=== PATIENT | female | born 1950 | race Caucasian/White ===

== ENCOUNTER 2018-08-24 12:36 | Emergency (ER) | payer MEDICARE, OTHER ==
[~2018-08-24] VITALS: Ht 157.5 cm; Wt 77.1 kg
[2018-08-24 13:25] LABS: BASOPHILS % (AUTO) 0 % (0-10); EOSINOPHILS # (AUTO) 0.2 10^3/uL (0.0-0.3); EOSINOPHILS % (AUTO) 2 % (0-10); HEMATOCRIT 45 % (35-52); HEMOGLOBIN 15.5 G/DL (11.5-16.0); LYMPHOCYTES % (AUTO) 26 % (12-44); MEAN CORPUSCULAR HEMOGLOBIN 31 PG (25-34); MEAN CORPUSCULAR HGB CONC 35 G/DL (32-36); MEAN CORPUSCULAR VOLUME 90 FL (80-99); MEAN PLATELET VOLUME 10.8 FL (7.4-10.4); MONOCYTES # (AUTO) 0.7 X 10^3 (0.0-1.0); MONOCYTES % (AUTO) 10 % (0-12); NEUTROPHILS # (AUTO) 4.7 X 10^3 (1.8-7.8); NEUTROPHILS % (AUTO) 62 % (42-75); PLATELET COUNT 270 10^3/uL (130-400); RED BLOOD COUNT 4.97 10^6/uL (4.35-5.85); RED CELL DISTRIBUTION WIDTH 12.7 % (10.0-14.5); WHITE BLOOD COUNT 7.6 10^3/uL (4.3-11.0)
[2018-08-24 13:28] LABS: BILIRUBIN,URINE NEGATIVE (NEGATIVE); CLARITY,URINE CLEAR; COLOR,URINE YELLOW; GLUCOSE, URINE (UA) 4+ (NEGATIVE); KETONES,URINE NEGATIVE (NEGATIVE); LEUKOCYTE ESTERASE ,URINE 1+ (NEGATIVE); NITRITE,URINE NEGATIVE (NEGATIVE); PH,URINE 6 (5-9); PROTEIN,URINE 3+ (NEGATIVE); UROBILINOGEN,URINE NORMAL (NORMAL)
[2018-08-24] MEDS ORDERED: NS IV 500 ML 500 ML IV ONE (13:28)
[2018-08-24 13:42] LABS: ALBUMIN 4.2 GM/DL (3.2-4.5); BILIRUBIN,TOTAL 0.6 MG/DL (0.1-1.0); CALCIUM 10.3 MG/DL (8.5-10.1); CREATININE SERUM 1.15 MG/DL (0.60-1.30); POTASSIUM 3.9 MMOL/L (3.6-5.0); TOTAL PROTEIN 7.8 GM/DL (6.4-8.2)
[2018-08-24 13:43] LABS: BACTERIA,URINE NEGATIVE /HPF; YEAST,URINE FEW /HPF
[2018-08-24] MEDS ORDERED: NS IV 1000 ML 1,000 ML IV SCH (13:47)
[2018-08-24] MEDS ORDERED: inSUlin (REGULAR) HUMAN 1 UNIT/0.01 ML (CHARGE PER UNIT) ONE (13:56)
--- NOTE | 2018-08-24 14:04 | Diagnostic Imaging Report ---
INDICATION: Shortness of air. TIME OF EXAM: 1:26 p.m. COMPARISON: No prior studies are available for comparison. FINDINGS: There are changes of median sternotomy and CABG. The lungs are clear. No infiltrate or failure is seen. No effusion or pneumothorax is detected. IMPRESSION: No acute cardiopulmonary process is detected. Dictated by: Dictated on workstation # [id number]
--- NOTE | 2018-08-24 14:24 | ED General ---
General Chief Complaint: General Problems/Pain Stated Complaint: UTI SYMPTOMS/SOA Nursing Triage Note: PT PRESENTS TO ER WITH COMPLAINT OF UTI, SOA, AND GENERAL "DOWNHILL" SYMPTOMS OVER THE LAST TWO YEARS. Nursing Sepsis Screen: No Definite Risk History of Present Illness Date Seen by Provider: Aug 24, 2018 Time Seen by Provider: 12:58 Initial Comments 67 year old female presents for chronic UTI, inserted and about self- care at home and recent fall. Her son reports that her health is been declining over the last 2-3 years after she suffered a stroke due to an aneurysm in her brain. She has been treated by multiple primary care providers in [place], she prefers to establish care with a provider in [place]. She has not taken her diabetes or hypertension medications for the last several days. She was afraid there is Sulfa in her diabetes medicines. She didn't take her B/P meds because she has to urinate too frequently after taking them. She has been on Augmentin for the last few days for UTI. Pt brought by her son, another son stays at her house with her. She is concerned, as she is having more and more difficulty performing ADLs independently. Her son states "she needs admitted so we can get her help" She has a history of fibromyalgia and hypothyroidism. Timing/Duration: 2-3 Days Severity: Mild Modifying Factors: improves with Rest Associated Systoms: No Chest Pain, No Cough, No Diaphoresis, No Fever/Chills, No Headaches, No Loss of Appetite; Malaise; No Nausea/Vomiting, No Rash, No Seizure; Shortness of Air; No Syncope; Weakness Allergies and Home Medications Allergies Coded Allergies: Sulfa (Sulfonamide Antibiotics) (Verified Allergy, Unknown, 08/24/18) Patient Home Medication List Home Medication List Reviewed: Yes Review of Systems Review of Systems Constitutional: no symptoms reported, see HPI Genitourinary: see HPI, dysuria, frequency Musculoskeletal: see HPI, joint pain, muscle pain, other (she has history of fibromyalgia with generalized pain) All Other Systems Reviewed Negative Unless Noted: Yes Past Sbkiwok-[id number]-Zffsnc Hx Past Med/Social Hx: Reviewed Nursing Past Med/Soc Hx Patient Social History Alcohol Use: Denies Use Recreational Drug Use: No Smoking Status: Never a Smoker Recent Foreign Travel: No Contact w/Someone Who Travel: No Recent Infectious Disease Expo: No Recent Hopitalizations: No Immunizations Up To Date Tetanus Booster (TDap): Unknown Seasonal Allergies Seasonal Allergies: No Past Medical History Surgeries: Yes Bladder Surgery, CABG, Hysterectomy Respiratory: Yes Pulmonary Embolism Cardiac: Yes Aneurysm, Hypertension Neurological: Yes Stroke [place] [facility] [place] [employer] History: Hysterectomy Genitourinary: Yes UTI-Chronic Musculoskeletal: Yes Fibromyalgia, Chronic Back Pain Endocrine: Yes Diabetes, Non-Insulin dep HEENT: No Cancer: No Psychosocial: No Integumentary: No Blood Disorders: No Physical Exam Vital Signs Vital Signs - First Documented 08/24/18 12:55 Temp 98.1 Pulse 99 Resp 20 B/P (MAP) 202/106 (138) Pulse Ox 93 O2 Delivery Room Air Capillary Refill : Less Than 3 Seconds Height, Weight, BMI Height: 5'2.00" Weight: 170lbs. oz. 77.892879un; BMI Method:Stated General Appearance: No Apparent Distress, WD/WN Eyes: Bilateral Eye Normal Inspection, Bilateral Eye PERRL, Bilateral Eye EOMI HEENT: PERRL/EOMI, TMs Normal, Normal ENT Inspection, Pharynx Normal Neck: Full Range of Motion, Normal Inspection, Non Tender, Supple Respiratory: Chest Non Tender, Lungs Clear, Normal Breath Sounds Cardiovascular: Regular Rate, Rhythm, No Edema, Normal Peripheral Pulses Gastrointestinal: Normal Bowel Sounds, Non Tender, Soft Neurologic/Psychiatric: Alert, Oriented x3, No Motor/Sensory Deficits, Normal Mood/Affect Skin: Normal Color, Warm/Dry Focused Exam Lactate Level 08/24/18 13:10: Lactic Acid Level 2.51*H 08/24/18 15:06: Lactic Acid Level 1.45 Lactic Acid Level Laboratory Tests Test 08/24/18 13:10 08/24/18 15:06 Lactic Acid Level 2.51 MMOL/L (0.50-2.00) *H 1.45 MMOL/L (0.50-2.00) Progress/Results/Core Measures Suspected Sepsis Recent Fever Within 48 Hours: No Infection Criteria Present: Documented Infection New/Unexplained Altered Menta: No Sepsis Screen: No Definite Risk Within 3hrs of presentation: Admin fluids, Blood cultures prior to ABX's, Focus exam, Lactate level SIRS Temperature:98.1 Pulse: 99 Respiratory Rate: 20 Laboratory Tests 08/24/18 13:10: White Blood Count 7.6 Blood Pressure 202 /106 Mean: 138 08/24/18 13:10: Lactic Acid Level 2.51*H 08/24/18 15:06: Lactic Acid Level 1.45 Laboratory Tests 08/24/18 13:10: Creatinine 1.15, INR Comment 1.0, Platelet Count 270, Total Bilirubin 0.6 Results/Orders Lab Results Laboratory Tests Test 08/24/18 13:10 08/24/18 14:42 08/24/18 15:06 Range/Units White Blood Count 7.6 4.3-11.0 10^3/uL Red Blood Count 4.97 4.35-5.85 10^6/uL Hemoglobin 15.5 11.5-16.0 G/DL Hematocrit 45 35-52 % Mean Corpuscular Volume 90 80-99 FL Mean Corpuscular Hemoglobin 31 25-34 PG Mean Corpuscular Hemoglobin Concent 35 32-36 G/DL Red Cell Distribution Width 12.7 10.0-14.5 % Platelet Count 270 130-400 10^3/uL Mean Platelet Volume 10.8 H 7.4-10.4 FL Neutrophils (%) (Auto) 62 42-75 % Lymphocytes (%) (Auto) 26 12-44 % Monocytes (%) (Auto) 10 0-12 % Eosinophils (%) (Auto) 2 0-10 % Basophils (%) (Auto) 0 0-10 % Neutrophils # (Auto) 4.7 1.8-7.8 X 10^3 Lymphocytes # (Auto) 2.0 1.0-4.0 X 10^3 Monocytes # (Auto) 0.7 0.0-1.0 X 10^3 Eosinophils # (Auto) 0.2 0.0-0.3 10^3/uL Basophils # (Auto) 0.0 0.0-0.1 10^3/uL Prothrombin Time 13.0 12.2-14.7 SEC INR Comment 1.0 0.8-1.4 Activated Partial Thromboplast Time 25 24-35 SEC Urine Color YELLOW Urine Clarity CLEAR Urine pH 6 5-9 Urine Specific [place] 1.015 L 1.016-1.022 Urine Protein 3+ H NEGATIVE Urine Glucose (UA) 4+ H NEGATIVE Urine Ketones NEGATIVE NEGATIVE Urine Nitrite NEGATIVE NEGATIVE Urine Bilirubin NEGATIVE NEGATIVE Urine Urobilinogen NORMAL NORMAL MG/DL Urine Leukocyte Esterase 1+ H NEGATIVE Urine RBC (Auto) NEGATIVE NEGATIVE Urine RBC NONE /HPF Urine WBC 2-5 /HPF Urine Squamous Epithelial Cells 5-10 /HPF Urine Crystals NONE /LPF Urine Bacteria NEGATIVE /HPF Urine Casts NONE /LPF Urine Mucus NEGATIVE /LPF Urine Yeast FEW H /HPF Urine Culture Indicated NO Sodium Level 135 135-145 MMOL/L Potassium Level 3.9 3.6-5.0 MMOL/L Chloride Level 98 98-107 MMOL/L Carbon Dioxide Level 25 21-32 MMOL/L Anion Gap 12 5-14 MMOL/L Blood Urea Nitrogen 15 7-18 MG/DL Creatinine 1.15 0.60-1.30 MG/DL Estimat Glomerular Filtration Rate 47 BUN/Creatinine Ratio 13 Glucose Level 473 *H 70-105 MG/DL Lactic Acid Level 2.51 *H 1.45 0.50-2.00 MMOL/L Calcium Level 10.3 H 8.5-10.1 MG/DL Corrected Calcium 10.1 8.5-10.1 MG/DL Total Bilirubin 0.6 0.1-1.0 MG/DL Aspartate Amino Transf (AST/SGOT) 24 5-34 U/L Alanine Aminotransferase (ALT/SGPT) 39 0-55 U/L Alkaline Phosphatase 97 40-136 U/L Total Protein 7.8 6.4-8.2 GM/DL Albumin 4.2 3.2-4.5 GM/DL Glucometer 365 H 70-110 MG/DL My Orders Orders - RICHARD OROSCO Ua Culture If Indicated (08/24/18 12:42) Cbc With Automated Diff (08/24/18 13:16) Comprehensive Metabolic Panel (08/24/18 13:16) Blood Culture (08/24/18 13:16) Protime With Inr (08/24/18 13:16) Partial Thromboplastin Time (08/24/18 13:16) Chest 1 View, Ap/Pa Only (08/24/18 13:16) Saline Lock/Iv-Start (08/24/18 13:16) Vital Signs Adult Sepsis Patie Q15M (08/24/18 13:16) O2 (08/24/18 13:16) Lactic Acid Analyzer (08/24/18 13:16) Saline Lock/Iv-Start (08/24/18 13:28) Saline Lock/Iv-Start (08/24/18 13:47) Ns Iv 1000 Ml (Sodium Chloride 0.9%) (08/24/18 13:47) Tramadol Tablet (Ultram Tablet) (08/24/18 13:47) Insulin (Regular) Human (Humulin R (Per (08/24/18 13:56) Accucheck Stat ONCE (08/24/18 14:31) Ondansetron Injection (Zofran Injectio (08/24/18 14:45) Losartan Tablet (Cozaar Tablet) (08/24/18 15:00) Amlodipine Tablet (Norvasc Tablet) (08/24/18 15:00) Medications Given in ED Current Medications Medications Dose Ordered Sig/Briseida Route Start Time Stop Time Status Last Admin Dose Admin Insulin Human Regular 1 unit STK-MED ONCE .ROUTE 08/24/18 13:56 08/24/18 13:58 DC 08/24/18 14:02 10 UNIT Ondansetron HCl 4 mg ONCE ONCE IVP 08/24/18 14:45 08/24/18 14:46 DC 08/24/18 14:51 4 MG Vital Signs/I&O 08/24/18 08/24/18 12:55 15:55 Temp 98.1 Pulse 99 85 Resp 20 19 B/P (MAP) 202/106 (138) 165/101 (122) Pulse Ox 93 95 O2 Delivery Room Air Room Air Capillary Refill : Less Than 3 Seconds Blood Pressure Mean: 138 Progress Note : Time: 12:58 Progress Note Initial evaluation completed. Will do sepsis workup, due to recent treatment for urinary tract infection with continued subjective symptoms. Will start IV fluids, normal saline 1 L. 1320 glucose 473, will give 10 units regular insulin subcutaneous. Lactic acide 2.51 1400 discussed with the patient and her son consideration for assisted living. At this time she is unsure if she is willing to do that change. Her son feels it would be safest for her. There is a new facility that has happened in [place].Discussed options for local PCP. 1445 glucose 365. 1500 Lactic acid down to 1.45. Planned to give losartan and amlodipine for b/p, patient refused, said she did take these this morning. 1530 Discharge instructions and return precautions reviewed. Diagnostic Imaging Diagonstic Imaging: Xray Plain Films/CT/US/NM/MRI: chest Comments NAME: ML DIAS MED REC#: [id number] PT STATUS: REG ER : 1950 PHYSICIAN: RICHARD OROSCO ADMIT DATE: 08/24/18/ER Draft Date of Exam:08/24/18 CHEST 1 VIEW, AP/PA ONLY INDICATION: Shortness of air. TIME OF EXAM: 1:26 p.m. COMPARISON: No prior studies are available for comparison. FINDINGS: There are changes of median sternotomy and CABG. The lungs are clear. No infiltrate or failure is seen. No effusion or pneumothorax is detected. IMPRESSION: No acute cardiopulmonary process is detected. Dictated on workstation # [id number] Dict: 08/24/18 1349 Trans: 08/24/18 1404 [id number] Interpreted by: LAMONTE ZULUAGA MD Electronically signed by: Departure Impression Primary Impression: Urinary tract infection Qualified Codes: N30.01 - Acute cystitis with hematuria Additional Impressions: Fatigue Qualified Codes: R53.82 - Chronic fatigue, unspecified Chronic pain Qualified Codes: G89.29 - Other chronic pain Disposition: 01 HOME, SELF-CARE Condition: Improved Departure-Patient Inst. Decision time for Depature: 15:30 Patient Instructions: Urinary Tract Infection, Adult (DC), Chronic Pain (DC) Add. Discharge Instructions: Take your home medication as prescribed. Follow-up with your primary care provider or establish care with new provider, see list. Consider evaluation at assisted living. Empty bladder frequently. Drink 6-8 ounces of water every hour while awake. 1 glass of cranberry juice daily. Return to emergency department for new health care problems. All discharge instructions reviewed with patient and/or family. Voiced understanding. Work/School Note: Local Medical Staff Listing RICHARD OROSCO Aug 24, 2018 14:24
[2018-08-24] MEDS ORDERED: ONDANSETRON 4 MG/2 ML (SDV) Z0FRAN IVP ONE (14:45)
[2018-08-24] MEDS ORDERED: AMLO10TA6 (14:57)
[2018-08-24] MEDS ORDERED: LOSA100T8 (14:57)
[2018-08-24] MEDS ORDERED: HYDR-3922 (14:57)
[2018-08-24] MEDS ORDERED: CARV12.53 (14:57)
[2018-08-24] MEDS ORDERED: ALPR0.5T7 (14:57)
[2018-08-24] MEDS ORDERED: LEVO125T6 (14:57)
[2018-08-24] MEDS ORDERED: APIX5TAB (14:57)
[2018-08-24] MEDS ORDERED: FLUT16SP22 (14:57)
[2018-08-24] MEDS ORDERED: GLIM1TAB (14:57)
[2018-08-24] MEDS ORDERED: ZOLP5TAB7 (14:57)
[2018-08-24] MEDS ORDERED: amLODIPine 5 MG (NORVASC) TAB PO ONE (15:00)
[2018-08-24] MEDS ORDERED: LOSARTAN 50 MG (COZAAR) TAB PO ONE (15:00)
[2018-08-24 15:55] VITALS: BP 165/101
== END 2018-08-24 15:55 | disposition home or self-care (01) ==
LOC: EDUNIT# 12:36 → ER 12:38
DX: N39.0 Urinary tract infection, site not specified (principal); R53.83 Other fatigue; G89.29 Other chronic pain; E03.9 Hypothyroidism, unspecified; E11.9 Type 2 diabetes mellitus without complications; I10 Essential (primary) hypertension; Z86.73 Personal history of transient ischemic attack (TIA), and cerebral infarction without residual deficits; Z88.2 Allergy status to sulfonamides; Z91.14 Patient's other noncompliance with medication regimen; Z95.1 Presence of aortocoronary bypass graft; Z90.710 Acquired absence of both cervix and uterus; Z86.711 Personal history of pulmonary embolism
CPT/HCPCS: 36415; 71045; 80053; 81000; 82962; 83605; 85025; 85610; 85730; 87040; 96361; 96374; 96375

== ENCOUNTER 2019-10-01 16:06 | Inpatient (IN) | payer MEDICARE, OTHER ==
[~2019-10-01] VITALS: Ht 157.5 cm; Wt 85.1 kg
[~2019-10-01 16:06] MED LIST: ALPR0.5T7; AMLO10TA7 PO; APIX5TAB PO; ASPI-983 PO; ATOR40TA70 PO; CARV12.53 PO; CETI1TAB61 PO; CITA20TA9 PO; FLUT16SP22 NS; GLIM1TAB PO; HYDR-3922 PO; IBUP-1773 PO; LEVO112T55 PO; LEVO125T6; LEVO125T6 PO; LOSA100T57 PO; MIRA50TA PO; MIRT30TA6 PO; NF-PIME1% TP; RANI-613 PO; ZOLP5TAB7 PO
--- NOTE | 2019-10-01 17:42 | ED General ---
General Chief Complaint: General Problems/Pain Stated Complaint: WEAK/TROUBLE MOVING Nursing Triage Note: Pt to triage via personal w/c with c/o generalized weakness. Pt reports increase in severity for approx x2wks. Pt reports she was unable to bathe herself on this day. Denies fever, chills, or pain. A&OX4. Son @ side. Nursing Sepsis Screen: No Definite Risk Source of Information: Patient Exam Limitations: No Limitations (REBA YOUNG MD) History of Present Illness Date Seen by Provider: Oct 01, 2019 Time Seen by Provider: 17:38 Initial Comments This 68-year-old white female presents with a history of progressive weakness for the last 2 weeks. Patient was recently discharged for treatment for C. difficile. She relates that her diarrhea has resolved but that she has a severe metabolic gas. She has had no associated vomiting. She denies associated fever or chills, she's had no productive cough or shortness of breath. She denies chest pain or palpitations. She denies headache or stiff neck or photophobia. (REBA YOUNG MD) Allergies and Home Medications Allergies Coded Allergies: Sulfa (Sulfonamide Antibiotics) (Verified Allergy, Unknown, 08/24/18) ciprofloxacin (Verified Allergy, Unknown, anaphylaxis, 08/02/19) nitrofurantoin (Verified Allergy, Unknown, SOB/wheezing , 08/02/19) Home Medications Amlodipine Besylate 10 Mg Tablet, 10 MG PO DAILY, (Reported) Aspirin 81 Mg Tablet.dr, 81 MG PO DAILY, (Reported) Atorvastatin Calcium 40 Mg Tablet, 40 MG PO DAILY, (Reported) Carvedilol 12.5 Mg Tablet, 12.5 MG PO BID, (Reported) Cetirizine HCl/Pseudoephedrine 1 Each Tab.er.12h, 1 TAB PO DAILY PRN for CONGESTION, (Reported) Citalopram Hydrobromide 20 Mg Tablet, 20 MG PO DAILY PRN for DEPRESSION, (Reported) HAS BEEN SLEEPING THROUGH THE MORNING AND DOES NOT LIKE TO TAKE IT IN THE AFTERNOON SO SKIPS DOSES FREQUENTLY Fluticasone Propionate 16 Gm [place].susp, 2 SPRAYS NS DAILY PRN for ALLERGIES, (Reported) Glimepiride 1 Mg Tablet, 1 MG PO DAILY, (Reported) Hydralazine HCl 10 Mg Tablet, 10 MG PO BID, (Reported) Levothyroxine Sodium 125 Mcg Tablet, 125 MCG PO DAILY, (Reported) Losartan Potassium 100 Mg Tablet, 100 MG PO DAILY, (Reported) Mirabegron 50 Mg Tab.er.24h, 50 MG PO DAILY, (Reported) Mirtazapine 30 Mg Tablet, 30 MG PO HS, (Reported) Pimecrolimus 30 Gm Cream.gm., TP BID, (Reported) 14 DAY SUPPLY FILLED 07-25-19 Ranitidine HCl 150 Mg Tablet, 150 MG PO HS, (Reported) Patient Home Medication List Home Medication List Reviewed: Yes (REBA YOUNG MD) Review of Systems Review of Systems Constitutional: No chills, No fever; weakness EENTM: no symptoms reported Respiratory: No cough, No short of breath Cardiovascular: No chest pain, No palpitations Gastrointestinal: No abdominal pain, No diarrhea; other (excess gas) Genitourinary: No dysuria, No frequency Musculoskeletal: no symptoms reported Skin: no symptoms reported; No rash Psychiatric/Neurological: No Symptoms Reported Hematologic/Lymphatic: No Symptoms Reported Immunological/Allergic: no symptoms reported (REBA YOUNG MD) Past Zlbyhly-Yaymlb-Dcjsyj Hx Past Med/Social Hx: Reviewed Nursing Past Med/Soc Hx (REBA YOUNG MD) Patient Social History Alcohol Use: Denies Use Recreational Drug Use: No Smoking Status: Never a Smoker 2nd Hand Smoke Exposure: No Recent Foreign Travel: No Contact w/Someone Who Travel: No Recent Infectious Disease Expo: No Recent Hopitalizations: No (REBA YOUNG MD) Immunizations Up To Date Tetanus Booster (TDap): Unknown Date of Pneumonia Vaccine: Aug 02, 2018 (REBA YOUNG MD) Seasonal Allergies Seasonal Allergies: No (REBA YOUNG MD) Past Medical History Surgeries: Yes (Bladder ) CABG Respiratory: Yes Pulmonary Embolism Cardiac: Yes Coronary Artery Disease, High Cholesterol, Hypertension Neurological: Yes Stroke, [employer] History: Hysterectomy Genitourinary: Yes UTI-Chronic Musculoskeletal: Yes Fibromyalgia, Chronic Back Pain Endocrine: Yes Diabetes, Non-Insulin dep HEENT: No Cancer: No Psychosocial: Yes Anxiety Integumentary: No Blood Disorders: No (REBA YOUNG MD) Family Medical History Heart Disease, Cancer (REBA YOUNG MD) Physical Exam Vital Signs Vital Signs - First Documented 10/01/19 17:06 Temp 36.4 Pulse 71 Resp 16 B/P (MAP) 172/105 (127) Pulse Ox 94 O2 Delivery Room Air (ASHWIN MAYORGA MD) Vital Signs Capillary Refill : Less Than 3 Seconds (REBA YOUNG MD) Height, Weight, BMI Height: 5'2.00" Weight: 170lbs. oz. [id number]; 31.00 BMI Method:Stated General Appearance: Obese, Other (weak and flacid) HEENT: Normal ENT Inspection Neck: Normal Inspection Respiratory: Normal Breath Sounds Cardiovascular: Regular Rate, Rhythm Gastrointestinal: Non Tender, Soft, Abnormal Bowel Sounds (hypoactive) Extremity: Normal Inspection, Normal Range of Motion, Non Tender Neurologic/Psychiatric: Alert, Oriented x3, No Motor/Sensory Deficits Skin: Normal Color, Warm/Dry (REBA YOUNG MD) Progress/Results/Core Measures Suspected Sepsis Recent Fever Within 48 Hours: No Infection Criteria Present: None New/Unexplained Altered Menta: No Sepsis Screen: No Definite Risk SIRS Temperature: Pulse: 71 Respiratory Rate: 16 Blood Pressure 172 /105 Mean: 127 (REBA YOUNG MD) Results/Orders Lab Results Laboratory Tests Test 10/01/19 17:59 10/01/19 18:52 10/01/19 19:59 10/01/19 21:00 Range/Units Sodium Level 131 L 135-145 MMOL/L Potassium Level 4.3 3.6-5.0 MMOL/L Chloride Level 96 L 98-107 MMOL/L Carbon Dioxide Level 23 21-32 MMOL/L Anion Gap 12 5-14 MMOL/L Blood Urea Nitrogen 20 H 7-18 MG/DL Creatinine 1.42 H 0.60-1.30 MG/DL Estimat Glomerular Filtration Rate 37 BUN/Creatinine Ratio 14 Glucose Level 433 *H 70-105 MG/DL Calcium Level 9.2 8.5-10.1 MG/DL Corrected Calcium 9.1 8.5-10.1 MG/DL Magnesium Level 2.3 1.6-2.4 MG/DL Total Bilirubin 0.3 0.1-1.0 MG/DL Aspartate Amino Transf (AST/SGOT) 37 H 5-34 U/L Alanine Aminotransferase (ALT/SGPT) 48 0-55 U/L Alkaline Phosphatase 87 40-136 U/L Troponin I < 0.028 <0.028 NG/ML B-Type Natriuretic Peptide 31.3 <100.0 PG/ML Total Protein 7.5 6.4-8.2 GM/DL Albumin 4.1 3.2-4.5 GM/DL Lipase 13 8-78 U/L Thyroid Stimulating Hormone (TSH) 53.29 H 0.35-4.94 UIU/ML Free Thyroxine < 0.40 L 0.70-1.48 NG/DL Urine Color YELLOW Urine Clarity CLEAR Urine pH 6.5 5-9 Urine Specific [place] 1.020 1.016-1.022 Urine Protein 2+ H NEGATIVE Urine Glucose (UA) 3+ H NEGATIVE Urine Ketones NEGATIVE NEGATIVE Urine Nitrite POSITIVE NEGATIVE Urine Bilirubin NEGATIVE NEGATIVE Urine Urobilinogen 0.2 < = 1.0 MG/DL Urine Leukocyte Esterase NEGATIVE NEGATIVE Urine RBC (Auto) TRACE-I NEGATIVE Urine RBC 2-5 H /HPF Urine WBC TNTC H /HPF Urine Squamous Epithelial Cells 2-5 /HPF Urine Crystals NONE /LPF Urine Bacteria LARGE H /HPF Urine Casts NONE /LPF Urine Mucus NEGATIVE /LPF Urine Culture Indicated YES White Blood Count 7.8 4.3-11.0 10^3/uL Red Blood Count 4.77 4.35-5.85 10^6/uL Hemoglobin 14.5 11.5-16.0 G/DL Hematocrit 42 35-52 % Mean Corpuscular Volume 89 80-99 FL Mean Corpuscular Hemoglobin 30 25-34 PG Mean Corpuscular Hemoglobin Concent 34 32-36 G/DL Red Cell Distribution Width 12.8 10.0-14.5 % Platelet Count 233 130-400 10^3/uL Mean Platelet Volume 10.2 7.4-10.4 FL Neutrophils (%) (Auto) 56 42-75 % Lymphocytes (%) (Auto) 33 12-44 % Monocytes (%) (Auto) 8 0-12 % Eosinophils (%) (Auto) 2 0-10 % Basophils (%) (Auto) 0 0-10 % Neutrophils # (Auto) 4.4 1.8-7.8 X 10^3 Lymphocytes # (Auto) 2.6 1.0-4.0 X 10^3 Monocytes # (Auto) 0.6 0.0-1.0 X 10^3 Eosinophils # (Auto) 0.2 0.0-0.3 10^3/uL Basophils # (Auto) 0.0 0.0-0.1 10^3/uL Blood Gas Puncture Site RIGHT RADIAL Blood Gas Patient Temperature 36.5 Arterial Blood pH 7.38 7.37-7.43 Arterial Blood Partial Pressure CO2 46 H 35-45 MMHG Arterial Blood Partial Pressure O2 49 L 79-93 MMHG Arterial Blood HCO3 27 23-27 MMOL/L Arterial Blood Total CO2 28.1 21.0-31.0 MMOL/L Arterial Blood Oxygen Saturation 71 L 94-100 % Arterial Blood Base Excess 1.9 -2.5-2.5 MMOL/L Roberto Test POSITIVE Blood Gas Ventilator Setting NO Blood Gas Inspired Oxygen N/A Test 10/01/19 23:09 Range/Units Glucometer 405 *H 70-110 MG/DL (ASHWIN MAYORGA MD) My Orders Orders - ASHWIN MAYORGA MD Thyroid Stimulating Hormone (10/01/19 19:02) Free T4 (Free Thyroxine) (10/01/19 19:02) Cbc With Automated Diff (10/01/19 19:43) Ceftriaxone For Iv Use (Rocephin For I (10/01/19 20:15) Ed Iv/Invasive Line Start (10/01/19 20:06) Ns Iv 1000 Ml (Sodium Chloride 0.9%) (10/01/19 20:06) Carvedilol Tablet (Coreg Tablet) (10/01/19 20:15) Arterial Blood Gas (10/01/19 19:45) Magnesium (10/01/19 20:40) (ASHWIN MAYORGA MD) Medications Given in ED Current Medications Medications Dose Ordered Sig/Briseida Route Start Time Stop Time Status Last Admin Dose Admin Carvedilol 12.5 mg ONCE ONCE PO 10/01/19 20:15 10/01/19 20:16 DC 10/01/19 20:41 12.5 MG Ceftriaxone Sodium 1000 mg/ Sterile Water 10 ml @ 200 mls/hr ONCE ONCE IV 10/01/19 20:15 10/01/19 20:17 DC 10/01/19 20:41 200 MLS/HR Sodium Chloride 1,000 ml @ 0 mls/hr Q0M ONCE IV 10/01/19 20:06 10/01/19 20:08 DC 10/01/19 20:41 999 MLS/HR (ASHWIN MAYORGA MD) Vital Signs/I&O 10/01/19 10/01/19 10/01/19 10/02/19 21:12 21:47 22:31 00:20 Temp 36.4 36.2 36.0 Pulse 71 67 65 Resp 16 22 18 B/P (MAP) 142/89 (127) 194/93 170/81 (110) Pulse Ox 96 97 93 O2 Delivery Room Air Room Air Room Air Room Air 10/02/19 04:00 Temp 36.2 Pulse 65 Resp 20 B/P (MAP) 199/91 (127) Pulse Ox 96 O2 Delivery Room Air (ASHWIN MAYORGA MD) Vital Signs/I&O Capillary Refill : Less Than 3 Seconds (REBA YOUNG MD) Blood Pressure Mean: 127 POS Progress Note : Time: 18:02 Progress Note My partner, Dr. Collier, accepted the patient at change of shifts. (REBA YOUNG MD) Progress Note : Progress Note Care of this patient was assumed from Dr. Young at 18:00. Imaging revealed no acute abnormalities. Patient has significant metabolic problems including severe hypothyroidism and hyperglycemia. Significant urinary tract infection was also identified. Renal insufficiency was noted. IV fluids and Rocephin were ordered to initiate in the emergency room. Carvedilol was ordered for treatment of her hypertension. Patient reports she was due for her carvedilol dose. (ASHWIN MAYORGA MD) Diagnostic Imaging Diagonstic Imaging: CT Plain Films/CT/US/NM/MRI: abdomen, pelvis Comments NAME: ML DIAS [facility] REC#: [id number] PT STATUS: REG ER : 1950 PHYSICIAN: REBA YOUNG MD ADMIT DATE: 10/01/19/ER Signed Date of Exam:10/01/19 CT ABDOMEN/PELVIS WO PROCEDURE: CT abdomen and pelvis without contrast. TECHNIQUE: Multiple contiguous axial images were obtained through the abdomen and pelvis without the use of intravenous contrast. Auto Exposure Controls were utilized during the CT exam to meet ALARA standards for radiation dose reduction. DATE: October 01, 2019. COMPARISON: None. INDICATION: 68-year-old female, abdominal pain, cramping, weakness. FINDINGS: There are limitations for evaluation of the abdominal organs, neoplastic processes, abscess, and limited evaluation of the vasculature relating to the lack of intravenous contrast. There are bilateral breast implants. The visualized portions of the lungs are clear. The heart is not enlarged. There is no pericardial effusion. There is diffuse fatty infiltration of the liver. The outer liver contours are not nodular. There is high attenuation within the gallbladder which may relate to sludge, stones, and/or vicarious excretion of recently administered contrast. There is no evidence to suggest acute cholecystitis. There is no biliary ductal dilation. The main pancreatic duct is not grossly dilated. Limited noncontrast evaluation of the pancreatic parenchyma is unremarkable. The spleen is normal in size. The adrenal glands are unremarkable. There is a low-attenuation right renal lesion on axial image 41 measuring 10 mm in size with internal attenuation diagnostic for a benign cyst. There are calcifications adjacent to the left kidney which are likely vascularly related. Urinary collecting systems are not distended. There is no identified renal or ureteral stone. The urinary bladder is unremarkable in appearance. The uterus is not seen and may be surgically absent. There is diverticulosis without evidence of acute diverticulitis. There is no evidence of acute appendicitis. There is no free intraperitoneal air. There is no drainable fluid collection. There is no free pelvic fluid. There are atherosclerotic calcifications. There is no identified abnormally enlarged lymph node in the abdomen or pelvis which meets CT size criteria for adenopathy. There are degenerative changes of the spine. There are median sternotomy wires. There is no identified acute bony abnormality. IMPRESSION: CT ABDOMEN AND PELVIS. 1. No identified acute abnormality in the abdomen or pelvis. 2. Diffuse fatty infiltration of the liver. Dictated by: Dictated on workstation # [id number] Dict: 10/01/191831 Trans: 10/01/191926 [facility] [id number] Interpreted by: SUGAR PRICE MD Electronically signed by: SUGAR PRICE MD 10/01/191926 Diagonstic Imaging: Xray Plain Films/CT/US/NM/MRI: chest Comments NAME: ML DIAS [facility] REC#: [id number] PT STATUS: ADM IN : 1950 PHYSICIAN: REBA YOUNG MD ADMIT DATE: 10/01/19 Signed Date of Exam:10/01/19 CHEST 1 VIEW, AP/PA ONLY EXAM: CHEST 1 VIEW, AP/PA ONLY. INDICATION: Weakness. COMPARISON: 08/24/2018. FINDINGS: Sternotomy with CABG. Normal heart size and central pulmonary vascularity. No focal pulmonary opacity, pleural effusion, or pneumothorax. No acute osseous findings. No significant change. IMPRESSION: CABG. No acute cardiopulmonary findings. Dictated by: Dictated on workstation # [id number] Dict: 10/01/191848 Trans: 10/01/192116 [id number] Interpreted by: KARLA MORENO MD Electronically signed by: KARLA MORENO MD 10/01/192116 (ASHWIN MAYORGA MD) Departure Communication (Admissions) Time/Spoke to Admitting Phy: 20:40 Dr. Cooper (ASHWIN MAYORGA MD) Impression Primary Impression: Urinary tract infection Qualified Codes: N39.0 - Urinary tract infection, site not specified Additional Impressions: Hypothyroidism Qualified Codes: E03.9 - Hypothyroidism, unspecified Generalized weakness Hypertension Qualified Codes: I10 - Essential (primary) hypertension Hyperglycemia Renal insufficiency Abdominal pain Qualified Codes: R10.84 - Generalized abdominal pain Disposition: ADMITTED INPATIENT Condition: Improved Admissions Decision to Admit Reason: Admit from ER (General) Decision to Admit/Date: Oct 01, 2019 Time/Decision to Admit Time: 20:10 (ASHWIN MAYORGA MD) Departure-Patient Inst. Referrals: JESSICA CHAVES MD (PCP/Family) Primary Care Physician REBA YOUNG MD Oct 01, 2019 17:42 POSASHWIN MAYORGA MD Oct 01, 2019 20:55 POS
[2019-10-01 18:32] LABS: ALANINE AMINOTRANSFERASE 48 U/L (0-55); ALBUMIN 4.1 GM/DL (3.2-4.5); ALKALINE PHOSPHATASE 87 U/L (40-136); BILIRUBIN,TOTAL 0.3 MG/DL (0.1-1.0); BUN/CREATININE RATIO 14; CALCIUM 9.2 MG/DL (8.5-10.1); CARBON DIOXIDE 23 MMOL/L (21-32); CHLORIDE 96 MMOL/L (98-107); CREATININE SERUM 1.42 MG/DL (0.60-1.30); GFR ESTIMATED 37; LIPASE 13 U/L (8-78); POTASSIUM 4.3 MMOL/L (3.6-5.0); SODIUM 131 MMOL/L (135-145); TOTAL PROTEIN 7.5 GM/DL (6.4-8.2)
[2019-10-01 18:34] LABS: GLUCOSE 433 MG/DL (70-105)
--- NOTE | 2019-10-01 18:52 | Diagnostic Imaging Report ---
EXAM: CHEST 1 VIEW, AP/PA ONLY. INDICATION: Weakness. COMPARISON: 08/24/2018. FINDINGS: Sternotomy with CABG. Normal heart size and central pulmonary vascularity. No focal pulmonary opacity, pleural effusion, or pneumothorax. No acute osseous findings. No significant change. IMPRESSION: CABG. No acute cardiopulmonary findings. Dictated by: Dictated on workstation # [id number]
[2019-10-01 18:58] LABS: BILIRUBIN,URINE NEGATIVE (NEGATIVE); CLARITY,URINE CLEAR; COLOR,URINE YELLOW; GLUCOSE, URINE (UA) 3+ (NEGATIVE); KETONES,URINE NEGATIVE (NEGATIVE); LEUKOCYTE ESTERASE ,URINE NEGATIVE (NEGATIVE); NITRITE,URINE POSITIVE (NEGATIVE); PH,URINE 6.5 (5-9); PROTEIN,URINE 2+ (NEGATIVE)
--- NOTE | 2019-10-01 19:01 | Diagnostic Imaging Report ---
PROCEDURE: CT abdomen and pelvis without contrast. TECHNIQUE: Multiple contiguous axial images were obtained through the abdomen and pelvis without the use of intravenous contrast. Auto Exposure Controls were utilized during the CT exam to meet ALARA standards for radiation dose reduction. DATE: October 01, 2019. COMPARISON: None. INDICATION: 68-year-old female, abdominal pain, cramping, weakness. FINDINGS: There are limitations for evaluation of the abdominal organs, neoplastic processes, abscess, and limited evaluation of the vasculature relating to the lack of intravenous contrast. There are bilateral breast implants. The visualized portions of the lungs are clear. The heart is not enlarged. There is no pericardial effusion. There is diffuse fatty infiltration of the liver. The outer liver contours are not nodular. There is high attenuation within the gallbladder which may relate to sludge, stones, and/or vicarious excretion of recently administered contrast. There is no evidence to suggest acute cholecystitis. There is no biliary ductal dilation. The main pancreatic duct is not grossly dilated. Limited noncontrast evaluation of the pancreatic parenchyma is unremarkable. The spleen is normal in size. The adrenal glands are unremarkable. There is a low-attenuation right renal lesion on axial image 41 measuring 10 mm in size with internal attenuation diagnostic for a benign cyst. There are calcifications adjacent to the left kidney which are likely vascularly related. Urinary collecting systems are not distended. There is no identified renal or ureteral stone. The urinary bladder is unremarkable in appearance. The uterus is not seen and may be surgically absent. There is diverticulosis without evidence of acute diverticulitis. There is no evidence of acute appendicitis. There is no free intraperitoneal air. There is no drainable fluid collection. There is no free pelvic fluid. There are atherosclerotic calcifications. There is no identified abnormally enlarged lymph node in the abdomen or pelvis which meets CT size criteria for adenopathy. There are degenerative changes of the spine. There are median sternotomy wires. There is no identified acute bony abnormality. IMPRESSION: CT ABDOMEN AND PELVIS. 1. No identified acute abnormality in the abdomen or pelvis. 2. Diffuse fatty infiltration of the liver. Dictated by: Dictated on workstation # [id number]
[2019-10-01 19:23] LABS: BACTERIA,URINE LARGE /HPF; WBC,URINE TNTC /HPF
[2019-10-01 19:41] LABS: FREE T4 (FREE THYROXINE) < 0.40 NG/DL (0.70-1.48)
[2019-10-01] MEDS ORDERED: NS IV 1000 ML 1,000 ML IV ONE (20:06)
[2019-10-01 20:09] LABS: BASOPHILS % (AUTO) 0 % (0-10); EOSINOPHILS # (AUTO) 0.2 10^3/uL (0.0-0.3); EOSINOPHILS % (AUTO) 2 % (0-10); HEMATOCRIT 42 % (35-52); HEMOGLOBIN 14.5 G/DL (11.5-16.0); LYMPHOCYTES # (AUTO) 2.6 X 10^3 (1.0-4.0); LYMPHOCYTES % (AUTO) 33 % (12-44); MEAN CORPUSCULAR HEMOGLOBIN 30 PG (25-34); MEAN CORPUSCULAR HGB CONC 34 G/DL (32-36); MEAN CORPUSCULAR VOLUME 89 FL (80-99); MEAN PLATELET VOLUME 10.2 FL (7.4-10.4); MONOCYTES # (AUTO) 0.6 X 10^3 (0.0-1.0); MONOCYTES % (AUTO) 8 % (0-12); NEUTROPHILS # (AUTO) 4.4 X 10^3 (1.8-7.8); NEUTROPHILS % (AUTO) 56 % (42-75); PLATELET COUNT 233 10^3/uL (130-400); RED CELL DISTRIBUTION WIDTH 12.8 % (10.0-14.5); WHITE BLOOD COUNT 7.8 10^3/uL (4.3-11.0)
[2019-10-01] MEDS ORDERED: CARVEDILOL 12.5 MG (COREG) TABLET PO ONE (20:15)
[2019-10-01] MEDS ORDERED: cefTRIAXone FOR IV USE 1,000 MG in WATER (STERILE) FOR INJECTION 10 ML IV ONE (20:15)
[2019-10-01 21:04] LABS: ABG BASE EXCESS 1.9 MMOL/L (-2.5-2.5); ABG OXYGEN SATURATION 71 % (94-100); ABG PCO2 46 MMHG (35-45); ABG PH 7.38 (7.37-7.43); ABG PO2 49 MMHG (79-93); ABG TCO2 28.1 MMOL/L (21.0-31.0)
[2019-10-01 21:06] LABS: ALLENS TEST POSITIVE; PATIENT TEMP 36.5; VENTILATOR NO
[2019-10-01 21:47] VITALS: BP 194/93
[2019-10-01] MEDS ORDERED: ZOLPIDEM 5 MG (AMBIEN) TAB ONE (22:21)
[2019-10-01] MEDS: ZOLPIDEM 5 MG (AMBIEN) TAB PO SCH (22:25)
[2019-10-01] MEDS: NS IV 1000 ML 1,000 ML IV SCH (22:53)
[2019-10-01] MEDS ORDERED: inSUlin (REGULAR) HUMAN 1 UNIT/0.01 ML (CHARGE PER UNIT) ONE (23:10)
[2019-10-01] MEDS ORDERED: inSUlin ASPART (NovoLOG) 1 UNIT/0.01 ML (CHARGE PER UNIT) ONE (23:13)
[2019-10-01] MEDS: inSUlin ASPART (NovoLOG) 1 UNIT/0.01 ML (CHARGE PER UNIT) SC SCH (23:16)
[2019-10-02 00:20] VITALS: BP 170/81
[2019-10-02 04:00] VITALS: BP 199/91
[2019-10-02] MEDS ORDERED: CARVEDILOL 12.5 MG (COREG) TABLET ONE (04:48)
[2019-10-02] MEDS: CARVEDILOL 12.5 MG (COREG) TABLET PO SCH ×2 (04:54→21:08)
[2019-10-02] MEDS: LEVOTHYROXINE 100 MCG (LEVOTHROID) TAB PO SCH (04:55)
[2019-10-02] MEDS: NS IV 1000 ML 1,000 ML IV SCH ×2 (05:31→11:14)
[2019-10-02] MEDS: inSUlin ASPART (NovoLOG) 1 UNIT/0.01 ML (CHARGE PER UNIT) SC SCH ×4 (06:15→21:09)
[2019-10-02 06:54] LABS: BASOPHILS % (AUTO) 0 % (0-10); EOSINOPHILS # (AUTO) 0.2 10^3/uL (0.0-0.3); EOSINOPHILS % (AUTO) 2 % (0-10); HEMATOCRIT 38 % (35-52); HEMOGLOBIN 12.7 G/DL (11.5-16.0); LYMPHOCYTES # (AUTO) 1.8 X 10^3 (1.0-4.0); LYMPHOCYTES % (AUTO) 27 % (12-44); MEAN CORPUSCULAR HEMOGLOBIN 30 PG (25-34); MEAN CORPUSCULAR HGB CONC 34 G/DL (32-36); MEAN CORPUSCULAR VOLUME 90 FL (80-99); MEAN PLATELET VOLUME 10.6 FL (7.4-10.4); MONOCYTES # (AUTO) 0.4 X 10^3 (0.0-1.0); MONOCYTES % (AUTO) 7 % (0-12); NEUTROPHILS # (AUTO) 4.1 X 10^3 (1.8-7.8); NEUTROPHILS % (AUTO) 63 % (42-75); PLATELET COUNT 211 10^3/uL (130-400); RED CELL DISTRIBUTION WIDTH 12.7 % (10.0-14.5); WHITE BLOOD COUNT 6.5 10^3/uL (4.3-11.0)
[2019-10-02 07:18] LABS: CALCIUM 8.1 MG/DL (8.5-10.1)
[2019-10-02 07:25] VITALS: BP 177/85
[2019-10-02] MEDS ORDERED: VALS160T29 PO (10:01)
[2019-10-02] MEDS ORDERED: IBUP-844 PO (10:01)
--- NOTE | 2019-10-02 10:20 | Physical Therapy Evaluation ---
PT Evaluation-General Medical Diagnosis Admission Date Oct 01, 2019 at 20:48 Medical Diagnosis: UTI/HTN/hyperglycemia Onset Date: Oct 01, 2019 Therapy Diagnosis Therapy Diagnosis: generalized weakness/debility Height/Weight Height (Feet): 5 Height (Inches): 2.00 Weight (Pounds): 170 Precautions Precautions/Isolations: Standard Precautions Referral Physician: Allison Reason for Referral: Evaluation/Treatment Medical History Pertinent Medical History: CABG, CVA, DM, HTN, Renal Insufficiency Current History ER secondary to inability to care for self Reviewed History: Yes Social History Home: Single Level Current Living Status: Children Entry Into Home: Ramp Prior Prior Level of Function SCALE: Activities may be completed with or without assistive devices. 9-Xezbhjcyol-dhjtcyv completes the activity by him/herself with no assistance from a helper. 5-Set-up or Clean-up Assistance-helper sets up or cleans up; patient completes activity. [place] assists only prior to or following the activity. 4-Supervision or Touching Assistance-helper provides verbal cues and/or touching/steadying and/or contact guard assistance as patient completes activity. Assistance may be provided throughout the activity or intermittently. 3-Partial/Moderate Assistance-helper does LESS THAN HALF the effort. [place] lifts, holds or supports trunk or limbs, but provides less than half the effort. 2-Substantial/Maximal Assistance-helper does MORE THAN HALF the effort. [place] lifts or holds trunk or limbs and provides more than half the effort. 7-Pbvbcvdrs-qhkvoq does ALL the effort. Patient does none of the effort to complete the activity. Or, the assistance of 2 or more helpers is required for the patient to complete the activity. If activity was not attempted, code reason: 7-Patient Refused. 9-Not Applicable-not attempted and the patient did not perform the activity before the current illness, exacerbation or injury. 10-Not Attempted due to Environmental Limitations-(lack of equipment, weather restraints, etc.). 88-Not Attempted due to Medical Conditions or Safety Concerns. Bed Mobility: 6 Transfers (B,C,W/C): 6 Gait: 6 Stairs: 10 Indoor Mobility (Ambulation): Independent Stairs: Not Applicalbe Prior Devices Use: Walker PT Evaluation-Current Subjective Patient agrees to PT. Pain Numeric Pain Scale: 0-No Pain Location: No Pain Reported Objective Patient Orientation: Person, Time, Situation Attachments: IV ROM/Strength ROM Lower Extremities bilateral LE WFL Strength Lower Extremities 3+/5 grossly bilateral LE Integumentary/Posture Integumentary refer to nursing notes Bowel Incontinence: No Bladder Incontinence: No Posture WFL Neuromuscular (Tone, Coordination, Reflexes) grossly intact Sensory Vision: Functional Hearing: Functional Sensation Right Lower Extremit: Impaired Sensation Left Lower Extremity: Impaired Transfers Roll Left to Right (QC): 6 Sit to Lying (QC): 6 Lying to Sitting/Side of Bed(Q: 6 Sit to Stand (QC): 6 Chair/Yqk-wz-Pcxdv Xfer(QC): 6 Car Transfer (QC): 10 Gait Does the Patient Walk?: Yes Mode of Locomotion: Walk Anticipated Mode of Locomotion: Walk Walk 10 feet (QC): 5 Walk 50 ft with 2 Turns(QC): 5 Walk 150 ft (QC): 5 Walking 10ft/uneven surface-QC: 5 Distance: 275' Gait Assistive Device: FWW Comments/Gait Description very slow, functional gait sequence Wheelchair Training Does the Pt Use a Wheelchair?: No Wheel 50 ft with 2 turns (QC): 9 Wheel 150 ft (QC): 9 Type of Wheelchair: Manual Stairs 1 Step (curb) (QC): 9 4 Steps (QC): 9 12 Steps (QC): 9 Balance Sitting Static: Normal Sitting Dynamic: Normal Standing Static: Normal Standing Dynamic: Normal Picking up an Object (QC): 6 Assessment/Needs 68 y.o. female, will be seen short term by skilled PT to address functional strength and mobility to ensure safe return to home or care facility at maximum LOF. Rehab Potential: Guarded Post Rehab Potential-Barriers: compliance PT Algologist Goals Algologist Goals PT Algologist Goals Time Frame: Oct 12, 2019 Roll Left & Right (QC): 6 Sit to Lying (QC): 6 Lying-Sitting on Side/Bed(QC): 6 Sit to Stand (QC): 6 Chair/Jbv-up-Fmbqt Xfer(QC): 6 Toilet Transfer (QC): 6 Car Transfer (QC): 6 Does the Patient Walk: Yes Walk 10 feet (QC): 6 Walk 50ft with 2 Turns (QC): 6 Walk 150 ft (QC): 6 Walking 10ft on Uneven Surface: 6 1 Step (curb) (QC): 9 4 Steps (QC): 9 12 Steps (QC): 9 Picking up an Object (QC): 6 Does the Pt use WC or Scooter?: No Type: N/A Type: N/A PT Plan Treatment/Plan Treatment Plan: Continue Plan of Care Treatment Plan: Bed Mobility, Education, Functional Activity Josue, Functional Strength, Gait, Safety, Therapeutic Exercise, Other Treatment Duration: Oct 12, 2019 Frequency: 6 times per week Estimated Hrs Per Day: .25 hour per day Patient and/or Family Agrees t: Yes Discharge Recommendations Therapy Discharge Recommendati: Other, See Comments (halfway facility) Time/GCodes Time In: 925 Time Out: 935 Total Billed Treatment Time: 10 Total Billed Treatment 1 visit EVLowC 10 min JERAD WOODS PT Oct 02, 2019 10:20 POS
[2019-10-02 11:00] VITALS: BP 206/99
[2019-10-02] MEDS: ENOXAPARIN 40 MG/0.4 ML (LOVENOX) SYR SQ SCH (11:14)
[2019-10-02 16:43] VITALS: BP 168/89
--- NOTE | 2019-10-02 19:52 | History & Physical ---
HPI History of Present Illness: 68 yo F that presented to ER with increasing weakness and some confusion. Daughter states that the patient sets up her own meds and she is not sure that she has been taking them appropriately. Patient is resting comfortably in bed this AM. States that she has been feeling weak for the last few days. She has had decrease in appetite. Patient states that she has forgot to take her meds several times per week. Denies any pain. No chest pain or abdominal pain. She is having some shortness of breath with minimal exertion. Source: patient Exam Limitations: no limitations Date seen by provider: Oct 02, 2019 Time Seen by Provider: 10:35 Attending Physician Brenda Cooper MD PCP Miki Mejia MD Consult Date of Admission Oct 01, 2019 at 20:48 Home Medications Home Medications Reviewed patient Home Medication Reconciliation performed by pharmacy medication reconciliations radiography technician and/or nursing. Patients Allergies have been reviewed. Allergies Coded Allergies: Sulfa (Sulfonamide Antibiotics) (Verified Allergy, Unknown, 08/24/18) ciprofloxacin (Verified Allergy, Unknown, anaphylaxis, 08/02/19) nitrofurantoin (Verified Allergy, Unknown, SOB/wheezing , 08/02/19) MPH-Rbffmm-Mysfcu Hx Patient Social History Alcohol Use: Denies Use Recreational Drug Use: No Smoking Status: Never a Smoker 2nd Hand Smoke Exposure: No Recent Foreign Travel: No Contact w/other who traveled: Yes ([place]) Recent Hopitalizations: No Recent Infectious Disease Expo: No Immunizations Up To Date Tetanus Booster (TDap): Unknown Date of Pneumonia Vaccine: Aug 02, 2018 Past Medical History Non Insulin Dependent DM HTN Hypothyroidism Insomnia Urge Incontinence Family Medical History Significant Family History: Heart Disease, Cancer Family History: Patient reports no known family medical history. Review of Systems ([facility]) Constitutional: chills, malaise EENTM: no symptoms reported Respiratory: No cough, No orthopnea; short of breath Cardiovascular: no symptoms reported; No chest pain, No edema, No palpitations Gastrointestinal: No abdominal pain, No constipation, No diarrhea; loss of appetite; No nausea, No vomiting Genitourinary: No dysuria; frequency : No Musculoskeletal: no symptoms reported; No back pain, No joint pain, No muscle pain Skin: no symptoms reported; No lesions, No rash Psychiatric/Neurological: Weakness Reviewed Test Results Reviewed Test Results Lab Laboratory Tests Test 10/01/19 19:59 10/01/19 21:00 10/01/19 23:09 10/02/19 06:09 Range/Units White Blood Count 7.8 4.3-11.0 10^3/uL Red Blood Count 4.77 4.35-5.85 10^6/uL Hemoglobin 14.5 11.5-16.0 G/DL Hematocrit 42 35-52 % Mean Corpuscular Volume 89 80-99 FL Mean Corpuscular Hemoglobin 30 25-34 PG Mean Corpuscular Hemoglobin Concent 34 32-36 G/DL Red Cell Distribution Width 12.8 10.0-14.5 % Platelet Count 233 130-400 10^3/uL Mean Platelet Volume 10.2 7.4-10.4 FL Neutrophils (%) (Auto) 56 42-75 % Lymphocytes (%) (Auto) 33 12-44 % Monocytes (%) (Auto) 8 0-12 % Eosinophils (%) (Auto) 2 0-10 % Basophils (%) (Auto) 0 0-10 % Neutrophils # (Auto) 4.4 1.8-7.8 X 10^3 Lymphocytes # (Auto) 2.6 1.0-4.0 X 10^3 Monocytes # (Auto) 0.6 0.0-1.0 X 10^3 Eosinophils # (Auto) 0.2 0.0-0.3 10^3/uL Basophils # (Auto) 0.0 0.0-0.1 10^3/uL Blood Gas Puncture Site RIGHT RADIAL Blood Gas Patient Temperature 36.5 Arterial Blood pH 7.38 7.37-7.43 Arterial Blood Partial Pressure CO2 46 H 35-45 MMHG Arterial Blood Partial Pressure O2 49 L 79-93 MMHG Arterial Blood HCO3 27 23-27 MMOL/L Arterial Blood Total CO2 28.1 21.0-31.0 MMOL/L Arterial Blood Oxygen Saturation 71 L 94-100 % Arterial Blood Base Excess 1.9 -2.5-2.5 MMOL/L Roberto Test POSITIVE Blood Gas Ventilator Setting NO Blood Gas Inspired Oxygen N/A Glucometer 405 *H 367 H 70-110 MG/DL Test 10/02/19 06:12 10/02/19 06:32 10/02/19 11:06 10/02/19 15:15 Range/Units Sodium Level 134 L 135-145 MMOL/L Potassium Level 4.0 3.6-5.0 MMOL/L Chloride Level 103 98-107 MMOL/L Carbon Dioxide Level 21 21-32 MMOL/L Anion Gap 10 5-14 MMOL/L Blood Urea Nitrogen 15 7-18 MG/DL Creatinine 1.00 0.60-1.30 MG/DL Estimat Glomerular Filtration Rate 55 BUN/Creatinine Ratio 15 Glucose Level 365 H 70-105 MG/DL Calcium Level 8.1 L 8.5-10.1 MG/DL White Blood Count 6.5 4.3-11.0 10^3/uL Red Blood Count 4.19 L 4.35-5.85 10^6/uL Hemoglobin 12.7 11.5-16.0 G/DL Hematocrit 38 35-52 % Mean Corpuscular Volume 90 80-99 FL Mean Corpuscular Hemoglobin 30 25-34 PG Mean Corpuscular Hemoglobin Concent 34 32-36 G/DL Red Cell Distribution Width 12.7 10.0-14.5 % Platelet Count 211 130-400 10^3/uL Mean Platelet Volume 10.6 H 7.4-10.4 FL Neutrophils (%) (Auto) 63 42-75 % Lymphocytes (%) (Auto) 27 12-44 % Monocytes (%) (Auto) 7 0-12 % Eosinophils (%) (Auto) 2 0-10 % Basophils (%) (Auto) 0 0-10 % Neutrophils # (Auto) 4.1 1.8-7.8 X 10^3 Lymphocytes # (Auto) 1.8 1.0-4.0 X 10^3 Monocytes # (Auto) 0.4 0.0-1.0 X 10^3 Eosinophils # (Auto) 0.2 0.0-0.3 10^3/uL Basophils # (Auto) 0.0 0.0-0.1 10^3/uL Glucometer 427 *H 411 *H 70-110 MG/DL Test 10/02/19 17:57 Range/Units Glucometer 371 H 70-110 MG/DL Physical Exam-([facility]) Physical Exam Vital Signs VS - Last 72 Hours, by Label POS 10/01/19 10/01/19 10/01/19 10/01/19 17:06 21:12 21:47 22:31 Temp 36.4 36.4 36.2 Pulse 71 71 67 Resp 16 16 22 B/P (MAP) 172/105 (127) 142/89 (127) 194/93 Pulse Ox 94 96 97 O2 Delivery Room Air Room Air Room Air Room Air 10/02/19 10/02/19 10/02/19 10/02/19 00:20 04:00 07:25 11:00 Temp 36.0 36.2 36.2 36.6 Pulse 65 65 67 70 Resp 18 20 18 20 B/P (MAP) 170/81 (110) 199/91 (127) 177/85 (115) 206/99 (134) Pulse Ox 93 96 94 92 O2 Delivery Room Air Room Air Room Air Room Air 10/02/19 16:43 Temp 36.8 Pulse 73 Resp 20 B/P (MAP) 168/89 (115) Pulse Ox 94 O2 Delivery Room Air Capillary Refill : Less Than 3 Seconds General Appearance: WD/WN, no apparent distress HEENT: PERRL/EOMI Neck: non-tender, full range of motion, supple Respiratory: chest non-tender, no respiratory distress, no accessory muscle use, crackles (bibasilar) Cardiovascular: normal peripheral pulses, regular rate, rhythm, no edema, no murmur Gastrointestinal: normal bowel sounds, non tender, soft, no organomegaly Back: no CVA tenderness, no vertebral tenderness Extremities: normal range of motion, non-tender, normal inspection, no pedal edema, no calf tenderness, normal capillary refill Neurologic/Psychiatric: 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 analyst 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-XII nml as tested, alert, normal mood/affect, oriented x 3 Skin: normal color, warm/dry Lymphatic: no adenopathy Assessment/Plan Assessment/Plan Admission Status: Inpatient Order (span 2 midnights) Reason for Inpatient Admission: Requiring close monitoring of vital signs and IV antibiotics (1) Urinary tract infection Status: Acute Assessment & Plan: - Rocephin D2, IVFs, Will decrease rate this AM due to PO intake Qualifiers: Qualified Codes: N39.0 - Urinary tract infection, site not specified (2) Altered mental status Status: Acute Assessment & Plan: - Patient seems to be at baseline this AM Qualifiers: Qualified Codes: R41.0 - Disorientation, unspecified (3) Diabetes type 2, uncontrolled Status: Chronic Assessment & Plan: - A1c pending, Sugars in the 400s, add Levemir at night, consider adding invokona or Metformin Qualifiers: Qualified Codes: E11.65 - Type 2 diabetes mellitus with hyperglycemia (4) Hypertension Status: Acute Assessment & Plan: - Elevated this AM, Restart home meds Qualifiers: Qualified Codes: I10 - Essential (primary) hypertension (5) Hypothyroidism Status: Chronic Assessment & Plan: - TSH elevated, patient is not likely compliant with medications Qualifiers: Qualified Codes: E03.9 - Hypothyroidism, unspecified (6) Generalized weakness Status: Acute (7) DVT prophylaxis Status: Acute Assessment & Plan: - Lovenox Clinical Quality Measures DVT/VTE Risk/Contraindication: Risk Factor Score Per Nursin RFS Level Per Nursing on Admit: 4+=Very High Copy Copies To 1: Miki BANSAL HOLLY R MD Oct 02, 2019 19:52 POS
[2019-10-02 20:51] VITALS: BP 188/81
[2019-10-02] MEDS: cefTRIAXone 1,000 MG/SWFI 10 ML IV PUSH IV SCH ×2 (21:08)
[2019-10-02] MEDS: ZOLPIDEM 5 MG (AMBIEN) TAB PO SCH (21:08)
[2019-10-03 00:10] VITALS: BP 176/91
[2019-10-03 04:40] VITALS: BP 167/90
[2019-10-03 05:27] LABS: BASOPHILS % (AUTO) 1 % (0-10); EOSINOPHILS # (AUTO) 0.2 10^3/uL (0.0-0.3); EOSINOPHILS % (AUTO) 4 % (0-10); HEMATOCRIT 40 % (35-52); HEMOGLOBIN 13.5 G/DL (11.5-16.0); LYMPHOCYTES # (AUTO) 2.4 X 10^3 (1.0-4.0); LYMPHOCYTES % (AUTO) 36 % (12-44); MEAN CORPUSCULAR HEMOGLOBIN 30 PG (25-34); MEAN CORPUSCULAR HGB CONC 34 G/DL (32-36); MEAN CORPUSCULAR VOLUME 89 FL (80-99); MEAN PLATELET VOLUME 10.2 FL (7.4-10.4); MONOCYTES # (AUTO) 0.5 X 10^3 (0.0-1.0); MONOCYTES % (AUTO) 8 % (0-12); NEUTROPHILS # (AUTO) 3.4 X 10^3 (1.8-7.8); NEUTROPHILS % (AUTO) 52 % (42-75); PLATELET COUNT 224 10^3/uL (130-400); RED CELL DISTRIBUTION WIDTH 13.1 % (10.0-14.5); WHITE BLOOD COUNT 6.6 10^3/uL (4.3-11.0)
[2019-10-03] MEDS: LEVOTHYROXINE 100 MCG (LEVOTHROID) TAB PO SCH (05:31)
[2019-10-03] MEDS: inSUlin ASPART (NovoLOG) 1 UNIT/0.01 ML (CHARGE PER UNIT) SC SCH ×4 (05:31→21:55)
[2019-10-03 05:53] LABS: CALCIUM 8.4 MG/DL (8.5-10.1); CREATININE SERUM 1.27 MG/DL (0.60-1.30); POTASSIUM 4.3 MMOL/L (3.6-5.0)
[2019-10-03 08:00] VITALS: BP 186/109
[2019-10-03] MEDS ORDERED: PATIENT MAY USE OWN MED,SINGLE MED PO SCH (10:00)
--- NOTE | 2019-10-03 10:20 | Physical Therapy Daily Note ---
PT Daily Note-Current Subjective Patient in bed pre tx, agrees to PT, has no complaints of pain. Patient is very concerned about her home meds which she discusses with a executive secretary in the hallway. Appearance Patient BTB post tx with nurse call, phone, tray, all needs met. Mental Status Patient Orientation: Person, Place, Situation Transfers SCALE: Activities may be completed with or without assistive devices. 2-Dxxpzaigmo-nugxcli completes the activity by him/herself with no assistance from a helper. 5-Set-up or Clean-up Assistance-helper sets up or cleans up; patient completes activity. Harlan assists only prior to or following the activity. 4-Supervision or Touching Assistance-helper provides verbal cues and/or touching/steadying and/or contact guard assistance as patient completes activity. Assistance may be provided throughout the activity or intermittently. 3-Partial/Moderate Assistance-helper does LESS THAN HALF the effort. Harlan lifts, holds or supports trunk or limbs, but provides less than half the effort. 2-Substantial/Maximal Assistance-helper does MORE THAN HALF the effort. Harlan lifts or holds trunk or limbs and provides more than half the effort. 5-Zznqklehg-dzzsvj does ALL the effort. Patient does none of the effort to complete the activity. Or, the assistance of 2 or more helpers is required for the patient to complete the activity. If activity was not attempted, code reason: 7-Patient Refused. 9-Not Applicable-not attempted and the patient did not perform the activity before the current illness, exacerbation or injury. 10-Not Attempted due to Environmental Limitations-(lack of equipment, weather restraints, etc.). 88-Not Attempted due to Medical Conditions or Safety Concerns. Roll Left & Right (QC): 6 Sit to Lying (QC): 6 Lying to Sitting/Side of Bed(Q: 6 Sit to Stand (QC): 6 Chair/Fbu-ae-Kzalp Xfer(QC): 6 Patient has no complaints of dizziness but she says she does get dizzy on occasion at home with supine to sit, educated patient on waiting until dizziness resolves before getting up. Gait Training Distance: 300' Walk 10 feet (QC): 5 Walk 50 ft with 2 Turns(QC): 5 Walk 150 ft (QC): 5 Gait Assistive Device: FWW Patient ambulates very slowly but steady, no LOB, wide DARLENE. Treatments ambulation, bed mobility and transfers Assessment Current Status: Fair Progress steady ambulation and transfers PT Custodial Goals Director Client Goals PT Custodial Goals Time Frame: Oct 12, 2019 Roll Left & Right (QC): 6 Sit to Lying (QC): 6 Lying-Sitting on Side/Bed(QC): 6 Sit to Stand (QC): 6 Chair/Wdj-an-Acvcf Xfer(QC): 6 Toilet Transfer (QC): 6 Car Transfer (QC): 6 Does the Patient Walk: Yes Walk 10 feet (QC): 6 Walk 50ft with 2 Turns (QC): 6 Walk 150 ft (QC): 6 Walking 10ft on Uneven Surface: 6 1 Step (curb) (QC): 9 4 Steps (QC): 9 12 Steps (QC): 9 Picking up an Object (QC): 6 Does the Pt use WC or Scooter?: No Type: N/A Type: N/A PT Plan Problem List Problem List: Activity Tolerance, Functional Strength, Safety, Balance, Gait, Transfer Treatment/Plan Treatment Plan: Continue Plan of Care Treatment Plan: Bed Mobility, Education, Functional Activity Josue, Functional Strength, Gait, Safety, Therapeutic Exercise, Other Treatment Duration: Oct 12, 2019 Frequency: 6 times per week Estimated Hrs Per Day: .25 hour per day Patient and/or Family Agrees t: Yes Safety Risks/Education Patient Education: Gait Training, Transfer Techniques, Correct Positioning, Safety Issues Teaching Recipient: Patient Teaching Methods: Demonstration, Discussion Response to Teaching: Reinforcement Needed Time/GCodes Time In: 0956 Time Out: 1015 Total Billed Treatment Time: 19 Total Billed Treatment 1 visit GT 19' ELSY CHAVEZ PT Oct 03, 2019 10:20 POS
[2019-10-03] MEDS: ENOXAPARIN 40 MG/0.4 ML (LOVENOX) SYR SQ SCH (10:30)
[2019-10-03] MEDS: VALSARTAN 160 MG (DIOVAN) TABLET PO SCH (10:30)
[2019-10-03] MEDS: CARVEDILOL 12.5 MG (COREG) TABLET PO SCH ×2 (10:30→20:46)
[2019-10-03] MEDS: amLODIPine 10 MG (NORVASC) TAB PO SCH (10:30)
[2019-10-03] MEDS: ASPIRIN E.C. 81 MG (ECOTRIN) TAB PO SCH (10:30)
[2019-10-03 12:00] VITALS: BP 198/90
[2019-10-03 16:04] VITALS: BP 165/77
[2019-10-03 20:00] VITALS: BP 194/81
[2019-10-03] MEDS: cefTRIAXone 1,000 MG/SWFI 10 ML IV PUSH IV SCH ×2 (20:46)
[2019-10-03] MEDS: ZOLPIDEM 5 MG (AMBIEN) TAB PO SCH (20:46)
--- NOTE | 2019-10-03 21:37 | Progress Note ---
Subjective Subjective/Events-last exam Feeling much better this AM. Still having elevated blood pressure and blood sugars. Tolerating PO diet and ambulation Review of Systems Pulmonary: No Dyspnea, No Cough Cardiovascular: No: Chest Pain, Palpitations Gastrointestinal: No: Nausea, Vomiting, Abdominal Pain, Diarrhea, Constipation Genitourinary: No Dysuria, No Frequency; Incontinence Neurological: Weakness, Incoordination Objective Exam Last Set of Vital Signs Vital Signs Date Time Temp Pulse Resp B/P (MAP) Pulse Ox O2 Delivery O2 Flow Rate FiO2 10/03/19 20:00 36.4 68 20 194/81 (118) 93 Room Air Capillary Refill : Less Than 3 Seconds I&O Intake and Output 10/03/19 00:00 Intake Total 3160 ml Output Total 2500 ml Balance 660 ml Intake Oral 2160 ml IV Total 1000 ml Output Urine Total 2500 ml # Voids 1 # Bowel Movements 4 General: Alert, Oriented X3, Cooperative Lungs: Clear to Auscultation, Normal Air Movement Heart: Regular Rate, No Murmurs Abdomen: Normal Bowel Sounds, Soft, No Tenderness, No Masses Extremities: Other (1+ pitting edema bilaterally) Skin: No Rashes, No Breakdown Neuro: Normal Speech, Sensation Intact, Cranial Nerves 3-12 NL Results/Procedures Lab Laboratory Tests 10/03/19 05:12: Glucometer 330H 10/03/19 05:15: White Blood Count 6.6, Red Blood Count 4.51, Hemoglobin 13.5, Hematocrit 40, Mean Corpuscular Volume 89, Mean Corpuscular Hemoglobin 30, Mean Corpuscular Hemoglobin Concent 34, Red Cell Distribution Width 13.1, Platelet Count 224, Mean Platelet Volume 10.2, Neutrophils (%) (Auto) 52, Lymphocytes (%) (Auto) 36, Monocytes (%) (Auto) 8, Eosinophils (%) (Auto) 4, Basophils (%) (Auto) 1, Neutrophils # (Auto) 3.4, Lymphocytes # (Auto) 2.4, Monocytes # (Auto) 0.5, Eosinophils # (Auto) 0.2, Basophils # (Auto) 0.0, Sodium Level 135, Potassium Level 4.3, Chloride Level 104, Carbon Dioxide Level 19L, Anion Gap 12, Blood Urea Nitrogen 17, Creatinine 1.27, Estimat Glomerular Filtration Rate 42, BUN/Creatinine Ratio 13, Glucose Level 365H, Calcium Level 8.4L 12/11/19 11:36: Glucometer 320H 10/03/19 16:04: Glucometer 479*H 10/03/19 20:40: Glucometer 397H Microbiology 10/01/19 Urine Culture - Final, Complete Proteus mirabilis Assessment/Plan Assessment/Plan (1) Urinary tract infection Status: Acute Assessment & Plan: - Rocephin D2, IVFs, Will decrease rate this AM due to PO intake 10/03: Rocephin D3, D/c IVFs Qualifiers: Qualified Codes: N39.0 - Urinary tract infection, site not specified (2) Altered mental status Status: Resolved Assessment & Plan: - Patient seems to be at baseline this AM Qualifiers: Qualified Codes: R41.0 - Disorientation, unspecified (3) Diabetes type 2, uncontrolled Status: Chronic Assessment & Plan: - A1c pending, Sugars in the 400s, add Levemir at night, consider adding invokona or Metformin 10/03: A1c 13.4, adding levemir BID, DM nurse education, diet education Qualifiers: Qualified Codes: E11.65 - Type 2 diabetes mellitus with hyperglycemia (4) Hypertension Status: Acute Assessment & Plan: - Elevated this AM, Restart home meds 10/03: Blood pressures remain elevated, will order renal dopplers to rule out stenosis given patient on 4 BP meds Qualifiers: Qualified Codes: I10 - Essential (primary) hypertension (5) Hypothyroidism Status: Chronic Assessment & Plan: - TSH elevated, patient is not likely compliant with medications Qualifiers: Qualified Codes: E03.9 - Hypothyroidism, unspecified (6) Generalized weakness Status: Acute Assessment & Plan: - PT (7) DVT prophylaxis Status: Acute Assessment & Plan: - Lovenox Clinical Quality Measures DVT/VTE Risk/Contraindication: Risk Factor Score Per Nursin RFS Level Per Nursing on Admit: 4+=Very High BRYON ESPARZA MD Oct 03, 2019 21:36 POS
[2019-10-04] VITALS: BP 153/77
[2019-10-04 04:00] VITALS: BP 180/75
[2019-10-04 06:05] LABS: BASOPHILS % (AUTO) 0 % (0-10); EOSINOPHILS # (AUTO) 0.2 10^3/uL (0.0-0.3); EOSINOPHILS % (AUTO) 4 % (0-10); HEMATOCRIT 41 % (35-52); HEMOGLOBIN 13.6 G/DL (11.5-16.0); LYMPHOCYTES % (AUTO) 35 % (12-44); MEAN CORPUSCULAR HEMOGLOBIN 30 PG (25-34); MEAN CORPUSCULAR HGB CONC 33 G/DL (32-36); MEAN CORPUSCULAR VOLUME 91 FL (80-99); MEAN PLATELET VOLUME 10.2 FL (7.4-10.4); MONOCYTES # (AUTO) 0.5 X 10^3 (0.0-1.0); MONOCYTES % (AUTO) 8 % (0-12); NEUTROPHILS # (AUTO) 3.1 X 10^3 (1.8-7.8); NEUTROPHILS % (AUTO) 54 % (42-75); PLATELET COUNT 225 10^3/uL (130-400); RED CELL DISTRIBUTION WIDTH 13.1 % (10.0-14.5); WHITE BLOOD COUNT 5.8 10^3/uL (4.3-11.0)
[2019-10-04] MEDS: LEVOTHYROXINE 100 MCG (LEVOTHROID) TAB PO SCH (06:19)
[2019-10-04] MEDS: inSUlin ASPART (NovoLOG) 1 UNIT/0.01 ML (CHARGE PER UNIT) SC SCH ×4 (06:19→20:45)
[2019-10-04 06:22] LABS: ALBUMIN 3.6 GM/DL (3.2-4.5); BILIRUBIN,TOTAL 0.3 MG/DL (0.1-1.0); CALCIUM 8.8 MG/DL (8.5-10.1); CREATININE SERUM 1.4 MG/DL (0.60-1.30); POTASSIUM 4.5 MMOL/L (3.6-5.0); TOTAL PROTEIN 6.7 GM/DL (6.4-8.2)
[2019-10-04 08:00] VITALS: BP 186/92
[2019-10-04] MEDS: ENOXAPARIN 40 MG/0.4 ML (LOVENOX) SYR SQ SCH (08:52)
[2019-10-04] MEDS: CARVEDILOL 12.5 MG (COREG) TABLET PO SCH ×2 (08:53→20:12)
[2019-10-04] MEDS: VALSARTAN 160 MG (DIOVAN) TABLET PO SCH (08:53)
[2019-10-04] MEDS: ASPIRIN E.C. 81 MG (ECOTRIN) TAB PO SCH (08:53)
[2019-10-04] MEDS: amLODIPine 10 MG (NORVASC) TAB PO SCH (08:53)
--- NOTE | 2019-10-04 09:30 | Diagnostic Imaging Report ---
Bilateral renal arterial Doppler. INDICATION: Hypertension. There are no prior ultrasound examinations available for comparison. The CT abdomen/pelvis exam of 10/01/2019 failed to show any sign of an acute abnormality of either kidney. There was a question of a small cyst associated with the right kidney. Spectral and color-flow imaging of the renal arteries and kidneys was performed. FINDINGS: The right kidney measures 11.2 x 5.0 x 5.6 cm while the left kidney is estimated to be 10.4 x 6.3 x 4.8 cm. There is no evidence for solid renal mass or for hydronephrosis of either kidney. The suspected cyst involving the right kidney seen on the renal ultrasound exam is not well appreciated on this study. The renal cortices are normal in thickness and echogenicity. There is no shadowing from the kidneys to suggest nephrolithiasis. The renal artery to aorta ratios are within normal limits. The proximal left renal artery, however is not well-visualized. The bladder is only partially filled and consequently not well evaluated. There is no obvious bladder abnormality evident. The left ureteral jet was identified, but the right ureteral jet could not be visualized. IMPRESSION: 1. There is no evidence for solid renal mass or for an acute abnormality of either kidney. 2. The suspected cyst involving the right kidney seen on the recent CT exam could not be identified on this study. The proximal most portion of the left renal artery was not well visualized either. If further evaluation of these findings is desired, then CTA of the abdomen and pelvis should be obtained. 3. The renal arteries, where visualized, show no evidence for hemodynamically significant stenosis. 4. The urinary bladder is grossly unremarkable. Dictated by: Dictated on workstation # [id number]
--- NOTE | 2019-10-04 11:30 | Physical Therapy Daily Note ---
PT Daily Note-Current Subjective Patient agrees to PT. Pain Numeric Pain Scale: 0-No Pain Location: No Pain Reported Mental Status Patient Orientation: Person, Time, Situation Transfers SCALE: Activities may be completed with or without assistive devices. 6-Mqnlswgijo-zguiuzq completes the activity by him/herself with no assistance from a helper. 5-Set-up or Clean-up Assistance-helper sets up or cleans up; patient completes activity. [place] assists only prior to or following the activity. 4-Supervision or Touching Assistance-helper provides verbal cues and/or touching/steadying and/or contact guard assistance as patient completes activity. Assistance may be provided throughout the activity or intermittently. 3-Partial/Moderate Assistance-helper does LESS THAN HALF the effort. Gotham lifts, holds or supports trunk or limbs, but provides less than half the effort. 2-Substantial/Maximal Assistance-helper does MORE THAN HALF the effort. [place] lifts or holds trunk or limbs and provides more than half the effort. 1-Xaskmepsq-towpej does ALL the effort. Patient does none of the effort to complete the activity. Or, the assistance of 2 or more helpers is required for the patient to complete the activity. If activity was not attempted, code reason: 7-Patient Refused. 9-Not Applicable-not attempted and the patient did not perform the activity before the current illness, exacerbation or injury. 10-Not Attempted due to Environmental Limitations-(lack of equipment, weather restraints, etc.). 88-Not Attempted due to Medical Conditions or Safety Concerns. Roll Left & Right (QC): 6 Sit to Lying (QC): 6 Lying to Sitting/Side of Bed(Q: 6 Sit to Stand (QC): 6 Chair/Pbf-cw-Nxcti Xfer(QC): 6 Gait Training Does the Patient Walk?: Yes Distance: 300' Walk 10 feet (QC): 6 Walk 50 ft with 2 Turns(QC): 6 Walk 150 ft (QC): 6 Gait Assistive Device: FWW slow, steady functional gait sequence Assessment Patient tolerated treatment and is up in recliner with needs met. Patient declined exercises on this date. PT to increase activity as tolerated by patient. PT Leather Stripping Machine Operator Goals Leather Stripping Machine Operator Goals PT Correction Goals Time Frame: Oct 12, 2019 Roll Left & Right (QC): 6 Sit to Lying (QC): 6 Lying-Sitting on Side/Bed(QC): 6 Sit to Stand (QC): 6 Chair/Zkm-fq-Hzgcr Xfer(QC): 6 Toilet Transfer (QC): 6 Car Transfer (QC): 6 Does the Patient Walk: Yes Walk 10 feet (QC): 6 Walk 50ft with 2 Turns (QC): 6 Walk 150 ft (QC): 6 Walking 10ft on Uneven Surface: 6 1 Step (curb) (QC): 9 4 Steps (QC): 9 12 Steps (QC): 9 Picking up an Object (QC): 6 Does the Pt use WC or Scooter?: No Type: N/A Type: N/A PT Plan Treatment/Plan Treatment Plan: Continue Plan of Care Treatment Plan: Bed Mobility, Education, Functional Activity Josue, Functional Strength, Gait, Safety, Therapeutic Exercise, Other Treatment Duration: Oct 12, 2019 Frequency: 6 times per week Estimated Hrs Per Day: .25 hour per day Patient and/or Family Agrees t: Yes Time/GCodes Time In: 1000 Time Out: 1012 Total Billed Treatment Time: 12 Total Billed Treatment 1 visit FA 12 min JERAD WOODS PT Oct 04, 2019 11:30 POS
[2019-10-04 12:00] VITALS: BP 204/109
[2019-10-04 16:00] VITALS: BP 182/84
[2019-10-04] MEDS ORDERED: cloNIDine 0.1 MG (CATAPRES) TAB PO NR (16:45)
[2019-10-04] MEDS: IBUPROFEN 600 MG (MOTRIN) TAB PO PRN (17:10)
--- NOTE | 2019-10-04 19:35 | Progress Note ---
Subjective Subjective/Events-last exam Patient states that she feels much better, however blood pressure continues to be elevated. Tolerating PO diet and ambulation. Review of Systems Pulmonary: No Dyspnea, No Cough Cardiovascular: No: Chest Pain, Palpitations Gastrointestinal: No: Nausea, Abdominal Pain Genitourinary: No Dysuria, No Frequency Neurological: Weakness Objective Exam Last Set of Vital Signs Vital Signs Date Time Temp Pulse Resp B/P (MAP) Pulse Ox O2 Delivery O2 Flow Rate FiO2 10/04/19 16:00 36.7 65 20 182/84 (116) 95 Room Air Capillary Refill : Less Than 3 Seconds I&O Intake and Output 10/04/19 00:00 Intake Total 1230 ml Balance 1230 ml Intake Oral 1230 ml # Voids 9 # Bowel Movements 2 General: Alert, Oriented X3, Cooperative, No Acute Distress Lungs: Clear to Auscultation, Normal Air Movement Heart: Regular Rate, No Murmurs Abdomen: Normal Bowel Sounds, Soft, No Tenderness, No Masses Extremities: No Edema, No Tenderness/Swelling Neuro: Normal Speech, Sensation Intact, Cranial Nerves 3-12 NL Results/Procedures Lab Laboratory Tests 10/03/19 20:40: Glucometer 397H 10/04/19 05:51: Glucometer 315H 10/04/19 05:55: White Blood Count 5.8, Red Blood Count 4.47, Hemoglobin 13.6, Hematocrit 41, Mean Corpuscular Volume 91, Mean Corpuscular Hemoglobin 30, Mean Corpuscular Hemoglobin Concent 33, Red Cell Distribution Width 13.1, Platelet Count 225, Mean Platelet Volume 10.2, Neutrophils (%) (Auto) 54, Lymphocytes (%) (Auto) 35, Monocytes (%) (Auto) 8, Eosinophils (%) (Auto) 4, Basophils (%) (Auto) 0, Neutrophils # (Auto) 3.1, Lymphocytes # (Auto) 2.0, Monocytes # (Auto) 0.5, Eosinophils # (Auto) 0.2, Basophils # (Auto) 0.0, Sodium Level 135, Potassium Level 4.5, Chloride Level 101, Carbon Dioxide Level 24, Anion Gap 10, Blood Urea Nitrogen 21H, Creatinine 1.40H, Estimat Glomerular Filtration Rate 37, BUN/Creatinine Ratio 15, Glucose Level 305H, Calcium Level 8.8, Corrected Jai cium 9.1, Total Bilirubin 0.3, Aspartate Amino Transf (AST/SGOT) 28, Alanine Aminotransferase (ALT/SGPT) 40, Alkaline Phosphatase 72, Total Protein 6.7, Albumin 3.6 10/04/19 11:57: Glucometer 352H 10/04/19 16:18: Glucometer 473*H Microbiology 10/01/19 Urine Culture - Final, Complete Proteus mirabilis Assessment/Plan Assessment/Plan (1) Urinary tract infection Status: Acute Assessment & Plan: - Rocephin D2, IVFs, Will decrease rate this AM due to PO intake 10/03: Rocephin D3, D/c IVFs 10/04: Rocephin D4 Qualifiers: Qualified Codes: N39.0 - Urinary tract infection, site not specified (2) Diabetes type 2, uncontrolled Status: Chronic Assessment & Plan: - A1c pending, Sugars in the 400s, add Levemir at night, consider adding invokona or Metformin 10/03: A1c 13.4, adding levemir BID, DM nurse education, diet education 10/04: Increase to 20 units BID Qualifiers: Qualified Codes: E11.65 - Type 2 diabetes mellitus with hyperglycemia (3) Hypertension Status: Acute Assessment & Plan: - Elevated this AM, Restart home meds 10/03: Blood pressures remain elevated, will order renal dopplers to rule out s tenosis given patient on 4 BP meds 10/04: normal renal dopplers, add clonidine BID Qualifiers: Qualified Codes: I10 - Essential (primary) hypertension (4) Altered mental status Status: Resolved Assessment & Plan: - Patient seems to be at baseline this AM Qualifiers: Qualified Codes: R41.0 - Disorientation, unspecified (5) Hypothyroidism Status: Chronic Assessment & Plan: - TSH elevated, patient is not likely compliant with medications Qualifiers: Qualified Codes: E03.9 - Hypothyroidism, unspecified (6) Generalized weakness Status: Acute Assessment & Plan: - PT (7) DVT prophylaxis Status: Acute Assessment & Plan: - Lovenox Clinical Quality Measures DVT/VTE Risk/Contraindication: Risk Factor Score Per Nursin RFS Level Per Nursing on Admit: 4+=Very High BRYON ESPARZA MD Oct 04, 2019 19:35 POS
[2019-10-04 20:00] VITALS: BP 186/84
[2019-10-04] MEDS: cefTRIAXone 1,000 MG/SWFI 10 ML IV PUSH IV SCH ×2 (20:07)
[2019-10-04] MEDS: ZOLPIDEM 5 MG (AMBIEN) TAB PO SCH (20:12)
[2019-10-04] MEDS: cloNIDine 0.1 MG (CATAPRES) TAB PO SCH (20:12)
[2019-10-05] VITALS: BP 152/76
[2019-10-05 04:00] VITALS: BP 136/88
[2019-10-05 05:44] LABS: BASOPHILS % (AUTO) 1 % (0-10); EOSINOPHILS # (AUTO) 0.2 10^3/uL (0.0-0.3); EOSINOPHILS % (AUTO) 4 % (0-10); HEMATOCRIT 39 % (35-52); HEMOGLOBIN 12.9 G/DL (11.5-16.0); LYMPHOCYTES # (AUTO) 2.1 X 10^3 (1.0-4.0); LYMPHOCYTES % (AUTO) 36 % (12-44); MEAN CORPUSCULAR HEMOGLOBIN 30 PG (25-34); MEAN CORPUSCULAR HGB CONC 33 G/DL (32-36); MEAN CORPUSCULAR VOLUME 90 FL (80-99); MEAN PLATELET VOLUME 10.2 FL (7.4-10.4); MONOCYTES # (AUTO) 0.5 X 10^3 (0.0-1.0); MONOCYTES % (AUTO) 9 % (0-12); NEUTROPHILS % (AUTO) 51 % (42-75); PLATELET COUNT 219 10^3/uL (130-400); RED CELL DISTRIBUTION WIDTH 13.3 % (10.0-14.5); WHITE BLOOD COUNT 5.8 10^3/uL (4.3-11.0)
[2019-10-05] MEDS: LEVOTHYROXINE 100 MCG (LEVOTHROID) TAB PO SCH (06:01)
[2019-10-05] MEDS: inSUlin ASPART (NovoLOG) 1 UNIT/0.01 ML (CHARGE PER UNIT) SC SCH ×2 (06:02→12:00)
[2019-10-05 06:10] LABS: CALCIUM 8.8 MG/DL (8.5-10.1); CREATININE SERUM 1.4 MG/DL (0.60-1.30); POTASSIUM 4.4 MMOL/L (3.6-5.0)
[2019-10-05 08:00] VITALS: BP 186/80
[2019-10-05] MEDS ORDERED: CARVEDILOL 12.5 MG (COREG) TABLET PO SCH (09:00)
--- NOTE | 2019-10-05 10:03 | Physical Therapy Daily Note ---
PT Daily Note-Current Subjective Patient reports she is going home today. Agrees to PT. Mental Status Patient Orientation: Normal For Age Transfers SCALE: Activities may be completed with or without assistive devices. 1-Kxiqdfytgl-qsnnwdv completes the activity by him/herself with no assistance from a helper. 5-Set-up or Clean-up Assistance-helper sets up or cleans up; patient completes activity. [place] assists only prior to or following the activity. 4-Supervision or Touching Assistance-helper provides verbal cues and/or touc jenaro/steadying and/or contact guard assistance as patient completes activity. Assistance may be provided throughout the activity or intermittently. 3-Partial/Moderate Assistance-helper does LESS THAN HALF the effort. [place] lifts, holds or supports trunk or limbs, but provides less than half the effort. 2-Substantial/Maximal Assistance-helper does MORE THAN HALF the effort. [place] lifts or holds trunk or limbs and provides more than half the effort. 5-Wydkywarg-ipjsgr does ALL the effort. Patient does none of the effort to complete the activity. Or, the assistance of 2 or more helpers is required for the patient to complete the activity. If activity was not attempted, code reason: 7-Patient Refused. 9-Not Applicable-not attempted and the patient did not perform the activity before the current illness, exacerbation or injury. 10-Not Attempted due to Environmental Limitations-(lack of equipment, weather restraints, etc.). 88-Not Attempted due to Medical Conditions or Safety Concerns. Roll Left & Right (QC): 6 Sit to Lying (QC): 6 Lying to Sitting/Side of Bed(Q: 6 Sit to Stand (QC): 6 Chair/Icw-ep-Rkwkq Xfer(QC): 6 Gait Training Does the Patient Walk?: Yes Distance: 375' Walk 10 feet (QC): 6 Walk 50 ft with 2 Turns(QC): 6 Walk 150 ft (QC): 6 Gait Assistive Device: FWW very slow, steady gait sequence Assessment Patient tolerated treatment well and is up in recliner with needs met. Per patient, will dismiss to home on this date. PT Stock Dealer Goals Senior Living Goals PT Senior Living Goals Time Frame: Oct 12, 2019 Roll Left & Right (QC): 6 Sit to Lying (QC): 6 Lying-Sitting on Side/Bed(QC): 6 Sit to Stand (QC): 6 Chair/Lmz-kv-Wdrjh Xfer(QC): 6 Toilet Transfer (QC): 6 Car Transfer (QC): 6 Does the Patient Walk: Yes Walk 10 feet (QC): 6 Walk 50ft with 2 Turns (QC): 6 Walk 150 ft (QC): 6 Walking 10ft on Uneven Surface: 6 1 Step (curb) (QC): 9 4 Steps (QC): 9 12 Steps (QC): 9 Picking up an Object (QC): 6 Does the Pt use WC or Scooter?: No Type: N/A Type: N/A PT Plan Treatment/Plan Treatment Plan: Discontinue PT Treatment Plan: Bed Mobility, Education, Functional Activity Josue, Functional Strength, Gait, Safety, Therapeutic Exercise, Other Treatment Duration: Oct 12, 2019 Frequency: 6 times per week Estimated Hrs Per Day: .25 hour per day Patient and/or Family Agrees t: Yes Time/GCodes Time In: 920 Time Out: 929 Total Billed Treatment Time: 9 Total Billed Treatment 1 visit FA 9 min JERAD WOODS PT Oct 05, 2019 10:03 POS
--- NOTE | 2019-10-05 10:50 | Consultation-Cardiology ---
HPI-Cardiology Cardiology Consultation: Date of Consultation 10/05/19 Time Seen by a Provider: 10:10 Date of Admission 10-01-19 Attending Physician Bryon Esparza MD Admitting Physician Miki Mejia MD Consulting Physician Destini Whitaker MD HPI: Chief Complaint: Uncontrolled HTN Ms. Dias is a 68 year old female admitted to [facility]. She states she came in the hospital via the ED with increasing weakness, fatigue, SOB, elevated glucose and high blood pressure. She denies any c/o CP or palpitations. She states she had missed taking some of her medications, but is unsure of how long or which medications she wasn't taking. She is currently not reporting any CP or SOB. She states she is feeling better and wants to go home today. Review of Systems-Cardiology Review of Systems Constitutional: No chills, No fever; malaise Eyes: No vision change Ears/Nose/Throat: No epistaxis, No recent hearing loss Respiratory: As described under HPI Cardiovascular: As described under HPI Gastrointestinal: No constipation, No diarrhea, No nausea, No vomiting Genitourinary: No dysuria, No hematuria : No Skin: No rash on exposed areas, No ulcerations on exposed areas Psychiatric/Neurological: anxiety, depression; No seizure, No focal weakness, No syncope Hematologic: No bleeding abnormalities YJF-Vfpjwq-Zvojrq Hx Patient Social History Alcohol Use: Denies Use Recreational Drug Use: No Smoking Status: Never a Smoker 2nd Hand Smoke Exposure: No Recent Foreign Travel: No Recent Infectious Disease Expo: No Hospitalization with Isolation: Denies Immunizations Up To Date Tetanus Booster (TDap): Unknown Date of Pneumonia Vaccine: Aug 02, 2018 Past Medical History PMH As described under Assessment. Family Medical History Family Medical History: She reports her father had CAD diagnosed at age 55. Family History: Patient reports no known family medical history. Allergies and Home Medications Allergies Coded Allergies: Sulfa (Sulfonamide Antibiotics) (Verified Allergy, Unknown, 08/24/18) ciprofloxacin (Verified Allergy, Unknown, anaphylaxis, 08/02/19) nitrofurantoin (Verified Allergy, Unknown, SOB/wheezing , 08/02/19) Home Medications Amlodipine Besylate 10 Mg Tablet, 10 MG PO DAILY, (Reported) Aspirin 81 Mg Tablet.dr, 81 MG PO DAILY, (Reported) Carvedilol 12.5 Mg Tablet, 12.5 MG PO BID, (Reported) Cetirizine HCl/Pseudoephedrine 1 Each Tab.er.12h, 1 TAB PO DAILY PRN for CONGESTION, (Reported) Citalopram Hydrobromide 20 Mg Tablet, 20 MG PO DAILY PRN for DEPRESSION, (Reported) HAS BEEN SLEEPING THROUGH THE MORNING AND DOES NOT LIKE TO TAKE IT IN THE AFTERNOON SO SKIPS DOSES FREQUENTLY Glimepiride 1 Mg Tablet, 1 MG PO DAILY, (Reported) LAST FILLED # 30 07-03-19 Hydralazine HCl 10 Mg Tablet, 10 MG PO BID, (Reported) Ibuprofen 600 Mg Tablet, 600 MG PO Q6H PRN for PAIN-MILD (1-4), (Reported) Levothyroxine Sodium 125 Mcg Tablet, 125 MCG PO DAILY, (Reported) Mirabegron 50 Mg Tab.er.24h, 50 MG PO DAILY, (Reported) Pimecrolimus 30 Gm Cream.gm., TP BID PRN for DRY SKIN, (Reported) Ranitidine HCl 150 Mg Tablet, 150 MG PO HS PRN for ACID REFLUX, (Reported) Valsartan 160 Mg Tablet, 160 MG PO DAILY, (Reported) Patient Home Medication List Home Medication List Reviewed: Yes Physical Exam-Cardiology Physical Exam Vital Signs/I&O 10/05/19 10/05/19 00:00 04:00 Temp 36.2 36.2 Pulse 60 57 Resp 16 20 B/P (MAP) 152/76 (101) 136/88 (104) Pulse Ox 93 96 O2 Delivery Room Air Room Air 10/05/19 00:00 Intake Total 1640 ml Balance 1640 ml Capillary Refill : Less Than 3 Seconds Constitutional: AAO x 3, well-developed, well-nourished HEENT: PERRL, hearing is well preserved, oral hygience is good Neck: No carotid bruit; carotid pulses are 2 + bilaterally Respiratory: No accessory muscle use, No respiratory distress; chest expansion is symmetric, chest is bilaterally symmetric, lungs clear to auscultation Cardiovascular: regular rate-rhythm; No JVD; S1 and S2 Gastrointestinal: No tender; soft, round, audible bowel sounds Extremities: no lower extremity edema bilateral Neurologic/Psychiatric: grossly intact Skin: No rash on exposed areas, No ulcerations on exposed areas Lymphatic: no adenopathy Data Review Labs Laboratory Tests 10/04/19 11:57: Glucometer 352H 10/04/19 16:18: Glucometer 473*H 10/04/19 20:36: Glucometer 356H 10/05/19 05:35: White Blood Count 5.8, Red Blood Count 4.27L, Hemoglobin 12.9, Hematocrit 39, Mean Corpuscular Volume 90, Mean Corpuscular Hemoglobin 30, Mean Corpuscular Hemoglobin Concent 33, Red Cell Distribution Width 13.3, Platelet Count 219, Mean Platelet Volume 10.2, Neutrophils (%) (Auto) 51, Lymphocytes (%) (Auto) 36, Monocytes (%) (Auto) 9, Eosinophils (%) (Auto) 4, Basophils (%) (Auto) 1, Neutrophils # (Auto) 3.0, Lymphocytes # (Auto) 2.1, Monocytes # (Auto) 0.5, Eosinophils # (Auto) 0.2, Basophils # (Auto) 0.0, Sodium Level 133L, Potassium Level 4.4, Chloride Level 101, Carbon Dioxide Level 21, Anion Gap 11, Blood Urea Nitrogen 27H, Creatinine 1.40H, Estimat Glomerular Filtration Rate 37, BUN/Creatinine Ratio 19, Glucose Level 340H, Calcium Level 8.8 10/05/19 05:47: Glucometer 351H Microbiology 10/01/19 Urine Culture - Final, Complete Proteus mirabilis Laboratory Tests 10/04/19 05:55 10/05/19 05:35 Radiology NAME: ML DIAS [facility] REC#: [id number] PT STATUS: ADM IN : 1950 PHYSICIAN: BRYON ESPARZA MD ADMIT DATE: 10/01/19 Signed Date of Exam:10/04/19 US RENAL ART DOPPLER KENDALL COMP Bilateral renal arterial Doppler. INDICATION: Hypertension. There are no prior ultrasound examinations available for comparison. The CT abdomen/pelvis exam of 10/01/2019 failed to show any sign of an acute abnormality of either kidney. There was a question of a small cyst associated with the right kidney. Spectral and color-flow imaging of the renal arteries and kidneys was performed. FINDINGS: The right kidney measures 11.2 x 5.0 x 5.6 cm while the left kidney is estimated to be 10.4 x 6.3 x 4.8 cm. There is no evidence for solid renal mass or for hydronephrosis of either kidney. The suspected cyst involving the right kidney seen on the renal ultrasound exam is not well appreciated on this study. The renal cortices are normal in thickness and echogenicity. There is no shadowing from the kidneys to suggest nephrolithiasis. The renal artery to aorta ratios are within normal limits. The proximal left renal artery, however is not well-visualized. The bladder is only partially filled and consequently not well evaluated. There is no obvious bladder abnormality evident. The left ureteral jet was identified, but the right ureteral jet could not be visualized. IMPRESSION: 1. There is no evidence for solid renal mass or for an acute abnormality of either kidney. 2. The suspected cyst involving the right kidney seen on the recent CT exam could not be identified on this study. The proximal most portion of the left renal artery was not well visualized either. If further evaluation of these findings is desired, then CTA of the abdomen and pelvis should be obtained. 3. The renal arteries, where visualized, show no evidence for hemodynamically significant stenosis. 4. The urinary bladder is grossly unremarkable. Dictated by: Dictated on workstation # [id number] Dict: 10/04/19914 Trans: 10/05/19 08 [id number] Interpreted by: DEE DEE FERNANDEZ MD Electronically signed by: DEE DEE FERNANDEZ MD 10/05/19 0805 A/P-Cardiology Assessment/Admission Diagnosis Uncontrolled HTN - adjust anti-hypertensive regimen H/O GI bleed EGD on 08-02-[address] Carmona - , gastric ulcer - no active bleeding seen; colonoscopy on 08/03/19 showed asc colon polyp,treated with snare polypectomy Chronic weakness and exertional shortness of breath Echocardiogram of 08-02-19 showed LVEF 50-55%. Grade 1 diastolic dysfunction. Mild to mod TR. RVSP 33mmHg. CAD - reports h/o CABG x3 vessel by Dr. Ledezma at [facility] in [place], [place] in or around 2015 - details unknown H/O OAC with Eliquis started at [facility] in or around 2017 at the time of diagnosis of PE - no longer taking Reported h/o CVA - Reports h/o 'brain bleed" in 2014 for which she was at [facility] - states head bleed was post fall HTN HLD Hypothyroidism DM 2 GERD CKD 2-3 Discussion and Recomendations Uncontrolled HTN - adjust medication regimen Monitor lab Further recs will be based on her hospital course We would like to thank medical services for this consult Clinical Quality Measures DVT/VTE Risk/Contraindication: Risk Factor Score Per Nursin RFS Level Per Nursing on Admit: 4+=Very High TIFFANY KEN Oct 05, 2019 10:49 POS
[2019-10-05] MEDS: ENOXAPARIN 40 MG/0.4 ML (LOVENOX) SYR SQ SCH (11:04)
[2019-10-05] MEDS: amLODIPine 10 MG (NORVASC) TAB PO SCH (11:05)
[2019-10-05] MEDS: ASPIRIN E.C. 81 MG (ECOTRIN) TAB PO SCH (11:05)
[2019-10-05] MEDS: cloNIDine 0.1 MG (CATAPRES) TAB PO SCH (11:06)
[2019-10-05] MEDS: VALSARTAN 160 MG (DIOVAN) TABLET PO SCH (11:09)
[2019-10-05 12:00] VITALS: BP 178/84
[2019-10-05] MEDS: IBUPROFEN 600 MG (MOTRIN) TAB PO PRN (12:02)
--- NOTE | 2019-10-05 12:58 | Discharge Summary ---
Diagnosis/Chief Complaint Date of Admission Oct 01, 2019 at 20:48 Date of Discharge Discharge Diagnosis Problems/Diagnosis: (1) Urinary tract infection Assessment & Plan: - Rocephin D2, IVFs, Will decrease rate this AM due to PO intake 10/03: Rocephin D3, D/c IVFs 10/04: Rocephin D4 Qualifiers: Qualified Codes: N39.0 - Urinary tract infection, site not specified Status: Acute (2) Diabetes type 2, uncontrolled Assessment & Plan: - A1c pending, Sugars in the 400s, add Levemir at night, consider adding invokona or Metformin 10/03: A1c 13.4, adding levemir BID, DM nurse education, diet education 10/04: Increase to 20 units BID Qualifiers: Qualified Codes: E11.65 - Type 2 diabetes mellitus with hyperglycemia Status: Chronic (3) Hypertension Assessment & Plan: - Elevated this AM, Restart home meds 10/03: Blood pressures remain elevated, will order renal dopplers to rule out stenosis given patient on 4 BP meds 10/04: normal renal dopplers, add clonidine BID Qualifiers: Qualified Codes: I10 - Essential (primary) hypertension Status: Acute (4) Altered mental status Assessment & Plan: - Patient seems to be at baseline this AM Qualifiers: Qualified Codes: R41.0 - Disorientation, unspecified Status: Resolved Resolution Date/Time: 10/03/19 @ 21:35 (5) Hypothyroidism Assessment & Plan: - TSH elevated, patient is not likely compliant with medications Qualifiers: Qualified Codes: E03.9 - Hypothyroidism, unspecified Status: Chronic (6) Generalized weakness Assessment & Plan: - PT Status: Acute (7) DVT prophylaxis Assessment & Plan: - Lovenox Status: Acute Chief Complaint/HPI Chief Complaint/HPI 68 yo F that presented to ER with increasing weakness and some confusion. Daughter states that the patient sets up her own meds and she is not sure that she has been taking them appropriately. Patient is resting comfortably in bed this AM. States that she has been feeling weak for the last few days. She has had decrease in appetite. Patient states that she has forgot to take her meds several times per week. Denies any pain. No chest pain or abdominal pain. She is having some shortness of breath with minimal exertion. Discharge Summary-Simple/Stand Consultations Discharge Physical Examination Allergies: Coded Allergies: Sulfa (Sulfonamide Antibiotics) (Verified Allergy, Unknown, 08/24/18) ciprofloxacin (Verified Allergy, Unknown, anaphylaxis, 08/02/19) nitrofurantoin (Verified Allergy, Unknown, SOB/wheezing , 08/02/19) Vitals & I&Os Vital Sign - Last 12Hours Date Time Temp Pulse Resp B/P (MAP) Pulse Ox O2 Delivery O2 Flow Rate FiO2 10/05/19 08:00 36.2 68 18 186/80 (115) 96 Room Air Intake and Output 10/05/19 00:00 Intake Total 1640 ml Balance 1640 ml Hospital Course See final discharge diagnosis. Radiology Reviewed NAME: ML DIAS [facility] REC#: [id number] PT STATUS: ADM IN : 1950 PHYSICIAN: BRYON ESPARZA MD ADMIT DATE: 10/01/19 Signed Date of Exam:10/04/19 US RENAL ART DOPPLER KENDALL COMP Bilateral renal arterial Doppler. INDICATION: Hypertension. There are no prior ultrasound examinations available for comparison. The CT abdomen/pelvis exam of 10/01/2019 failed to show any sign of an acute abnormality of either kidney. There was a question of a small cyst associated with the right kidney. Spectral and color-flow imaging of the renal arteries and kidneys was performed. FINDINGS: The right kidney measures 11.2 x 5.0 x 5.6 cm while the left kidney is estimated to be 10.4 x 6.3 x 4.8 cm. There is no evidence for solid renal mass or for hydronephrosis of either kidney. The suspected cyst involving the right kidney seen on the renal ultrasound exam is not well appreciated on this study. The renal cortices are normal in thickness and echogenicity. There is no shadowing from the kidneys to suggest nephrolithiasis. The renal artery to aorta ratios are within normal limits. The proximal left renal artery, however is not well-visualized. The bladder is only partially filled and consequently not well evaluated. There is no obvious bladder abnormality evident. The left ureteral jet was identified, but the right ureteral jet could not be visualized. IMPRESSION: 1. There is no evidence for solid renal mass or for an acute abnormality of either kidney. 2. The suspected cyst involving the right kidney seen on the recent CT exam could not be identified on this study. The proximal most portion of the left renal artery was not well visualized either. If further evaluation of these findings is desired, then CTA of the abdomen and pelvis should be obtained. 3. The renal arteries, where visualized, show no evidence for hemodynamically significant stenosis. 4. The urinary bladder is grossly unremarkable. Dictated by: Dictated on workstation # [id number] Dict: 10/04/19914 Trans: 10/05/19804 [id number] Interpreted by: DEE DEE FERNANDEZ MD Electronically signed by: DEE DEE FERNANDEZ MD 10/05/1905 Discharge Instructions to patient/family Please see electronic discharge instructions given to patient. Discharge Medications Reviewed and agree with Discharge Medication list on patient's Discharge Instruction sheet Clinical Quality Measures DVT/VTE Risk/Contraindication: Risk Factor Score Per Nursin RFS Level Per Nursing on Admit: 4+=Very High BRYON ESPARZA MD Oct 05, 2019 12:58 POS
[2019-10-05] MEDS ORDERED: INSU100V5 SQ (13:01)
[2019-10-05] MEDS ORDERED: CLON0.1T PO (13:01)
[2019-10-05] MEDS ORDERED: CRV25T PO (13:01)
--- NOTE | 2019-10-05 19:37 | Consultation-Cardiology ---
HPI-Cardiology Cardiology Consultation: Date of Consultation 10/05/19 Time Seen by a Provider: 10:10 Date of Admission Attending Physician Bryon Esparza MD Admitting Physician Miki Mejia MD Consulting Physician JANA PALMER MD, MA, FACP, FACC, FSCAI, CCDS HPI: Chief Complaint: CC: Uncontrolled HTN HPI Ms. Martínez is a 68 year old female admitted to [facility]. She states she came in the hospital via the ED with increasing weakness, fatigue, SOB, elevated glucose and high blood pressure. She denies any c/o CP or palpitations. She states she had missed taking some of her medications, but is unsure of how long or which medications she wasn't taking. She is currently not reporting any CP or SOB. She states she is feeling better and wants to go home today. Review of Systems-Cardiology Review of Systems Constitutional: No chills, No fever; malaise Eyes: No vision change Ears/Nose/Throat: No epistaxis, No recent hearing loss Respiratory: As described under HPI Cardiovascular: As described under HPI Gastrointestinal: No constipation, No diarrhea, No nausea, No vomiting Genitourinary: No dysuria, No hematuria : No Skin: No rash on exposed areas, No ulcerations on exposed areas Psychiatric/Neurological: anxiety, depression; No seizure, No focal weakness, No syncope Hematologic: No bleeding abnormalities IDF-Sixeio-Umwcky Hx Patient Social History Alcohol Use: Denies Use Recreational Drug Use: No Smoking Status: Never a Smoker 2nd Hand Smoke Exposure: No Recent Foreign Travel: No Recent Infectious Disease Expo: No Hospitalization with Isolation: Denies Immunizations Up To Date Tetanus Booster (TDap): Unknown Date of Pneumonia Vaccine: Aug 02, 2018 Past Medical History PMH As described under Assessment. Family Medical History Family Medical History: She reports her father had CAD diagnosed at age 55. Family History: Patient reports no known family medical history. Allergies and Home Medications Allergies Coded Allergies: Sulfa (Sulfonamide Antibiotics) (Verified Allergy, Unknown, 08/24/18) ciprofloxacin (Verified Allergy, Unknown, anaphylaxis, 08/02/19) nitrofurantoin (Verified Allergy, Unknown, SOB/wheezing , 08/02/19) valsartan (Verified Allergy, Unknown, Angioedema, 10/05/19) Home Medications Amlodipine Besylate 10 Mg Tablet, 10 MG PO DAILY, (Reported) Aspirin 81 Mg Tablet.dr, 81 MG PO DAILY, (Reported) Carvedilol 25 Mg Tab, 25 MG PO BID Prescribed by: BRYON ESPARZA on 10/05/19 130 Citalopram Hydrobromide 20 Mg Tablet, 20 MG PO DAILY PRN for DEPRESSION, (Reported) HAS BEEN SLEEPING THROUGH THE MORNING AND DOES NOT LIKE TO TAKE IT IN THE AFTERNOON SO SKIPS DOSES FREQUENTLY Clonidine HCl 0.1 Mg Tablet, 0.1 MG PO BID Prescribed by: BRYON ESPARZA on 10/05/19 130 Glimepiride 1 Mg Tablet, 1 MG PO DAILY, (Reported) LAST FILLED # 30 07-03-19 Hydralazine HCl 10 Mg Tablet, 10 MG PO BID, (Reported) Ibuprofen 600 Mg Tablet, 600 MG PO Q6H PRN for PAIN-MILD (1-4), (Reported) Insulin Determir 1,000 Units/10 Ml Soln, 20 UNIT SQ BID Prescribed by: BRYON ESPARZA on 10/05/191300 Levothyroxine Sodium 125 Mcg Tablet, 125 MCG PO DAILY, (Reported) Mirabegron 50 Mg Tab.er.24h, 50 MG PO DAILY, (Reported) Pimecrolimus 30 Gm Cream.gm., TP BID PRN for DRY SKIN, (Reported) Ranitidine HCl 150 Mg Tablet, 150 MG PO HS PRN for ACID REFLUX, (Reported) Patient Home Medication List Home Medication List Reviewed: Yes Physical Exam-Cardiology Physical Exam Vital Signs/I&O 10/05/19 10/05/19 10/05/19 08:00 08:00 12:00 Temp 36.2 35.8 Pulse 68 61 Resp 18 16 B/P (MAP) 186/80 (115) 178/84 (115) Pulse Ox 96 95 96 O2 Delivery Room Air Room Air Room Air 10/05/19 00:00 Intake Total 1640 ml Balance 1640 ml Capillary Refill : Less Than 3 Seconds Constitutional: AAO x 3, well-developed, well-nourished HEENT: PERRL, hearing is well preserved, oral hygience is good Neck: No carotid bruit; carotid pulses are 2 + bilaterally Respiratory: No accessory muscle use, No respiratory distress; chest expansion is symmetric, chest is bilaterally symmetric, lungs clear to auscultation Cardiovascular: regular rate-rhythm; No JVD; S1 and S2 Gastrointestinal: No tender; soft, round, audible bowel sounds Extremities: no lower extremity edema bilateral Neurologic/Psychiatric: grossly intact Skin: No rash on exposed areas, No ulcerations on exposed areas Lymphatic: no adenopathy Data Review Labs Laboratory Tests 10/04/19 20:36: Glucometer 356H 10/05/19 05:35: White Blood Count 5.8, Red Blood Count 4.27L, Hemoglobin 12.9, Hematocrit 39, Mean Corpuscular Volume 90, Mean Corpuscular Hemoglobin 30, Mean Corpuscular Hemoglobin Concent 33, Red Cell Distribution Width 13.3, Platelet Count 219, Melissa n Platelet Volume 10.2, Neutrophils (%) (Auto) 51, Lymphocytes (%) (Auto) 36, Monocytes (%) (Auto) 9, Eosinophils (%) (Auto) 4, Basophils (%) (Auto) 1, Neutrophils # (Auto) 3.0, Lymphocytes # (Auto) 2.1, Monocytes # (Auto) 0.5, Eosinophils # (Auto) 0.2, Basophils # (Auto) 0.0, Sodium Level 133L, Potassium Level 4.4, Chloride Level 101, Carbon Dioxide Level 21, Anion Gap 11, Blood Urea Nitrogen 27H, Creatinine 1.40H, Estimat Glomerular Filtration Rate 37, BUN/Creatinine Ratio 19, Glucose Level 340H, Calcium Level 8.8 10/05/19 05:47: Glucometer 351H 10/05/19 11:43: Glucometer 363H Microbiology 10/01/19 Urine Culture - Final, Complete Proteus mirabilis Laboratory Tests 10/04/19 05:55 10/05/19 05:35 A/P-Cardiology Assessment/Admission Diagnosis Severe HTN H/O GI bleed EGD on 08-02-[address] Carmona - , gastric ulcer - no active bleeding seen; colonoscopy on 08/03/19 showed asc colon polyp,treated with snare polypectomy Chronic weakness and exertional shortness of breath Echocardiogram of showed LVEF 50%, grade 1 diastolic dysfunction, mildly dilated LA CAD - reports h/o CABG x3 vessel by Dr. Ledezma at [facility] in [place], [place] in or around 2015 - details unknown H/O OAC with Eliquis started at [facility] in or around 2016 at the time of diagnosis of PE - no longer taking Reported h/o CVA - Reports h/o 'brain bleed" in 2014 for which she was at [facility] - states head bleed was post fall HTN HLD Hypothyroidism DM 2 GERD CKD 2-3 Discussion and Recomendations Adjust medication regimen for hypertension. We did that this am Monitor lab Further recs will be based on her hospital course We would like to thank Medical Services for this consult Clinical Quality Measures DVT/VTE Risk/Contraindication: Risk Factor Score Per Nursin RFS Level Per Nursing on Admit: 4+=Very High JANA PALMER MD FACP FAC CCDS Oct 05, 2019 19:37 POS
== END 2019-10-05 14:50 | disposition home or self-care (01) | DRG 690 ==
LOC: EDUNIT# 16:06 → ER 16:08 → 4TH 20:48
PROVIDERS: ADMIT Family Medicine; ATTEND Family Medicine
DX: N39.0 Urinary tract infection, site not specified (principal); R41.82 Altered mental status, unspecified; E11.65 Type 2 diabetes mellitus with hyperglycemia; G47.00 Insomnia, unspecified; N39.41 Urge incontinence; I12.9 Hypertensive chronic kidney disease with stage 1 through stage 4 chronic kidney disease, or unspecified chronic kidney disease; I25.10 Atherosclerotic heart disease of native coronary artery without angina pectoris; E03.9 Hypothyroidism, unspecified; R53.1 Weakness; E78.00 Pure hypercholesterolemia, unspecified; M79.7 Fibromyalgia; N28.9 Disorder of kidney and ureter, unspecified; F41.9 Anxiety disorder, unspecified; M54.9 Dorsalgia, unspecified; Z91.14 Patient's other noncompliance with medication regimen; E11.22 Type 2 diabetes mellitus with diabetic chronic kidney disease; Z79.84 Long term (current) use of oral hypoglycemic drugs; Z86.73 Personal history of transient ischemic attack (TIA), and cerebral infarction without residual deficits; Z86.19 Personal history of other infectious and parasitic diseases; Z90.710 Acquired absence of both cervix and uterus; Z79.82 Long term (current) use of aspirin; Z79.51 Long term (current) use of inhaled steroids; Z86.711 Personal history of pulmonary embolism; Z87.11 Personal history of peptic ulcer disease; Z86.010 Personal history of colon polyps
CPT/HCPCS: 36415; 71045; 74176; 76770; 80048; 80053; 81000; 82805; 82962; 83036; 83690; 83735; 83880; 84439; 84443; 84484; 85025; 87077; 87088; 87186; 93005; 93306; 93975; 96374

== ENCOUNTER 2021-10-26 04:47 | Inpatient (IN) | payer MEDICARE, OTHER ==
[~2021-10-26] VITALS: Ht 157 cm; Wt 92.8 kg
[~2021-10-26 04:47] MED LIST changes: +AMLO-251 PO; -AMLO10TA7 PO; +ASPI-1238 PO; -ASPI-983 PO; +CLN.1T PO; +CRV25T PO; -GLIM1TAB PO; +GLIM1TAB4 PO; +IBUP-844 PO; +INSU100V5 SQ; +MIRT-69 PO; -MIRT30TA6 PO; +VALS160T29 PO
--- OUTSIDE RECORDS SUMMARY | 2021-10-26 04:52 | XMS REPORT | Clinical Summary ---
Author Author [facility] Organization [facility] Address Unknown Phone Unavailable Care Team Providers Care Eap Clinician Name Role Phone Miki Mejia MD PCP Allergies Comments Active Allergy Reactions Severity Noted Date Ciprofloxacin Anaphylaxis High 03/22/2014 Nitrofurantoin Rash High 03/22/2014 Monohyd/M-Cryst Metoprolol Tartrate Anaphylaxis High 03/26/2014 Sulfa (Sulfonamide Rash Low 03/22/2014 Antibiotics) Medications End Date Status Medication Sig Dispensed Refills Start Date Active amLODIPine (NORVASC) 10 Take 10 mg by 0 MG tablet mouth. 7 Active BD ULTRA-FINE MICRO PEN USE TO INJECT 0 NEEDLE 32 gauge x 1/4" INSULIN QID 0 Ndle Active lancets as directed 0 9 Active blood sugar diagnostic as directed 0 01 (CONTOUR NEXT) test 9 strips Active ibuprofen (ADVIL,MOTRIN) 1 tablet with 0 600 MG tablet food or milk as needed Active aspirin 81 MG EC tablet 1 tablet 0 Active pimecrolimus (ELIDEL) 1 % 1 application 0 cream to affected area Active mirabegron (MYRBETRIQ) 50 Take 50 mg by 0 mg Tb24 tablet mouth daily. Active levothyroxine (SYNTHROID, TAKE 1 TABLET 0 LEVOTHROID) 125 MCG (125 MCG) BY tablet MOUTH DAILY. Active atorvastatin (LIPITOR) 80 Take 0.5 0 /0 MG tablet tablets (40 0 mg total) by mouth nightly. Active carvediloL (COREG) 25 MG Take 1 tablet 60 tablet 1 tablet (25 mg total) 0 by mouth 2 (two) times a day. Further refills from PCP. Active hydrALAZINE (APRESOLINE) Take 1 tablet 90 tablet 1 50 MG tablet (50 mg total) 0 by mouth 3 (three) times a day. Active insulin lispro (HUMALOG) Inject 26 8 Pre-filled 1 100 unit/mL (3 mL) Units under Pen Syringe 0 penIndications: the skin 3 Uncontrolled type 2 (three) times diabetes mellitus with a day before hyperglycemia (HCC) meals. Active citalopram (CELEXA) 20 mg Take 1 tablet 30 tablet 1 tablet (20 mg total) 0 by mouth nightly. Active fluticasone propionate Use 1 spray 0 02 (FLONASE) 50 in each 0 mcg/actuation nasal spray nostril daily. Active gabapentin (NEURONTIN) Take 1 30 capsule 1 100 MG capsule (100 0 capsuleIndications: mg total) by neuropathic pain mouth nightly. Active Lidocaine (LIDODERM) 5 % Place 1 patch 30 patch 1 patch on the skin 0 daily. Remove & Discard patch within 12 hours or as directed by Active magnesium oxide (MAG-OX) Take 1 tablet 30 tablet 1 400 mg (241.3 mg (400 mg 0 magnesium) tablet total) by mouth daily. Active valsartan (DIOVAN) 320 MG Take 1 tablet 30 tablet 1 tablet (320 mg 0 total) by mouth daily. Active pen needle, diabetic Use as 100 each 0 11/27 (ADVOCATE PEN NEEDLE) 31 directed with 0 gauge x 3/16" pen needles insulin pens. Active famotidine (PEPCID) 20 MG Take 1 tablet 30 tablet 1 tabletIndications: (20 mg total) 0 Gastroesophageal reflux by mouth disease without every esophagitis evening. Active insulin detemir U-100 Inject 45 9 Pre-filled 1 (LEVEMIR FLEXTOUCH U-100 Units under Pen Syringe 0 INSULN) 100 unit/mL (3 the skin 2 mL) penIndications: (two) times a Uncontrolled type 2 day. diabetes mellitus with hyperglycemia (HCC) Active Problems Problem Noted Date Hyperlipidemia 11/15/2019 Last Assessment & Plan: Formatting of this note might be differ ent from the original. [id number] (05/25/2019 OSR), LDL goal <70 - Lipitor 40 mg nightly. Debility 11/14/2019 Last Assessment & Plan: Formatting of this note might be differ ent from the original. Multidisciplinary efforts, PT/OT, bowel /bladder, pain, DVT ppx per PMR Mild recurrent major depression 11/14/2019 Weakness 11/14/2019 Gait abnormality 11/14/2019 Falls 11/14/2019 History of CVA (cerebrovascular accident) 11/14/2019 Last Assessment & Plan: Formatting of this note might be differ ent from the original. 2/2 ICH and CVA in 02/2014 per care [facility] in [facility] - continue risk factor management with ASA, statin and BG control Uncontrolled type 2 diabetes mellitus with hyperglyce jian 11/14/2019 Last Assessment & Plan: Formatting of this note might be differ ent from the original. Reportedly had issues with compliance. 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 Endo managing appreciate assist - Levemir 40U BID (adjusted by Endo on 11/24) - Continue Humalog to 26U TID AC + SS4 - Continue glimepiride 4 mg twice a day . - Accu checks AC and HS, CC diet, Hypog lycemic protocol Coccyx pain 11/14/[address] elevation myocardial infarction (STEMI) Atherosclerosis of coronary artery with unstable thiago na pectoris 11/12/2019 History of pulmonary embolus (PE) 04/17/2018 Last Assessment & Plan: Formatting of this note might be differ ent from the original. With previous DVT as well AC (Eliquis) stopped in Sep 2019 due to GI bleed 11/14/19- BL LE U/S- No evidence of DVT bilaterally Cystitis with hematuria 05/24/2017 Hypertensive encephalopathy 05/24/2017 Cystitis 05/24/2017 S/P CABG (coronary artery bypass graft) 11/11/2016 Last Assessment & Plan: Formatting of this note might be differ ent from the original. CABG on 11/11/16 Presence of aortocoronary bypass graft 11/11/2016 Atherosclerosis of coronary artery 11/11/2016 Last Assessment & Plan: Formatting of this note might be differ ent from the original. S/P CABG - Continue Asa, statin, and BB Acute respiratory failure with hypoxia and hypercapni a 11/05/2016 Weakness 11/05/2016 Essential hypertension 03/27/2015 Last Assessment & Plan: Formatting of this note might be differ ent from the original. HAND SCREEN PRINTER; Amlodipine 10, clonidine 0.1 BID, hydralazine 10 BID, Coreg 12.5 BID, Diovan 160 SBP trends remain sub optimal although improving slightly - Hydralazine 50mg TID (increased 11/26) - Carvedilol 25mg BID (increased 11/20) - Valsartan 320mg daily (increased 11/19 ) - Continue amlodipine 10mg daily Wan's cyst of knee 04/25/2014 Last Assessment & Plan: Formatting of this note might be differ ent from the original. Chronic - no further inpt w/u needed Synovial cyst of popliteal space 04/25/2014 Intracerebral bleed 03/22/2014 ICH (intracerebral hemorrhage) 03/22/2014 Anxiety state 02/07/2009 Hypothyroidism 02/07/2009 Last Assessment & Plan: Formatting of this note might be differ ent from the original. 11/14/2019- TSH 4.29, Free T4 1.8 - continue supplementation per home reg imen Insomnia 02/07/2009 Resolved Problems Problem Noted Date Resolved Date Urinary tract infection 11/15/2019 11/23/2019 Last Assessment & Plan: Formatting of this note might be differ ent from the original. Ucx + aragon sensitive E coli - continue Keflex x7 days Family History Medical History Relation Name Comments Factor V Leiden Brother 3 both brothers deficiency Other Father Premature CAD at ag e . Cancer Mother Other Mother Premature CAD at ag e . Coronary artery disease Other 1 mother, father , PGM, MGM Diabetes Other 2 PGM, brother and so n Relation Name Status Comments Brother 1 Alive Brother 2 Alive Brother 3 Father Mother Other 1 Other 2 Son 1 Alive Son 2 Alive Social History Date Tobacco Use Types Packs/Day Years Used Never Smoker Smokeless Tobacco: Never Used Comments Alcohol Use Standard Drinks/Week 1 drink/ week Never 0 (1 standard drink = 0.6 o z pure alcohol) Alcohol Habits Answer Date Recorded How often do you have a drink containing alcohol? Never 11/15/2019 How many drinks containing alcohol do you have on No t asked a typical day when you are drinking? How often do you have six or more drinks on one Not asked occasion? Comment: 1 drink/ week 03/26/2014 Sex Assigned at Date Recorded Not on file Last Filed Vital Signs Reading Time Taken Comments Vital Sign 151/64 11/27/2019 5:43 AM [employer] Blood Pressure 73 11/27/2019 8:08 AM [employer] Pulse 36.6 C (97.8 F) 11/27/2019 8:08 AM [employer] Temperature 16 11/27/2019 8:08 AM [employer] Respiratory Rate 93% 11/27/2019 5:43 AM [employer] Oxygen Saturation - - Inhaled Oxygen Concentration 88.9 kg (196 lb) 11/14/2019 11:50 AM [employer] Weight 157.5 cm (5' 2") 11/14/2019 11:50 AM [employer] Height 35.85 11/14/2019 11:50 AM [employer] Body Mass Index Plan of Treatment Health Maintenance Due Date Last Done Comments Diabetes Mellitus 1948 Ophthalmology Exam Diabetes Mellitus Urine 1948 Microalbumin Hepatitis C Screen 1950 Medicare Annual Wellness 1948 Td/Tdap# 1948 Depression Monitoring 1948 PHQ-9 # Diabetes Mellitus Foot 1958 Exam COVID-19 Vaccine (1) 1960 Colorectal Screening via 1998 Colonoscopy Mammogram Screening 1998 Zoster Vaccine# (1 of 2) 1998 Advance Care Plan 2013 Conversation Needed # Osteoporosis Screening 2013 Lipid Screening 03/23/2015 03/23/2014 Pneumococcal Vaccine: 65+ 06/12/2018 04/17/2018 Years (1 of 2 - PPSV23) Diabetes Mellitus 05/14/2020 11/14/2019, Hemoglobin A1C 09/01/2018, 06/01/2018, Additional history exists Fall Risk Assessment # 11/27/2020 11/27/2019 Influenza Vaccine (#1) 2021 Results Not on filefrom Last 3 Months Insurance Type Payer Benefit Subscriber ID Effective Phone Address Plan / Dates Group Medicare MEDICARE MEDICARE [id number] 2013-P [phone] WPS G[employer] PART A B resent ATTN CLAIMS DEPT [address] [place] [address] COMMERCIAL-NONCONTRACTED MISC [id number] 2013-P [address] [address] [place], [place] [address] Kemi Martínez Personal/F Self 1950 [address] [place] (Home) [place], [place] [address] Advance Directives For more information, please contact: [phone] 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
[2021-10-26] MEDS ORDERED: HEParin 1000 UNIT/ML (10ML VIAL) FOR BOLUS IV ONE (05:04)
--- NOTE | 2021-10-26 05:14 | ED General ---
General Chief Complaint: Chest Pain Stated Complaint: CHEST PAIN Nursing Triage Note: BROUGHT IN BY [facility] FOR N/V FEVER, ST ELEVATION, UPPER BACK PAIN. Source of Information: Patient (VERY POOR HISTORIAN), EMS (LIMITED HISTORY), Old Records (ALL PMH IS FROM OLD RECORDS--PT UNABLE TO PROVIDE ANY HISTORY) History of Present Illness Date Seen by Provider: Oct 26, 2021 Time Seen by Provider: 04:47 Initial Comments PT ARRIVES VIA [facility] FROM HOME IN [place] PT HAS NOT BEEN FEELING WELL ALL EVENING HAS HAD NAUSEA AND VOMITING HAS BEEN SHORT OF BREATH--EMS REPORT O2 SATS IN 80'S ON ROOM AIR. 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 JESSICA CHAVES Allergies and Home Medications Allergies Coded Allergies: Sulfa (Sulfonamide Antibiotics) (Verified Allergy, Unknown, 08/24/18) ciprofloxacin (Verified Allergy, Unknown, anaphylaxis, 08/02/19) nitrofurantoin (Verified Allergy, Unknown, SOB/wheezing , 08/02/19) valsartan (Verified Allergy, Unknown, Angioedema, 10/05/19) Patient Home Medication List Amlodipine Besylate (Amlodipine Besylate) 5 Mg Tablet, 5 MG PO HS, (Reported) Entered as Reported by: MADY BROWNING on 10/29/211450 Last Action: Reviewed Ascorbate Calcium (Vitamin C) 500 Mg Tablet, 500 MG PO DAILY, (Reported) Entered as Reported by: MADY BROWNING on 10/29/211450 Last Action: Reviewed Aspirin (Aspirin EC) 81 Mg Tablet.dr, 81 MG PO DAILY, (Reported) Entered as Reported by: PATTI MANUEL on 08/02/19 1431 Last Action: Reviewed Atorvastatin Calcium (Atorvastatin Calcium) 40 Mg Tablet, 40 MG PO HS, (Reported) Entered as Reported by: MADY BROWNING on 10/29/211450 Last Action: Reviewed Carvedilol (Carvedilol) 25 Mg Tablet, 25 MG PO HS, (Reported) Entered as Reported by: MADY BROWNING on 10/29/211450 Last Action: Reviewed Citalopram Hydrobromide (Citalopram HBr) 20 Mg Tablet, 20 MG PO HS, (Reported) Entered as Reported by: PATTI MANUEL on 08/02/19 4509 Last Action: Reviewed Famotidine (Famotidine) 20 Mg Tablet, 20 MG PO HS, (Reported) Entered as Reported by: MADY BROWNING on 10/29/211450 Last Action: Reviewed Fluticasone Propionate (Fluticasone Propionate) 16 Gm [place].susp, 1 SPRAY NSEACH DAILY, (Reported) Entered as Reported by: MADY BROWNING on 10/29/211450 Last Action: Reviewed Gabapentin (Gabapentin) 100 Mg Capsule, 100 MG PO HS, (Reported) Entered as Reported by: MADY BROWNING on 10/29/211450 Last Action: Reviewed Hydralazine HCl (Hydralazine HCl) 50 Mg Tablet, 50 MG PO BID, (Reported) Entered as Reported by: MADY BROWNING on 10/29/211450 Last Action: Reviewed Ibuprofen (Ibuprofen) 600 Mg Tablet, 600 MG PO Q6H PRN for PAIN-MILD (1-4), (Reported) Entered as Reported by: MADY BROWNING on 10/29/211450 Last Action: Reviewed Insulin Glargine/Lixisenatide (Soliqua 100 Unit-33 Mcg/ml Pen) 3 Ml Insuln.pen, 52 UNITS SC HS, (Reported) Entered as Reported by: MADY BROWNING on 10/29/211450 Last Action: Reviewed Insulin Lispro (Humalog Kwikpen) 100 Unit/1 Ml Insuln.pen, 22 UNITS SC AC, (Reported) Entered as Reported by: MADY BROWNING on 10/29/211450 Last Action: Reviewed Levothyroxine Sodium (Levothyroxine Sodium) 137 Mcg Tablet, 137 MCG PO DAILY, (Reported) Entered as Reported by: MADY BROWNING on 10/29/211450 Last Action: Reviewed Magnesium Oxide (Magnesium) 400 Mg Tablet, 400 MG PO HS, (Reported) Entered as Reported by: MADY BROWNING on 10/29/211450 Last Action: Reviewed Mirabegron (Myrbetriq) 50 Mg Tab.er.24h, 50 MG PO DAILY, (Reported) Entered as Reported by: PATTI MANUEL on 08/02/19 143 Last Action: Reviewed Mirtazapine (Mirtazapine) 30 Mg Tablet, 30 MG PO HS, (Reported) Entered as Reported by: MADY BROWNING on 10/29/211450 Last Action: Reviewed Modafinil (Modafinil) 100 Mg Tablet, 100 MG PO DAILY, (Reported) Entered as Reported by: MADY BROWNING on 10/29/211450 Last Action: Reviewed Discontinued Medications Amlodipine Besylate (Amlodipine Besylate) 10 Mg Tablet, 10 MG PO DAILY, (Reported) Discontinued Reason: No Longer Taking Entered as Reported by: RAUL JOHN on 08/24/181456 Last Action: Discontinued Carvedilol (Coreg) 25 Mg Tab, 25 MG PO BID Discontinued Reason: No Longer Taking Prescribed by: BRYON ESPARZA on 10/05/19 130 Last Action: Discontinued Clonidine HCl (Clonidine HCl) 0.1 Mg Tablet, 0.1 MG PO BID Discontinued Reason: No Longer Taking Prescribed by: BRYON ESPARZA on 10/05/191300 Last Action: Discontinued Glimepiride (Glimepiride) 1 Mg Tablet, 1 MG PO DAILY, (Reported) Discontinued Reason: No Longer Taking Entered as Reported by: RAUL JOHN on 08/24/181456 Last Action: Discontinued Hydralazine HCl (Hydralazine HCl) 10 Mg Tablet, 10 MG PO BID, (Reported) Discontinued Reason: No Longer Taking Entered as Reported by: RAUL JOHN on 08/24/181456 Last Action: Discontinued Ibuprofen (Ibu) 600 Mg Tablet, 600 MG PO Q6H PRN for PAIN-MILD (1-4), (Reported) Discontinued Reason: No Longer Taking Entered as Reported by: PATTI MANUEL on 10/02/19 100 Last Action: Discontinued Insulin Determir (Levemir) 1,000 Units/10 Ml Soln, 20 UNIT SQ BID Discontinued Reason: No Longer Taking Prescribed by: BRYON ESPARZA on 10/05/19 130 Last Action: Discontinued Levothyroxine Sodium (Levothyroxine Sodium) 125 Mcg Tablet, 125 MCG PO DAILY, (Reported) Discontinued Reason: No Longer Taking Entered as Reported by: PATTI MANUEL on 08/02/191618 Last Action: Discontinued Pimecrolimus (Elidel) 30 Gm Cream.gm., TP BID PRN for DRY SKIN, (Reported) Discontinued Reason: No Longer Taking Entered as Reported by: PATTI MANUEL on 08/02/191618 Last Action: Discontinued Ranitidine HCl (Zantac) 150 Mg Tablet, 150 MG PO HS PRN for ACID REFLUX, (Reported) Discontinued Reason: No Longer Taking Entered as Reported by: PATTI MANUEL on 08/02/19 163 Last Action: Discontinued Review of Systems Review of Systems Constitutional: fever Respiratory: short of breath Gastrointestinal: nausea, vomiting Musculoskeletal: back pain Psychiatric/Neurological: Other (POOR MEMORY) Past Yvsbzkp-Jhthha-Giyypt Hx Patient Social History Tobacco Use?: No Substance use?: No Alcohol Use?: No Immunizations Up To Date Tetanus Booster (TDap): Unknown First/Initial COVID19 Vaccinat: YES Second COVID19 Vaccination [place]: YES 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: [employer] Seasonal Allergies Seasonal Allergies: No Past Medical History Surgery/Hospitalization HX: IDDM, GERD, HYPOTHRYOID, HTN, HIGH CHOLESTEROL Surgeries: Yes (Bladder ) Bladder Surgery, Cardiac, CABG Respiratory: Yes Pulmonary Embolism Cardiac: Yes (CABG) Coronary Artery Disease, High Cholesterol, Hypertension Neurological: Yes Stroke, TIA 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 Heart Disease, Cancer Physical Exam Vital Signs Vital Signs - First Documented Capillary Refill : Less Than 3 Seconds Height, Weight, BMI Height: 5'2.00" Weight: 170lbs. oz. 77.853463nd; 34.00 BMI Method:Stated General Appearance: No Apparent Distress, Obese, Other (SOMEWHAT LETHARGIC, VERY FLAT AFFECT) Respiratory: Normal Breath Sounds, No Accessory Muscle Use, No Respiratory Distress Cardiovascular: Irregularly Irregular, Tachycardia Gastrointestinal: Non Tender, Soft Extremity: Pedal Edema (TRACE ON RIGHT, 1+ ON LEFT) Neurologic/Psychiatric: Alert, No Motor/Sensory Deficits, Other (ORIENTED TO PERSON, GROSSLY ORIENTED TO SITUATION, SOMEWHAT CONFUSED TO TIME AND PLACE, AND VERY POOR MEMORY) Focused Exam Sepsis Stage: Sepsis Possible Source: Pulmonary Lactate Level Time of Focused Exam: 05:15 Respiratory: Normal Breath Sounds, No Accessory Muscle Use, No Respiratory Distress Cardiovascular: Tachycardia Skin: normal color, warm/dry Lactic Acid Level Laboratory Tests Test 10/26/21 05:10 Lactic Acid Level 4.46 MMOL/L (0.50-2.00) *H Within 3hrs of presentation: Admin ABX, Blood cultures prior to ABX's, Focus exam, Lactate level, Other (IV FLUIDS HELD DUE TO PT ALREADY IN CHF, AND HAVING A STEMI AND GOING STRAIGHT TO [facility]) Progress/Results/Core Measures Suspected Sepsis SIRS Temperature: Pulse: 131 Respiratory Rate: 20 Blood Pressure 192 /95 Mean: 127 Laboratory Tests 10/26/21 05:01: INR Comment 1.0 Results/Orders Lab Results Laboratory Tests Test 10/26/21 05:01 10/26/21 05:08 10/26/21 05:09 10/26/21 05:10 Range/Units White Blood Count 23.5 H 4.3-11.0 10^3/uL Red Blood Count 5.08 3.80-5.11 10^6/uL Hemoglobin 15.6 11.5-16.0 g/dL Hematocrit 48 35-52 % Mean Corpuscular Volume 94 80-99 fL Mean Corpuscular Hemoglobin 31 25-34 pg Mean Corpuscular Hemoglobin Concent 33 32-36 g/dL Red Cell Distribution Width 13.5 10.0-14.5 % Platelet Count 174 130-400 10^3/uL Mean Platelet Volume 10.6 9.0-12.2 fL Immature Granulocyte % (Auto) 1 % Neutrophils (%) (Auto) 92 H 42-75 % Lymphocytes (%) (Auto) 3 L 12-44 % Monocytes (%) (Auto) 3 0-12 % Eosinophils (%) (Auto) 0 0-10 % Basophils (%) (Auto) 0 0-10 % Neutrophils # (Auto) 21.7 H 1.8-7.8 10^3/uL Lymphocytes # (Auto) 0.7 L 1.0-4.0 10^3/uL Monocytes # (Auto) 0.8 0.0-1.0 10^3/uL Eosinophils # (Auto) 0.0 0.0-0.3 10^3/uL Basophils # (Auto) 0.1 0.0-0.1 10^3/uL Immature Granulocyte # (Auto) 0.3 H 0.0-0.1 10^3/uL Neutrophils % (Manual) 82 % Lymphocytes % (Manual) 4 % Monocytes % (Manual) 3 % Band Neutrophils 11 % Clumped Platelets SLIGHT Percent Immature Platelet Fraction 3.6 0.0-7.6 % Erythrocyte Sedimentation Rate 4 0-30 MM/HR Prothrombin Time 13.4 12.2-14.7 SEC INR Comment 1.0 0.8-1.4 Activated Partial Thromboplast Time 21 L 24-35 SEC D-Dimer 2.97 H 0.00-0.49 UG/ML Sodium Level 138 135-145 MMOL/L Potassium Level 3.8 3.6-5.0 MMOL/L Chloride Level 98 98-107 MMOL/L Carbon Dioxide Level 26 21-32 MMOL/L Anion Gap 14 5-14 MMOL/L Blood Urea Nitrogen 23 H 7-18 MG/DL Creatinine 1.55 H 0.60-1.30 MG/DL Estimat Glomerular Filtration Rate 33 BUN/Creatinine Ratio 15 Glucose Level 294 H 70-105 MG/DL Calcium Level 8.9 8.5-10.1 MG/DL Corrected Calcium 9.2 8.5-10.1 MG/DL Magnesium Level 1.6 1.6-2.4 MG/DL Total Bilirubin 0.9 0.1-1.0 MG/DL Aspartate Amino Transf (AST/SGOT) 32 5-34 U/L Alanine Aminotransferase (ALT/SGPT) 32 0-55 U/L Alkaline Phosphatase 88 40-136 U/L Total Creatine Kinase 120 29-168 U/L Creatine Kinase MB 4.6 <6.6 NG/ML Myoglobin 560.4 H 10.0-92.0 NG/ML Troponin I 0.170 H <0.028 NG/ML C-Reactive Protein High Sensitivity 2.70 H 0.00-0.50 MG/DL B-Type Natriuretic Peptide 73.3 <100.0 PG/ML Total Protein 7.3 6.4-8.2 GM/DL Albumin 3.6 3.2-4.5 GM/DL Triglycerides Level 105 <150 MG/DL Cholesterol Level 171 < 200 MG/DL LDL Cholesterol Direct 124 1-129 MG/DL VLDL Cholesterol 21 5-40 MG/DL HDL Cholesterol 38 L 40-60 MG/DL Amylase Level 41 25-125 U/L Lipase 103 H 8-78 U/L Procalcitonin 3.50 H <0.10 NG/ML Coronavirus (COVID-19)(PCR) Negative Negative Influenza Type A Antigen NEGATIVE NEGATIVE Influenza Type B Antigen NEGATIVE NEGATIVE SARS-CoV-2 RNA (RT-PCR) Negative Negative Glucometer 287 H 70-110 MG/DL Lactic Acid Level 4.46 *H 0.50-2.00 MMOL/L Test 10/26/21 05:13 Range/Units Urine Color YELLOW Urine Clarity CLEAR Urine pH 6.5 5-9 Urine Specific [place] 1.025 H 1.016-1.022 Urine Protein 3+ H NEGATIVE Urine Glucose (UA) 1+ H NEGATIVE Urine Ketones TRACE H NEGATIVE Urine Nitrite POSITIVE H NEGATIVE Urine Bilirubin NEGATIVE NEGATIVE Urine Urobilinogen 1.0 < = 1.0 MG/DL Urine Leukocyte Esterase NEGATIVE NEGATIVE Urine RBC (Auto) 2+ H NEGATIVE Urine RBC 5-10 H /HPF Urine WBC >100 H /HPF Urine Squamous Epithelial Cells 2-5 /HPF Urine Crystals NONE /LPF Urine Bacteria LARGE H /HPF Urine Casts PRESENT /LPF Urine White Blood Cell Casts 0-2 H /LPF Urine Mucus SMALL H /LPF Urine Culture Indicated CULTURE PENDING Micro Results Microbiology 10/26/21 Urine Culture - Final, Complete Escherichia coli Escherichia coli#2 10/26/21 Blood Culture - Final, Complete Escherichia coli My Orders Orders - CORAZON SHEEHAN DO Chest 1 View, Ap/Pa Only (10/26/21 ) Accucheck Stat ONCE (10/26/21 04:56) Ed Iv/Invasive Line Start (10/26/21 04:56) Ekg Tracing (10/26/21 04:56) Catheter(Urinary) Insert & Ass 03,15 (10/26/21 04:56) O2 (10/26/21 04:56) Monitor-Rhythm Ecg Trace Only (10/26/21 04:56) Amylase (10/26/21 04:56) Bnp Bland (10/26/21 04:56) Cbc With Automated Diff (10/26/21 04:56) Comprehensive Metabolic Panel (10/26/21 04:56) Creatine Kinase (10/26/21 04:56) Creatine Kinase Mb (10/26/21 04:56) Hs C Reactive Protein (10/26/21 04:56) Fibrin Degradation Products (10/26/21 04:56) Lactic Acid Analyzer (10/26/21 04:56) Lipase (10/26/21 04:56) Magnesium (10/26/21 04:56) Procalcitonin (Pct) (10/26/21 04:56) Protime With Inr (10/26/21 04:56) Partial Thromboplastin Time (10/26/21 04:56) Ua Culture If Indicated (10/26/21 04:56) Blood Culture (10/26/21 04:56) Erythrocyte Sedimentation Rate (10/26/21 04:56) Myoglobin Serum (10/26/21 04:56) Troponin I Bladimir (10/26/21 04:56) Influenza A & B Antigens (10/26/21 04:56) Covid 19 Inhouse Test (10/26/21 04:56) Urine Culture (10/26/21 04:56) Vital Signs Adult Sepsis Patie Q15M (10/26/21 04:56) Remove Rings In Anticipation O (10/26/21 04:56) Isolation Central Supply Req (10/26/21 04:56) Heparin Drip 94796 Unit/500ml (Heparin (10/26/21 05:15) Heparin (Bolus Per Protocol) (Heparin (B (10/26/21 05:04) Acetaminophen Tablet (Tylenol Tablet) (10/26/21 05:15) Ondansetron Injection (Zofran Injectio (10/26/21 05:15) Manual Differential (10/26/21 05:01) Ceftriaxone 1 Gm Pre-Mix (Rocephin 1 Gm (10/26/21 05:26) Medications Given in ED Vital Signs/I&O 10/26/21 10/26/21 04:49 04:49 Temp 37.5 Pulse 131 Resp 20 B/P (MAP) 192/95 (127) Pulse Ox 96 96 O2 Delivery Non Rebreather Non Rebreather O2 Flow Rate 10.00 10.00 Capillary Refill : Less Than 3 Seconds Blood Pressure Mean: 127 Point of Care Testing Finger Stick Blood Glucose: 287 Blood Glucose Action Taken: ERP NOTIFIED Progress Note : Progress Note PPE WORN AT ALL TIMES COVID-19 TESTING DONE COVID PROTOCOLS INITIATED SEPSIS PROTOCOLS INITIATED CHEST PAIN PROTOCOLS INITIATED. PT TAKEN TO [facility] NO DETERIORATION IN PT'S CONDITION DURING ER STAY. O2 SATS IN MID 90'S ON O2 AT 2L/NC NO DYSPNEA NO COUGH NO NAUSEA/VOMITING NO HYPOTENSION GIVEN TYLENOL AND MOTRIN FOR FEVER GIVEN ROCEPHIN IV FLUIDS HELD PT IS ALREADY IN CHF, AND IS GOING DIRECTLY TO [facility] FOR STEMI ECG Initial ECG Impression Date: Oct 26, 2021 Initial ECG Impression Time: 04:49 Initial ECG Rhythm: S.Tach Initial ECG Impression: Nonspecific Changes, Acute NV Diagnostic Imaging Comments CXR--PER RADIOLOGIST REPORT AT 0537 FINDINGS: Median sternotomy wires are aligned. There are coronary artery bypass graft markers. There is mild edema. No pleural effusion or pneumothorax. Heart size is normal for portable technique. IMPRESSION: 1. Mild edema. Reviewed: Reviewed by Me Departure Communication (Admissions) Family Conversation 0550--SON ARRIVES, HE STATES HE IS DPOA, AND LIVES A SHORT DISTANCE FROM PT. 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 HE REPORTS THAT HE CHECKED ON PT AT 2100 AND SHE C/O BACK PAIN AND HAD FEVER OF 101. HE STATES SHE CALLED HIM AT 0230 AND TOLD HIM SHE WAS FEELING BAD, AND HE CAME AND CHECKED HER O2 SAT AND IT WAS 80%, SO CALLED EMS. SON HAS DISCUSSED WITH PT AND SHE WISHES TO BE A FULL CODE, AND IS AGREEABLE TO VENTILATOR IF NECESSARY 0459--SPOKE WITH DR. ORTIZ, EKG SENT TO HIM VIA TEXT. HE ADVISES TO CALL IN [facility] AND START HEPARIN 0518--DR. ORTIZ HERE TO SEE PT 0600--[facility] HERE TO TAKE PT Impression Primary Impression: STEMI (ST elevation myocardial infarction) Additional Impressions: Person under investigation for COVID-19 NIDDM HTN (hypertension) Sepsis CHF (congestive heart failure) UTI (urinary tract infection) Disposition: ADMITTED INPATIENT (TO [facility]) Condition: Stable Admissions Decision to Admit Reason: Admit from ER (General) (TO [facility]) Decision to Admit/Date: Oct 26, 2021 Time/Decision to Admit Time: 05:00 Departure-Patient Inst. Referrals: JESSICA CHAVES MD (PCP/Family) Primary Care Physician CORAZON SHEEHAN DO Oct 26, 2021 05:14
[2021-10-26] MEDS ORDERED: HEParin DRIP 25000 UNIT/500ML 500 ML IV ONE (05:15)
[2021-10-26] MEDS ORDERED: ONDANSETRON 4 MG/2 ML (SDV) Z0FRAN IVP ONE (05:15)
[2021-10-26] MEDS ORDERED: ACETAMINOPHEN 500 MG TAB (TYLENOL) PO ONE (05:15)
[2021-10-26 05:16] LABS: BILIRUBIN,URINE NEGATIVE (NEGATIVE); CLARITY,URINE CLEAR; COLOR,URINE YELLOW; GLUCOSE, URINE (UA) 1+ (NEGATIVE); KETONES,URINE TRACE (NEGATIVE); LEUKOCYTE ESTERASE ,URINE NEGATIVE (NEGATIVE); NITRITE,URINE POSITIVE (NEGATIVE); PH,URINE 6.5 (5-9); PROTEIN,URINE 3+ (NEGATIVE)
[2021-10-26 05:20] LABS: EOSINOPHILS % (AUTO) 0 % (0-10); HEMOGLOBIN 15.6 g/dL (11.5-16.0)
[2021-10-26 05:21] LABS: BASOPHILS # (AUTO) 0.1 10^3/uL (0.0-0.1); BASOPHILS % (AUTO) 0 % (0-10); HEMATOCRIT 48 % (35-52); LYMPHOCYTES # (AUTO) 0.7 10^3/uL (1.0-4.0); LYMPHOCYTES % (AUTO) 3 % (12-44); MEAN CORPUSCULAR HEMOGLOBIN 31 pg (25-34); MEAN CORPUSCULAR HGB CONC 33 g/dL (32-36); MEAN CORPUSCULAR VOLUME 94 fL (80-99); MEAN PLATELET VOLUME 10.6 fL (9.0-12.2); MONOCYTES # (AUTO) 0.8 10^3/uL (0.0-1.0); MONOCYTES % (AUTO) 3 % (0-12); NEUTROPHILS # (AUTO) 21.7 10^3/uL (1.8-7.8); NEUTROPHILS % (AUTO) 92 % (42-75); PLATELET COUNT 174 10^3/uL (130-400); WHITE BLOOD COUNT 23.5 10^3/uL (4.3-11.0)
[2021-10-26] MEDS ORDERED: cefTRIAXone 1 GM PRE-MIX 50 ML IV STA (05:26)
--- NOTE | 2021-10-26 05:31 | Diagnostic Imaging Report ---
EXAMINATION: Chest 1 view HISTORY: Chest pain COMPARISON: 10/01/2019 FINDINGS: Median sternotomy wires are aligned. There are coronary artery bypass graft markers. There is mild edema. No pleural effusion or pneumothorax. Heart size is normal for portable technique. IMPRESSION: 1. Mild edema. Dictated by: Dictated on workstation # [id number]
--- NOTE | 2021-10-26 05:39 | Consultation-Cardiology ---
HPI-Cardiology Cardiology Consultation: Date of Consultation THIS IS HISTORY AND PHYSICAL FOR INFERIOR ST ELEVATION MYOCARDIAL INFARCTION AND EMERGENCY CARDIAC CATHETERIZATION. Date of Admission 10/26/2021 Attending Physician Kraig Sutherland Jr, MD Admitting Physician Miki Mejia MD Consulting Physician KRAIG SUTHERLAND JR, MD HPI: Time Seen by a Provider: 05:35 Chief Complaint: Inferior STEMI I had the pleasure of seeing Kemi in the emergency room at [facility] in [place], [place] this morning. She has a history of coronary artery disease with coronary artery bypass surgery x3 in approximately 2017 at [facility] in [place]. 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 About 9:00 PM last night she started having nausea and vomiting associated with back pain. She did not seek immediate medical attention. During the night she continued to have the symptoms and earlier this morning told her son who she lives with about her symptoms. He called 911 and she was taken to our emergency room. According to the emergency room physician, the EMS was concerned about the electrocardiogram and bypass to the [place] emergency room and came directly to our facility. However, due to baseline irregularity on the electrocardiogram, the EMS did not call a STEMI from the field. The patient denies chest discomfort. Up until yesterday she states she had been feeling reasonably well. She has mild bilateral lower extremity edema, worse on the left. She states that this is chronic and unchanged. She denies palpitations, lightheadedness, or syncope. Because of the inferior ST elevation, and emergency cardiology consultation was requested for consideration of emergency cardiac catheterization. Certain portions of this document may have been dictated utilizing voice recognition technology. Inherent to this technology, typographical and grammatical errors may exist. As much as I am diligent to identify and correct these mistakes, some errors may remain in the document. Review of Systems-Cardiology Review of Systems Other comments Review of 10 organ systems is as per the history of present illness, otherwise negative. VOR-Rdlmut-Akxsnv Hx Patient Social History Smoking Status: Never a Smoker 2nd Hand Smoke Exposure: No Have you traveled recently?: No Alcohol Use?: No Immunizations Up To Date Tetanus Booster (TDap): Unknown Date of Pneumonia Vaccine: Aug 02, 2018 Past Medical History PMH As described under Assessment. Family Medical History Family Medical History: She reports her father had CAD diagnosed at age 55. Family History: Patient reports no known family medical history. Allergies and Home Medications Allergies Coded Allergies: Sulfa (Sulfonamide Antibiotics) (Verified Allergy, Unknown, 08/24/18) ciprofloxacin (Verified Allergy, Unknown, anaphylaxis, 08/02/19) nitrofurantoin (Verified Allergy, Unknown, SOB/wheezing , 08/02/19) valsartan (Verified Allergy, Unknown, Angioedema, 10/05/19) Patient Home Medication List Home Medication List Reviewed: Yes Amlodipine Besylate (Amlodipine Besylate) 10 Mg Tablet, 10 MG PO DAILY, (Repor hamzah) Entered as Reported by: RAUL JOHN on 08/24/18 1457 Aspirin (Aspirin EC) 81 Mg Tablet.dr, 81 MG PO DAILY, (Reported) Entered as Reported by: PATTI MANUEL on 08/02/19 1431 Carvedilol (Coreg) 25 Mg Tab, 25 MG PO BID Prescribed by: BRYON ESPARZA on 10/05/19 1301 Citalopram Hydrobromide (Citalopram HBr) 20 Mg Tablet, 20 MG PO DAILY PRN for DEPRESSION, (Reported) Entered as Reported by: PATTI MANUEL on 08/02/19 1619 Clonidine HCl (Clonidine HCl) 0.1 Mg Tablet, 0.1 MG PO BID Prescribed by: BRYON ESPAZRA on 10/05/19 1301 Glimepiride (Glimepiride) 1 Mg Tablet, 1 MG PO DAILY, (Reported) Entered as Reported by: RAUL JOHN on 08/24/18 1457 Hydralazine HCl (Hydralazine HCl) 10 Mg Tablet, 10 MG PO BID, (Reported) Entered as Reported by: RAUL JOHN on 08/24/18 1457 Ibuprofen (Ibu) 600 Mg Tablet, 600 MG PO Q6H PRN for PAIN-MILD (1-4), (Reported) Entered as Reported by: PATTI MANUEL on 10/02/19 1001 Insulin Determir (Levemir) 1,000 Units/10 Ml Soln, 20 UNIT SQ BID Prescribed by: BRYON ESPARZA on 10/05/19 1301 Levothyroxine Sodium (Levothyroxine Sodium) 125 Mcg Tablet, 125 MCG PO DAILY, (Reported) Entered as Reported by: PATTI MANUEL on 08/02/19 1619 Mirabegron (Myrbetriq) 50 Mg Tab.er.24h, 50 MG PO DAILY, (Reported) Entered as Reported by: PATTI MANUEL on 08/02/19 1431 Pimecrolimus (Elidel) 30 Gm Cream.gm., TP BID PRN for DRY SKIN, (Reported) Entered as Reported by: PATTI MAUNEL on 08/02/19 1619 Ranitidine HCl (Zantac) 150 Mg Tablet, 150 MG PO HS PRN for ACID REFLUX, (Reported) Entered as Reported by: PATTI MANUEL on 08/02/19 1632 Exam Vital Signs Vital Signs Date Time Temp Pulse Resp B/P (MAP) Pulse Ox O2 Delivery O2 Flow Rate FiO2 10/26/21 04:49 96 Non Rebreather 10.00 10/26/21 04:49 37.5 131 20 192/95 (127) Physical Exam General: Alert. No acute distress. Well nourished and appears stated age. She is obese. Eye: Extraocular movements are intact. Conjunctivae are clear. There are no xanthelasma. HENT: Normocephalic. Atraumatic. Carotid pulsations 2/2 without bruits. Neck: Jugular venous pressure does not appear elevated. No thyromegaly appreciated. Respiratory: Lungs are clear to auscultation. Respirations are non-labored. [place] th sounds are equal. Symmetrical chest wall expansion. Cardiovascular: Normal rate. Regular rhythm. No murmur. No gallop. Point of maximal impulse is not appear displaced. Good pulses equal in all extremities. 2+ left lower extremity edema and 1+ right lower extremity edema. Gastrointestinal: Soft. Normal bowel sounds. Skin: Skin turgor is normal. There is no pallor. Musculoskeletal: No kyphosis or scoliosis appreciated. Neurologic: Alert and oriented to person, place, time. Cranial nerves 3-12 appear grossly intact. The patient has good motor tone strength in the upper and lower extremities bilaterally. Psychiatric: Cooperative. Appropriate mood & affect. Labs Laboratory Tests Test 10/26/21 05:01 10/26/21 05:08 10/26/21 05:09 10/26/21 05:10 Range/Units White Blood Count 23.5 H 4.3-11.0 10^3/uL Red Blood Count 5.08 3.80-5.11 10^6/uL Hemoglobin 15.6 11.5-16.0 g/dL Hematocrit 48 35-52 % Mean Corpuscular Volume 94 80-99 fL Mean Corpuscular Hemoglobin 31 25-34 pg Mean Corpuscular Hemoglobin Concent 33 32-36 g/dL Red Cell Distribution Width 13.5 10.0-14.5 % Platelet Count 174 130-400 10^3/uL Mean Platelet Volume 10.6 9.0-12.2 fL Immature Granulocyte % (Auto) 1 % Neutrophils (%) (Auto) 92 H 42-75 % Lymphocytes (%) (Auto) 3 L 12-44 % Monocytes (%) (Auto) 3 0-12 % Eosinophils (%) (Auto) 0 0-10 % Basophils (%) (Auto) 0 0-10 % Neutrophils # (Auto) 21.7 H 1.8-7.8 10^3/uL Lymphocytes # (Auto) 0.7 L 1.0-4.0 10^3/uL Monocytes # (Auto) 0.8 0.0-1.0 10^3/uL Eosinophils # (Auto) 0.0 0.0-0.3 10^3/uL Basophils # (Auto) 0.1 0.0-0.1 10^3/uL Immature Granulocyte # (Auto) 0.3 H 0.0-0.1 10^3/uL Percent Immature Platelet Fraction 3.6 0.0-7.6 % Influenza Type A Antigen NEGATIVE NEGATIVE Influenza Type B Antigen NEGATIVE NEGATIVE SARS-CoV-2 RNA (RT-PCR) Negative Negative Glucometer 287 H 70-110 MG/DL Lactic Acid Level 4.46 *H 0.50-2.00 MMOL/L Test 10/26/21 05:13 Range/Units Urine Color YELLOW Urine Clarity CLEAR Urine pH 6.5 5-9 Urine Specific [place] 1.025 H 1.016-1.022 Urine Protein 3+ H NEGATIVE Urine Glucose (UA) 1+ H NEGATIVE Urine Ketones TRACE H NEGATIVE Urine Nitrite POSITIVE H NEGATIVE Urine Bilirubin NEGATIVE NEGATIVE Urine Urobilinogen 1.0 < = 1.0 MG/DL Urine Leukocyte Esterase NEGATIVE NEGATIVE Urine RBC (Auto) 2+ H NEGATIVE Urine RBC 5-10 H /HPF Urine WBC >100 H /HPF Urine Squamous Epithelial Cells 2-5 /HPF Urine Crystals NONE /LPF Urine Bacteria LARGE H /HPF Urine Casts PRESENT /LPF Urine White Blood Cell Casts 0-2 H /LPF Urine Mucus SMALL H /LPF Urine Culture Indicated CULTURE PENDING ECG Impression ECG Comment Sinus tachycardia versus atrial fibrillation with inferior ST elevation consistent with possible inferior injury pattern. Diagnosis/Problems Diagnosis/Problems (1) ST elevation myocardial infarction (STEMI) of inferior wall, initial episode of care Assessment & Plan: Her electrocardiogram shows inferior ST elevation. This was more prominent in the ambulance but a code STEMI was not called from the field because the EMS team was worried about baseline wander and they were not confident this was a STEMI. Nonetheless, her electrocardiogram in the emergency room also shows inferior ST elevation. Although she is not having chest pain, she is having back pain as well as nausea. This could be an inferior ST elevation myocardial infarction. We will proceed with emergency cardiac catheterization. I have explained the benefits and risks of the procedure to the patient and she has signed a consent form. (2) Coronary artery disease with unstable angina pectoris Assessment & Plan: She had previous bypass surgery with 3 grafts in unknown locations. She has been seen here before and I reviewed some previous notes from cardiology but at that time, they also did not have details about graft l ocation. Since we do not know where the grafts are located, I will perform the cardiac catheterization via the right femoral approach. This will be much quicker than trying to use her left radial artery. (3) Primary hypertension Assessment & Plan: I will resume her carvedilol. I will wait until I see how she responds to the carvedilol before adding back her amlodipine. Depending upon the results of the cardiac catheterization, I may change amlodipine over to OBDULIA inhibitor or ARB. Given her diabetes mellitus, she would be a good candidate for 1 of these medications. I will have to investigate further regarding her reported allergy or adverse reaction to valsartan noted on her allergy list. (4) Mixed hyperlipidemia Assessment & Plan: I will start her on intensive dose statin medication. (5) Type 2 diabetes mellitus with complication Assessment & Plan: I may need to consult the hospitalist for management of the diabetes. (6) Obesity Assessment & Plan: She needs to work on weight loss. KRAIG SUTHERLAND JR, MD Oct 26, 2021 05:39
[2021-10-26 05:41] LABS: BACTERIA,URINE LARGE /HPF; WBC,URINE >100 /HPF
[2021-10-26] MEDS ORDERED: NS IV 1000 ML 1,000 ML ONE (05:41)
[2021-10-26] MEDS ORDERED: LIDOCAINE 2% 20 ML (XYLOCAINE) VIAL ONE (05:41)
[2021-10-26] MEDS ORDERED: HEParin (CATH LAB) 2,000 ML IV ONE (05:41)
[2021-10-26] MEDS ORDERED: fentaNYL INJ 100 MCG/2 ML AMP ONE ×2 (05:41→09:24)
[2021-10-26] MEDS ORDERED: MIDAZOLAM 5 MG/5 ML (VERSED) VIAL ONE (05:41)
[2021-10-26] MEDS ORDERED: HEParin 1000 UNIT/ML (10ML VIAL) FOR BOLUS ONE (05:41)
[2021-10-26] MEDS ORDERED: NITRO DRIP 25000 MCG/D5W 0 ML IV ONE (05:42)
[2021-10-26] MEDS ORDERED: VERAPAMIL 5 MG/2 ML (CALAN) VIAL IV ONE (05:42)
[2021-10-26 05:43] LABS: WHITE BLOOD CELL CASTS, URINE 0-2 /LPF
--- NOTE | 2021-10-26 05:43 | Pre-Op Note & Conscious Sedat ---
Pre-Operative Progress Note H&P Reviewed The H&P was reviewed, patient examined and no changes noted. Date H&P Reviewed: Oct 26, 2021 Time H&P Reviewed: 05:42 Pre-Op Diagnosis: Inferior ST elevation, possible inferior STEMI Conscious Sedation Pre-Proced ASA Score 3 For ASA 3 and 4: Consider anesthesia and medical clearance. Also, for patients with a history of failed moderate sedation consider anesthesia. Airway Lungs Heart ASA score ASA 1: a normal healthy patient ASA 2: a patient with a mild systemic disease (mid diabetes, controlled hypertension, obesity ASA 3: a patient with a severe systemic disease that limits activity (angina, COPD, prior Myocardial infarction) ASA 4: a patient with an incapacitating disease that is a constant threat to life (CHF, renal failure) ASA 5: a moribund patient not expected to survive 24 hrs. (ruptured aneurysm) ASA 6: a declared brain- patient whose organs are being harvested. For emergent operations, add the letter E after the classification Mallampati Classification Grade 2 Sedation Plan Analgesia, Amnesia, Plan communicated to team members, Discussed options with patient/fam, Discussed risks with patient/fam The patient is an appropriate candidate to undergo the planned procedure, sedation, and anesthesia. The patient immediately re-assessed prior to indication. KRAIG ORTIZ JR, MD Oct 26, 2021 05:42
[2021-10-26] MEDS ORDERED: NS IV 1000 ML 1,000 ML IV ONE (05:45)
[2021-10-26 05:55] LABS: ALBUMIN 3.6 GM/DL (3.2-4.5); POTASSIUM 3.8 MMOL/L (3.6-5.0)
[2021-10-26 05:56] LABS: ERYTHROCYTE SEDIMENTATION RATE 4 MM/HR (0-30)
[2021-10-26 05:57] LABS: CALCIUM 8.9 MG/DL (8.5-10.1)
[2021-10-26 05:58] LABS: TOTAL PROTEIN 7.3 GM/DL (6.4-8.2)
[2021-10-26 06:00] LABS: BILIRUBIN,TOTAL 0.9 MG/DL (0.1-1.0)
[2021-10-26 06:02] LABS: CREATININE SERUM 1.55 MG/DL (0.60-1.30)
[2021-10-26 06:05] LABS: MAGNESIUM 1.6 MG/DL (1.6-2.4)
[2021-10-26 06:11] LABS: BAND NEUTROPHILS 11 %; LYMPHOCYTES % (MANUAL) 4 %; MONOCYTES % (MANUAL) 3 %; NEUTROPHILS % (MANUAL) 82 %; PLATELET CLUMPS SLIGHT
[2021-10-26 06:12] LABS: PROTHROMBIN TIME PATIENT 13.4 SEC (12.2-14.7)
[2021-10-26 06:13] LABS: FIBRIN DEGRADATION PRODUCTS 2.97 UG/ML (0.00-0.49)
[2021-10-26 06:14] LABS: CREATINE KINASE MB 4.6 NG/ML (<6.6)
[2021-10-26 06:30] LABS: TRIGLYCERIDES 105 MG/DL (<150); VLDL CHOLESTEROL 21 MG/DL (5-40)
[2021-10-26] MEDS ORDERED: ADENOSINE 6 MG/2 ML (ADENOCARD) VIAL IV ONE (06:30)
[2021-10-26] MEDS ORDERED: NS (IVPB) 250 ML ONE (06:30)
[2021-10-26 06:35] LABS: CHOLESTEROL 171 MG/DL (< 200)
[2021-10-26] MEDS ORDERED: meTOprolol 5 MG/5 ML (LOPRESSOR) VIAL ONE (06:35)
[2021-10-26 06:36] LABS: HDL CHOLESTEROL 38 MG/DL (40-60)
[2021-10-26] MEDS ORDERED: TICAGRELOR 90 MG TABLET (BRILINTA) PO ONE ×2 (06:43→06:50)
[2021-10-26] MEDS ORDERED: NS IV 1000 ML 1,000 ML IV SCH ×3 (07:15→21:15)
[2021-10-26] MEDS ORDERED: ANTACID SUSP 30 ML UDC (MYLANTA) PO PRN (07:15)
--- NOTE | 2021-10-26 07:17 | Cardiac Cath Report ---
CARDIAC CATHETERIZATION DATE OF PROCEDURE: 10/26/2021 INDICATION: Inferior ST elevation myocardial infarction. HISTORY: The patient is a 70 year old female with a known history of coronary artery disease who underwent coronary artery bypass surgery around 2015 at [facility] in [facility]. She had a left internal mammary artery graft to left anterior descending coronary artery, either a saphenous vein graft or a radial artery graft to an obtuse marginal or diagonal branch, and a saphenous vein graft to the right coronary artery. 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 Last evening she started developing nausea, vomiting and back pain. She did not seek immediate medical attention. Early this morning, she told her son about the symptoms and he called 911. EMS arrived and did an electrocardiogram in the field which showed inferior ST elevation but there was significant baseline wander so a field STEMI activation was not activated. She was then brought to our emergency room and a follow-up electrocardiogram again showed inferior ST elevation. At that time, a code STEMI was called. Due to t he patient's symptoms, she was also deemed to be a PUI (person under investigation) for Covid infection. Due to extra protocols that needed to be taken due to her PUI status, this caused a patient related delay to first device activation. PROCEDURES PERFORMED: 1. Left heart catheterization with hemodynamic measurements. 2. Diagnostic [place] coronary angiography. 3. Diagnostic bypass graft angiography. 4. Drug-eluting stent placement to the proximal segment of the saphenous vein graft to the right coronary artery PROCEDURE DESCRIPTION: After informed consent and in the fasting state, left heart catheterization was performed through the right femoral artery utilizing a 6 [place] system by percutaneous approach. Standard Taylor catheters were utilized for the diagnostic portion of the procedure. A 6 [place] JR4 guide catheter was utilized for the percutaneous coronary intervention. All catheters were exchanged over a guidewire. Following the procedure, a right femoral angiogram showed the sheath to enter above the bifurcation and just at the inferior epigastric artery. A Mynx closure device was deployed. RESULTS: HEMODYNAMICS: Aortic pressure was 120/63 mmHg. The left ventricular pressure was 130/0 mmHg with a left ventricular end-diastolic pressure of 20 mmHg. There was no significant pressure gradient upon pullback across aortic valve. 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 Left anterior descending coronary artery: There was a 50% stenosis proximally and an 80% stenosis distally. 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 There was a 50% stenosis in its midportion before the takeoff of the obtuse marginal branches. Right coronary artery: Dominant and totally occluded proximally with MENDEZ 0 flow. GRAFT ANGIOGRAPHY: Left internal mammary artery graft to left anterior descending coronary artery: Widely patent with good distal runoff. Saphenous vein graft to obtuse marginal branch: This was very small in caliber appearing like a "string sign". There is very little flow going to the [place] distal branch. Saphenous vein graft to distal right coronary artery: Totally occluded proximally with evidence of thrombus and MENDEZ 0 flow. This was the ischemia related vessel for the acute myocardial infarction. PERCUTANEOUS CORONARY INTERVENTION: Percutaneous coronary intervention was carried out on the saphenous vein graft to the right coronary artery through a 6 [place] FL 4 guide catheter. The lesion was successfully crossed with a whisper medium support guidewire. I subsequently performed coronary angioplasty with a 2.5 x 12 mm Trek balloon at a pressure of 8 raquel for several inflations. Flow was improved but still sluggish. Intracoronary adenosine was administered several times. I subsequently deployed a 3 x 33 mm drug-eluting Xience Skypoint stent at a pressure of 16 raquel. Following stent placement, there was 0% residual stenosis with MENDEZ-3 flow. IMPRESSION: 1. Normal central aortic pressure with elevated left ventricular end-diastolic pressure. 2. Severe [place] two-vessel coronary artery disease involving the left anterior descending and right coronary arteries as outlined above. 3. 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 4. Patent left internal mammary artery graft to left anterior descending coronary artery. 5. The saphenous vein graft to the obtuse marginal system is atretic and very s mall with little blood flow to the [place] branch. 6. Total thrombotic occlusion of the proximal segment of the saphenous vein g raft to the distal right coronary artery. This was the ischemia related vessel for the acute myocardial infarction. 7. Status post drug-eluting stent placement to the proximal segment of the saphenous vein graft to the distal right coronary artery with a 3 x 33 mm Xience Skypoint stent with 0% residual stenosis and MENDEZ-3 flow. 8. I will obtain an echocardiogram later today to assess her left ventricular function. Certain portions of this document may have been dictated utilizing voice recognition technology. Inherent to this technology, typographical and grammatical errors may exist. As much as I am diligent to identify and correct these mistakes, some errors may remain in the document. KRAIG ORTIZ JR, MD Oct 26, 2021 07:17
[2021-10-26] MEDS: TICAGRELOR 90 MG TABLET (BRILINTA) PO SCH ×2 (08:44→20:35)
[2021-10-26] MEDS: ENOXAPARIN 40 MG/0.4 ML (LOVENOX) SYR SC SCH (08:45)
[2021-10-26] MEDS: ASPIRIN E.C. 81 MG (ECOTRIN) TAB PO SCH (08:47)
[2021-10-26] MEDS: NS IV 1000 ML 1,000 ML IV SCH ×3 (09:37→20:46)
[2021-10-26] MEDS ORDERED: cefTRIAXone 1 GM PRE-MIX 50 ML IV NR (10:00)
[2021-10-26] MEDS ORDERED: LACTATED RINGERS 1,000 ML IV ONE (11:39)
[2021-10-26] MEDS: ACETAMINOPHEN 325 MG TABLET PO PRN (11:43)
[2021-10-26] MEDS ORDERED: LACTATED RINGERS 1,000 ML IV SCH (11:45)
[2021-10-26] MEDS ORDERED: inSUlin ASPART (NovoLOG) 1 UNIT/0.01 ML (CHARGE PER UNIT) ONE (11:45)
[2021-10-26] MEDS: inSUlin ASPART (NovoLOG) 1 UNIT/0.01 ML (CHARGE PER UNIT) SC SCH ×3 (11:50→20:35)
--- NOTE | 2021-10-26 14:40 | Tele-ICU Progress Note ---
Subjective Date Seen by a Provider: Oct 26, 2021 Time Seen by a Provider: 14:36 Subjective/Events-last exam She is presented to the emergency room with a complaint of nausea vomiting and a fever. Also had upper back pain. She is found to have an ST segment elevation myocardial infarction and an immediate cardiology consultation requested and she was taken to cardiac catheterization lab where she underwent SVG to RCA stent PCI. Her urine analysis consistent with urinary tract infection and possible sepsis is entertained. 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 Currently she is hemodynamically stable. . I have made a video visit and evaluated the patient. Review of Systems ROS PER RN Sepsis Event Evaluation Height, Weight, BMI Height: 5'2.00" Weight: 170lbs. oz. [id number]; 38.54 BMI Method:Stated Focused Exam Lactate Level 10/26/21 08:52: Lactic Acid Level 3.52*H 10/26/21 11:10: Lactic Acid Level 4.56*H 10/26/21 13:15: Lactic Acid Level 3.89*H Time of Focused Exam: 05:15 Lactic Acid Level Laboratory Tests Test 10/26/21 11:10 10/26/21 13:15 Lactic Acid Level 4.56 MMOL/L (0.50-2.00) *H 3.89 MMOL/L (0.50-2.00) *H Exam Exam Patient acknowledged, consented, and participated in this virtual visit which was conducted using real time audio/video Vital Signs Date Time Temp Pulse Resp B/P (MAP) Pulse Ox O2 Delivery O2 Flow Rate FiO2 10/26/21 13:00 110 22 133/62 93 High Flow N/C 10.00 10/26/21 12:00 94 High Flow N/C 10.00 10/26/21 12:00 105 20 115/71 93 High Flow N/C 10.00 10/26/21 12:00 38.3 10/26/21 11:43 38.3 10/26/21 11:00 107 20 133/84 94 High Flow N/C 10.00 10/26/21 10:00 107 14 133/84 95 High Flow N/C 10.00 10/26/21 09:39 112 10/26/21 09:00 106 18 167/101 94 High Flow N/C 10.00 10/26/21 08:30 107 20 133/84 94 High Flow N/C 10.00 10/26/21 08:00 94 High Flow N/C 10.00 10/26/21 05:59 36.7 126 20 156/95 96 Non Rebreather 10.00 10/26/21 04:49 96 Non Rebreather 10.00 10/26/21 04:49 37.5 131 20 192/95 (127) 96 Non Rebreather 10.00 I & O 10/26/21 07:00 Intake Total 50 ml Balance 50 ml Height & Weight Height: 5'2.00" Weight: 170lbs. oz. [id number]; 38.54 BMI Method:Stated General Appearance: No Apparent Distress, Obese, Other (SOMEWHAT LETHARGIC, VERY FLAT AFFECT) Respiratory: Normal Breath Sounds, No Accessory Muscle Use, No Respiratory Distress Cardiovascular: Tachycardia Capillary Refill: Less Than 3 Seconds Extremity: Pedal Edema (TRACE ON RIGHT, 1+ ON LEFT) Neurologic/Psychiatric: Alert, No Motor/Sensory Deficits, Other (ORIENTED TO PERSON, GROSSLY ORIENTED TO SITUATION, SOMEWHAT CONFUSED TO TIME AND PLACE, AND VERY POOR MEMORY) Other comments PE PER RN Results Lab Laboratory Tests 10/26/21 05:01 Assessment/Plan Assessment/Plan 1. STEMI 2. Sepsis due to UTI 3. Possible gram-negative UTI 4. Hypertension Recommendations 1. Status post cardiac cath and PCI done. Further management per cardiology 2. Agree with culture of urine and continue IV Rocephin per primary care 3. DVT prophylaxis and ulcer prophylaxis. 4. IV fluid administration and monitor lactic acid. Per protocol. Critical Care: Critically Ill Patient Time spent with patient (mins): 25 RITO BEST MD Oct 26, 2021 14:40
--- NOTE | 2021-10-26 16:51 | Consultation - Hospitalist ---
HPI History of Present Illness: HPI/Chief Complaint Kemi Martínez is a 70 year old female who was admitted with STEMI. She is unable to provide an adequate history due to her curent condition. Per records, she was admitted after presenting with nausea, vomiting, and back pain. She did not have any chest pain. She is uncomfortable and received sedating medications prior to my arrival making her a poor historian. She is able to tell me her back hurts. She is not short of breath. She does not express any other complaints. Source: patient Exam Limitations: clinical condition Date Seen 10/26/21 Attending Physician Selvin Sutherland Jr, MD PCP Miki Mejia MD Referring Physician Date of Admission Home Medications & Allergies Home Medications Reviewed patient Home Medication Reconciliation performed by pharmacy medication reconciliations home appliance technician and/or nursing. Patients Allergies have been reviewed. Allergies Allergies Coded Allergies Sulfa (Sulfonamide Antibiotics) (Verified Allergy, Unknown, 08/24/18) ciprofloxacin (Verified Allergy, Unknown, anaphylaxis, 08/02/19) nitrofurantoin (Verified Allergy, Unknown, SOB/wheezing , 08/02/19) valsartan (Verified Allergy, Unknown, Angioedema, 10/05/19) Past Ttccrds-Wnuvxf-Hasinc Hx Patient Social History Tobacco Use?: No Smoking Status: Never a Smoker Use of E-Cig and/or Vaping dev: No Substance use?: No Alcohol Use?: No Pt feels they are or have been: No Immunizations Up To Date First/Initial COVID19 Vaccinat: YES Second COVID19 Vaccination [place]: YES Tetanus Booster (TDap): Unknown Date of Pneumonia Vaccine: Aug 02, 2018 Seasonal Allergies Seasonal Allergies: No Current Status status: No status: No Advance Directives: No Communicates: Verbally Primary Language: Algerian Preferred Spoken Language: Algerian Is interpretation needed?: No Past Medical History Surgeries: Bladder Surgery, Cardiac, CABG Pulmonary Embolism Coronary Artery Disease, High Cholesterol, Hypertension Stroke, 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 Heart Disease, Cancer Review of Systems Constitutional: see HPI Physical Exam Physical Exam Vital Signs Vital Signs - First Documented Capillary Refill : Less Than 3 Seconds Height, Weight, BMI Height: 5'2.00" Weight: 170lbs. oz. 77.586569aw; 38.54 BMI Method:Stated General Appearance: Mild Distress (uncomfortable), Obese HEENT: PERRL/EOMI, Pharynx Normal Neck: Normal Inspection, Supple Respiratory: Lungs Clear, Normal Breath Sounds, Respiratory Distress (tachypnea) Cardiovascular: No Murmur, Normal Peripheral Pulses, Tachycardia Gastrointestinal: Normal Bowel Sounds, Non Tender, Soft Extremity: Normal Inspection, Pedal Edema Neurologic/Psychiatric: Alert, No Motor/Sensory Deficits, Other (ORIENTED TO PERSON, GROSSLY ORIENTED TO SITUATION, SOMEWHAT CONFUSED TO TIME AND PLACE, AND VERY POOR MEMORY) Skin: Normal Color, Warm/Dry Results Results/Procedures Labs Laboratory Tests 10/26/21 05:01 Patient resulted labs reviewed. Imaging: Reviewed Imaging Report Assessment/Plan Assessment and Plan Assess & Plan/Chief Complaint STEMI CAD s/p CABG Cardiology primary Left heart cath with balloon angioplasty and stent placement in RCA Aspirin Brilinta Coreg Crestor Echo Septic shock UTI Lactic acidosis Mihai on CKD SIRS+ with leukocytosis, tachycardia, tachypnea UA indicative of UTI Lactic acid >4 IV fluids Rocephin T2DM Sliding scale insulin HTN HLD Obesity DVT prophylaxis: Lovenox Critical Care Critically Ill Patient Diagnosis/Problems Diagnosis/Problems (1) STEMI (ST elevation myocardial infarction) Status: Acute Qualifiers: Involved coronary artery: right coronary artery Qualified Codes: I21.11 - ST elevation (STEMI) myocardial infarction involving right coronary artery (2) CAD (coronary artery disease) Status: Chronic (3) Septic shock Status: Acute (4) UTI (urinary tract infection) Status: Acute (5) Lactic acidosis Status: Acute (6) Acute kidney injury superimposed on chronic kidney disease Status: Acute (7) Primary hypertension Status: Chronic (8) Mixed hyperlipidemia Status: Chronic (9) Type 2 diabetes mellitus with complication Status: Chronic (10) Obesity Status: Chronic (11) Stage 3 chronic kidney disease Status: Chronic (12) Hx of CABG Status: Chronic LYNNETTE JERRY MD Oct 26, 2021 16:51
[2021-10-26] MEDS: ROSUVASTATIN 20 MG (CRESTOR) TABLET PO SCH (20:35)
[2021-10-26 21:30] VITALS: BP 192/95
[2021-10-26] MEDS ORDERED: RT-ALBUTEROL SULF 2.5 MG/3 ML PRE-MIX VIAL INH PRN (21:45)
[2021-10-27 04:41] LABS: HEMOGLOBIN 12.5 g/dL (11.5-16.0)
[2021-10-27 04:46] LABS: WHITE BLOOD COUNT 31.6 10^3/uL (4.3-11.0)
[2021-10-27 04:53] LABS: POTASSIUM 4.3 MMOL/L (3.6-5.0)
[2021-10-27 04:54] LABS: CALCIUM 7.4 MG/DL (8.5-10.1)
[2021-10-27 04:58] LABS: CREATININE SERUM 1.75 MG/DL (0.60-1.30)
[2021-10-27] MEDS: ACETAMINOPHEN 325 MG TABLET PO PRN (05:14)
[2021-10-27] MEDS: inSUlin ASPART (NovoLOG) 1 UNIT/0.01 ML (CHARGE PER UNIT) SC SCH ×4 (06:19→21:01)
[2021-10-27] MEDS: NS IV 1000 ML 1,000 ML IV SCH ×4 (06:40→23:56)
[2021-10-27] MEDS: TICAGRELOR 90 MG TABLET (BRILINTA) PO SCH ×2 (08:47→20:00)
[2021-10-27] MEDS: ASPIRIN E.C. 81 MG (ECOTRIN) TAB PO SCH (08:47)
[2021-10-27] MEDS: cefTRIAXone 2,000 MG in NS (IVPB) 50 ML IV SCH (08:47)
--- NOTE | 2021-10-27 09:08 | Tele-ICU Progress Note ---
Subjective Date Seen by a Provider: Oct 27, 2021 Time Seen by a Provider: 09:08 Subjective/Events-last exam Patient earlier was doing fair. However letter this morning she developed for the chest pain with shortness of breath. Nitroglycerin given. Lead Customer Service Representative decrease his IV fluids and give Lasix. I have ordered morphine 2 mg IV as needed. EKG showed inferior leads T wave inversions and inferior infarct could not be ruled out. Patient did have a SVG to RCA graft stenting. Repeat troponin ordered. Her blood cultures and urine cultures grew gram-negative rods and she is on IV Rocephin. Identification of the organism pending. Review of Systems ROS PER RN Sepsis Event Evaluation Height, Weight, BMI Height: 5'2.00" Weight: 170lbs. oz. 77.054299te; 38.54 BMI Method:Stated Focused Exam Lactate Level 10/26/21 18:25: Lactic Acid Level 2.25*H 10/26/21 20:36: Lactic Acid Level 2.62*H 10/26/21 23:25: Lactic Acid Level 1.91 Time of Focused Exam: 05:15 Exam Exam Patient acknowledged, consented, and participated in this virtual visit which was conducted using real time audio/video Vital Signs Date Time Temp Pulse Resp B/P (MAP) Pulse Ox O2 Delivery O2 Flow Rate FiO2 10/27/21 08:57 92 High Flow N/C 2.00 10/27/21 08:00 36.6 10/27/21 06:00 74 11 117/60 97 High Flow N/C 12.00 10/27/21 05:00 75 17 113/68 98 High Flow N/C 12.00 10/27/21 04:00 37.0 10/27/21 04:00 95 High Flow N/C 12.00 10/27/21 04:00 76 26 112/69 91 High Flow N/C 12.00 10/27/21 03:00 72 12 115/65 98 High Flow N/C 12.00 10/27/21 02:00 71 17 109/61 98 High Flow N/C 12.00 10/27/21 01:00 69 13 104/60 98 High Flow N/C 12.00 10/27/21 01:00 70 10/27/21 00:00 70 100/58 98 High Flow N/C 12.00 10/26/21 23:59 95 High Flow N/C 12.00 10/26/21 23:00 67 94/56 97 High Flow N/C 12.00 10/26/21 22:49 96 High Flow N/C 12.00 10/26/21 22:46 High Flow N/C 12.00 10/26/21 22:00 66 24 96/54 96 OxyMask 12.00 10/26/21 21:30 64 23 93/55 98 OxyMask 12.00 10/26/21 21:30 37.5 70 97 10/26/21 20:50 70 23 97 OxyMask 12.00 10/26/21 20:00 95 High Flow N/C 10.00 10/26/21 20:00 75 23 83/53 High Flow N/C 10.00 10/26/21 19:43 37.0 10/26/21 19:00 86 10/26/21 19:00 86 21 103/67 High Flow N/C 10.00 10/26/21 18:00 97 15 124/64 High Flow N/C 10.00 10/26/21 17:00 97 11 137/77 High Flow N/C 10.00 10/26/21 16:00 37.3 10/26/21 16:00 101 18 126/69 High Flow N/C 10.00 10/26/21 15:08 94 High Flow N/C 10.00 10/26/21 15:00 104 13 124/64 92 High Flow N/C 10.00 10/26/21 14:00 107 25 126/75 93 High Flow N/C 10.00 10/26/21 13:00 101 10/26/21 13:00 110 22 133/62 93 High Flow N/C 10.00 10/26/21 12:00 94 High Flow N/C 10.00 10/26/21 12:00 105 20 115/71 93 High Flow N/C 10.00 10/26/21 12:00 38.3 10/26/21 11:43 38.3 10/26/21 11:00 107 20 133/84 94 High Flow N/C 10.00 10/26/21 10:00 107 14 133/84 95 High Flow N/C 10.00 10/26/21 09:39 112 I & O 10/27/21 07:00 Intake Total 3575 ml Output Total 950 ml Balance 2625 ml Height & Weight Height: 5'2.00" Weight: 170lbs. oz. 77.948617da; 38.54 BMI Method:Stated General Appearance: Mild Distress (uncomfortable), Obese HEENT: PERRL/EOMI, Pharynx Normal Neck: Normal Inspection, Supple Respiratory: Lungs Clear, Normal Breath Sounds, Respiratory Distress (tachypnea) Cardiovascular: No Murmur, Normal Peripheral Pulses, Tachycardia Capillary Refill: Less Than 3 Seconds Extremity: Normal Inspection, Pedal Edema Neurologic/Psychiatric: Alert, No Motor/Sensory Deficits, Other (ORIENTED TO PERSON, GROSSLY ORIENTED TO SITUATION, SOMEWHAT CONFUSED TO TIME AND PLACE, AND VERY POOR MEMORY) Skin: Normal Color, Warm/Dry Other comments PE PER RN Results Lab Laboratory Tests 10/26/21 05:01 10/27/21 04:15 Assessment/Plan Assessment/Plan 1. STEMI 2. Gram negative Sepsis due to UTI 3. Possible gram-negative UTI 4. Hypertension 5. recurrent chest pain. MS ordered. cardiology aware. 6. possible fluid over load. lasix was given Recommendations 1. Status post cardiac cath and PCI done. Further management per cardiology 2. Agree with culture of urine and continue IV Rocephin per primary care 3. DVT prophylaxis and ulcer prophylaxis. 4. IV fluids decreased. Critical Care: Critically Ill Patient Time spent with patient (mins): 25 RITO BEST MD Oct 27, 2021 09:08
--- NOTE | 2021-10-27 11:12 | Cardiology Progress Note ---
Progress Note-Cardiology Events since last exam Date Seen by Provider: Oct 27, 2021 Time Seen by Provider: 11:11 Events since last exam The patient is on my service following an acute inferior ST elevation myocardial infarction that was caused by thrombotic occlusion of the vein graft to the right coronary artery. This was treated with 1 drug-eluting stent. She denies any further chest discomfort. This morning she was complaining of increasing shortness of breath. She denies palpitations or syncope. Her chronic lower extremity edema has improved slightly since being in the hospital and keeping her feet up. Certain portions of this document may have been dictated utilizing voice recognition technology. Inherent to this technology, typographical and grammatical errors may exist. As much as I am diligent to identify and correct these mistakes, some errors may remain in the document. Vitals Last set of Vitals Signs Vital Signs 10/27/21 10/27/21 11:00 12:00 Temp 36.3 Pulse 71 Resp 28 B/P (MAP) 109/80 Pulse Ox 92 O2 Delivery High Flow N/C O2 Flow Rate 2.00 Labs Labs Laboratory Tests 10/27/21 04:15 Exam Vital Signs Vital Signs Date Time Temp Pulse Resp B/P (MAP) Pulse Ox O2 Delivery O2 Flow Rate FiO2 10/27/21 12:00 36.3 10/27/21 11:00 71 28 109/80 92 High Flow N/C 2.00 Physical Exam General: Alert. Mild respiratory distress. Eye: No xanthelasma. HENT: Normocephalic. Neck: Jugular venous pressure does not appear elevated. Respiratory: Lungs are clear to auscultation with diffusely decreased breath sounds. Respirations are non-labored. Breath sounds are equal. Symmetrical chest wall expansion. Cardiovascular: Normal rate. Regular rhythm. No murmur. No gallop. 2+ bilateral pretibial edema. Gastrointestinal: Soft. Normal bowel sounds. Skin: Warm. Dry. Neurologic: Alert and oriented to person, place, time. Cranial nerves 3-11 grossly intact. Psychiatric: Cooperative. Appropriate mood & affect. Labs Laboratory Tests Test 10/26/21 15:34 10/26/21 16:03 10/26/21 18:25 10/26/21 20:23 Range/Units Lactic Acid Level 2.95 *H 2.25 *H 0.50-2.00 MMOL/L Glucometer 214 H 242 H 70-110 MG/DL Test 10/26/21 20:36 10/26/21 23:25 10/27/21 04:15 10/27/21 10:12 Range/Units Lactic Acid Level 2.62 *H 1.91 0.50-2.00 MMOL/L White Blood Count 31.6 *H 4.3-11.0 10^3/uL Red Blood Count 4.02 3.80-5.11 10^6/uL Hemoglobin 12.5 11.5-16.0 g/dL Hematocrit 40 35-52 % Mean Corpuscular Volume 100 H 80-99 fL Mean Corpuscular Hemoglobin 31 25-34 pg Mean Corpuscular Hemoglobin Concent 31 L 32-36 g/dL Red Cell Distribution Width 14.6 H 10.0-14.5 % Platelet Count 108 L 130-400 10^3/uL Mean Platelet Volume 11.0 9.0-12.2 fL Percent Immature Platelet Fraction 6.2 0.0-7.6 % Sodium Level 138 135-145 MMOL/L Potassium Level 4.3 3.6-5.0 MMOL/L Chloride Level 105 98-107 MMOL/L Carbon Dioxide Level 22 21-32 MMOL/L Anion Gap 11 5-14 MMOL/L Blood Urea Nitrogen 31 H 7-18 MG/DL Creatinine 1.75 H 0.60-1.30 MG/DL Estimat Glomerular Filtration Rate 29 BUN/Creatinine Ratio 18 Glucose Level 206 H 70-105 MG/DL Calcium Level 7.4 L 8.5-10.1 MG/DL Troponin I 18.140 *H <0.028 NG/ML Glucometer 165 H 70-110 MG/DL Diagnosis/Problems Diagnosis/Problems (1) ST elevation myocardial infarction (STEMI) of inferior wall, initial episode of care Assessment & Plan: As above, this was caused by 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 No recurrent angina. We will continue guideline directed medical therapy with aspirin, ticagrelor, beta- sonia, and statin medication. She had a MUGA scan earlier today and the preliminary report shows a normal ejection fraction. (2) Acute heart failure with preserved ejection fraction (HFpEF) Assessment & Plan: She appeared to have some pulmonary congestion upon presentation. Her chest x-ray from today appeared to be slightly improved. I did give her dose of intravenous Lasix today. She has been receiving a fair amount of intravenous fluids due to the sepsis from her urinary tract infection. (3) Coronary artery disease with unstable angina pectoris Assessment & Plan: As above. (4) Primary hypertension Status: Chronic Assessment & Plan: She is on her carvedilol. I will hold off on restarting amlodipine due to borderline low blood pressures that could be related to the sepsis. (5) Mixed hyperlipidemia Status: Chronic Assessment & Plan: In light of the acute myocardial infarction, she is now on intensive dose statin medication. (6) Sepsis due to urinary tract infection Assessment & Plan: This is being managed by the hospitalist. I appreciate their input. (7) Acute kidney injury superimposed on chronic kidney disease Status: Acute Assessment & Plan: She has been receiving intravenous fluids due to the sepsis. Hopefully this will improve. (8) Type 2 diabetes mellitus with complication Status: Chronic Assessment & Plan: The hospitalist is managing treatment of the diabetes while she is here in the hospital. (9) Obesity Status: Chronic Assessment & Plan: She needs to work on weight loss. KRAIG ORTIZ JR, MD Oct 27, 2021 11:12
[2021-10-27] MEDS ORDERED: FUROSEMIDE 40 MG/4 ML INJ (LASIX) IVP ONE (11:15)
[2021-10-27] MEDS ORDERED: HEParin (CENTRAL IV FLUSH) 500 UNIT/5 ML SYR ONE (11:32)
[2021-10-27] MEDS: NITROGLYCERIN 2% OINT 1 GM UNIT DOSE PACKET TOP SCH ×3 (11:33→23:56)
[2021-10-27] MEDS: ENOXAPARIN 40 MG/0.4 ML (LOVENOX) SYR SC SCH (11:42)
--- NOTE | 2021-10-27 12:02 | Diagnostic Imaging Report ---
INDICATION: Shortness of breath. EXAMINATION: Portable chest at 11:37 a.m. FINDINGS: There are postop changes from CABG surgery. Heart size and pulmonary vascularity are upper limits of normal. There are no infiltrates, effusions, or pneumothoraces. IMPRESSION: Postsurgical changes in the chest. There appears to be less pulmonary vascular congestion compared to previous day. Dictated by: Dictated on workstation # [id number]
[2021-10-27] MEDS ORDERED: morphine INJ 4 MG/ML 1 ML (VIAL/SYRINGE) ONE (12:14)
[2021-10-27] MEDS: morphine INJ 4 MG/ML 1 ML (VIAL/SYRINGE) IVP PRN ×2 (12:35→20:01)
[2021-10-27] MEDS ORDERED: morphine INJ 4 MG/ML 1 ML (VIAL/SYRINGE) IVP PRN (12:45)
[2021-10-27] MEDS ORDERED: ALPRAZolam 0.5 MG (XANAX) TAB PO SCH (13:00)
[2021-10-27] MEDS: FLUTICASONE NASAL SPRAY (FLONASE) 16 GM BTL NS SCH (13:28)
[2021-10-27] MEDS: ALPRAZolam 0.5 MG (XANAX) TAB PO PRN ×2 (13:28→20:00)
--- NOTE | 2021-10-27 14:58 | Cardiac Procedure Note ---
Cardiology Procedures Date of Procedure 10/27/2021 PROCEDURE: MUGA scan with wall motion and ejection fraction. INDICATION: Acute inferior ST elevation myocardial infarction. PROCEDURE DESCRIPTION: Autologous red blood cell scan was obtained following tagging of the patient's red blood cells with 31.3 mCi technetium 99 M. Following a short wait, SPECT imaging and gated imaging were obtained. The study quality is adequate. RESULTS: There is normal left ventricular function and wall motion with a calculated ejection fraction 58%. IMPRESSION: 1. MUGA scan demonstrates normal left ventricular function and wall motion with a calculated ejection fraction of 58%. Certain portions of this document may have been dictated utilizing voice recognition technology. Inherent to this technology, typographical and grammatical errors may exist. As much as I am diligent to identify and correct these mistakes, some errors may remain in the document. KRAIG ORTIZ JR, MD Oct 27, 2021 14:58
--- NOTE | 2021-10-27 15:16 | Progress Note - Hospitalist ---
Subjective HPI/CC On Admission Date Seen by Provider: Oct 27, 2021 Time Seen by Provider: 09:35 Kemi Martínez is a 70 year old female who was admitted with STEMI. She is unable to provide an adequate history due to her curent condition. Per records, she was admitted after presenting with nausea, vomiting, and back pain. She did not have any chest pain. She is uncomfortable and received sedating medications prior to my arrival making her a poor historian. She is able to tell me her back hurts. She is not short of breath. She does not express any other complaints. Subjective/Events-last exam She is feeling a little better. She still has back pain. She is a bit short of breath. Focused Exam Lactate Level 10/26/21 18:25: Lactic Acid Level 2.25*H 10/26/21 20:36: Lactic Acid Level 2.62*H 10/26/21 23:25: Lactic Acid Level 1.91 Time of Focused Exam: 05:15 Objective Exam Vital Signs Vital Signs Date Time Temp Pulse Resp B/P (MAP) Pulse Ox O2 Delivery O2 Flow Rate FiO2 10/27/21 13:00 76 10/27/21 12:00 36.3 10/27/21 12:00 High Flow N/C 2.00 10/27/21 11:00 28 109/80 92 Capillary Refill : Less Than 3 Seconds General Appearance: No Apparent Distress, Obese Respiratory: Lungs Clear, Normal Breath Sounds, No Respiratory Distress Cardiovascular: Regular Rate, Rhythm, No Edema, No Murmur Gastrointestinal: Normal Bowel Sounds, Non Tender, Soft Extremity: Normal Inspection, Non Tender, No Pedal Edema Neurologic/Psychiatric: Alert, No Motor/Sensory Deficits, Normal Mood/Affect Skin: Normal Color, Warm/Dry Results/Procedures Lab Laboratory Tests 10/27/21 04:15 Patient resulted labs reviewed. Imaging: Reviewed Imaging Report Assessment/Plan Assessment and Plan Assess & Plan/Chief Complaint STEMI CAD s/p CABG Cardiology primary Left heart cath with balloon angioplasty and stent placement in RCA Aspirin Brilinta Coreg Crestor Echo with normal EF Septic shock UTI Gram negative tyler bacteremia Acute respiratory failure with hypoxia Lactic acidosis Mihai on CKD SIRS+ with leukocytosis, tachycardia, tachypnea UA indicative of UTI Lactic acid >4 IV fluids Rocephin T2DM Sliding scale insulin HTN HLD Obesity DVT prophylaxis: Lovenox Critical Care Critically Ill Patient Diagnosis/Problems Diagnosis/Problems (1) STEMI (ST elevation myocardial infarction) Status: Acute Qualifiers: Involved coronary artery: right coronary artery Qualified Codes: I21.11 - ST elevation (STEMI) myocardial infarction involving right coronary artery (2) CAD (coronary artery disease) Status: Chronic (3) Septic shock Status: Acute (4) UTI (urinary tract infection) Status: Acute (5) Lactic acidosis Status: Acute (6) Acute kidney injury superimposed on chronic kidney disease Status: Acute (7) Primary hypertension Status: Chronic (8) Mixed hyperlipidemia Status: Chronic (9) Type 2 diabetes mellitus with complication Status: Chronic (10) Obesity Status: Chronic (11) Stage 3 chronic kidney disease Status: Chronic (12) Hx of CABG Status: Chronic LYNNETTE JERRY MD Oct 27, 2021 15:16
[2021-10-27] MEDS: ROSUVASTATIN 20 MG (CRESTOR) TABLET PO SCH (20:00)
[2021-10-28] MEDS: morphine INJ 4 MG/ML 1 ML (VIAL/SYRINGE) IVP PRN ×2 (03:44→05:28)
--- NOTE | 2021-10-28 04:06 | Progress Note ---
Standard Progress Note Progress Notes/Assess & Plan Date Seen by a Provider: Oct 28, 2021 Time Seen by a Provider: 04:05 Progress/Assessment & Plan called for oliguria, has Diaz catheter, once old catheter taken out and new one placed, 100 mL of urine but not much since, pt has some wheezing, but no crackles according to RN, will give 40 mg IVP Lasix Focused Exam Lactate Level 10/26/21 18:25: Lactic Acid Level 2.25*H 10/26/21 20:36: Lactic Acid Level 2.62*H 10/26/21 23:25: Lactic Acid Level 1.91 Time of Focused Exam: 05:15 RAFY STEEN MD Oct 28, 2021 04:06
[2021-10-28] MEDS ORDERED: FUROSEMIDE 40 MG/4 ML INJ (LASIX) ONE (04:09)
[2021-10-28] MEDS ORDERED: FUROSEMIDE 40 MG/4 ML INJ (LASIX) IVP ONE (04:15)
[2021-10-28 04:45] LABS: EOSINOPHILS # (AUTO) 0.1 10^3/uL (0.0-0.3); EOSINOPHILS % (AUTO) 1 % (0-10); LYMPHOCYTES % (AUTO) 9 % (12-44); MEAN CORPUSCULAR VOLUME 101 fL (80-99)
[2021-10-28 04:47] LABS: BASOPHILS # (AUTO) 0.1 10^3/uL (0.0-0.1); BASOPHILS % (AUTO) 0 % (0-10); HEMATOCRIT 39 % (35-52); HEMOGLOBIN 12.1 g/dL (11.5-16.0); MEAN CORPUSCULAR HEMOGLOBIN 31 pg (25-34); MEAN CORPUSCULAR HGB CONC 31 g/dL (32-36); MEAN PLATELET VOLUME 11.7 fL (9.0-12.2); MONOCYTES # (AUTO) 1.3 10^3/uL (0.0-1.0); MONOCYTES % (AUTO) 6 % (0-12); NEUTROPHILS # (AUTO) 18.5 10^3/uL (1.8-7.8); NEUTROPHILS % (AUTO) 82 % (42-75); PLATELET COUNT 105 10^3/uL (130-400); WHITE BLOOD COUNT 22.4 10^3/uL (4.3-11.0)
[2021-10-28] MEDS: ALPRAZolam 0.5 MG (XANAX) TAB PO PRN (04:49)
[2021-10-28 05:03] LABS: ALBUMIN 2.8 GM/DL (3.2-4.5); POTASSIUM 4.5 MMOL/L (3.6-5.0)
[2021-10-28 05:04] LABS: CALCIUM 7.2 MG/DL (8.5-10.1)
[2021-10-28 05:07] LABS: BILIRUBIN,TOTAL 0.5 MG/DL (0.1-1.0)
[2021-10-28 05:09] LABS: CREATININE SERUM 1.39 MG/DL (0.60-1.30); PHOSPHORUS 3.8 MG/DL (2.3-4.7)
[2021-10-28 05:12] LABS: MAGNESIUM 1.9 MG/DL (1.6-2.4)
[2021-10-28] MEDS: MAGNESIUM 1 GM/100 ML IVPB 100 ML IV SCH (05:17)
[2021-10-28] MEDS: POTASSIUM CL 10MEQ/50ML IVPB 50 ML IV SCH (05:17)
[2021-10-28] MEDS: KCL 20 MEQ TAB (K-DUR) PO SCH (05:17)
[2021-10-28] MEDS: inSUlin ASPART (NovoLOG) 1 UNIT/0.01 ML (CHARGE PER UNIT) SC SCH ×4 (05:17→21:20)
[2021-10-28 05:18] LABS: BAND NEUTROPHILS 2 %; EOSINOPHILS % (MANUAL) 1 %; LYMPHOCYTES % (MANUAL) 11 %; MONOCYTES % (MANUAL) 5 %; NEUTROPHILS % (MANUAL) 81 %
[2021-10-28 05:19] LABS: MICROCYTOSIS SLIGHT; PLATELET CLUMPS SLIGHT; POLYCHROMASIA SLIGHT
[2021-10-28] MEDS: NITROGLYCERIN 2% OINT 1 GM UNIT DOSE PACKET TOP SCH (05:33)
[2021-10-28] MEDS: NS IV 1000 ML 1,000 ML IV SCH ×2 (07:48→16:27)
[2021-10-28] MEDS: cefTRIAXone 2,000 MG in NS (IVPB) 50 ML IV SCH (07:49)
[2021-10-28] MEDS: FLUTICASONE NASAL SPRAY (FLONASE) 16 GM BTL NS SCH (08:40)
[2021-10-28] MEDS: TICAGRELOR 90 MG TABLET (BRILINTA) PO SCH ×2 (08:40→19:28)
[2021-10-28] MEDS: ASPIRIN E.C. 81 MG (ECOTRIN) TAB PO SCH (08:41)
--- NOTE | 2021-10-28 08:58 | Cardiology Progress Note ---
Progress Note-Cardiology Events since last exam Date Seen by Provider: Oct 28, 2021 Time Seen by Provider: 08:55 Events since last exam She is on my service due to inferior STEMI. She remains in the intensive care unit. Last evening she was very agitated and received alprazolam and morphine. This morning she is having trouble waking up due to sedation. The nurse was trying to give her oral medication which she eventually swallowed with some difficulty. She denies chest discomfort, dyspnea, palpitations, or syncope. Her lower extremity edema has been improving since being in bed in the hospital. This is a chronic problem for the patient. Certain portions of this document may have been dictated utilizing voice recognition technology. Inherent to this technology, typographical and grammatical errors may exist. As much as I am diligent to identify and correct these mistakes, some errors may remain in the document. Vitals Last set of Vitals Signs Vital Signs 10/28/21 10/28/21 10/28/21 12:00 12:03 13:00 Temp 35.2 Pulse 62 Resp 11 B/P (MAP) 108/78 Pulse Ox 94 O2 Delivery High Flow N/C O2 Flow Rate 2.00 Labs Labs Laboratory Tests 10/28/21 04:05 Exam Vital Signs Vital Signs Date Time Temp Pulse Resp B/P (MAP) Pulse Ox O2 Delivery O2 Flow Rate FiO2 10/28/21 13:00 62 10/28/21 12:03 35.2 10/28/21 12:00 11 108/78 94 High Flow N/C 2.00 Physical Exam General: Very drowsy but wakes to voice but then falls back to sleep.. No acute distress. She is obese. Eye: No xanthelasma. HENT: Normocephalic. Neck: Jugular venous pressure does not appear elevated. Respiratory: Lungs are clear to auscultation. Respirations are non-labored. Breath sounds are equal. Symmetrical chest wall expansion. Cardiovascular: Normal rate. Regular rhythm. No murmur. No gallop. No edema. Gastrointestinal: Soft. Normal bowel sounds. Skin: Warm. Dry. Neurologic: Drowsy due to sedation as outlined above. Cranial nerves 3-11 grossly intact. Psychiatric: Drowsy. Labs Laboratory Tests Test 10/27/21 15:25 10/27/21 20:37 10/28/21 04:05 10/28/21 10:29 Range/Units Glucometer 191 H 188 H 131 H 70-110 MG/DL White Blood Count 22.4 H 4.3-11.0 10^3/uL Red Blood Count 3.86 3.80-5.11 10^6/uL Hemoglobin 12.1 11.5-16.0 g/dL Hematocrit 39 35-52 % Mean Corpuscular Volume 101 H 80-99 fL Mean Corpuscular Hemoglobin 31 25-34 pg Mean Corpuscular Hemoglobin Concent 31 L 32-36 g/dL Red Cell Distribution Width 14.6 H 10.0-14.5 % Platelet Count 105 L 130-400 10^3/uL Mean Platelet Volume 11.7 9.0-12.2 fL Immature Granulocyte % (Auto) 2 % Neutrophils (%) (Auto) 82 H 42-75 % Lymphocytes (%) (Auto) 9 L 12-44 % Monocytes (%) (Auto) 6 0-12 % Eosinophils (%) (Auto) 1 0-10 % Basophils (%) (Auto) 0 0-10 % Neutrophils # (Auto) 18.5 H 1.8-7.8 10^3/uL Lymphocytes # (Auto) 2.0 1.0-4.0 10^3/uL Monocytes # (Auto) 1.3 H 0.0-1.0 10^3/uL Eosinophils # (Auto) 0.1 0.0-0.3 10^3/uL Basophils # (Auto) 0.1 0.0-0.1 10^3/uL Immature Granulocyte # (Auto) 0.5 H 0.0-0.1 10^3/uL Neutrophils % (Manual) 81 % Lymphocytes % (Manual) 11 % Monocytes % (Manual) 5 % Eosinophils % (Manual) 1 % Band Neutrophils 2 % Clumped Platelets SLIGHT Percent Immature Platelet Fraction 6.8 0.0-7.6 % Polychromasia SLIGHT Microcytosis SLIGHT Sodium Level 137 135-145 MMOL/L Potassium Level 4.5 3.6-5.0 MMOL/L Chloride Level 108 H 98-107 MMOL/L Carbon Dioxide Level 20 L 21-32 MMOL/L Anion Gap 9 5-14 MMOL/L Blood Urea Nitrogen 34 H 7-18 MG/DL Creatinine 1.39 H 0.60-1.30 MG/DL Estimat Glomerular Filtration Rate 37 BUN/Creatinine Ratio 24 Glucose Level 163 H 70-105 MG/DL Calcium Level 7.2 L 8.5-10.1 MG/DL Corrected Calcium 8.2 L 8.5-10.1 MG/DL Phosphorus Level 3.8 2.3-4.7 MG/DL Magnesium Level 1.9 1.6-2.4 MG/DL Total Bilirubin 0.5 0.1-1.0 MG/DL Aspartate Amino Transf (AST/SGOT) 108 H 5-34 U/L Alanine Aminotransferase (ALT/SGPT) 97 H 0-55 U/L Alkaline Phosphatase 88 40-136 U/L Total Protein 6.0 L 6.4-8.2 GM/DL Albumin 2.8 L 3.2-4.5 GM/DL Diagnosis/Problems Diagnosis/Problems (1) ST elevation myocardial infarction (STEMI) of inferior wall, initial episode of care Assessment & Plan: This was caused by 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 No recurrent angina. We will continue guideline directed medical therapy with aspirin, ticagrelor, beta-sonia, and statin medication. She had a MUGA scan which showed an ejection fraction of 58%. (2) Acute heart failure with preserved ejection fraction (HFpEF) Assessment & Plan: She appeared to have some pulmonary congestion upon presentation. Her chest x-rays have shown pulmonary congestion. I did give her dose of intravenous Lasix on 10/27 and another on 10/28. She has been receiving a fair amount of intravenous fluids due to the sepsis from her urinary tract infection. I will obtain a follow-up chest x-ray in the morning. (3) Coronary artery disease with unstable angina pectoris Assessment & Plan: As above. (4) Primary hypertension Status: Chronic Assessment & Plan: She is on her carvedilol. I will hold off on restarting amlodipine due to borderline low blood pressures that could be related to the sepsis. (5) Mixed hyperlipidemia Status: Chronic Assessment & Plan: In light of the acute myocardial infarction, she is now on intensive dose statin medication. (6) Sepsis due to urinary tract infection Assessment & Plan: This is being managed by the hospitalist. I appreciate their input. (7) Acute kidney injury superimposed on chronic kidney disease Status: Acute Assessment & Plan: She has been receiving intravenous fluids due to the sepsis. Hopefully this will improve. Now she has been requiring intermittent furosemide due to pulmonary edema. (8) Type 2 diabetes mellitus with complication Status: Chronic Assessment & Plan: The hospitalist is managing treatment of the diabetes while she is here in the hospital. (9) Obesity Status: Chronic Assessment & Plan: She needs to work on weight loss. KRAIG ORTIZ JR, MD Oct 28, 2021 08:58
[2021-10-28] MEDS ORDERED: ISOSORBIDE MONONITRATE 30 MG (IMDUR) TAB PO ONE (09:00)
[2021-10-28] MEDS: ISOSORBIDE MONONITRATE 30 MG (IMDUR) TAB PO SCH (09:15)
--- NOTE | 2021-10-28 09:41 | Diagnostic Imaging Report ---
INDICATION: Heart failure AP view of the chest is obtained with comparison made to the study of 10/27/2021. There is mild cardiomegaly and pulmonary venous congestion. There has been increase in perihilar airspace disease. Elevation of the right hemidiaphragm is again noted. IMPRESSION: Increasing bilateral airspace disease likely represents perihilar pulmonary edema in setting of congestive heart failure. Otherwise, no acute abnormality or adverse change is seen. Dictated by: Dictated on workstation # [id number]
[2021-10-28] MEDS: ENOXAPARIN 40 MG/0.4 ML (LOVENOX) SYR SC SCH (10:46)
--- NOTE | 2021-10-28 13:22 | Occ Therapy Progress Note ---
Therapy Progress Note OT orders received. OT attempted evaluation, but pt too lethargic to actively participate in skilled tx. Pt unable to open her eyes and had difficulty answering questions. OT informed nurse of pt's lethargic state, and that OT evaluation was unable to be complete at this time. OT will attempt evaluation again tomorrow. 1, visit. 1315 EDY CORTES OT Oct 28, 2021 13:22
--- NOTE | 2021-10-28 13:39 | Physical Therapy Progress Note ---
Therapy Progress Note PT orders received. PT attempted evaluation. PT discussed patient with nurse who reports the patient won't wake up long enough to do anything and requests hold evaluation till tomorrow. PT will attempt evaluation again tomorrow. RAFAEL BENSON PT Oct 28, 2021 13:39
--- NOTE | 2021-10-28 15:33 | Progress Note - Hospitalist ---
Subjective HPI/CC On Admission Date Seen by Provider: Oct 28, 2021 Time Seen by Provider: 09:20 Kemi Martínez is a 70 year old female who was admitted with STEMI. She is unable to provide an adequate history due to her curent condition. Per records, she was admitted after presenting with nausea, vomiting, and back pain. She did not have any chest pain. She is uncomfortable and received sedating medications prior to my arrival making her a poor historian. She is able to tell me her back hurts. She is not short of breath. She does not express any other complaints. Subjective/Events-last exam She is sleeping upon my arrival. She is tired. She denies pain. She is not short of breath. Focused Exam Lactate Level 10/26/21 18:25: Lactic Acid Level 2.25*H 10/26/21 20:36: Lactic Acid Level 2.62*H 10/26/21 23:25: Lactic Acid Level 1.91 Time of Focused Exam: 05:15 Objective Exam Vital Signs Vital Signs Date Time Temp Pulse Resp B/P (MAP) Pulse Ox O2 Delivery O2 Flow Rate FiO2 10/28/21 13:00 62 10/28/21 12:03 35.2 10/28/21 12:00 11 108/78 94 High Flow N/C 2.00 Capillary Refill : Less Than 3 Seconds General Appearance: No Apparent Distress, Chronically ill, Obese Respiratory: No Respiratory Distress, Decreased Breath Sounds Cardiovascular: Regular Rate, Rhythm, No Murmur Gastrointestinal: Normal Bowel Sounds, Non Tender, Soft Extremity: Normal Inspection, Non Tender, Pedal Edema Neurologic/Psychiatric: Alert, Motor Weakness, Other (flat affect) Skin: Normal Color, Warm/Dry Results/Procedures Lab Laboratory Tests 10/28/21 04:05 Patient resulted labs reviewed. Imaging: Reviewed Imaging Report Assessment/Plan Assessment and Plan Assess & Plan/Chief Complaint STEMI CAD s/p CABG Cardiology primary Left heart cath with balloon angioplasty and stent placement in RCA Aspirin Brilinta Coreg Crestor Echo with normal EF Septic shock UTI E coli bacteremia Acute respiratory failure with hypoxia Lactic acidosis Mihai on CKD SIRS+ with leukocytosis, tachycardia, tachypnea UA indicative of UTI Lactic acid >4 IV fluids Rocephin T2DM Sliding scale insulin HTN HLD Obesity DVT prophylaxis: Lovenox Critical Care Critically Ill Patient Diagnosis/Problems Diagnosis/Problems (1) STEMI (ST elevation myocardial infarction) Status: Acute Qualifiers: Involved coronary artery: right coronary artery Qualified Codes: I21.11 - ST elevation (STEMI) myocardial infarction involving right coronary artery (2) CAD (coronary artery disease) Status: Chronic (3) Septic shock Status: Acute (4) UTI (urinary tract infection) Status: Acute (5) Lactic acidosis Status: Acute (6) Acute kidney injury superimposed on chronic kidney disease Status: Acute (7) Primary hypertension Status: Chronic (8) Mixed hyperlipidemia Status: Chronic (9) Type 2 diabetes mellitus with complication Status: Chronic (10) Obesity Status: Chronic (11) Stage 3 chronic kidney disease Status: Chronic (12) Hx of CABG Status: Chronic LYNNETTE JERRY MD Oct 28, 2021 15:33
--- NOTE | 2021-10-28 16:13 | Tele-ICU Progress Note ---
Subjective Date Seen by a Provider: Oct 28, 2021 Time Seen by a Provider: 16:13 Sepsis Event Evaluation Height, Weight, BMI Height: 5'2.00" Weight: 170lbs. oz. 77.114255ly; 38.54 BMI Method:Stated Focused Exam Lactate Level 10/26/21 18:25: Lactic Acid Level 2.25*H 10/26/21 20:36: Lactic Acid Level 2.62*H 10/26/21 23:25: Lactic Acid Level 1.91 Time of Focused Exam: 05:15 Exam Exam Patient acknowledged, consented, and participated in this virtual visit which was conducted using real time audio/video Vital Signs Date Time Temp Pulse Resp B/P (MAP) Pulse Ox O2 Delivery O2 Flow Rate FiO2 10/28/21 13:00 62 10/28/21 12:03 35.2 10/28/21 12:00 62 11 108/78 94 High Flow N/C 2.00 10/28/21 11:20 95 High Flow N/C 2.00 10/28/21 11:00 63 14 115/82 93 High Flow N/C 2.00 10/28/21 10:00 62 23 108/63 94 High Flow N/C 2.00 10/28/21 09:56 93 High Flow N/C 2.00 10/28/21 09:54 95 High Flow N/C 3.50 10/28/21 09:00 63 17 111/88 94 High Flow N/C 2.00 10/28/21 08:21 95 High Flow N/C 2.00 10/28/21 08:00 65 15 129/66 95 High Flow N/C 2.00 10/28/21 07:44 35.5 10/28/21 07:00 63 14 119/64 94 High Flow N/C 2.00 10/28/21 07:00 64 10/28/21 06:00 67 16 105/61 93 High Flow N/C 2.00 10/28/21 05:00 69 22 132/97 92 High Flow N/C 2.00 10/28/21 04:00 69 11 116/64 91 High Flow N/C 2.00 10/28/21 04:00 36.4 10/28/21 04:00 High Flow N/C 2.00 10/28/21 04:00 High Flow N/C 2.00 10/28/21 03:00 70 17 120/72 93 High Flow N/C 4.00 10/28/21 02:00 69 20 116/66 95 High Flow N/C 4.00 10/28/21 01:00 70 10/28/21 01:00 70 10 123/74 95 High Flow N/C 4.00 10/28/21 00:00 69 19 119/65 89 High Flow N/C 4.00 10/27/21 23:59 High Flow N/C 2.00 10/27/21 23:00 74 21 121/75 93 High Flow N/C 4.00 10/27/21 22:43 36.6 10/27/21 22:15 80 31 115/78 93 High Flow N/C 4.00 10/27/21 22:01 93 High Flow N/C 2.00 10/27/21 22:00 High Flow N/C 4.00 10/27/21 21:00 74 11 125/81 92 High Flow N/C 2.00 10/27/21 20:00 74 12 131/81 90 High Flow N/C 2.00 10/27/21 20:00 36.4 10/27/21 20:00 36.6 10/27/21 20:00 High Flow N/C 2.00 10/27/21 19:35 75 10/27/21 19:00 75 128/82 92 High Flow N/C 2.00 10/27/21 19:00 High Flow N/C 2.00 10/27/21 18:00 76 20 130/76 93 High Flow N/C 2.00 10/27/21 17:00 76 19 124/73 94 High Flow N/C 2.00 10/27/21 16:45 High Flow N/C 2.00 I & O 10/28/21 07:00 Intake Total 1320 ml Output Total 1750 ml Balance -430 ml Height & Weight Height: 5'2.00" Weight: 170lbs. oz. 77.099085nh; 38.54 BMI Method:Stated General Appearance: No Apparent Distress, Chronically ill, Obese HEENT: PERRL/EOMI, Pharynx Normal Neck: Normal Inspection, Supple Respiratory: No Respiratory Distress, Decreased Breath Sounds Cardiovascular: Regular Rate, Rhythm, No Murmur Capillary Refill: Less Than 3 Seconds Extremity: Normal Inspection, Non Tender, Pedal Edema Neurologic/Psychiatric: Alert, Motor Weakness, Other (flat affect) Skin: Normal Color, Warm/Dry Results Lab Laboratory Tests 10/27/21 04:15 10/28/21 04:05 Assessment/Plan Assessment/Plan (Tele-ICU Physician , consultation) Available chart/ vitals / labs / Images reviewed (Tele-ICU Physician , Progress Note ) Available chart/ vitals / labs / Images reviewed Video assessment done using teleICU camera, rest of exam as per RN Discussed with RN , EXAM PER RN Events overnight : Afebrile FiO2 - 2L o2 I/O = oliguric Drips: Pressors: , hemodynamically stable Consultants: artemio A/P STEMI - Status post cardiac cath and PCI done. Further management per cardiology Gram negative Sepsis due to UTI -cont abx., await cx ELENA - possible fluid over load. lasix was given yesteray - oliguric now , decreasing needs for O2 , can not take PO - will cont gentel hyddration , follow closely lethargy - follow closely Lines : (Central Line Necessity Reviewed) Diaz: OG: Nutrition: Analgesia: Anxiety/ delirium VTE Prophylaxis: Stress Ulcer Prophylaxis: Glycemic Control: Plans in collaboration with bedside consultants and IM MDs. Discussed with RN to reach out if any questions or concerns A total of 31 minutes of critical care time was devoted to this patient today, required to treat and/or prevent further deterioration of critical care condition ( as above ) . YUNI MCALLISTER MD Oct 28, 2021 16:13
[2021-10-28] MEDS: ROSUVASTATIN 20 MG (CRESTOR) TABLET PO SCH (19:28)
[2021-10-28] MEDS: LORazepam 0.5 MG (ATIVAN) TABLET PO PRN (19:28)
[2021-10-29] MEDS: NS IV 1000 ML 1,000 ML IV SCH ×2 (04:08→17:08)
[2021-10-29 05:15] LABS: HEMOGLOBIN 12.5 g/dL (11.5-16.0)
[2021-10-29 05:18] LABS: BASOPHILS # (AUTO) 0.1 10^3/uL (0.0-0.1); BASOPHILS % (AUTO) 0 % (0-10); EOSINOPHILS # (AUTO) 0.1 10^3/uL (0.0-0.3); EOSINOPHILS % (AUTO) 1 % (0-10); HEMATOCRIT 41 % (35-52); LYMPHOCYTES # (AUTO) 1.7 10^3/uL (1.0-4.0); LYMPHOCYTES % (AUTO) 10 % (12-44); MEAN CORPUSCULAR HEMOGLOBIN 31 pg (25-34); MEAN CORPUSCULAR HGB CONC 31 g/dL (32-36); MEAN CORPUSCULAR VOLUME 101 fL (80-99); MEAN PLATELET VOLUME 11.6 fL (9.0-12.2); MONOCYTES % (AUTO) 6 % (0-12); NEUTROPHILS # (AUTO) 14.1 10^3/uL (1.8-7.8); NEUTROPHILS % (AUTO) 81 % (42-75); PLATELET COUNT 124 10^3/uL (130-400); WHITE BLOOD COUNT 17.4 10^3/uL (4.3-11.0)
[2021-10-29 05:42] LABS: ALBUMIN 2.9 GM/DL (3.2-4.5); POTASSIUM 4.5 MMOL/L (3.6-5.0)
[2021-10-29 05:43] LABS: CALCIUM 7.1 MG/DL (8.5-10.1)
[2021-10-29 05:44] LABS: TOTAL PROTEIN 6.4 GM/DL (6.4-8.2)
[2021-10-29 05:46] LABS: BILIRUBIN,TOTAL 0.7 MG/DL (0.1-1.0)
[2021-10-29 05:47] LABS: PHOSPHORUS 3.9 MG/DL (2.3-4.7)
[2021-10-29 05:48] LABS: CREATININE SERUM 1.22 MG/DL (0.60-1.30)
[2021-10-29 05:51] LABS: MAGNESIUM 1.9 MG/DL (1.6-2.4)
[2021-10-29 06:09] LABS: BAND NEUTROPHILS 4 %; LYMPHOCYTES % (MANUAL) 11 %; NEUTROPHILS % (MANUAL) 82 %
[2021-10-29 06:10] LABS: ANISOCYTOSIS SLIGHT; MONOCYTES % (MANUAL) 3 %; TOXIC GRANULATION/VACUOLAZATIO 1+
[2021-10-29] MEDS: POTASSIUM CL 10MEQ/50ML IVPB 50 ML IV SCH (06:35)
[2021-10-29] MEDS: MAGNESIUM 1 GM/100 ML IVPB 100 ML IV SCH (06:35)
[2021-10-29] MEDS: KCL 20 MEQ TAB (K-DUR) PO SCH (06:35)
[2021-10-29] MEDS: inSUlin ASPART (NovoLOG) 1 UNIT/0.01 ML (CHARGE PER UNIT) SC SCH ×4 (06:35→20:10)
[2021-10-29] MEDS: TICAGRELOR 90 MG TABLET (BRILINTA) PO SCH ×2 (08:38→20:23)
[2021-10-29] MEDS: ISOSORBIDE MONONITRATE 30 MG (IMDUR) TAB PO SCH (08:38)
[2021-10-29] MEDS: cefTRIAXone 2,000 MG in NS (IVPB) 50 ML IV SCH (08:38)
[2021-10-29] MEDS: ASPIRIN E.C. 81 MG (ECOTRIN) TAB PO SCH (08:39)
[2021-10-29] MEDS: FLUTICASONE NASAL SPRAY (FLONASE) 16 GM BTL NS SCH (08:39)
--- NOTE | 2021-10-29 09:57 | Diagnostic Imaging Report ---
PA and lateral chest at 9:30h. INDICATION: Shortness of breath The cardiomegaly and the sternotomy wires and surgical clips seen on the prior exam of 10/28/2021 are again evident and not significantly changed. The previous study did show increasing airspace disease bilaterally. On this exam there are still areas of increased density in both lung bases but each mid lung does seem better aerated than on the prior exam. The lung apices remain clear. There is no significant pleural effusion identified. The mediastinum is not widened. The osseous structures are intact. IMPRESSION: The appearance of the chest has improved since the prior exam as each mid lung does seem better aerated. There is still involvement of both lung bases by atelectasis/infiltrate however. Dictated by: Dictated on workstation # [id number]
[2021-10-29 10:37] LABS: ABG BASE EXCESS -5.3 MMOL/L (-2.5-2.5); ABG OXYGEN SATURATION 94 % (94-100); ABG PCO2 60 MMHG (35-45); ABG PO2 70 MMHG (79-93); ABG TCO2 23.9 MMOL/L (21.0-31.0)
[2021-10-29 10:39] LABS: ABG PH 7.18 (7.37-7.43); ALLENS TEST YES-POS; INSPIRED O2 2; PATIENT TEMP 36.3; VENTILATOR NO
[2021-10-29 11:11] VITALS: BP 130/78
[2021-10-29] MEDS: ENOXAPARIN 40 MG/0.4 ML (LOVENOX) SYR SC SCH (11:24)
--- NOTE | 2021-10-29 11:30 | Cardiology Progress Note ---
Progress Note-Cardiology Events since last exam Date Seen by Provider: Oct 29, 2021 Time Seen by Provider: 11:25 Events since last exam She is on my service following an acute inferior myocardial infarction that was complicated by urinary tract infection with sepsis. Last evening she again had confusion and agitation. This morning her breathing was worse and she was placed on BiPAP. Once she was put on BiPAP, she fell asleep. I did not try to wake her up. She has not been complaining of any recurrent chest discomfort. I spoke to her nurse of today. Certain portions of this document may have been dictated utilizing voice recognition technology. Inherent to this technology, typographical and gramma tical errors may exist. As much as I am diligent to identify and correct these mistakes, some errors may remain in the document. Vitals Last set of Vitals Signs Vital Signs 10/29/21 10/29/21 10/29/21 11:00 11:11 11:15 Temp 37.0 Pulse 58 Resp 20 B/P (MAP) 130/78 Pulse Ox 100 O2 Delivery High Flow N/C O2 Flow Rate 35.00 Labs Labs Laboratory Tests 10/29/21 04:50 Exam Vital Signs Vital Signs Date Time Temp Pulse Resp B/P (MAP) Pulse Ox O2 Delivery O2 Flow Rate FiO2 10/29/21 11:15 37.0 10/29/21 11:11 58 20 100 35.00 10/29/21 11:00 130/78 High Flow N/C Physical Exam General: Sleeping on BiPAP no acute distress. Eye: No xanthelasma. HENT: Normocephalic. Neck: Jugular venous pressure does not appear elevated. Respiratory: Lungs have diffuse upper airway sounds due to BiPAP. Respirations are non-labored. Breath sounds are equal. Symmetrical chest wall expansion. Cardiovascular: Normal rate. Regular rhythm. Distant S1/S2. No murmur. No gallop. 1+ bilateral pretibial edema. Gastrointestinal: Soft. Normal bowel sounds. Skin: Warm. Dry. Neurologic: Sleeping. Cranial nerves 3-11 grossly intact. Psychiatric: Sleeping. Labs Laboratory Tests Test 10/28/21 16:17 10/28/21 21:04 10/29/21 04:50 10/29/21 10:29 Range/Units Glucometer 118 H 137 H 70-110 MG/DL White Blood Count 17.4 H 4.3-11.0 10^3/uL Red Blood Count 4.03 3.80-5.11 10^6/uL Hemoglobin 12.5 11.5-16.0 g/dL Hematocrit 41 35-52 % Mean Corpuscular Volume 101 H 80-99 fL Mean Corpuscular Hemoglobin 31 25-34 pg Mean Corpuscular Hemoglobin Concent 31 L 32-36 g/dL Red Cell Distribution Width 14.6 H 10.0-14.5 % Platelet Count 124 L 130-400 10^3/uL Mean Platelet Volume 11.6 9.0-12.2 fL Immature Granulocyte % (Auto) 3 % Neutrophils (%) (Auto) 81 H 42-75 % Lymphocytes (%) (Auto) 10 L 12-44 % Monocytes (%) (Auto) 6 0-12 % Eosinophils (%) (Auto) 1 0-10 % Basophils (%) (Auto) 0 0-10 % Neutrophils # (Auto) 14.1 H 1.8-7.8 10^3/uL Lymphocytes # (Auto) 1.7 1.0-4.0 10^3/uL Monocytes # (Auto) 1.0 0.0-1.0 10^3/uL Eosinophils # (Auto) 0.1 0.0-0.3 10^3/uL Basophils # (Auto) 0.1 0.0-0.1 10^3/uL Immature Granulocyte # (Auto) 0.4 H 0.0-0.1 10^3/uL Neutrophils % (Manual) 82 % Lymphocytes % (Manual) 11 % Monocytes % (Manual) 3 % Band Neutrophils 4 % Toxic Granulation 1+ Percent Immature Platelet Fraction 7.3 0.0-7.6 % Anisocytosis SLIGHT Sodium Level 139 135-145 MMOL/L Potassium Level 4.5 3.6-5.0 MMOL/L Chloride Level 109 H 98-107 MMOL/L Carbon Dioxide Level 19 L 21-32 MMOL/L Anion Gap 11 5-14 MMOL/L Blood Urea Nitrogen 40 H 7-18 MG/DL Creatinine 1.22 0.60-1.30 MG/DL Estimat Glomerular Filtration Rate 43 BUN/Creatinine Ratio 33 Glucose Level 120 H 70-105 MG/DL Calcium Level 7.1 L 8.5-10.1 MG/DL Corrected Calcium 8.0 L 8.5-10.1 MG/DL Phosphorus Level 3.9 2.3-4.7 MG/DL Magnesium Level 1.9 1.6-2.4 MG/DL Total Bilirubin 0.7 0.1-1.0 MG/DL Aspartate Amino Transf (AST/SGOT) 132 H 5-34 U/L Alanine Aminotransferase (ALT/SGPT) 127 H 0-55 U/L Alkaline Phosphatase 238 H 40-136 U/L Total Protein 6.4 6.4-8.2 GM/DL Albumin 2.9 L 3.2-4.5 GM/DL Blood Gas Puncture Site RT RAD Blood Gas Patient Temperature 36.3 Arterial Blood pH 7.18 *L 7.37-7.43 Arterial Blood Partial Pressure CO2 60 H 35-45 MMHG Arterial Blood Partial Pressure O2 70 L 79-93 MMHG Arterial Blood HCO3 22 L 23-27 MMOL/L Arterial Blood Total CO2 23.9 21.0-31.0 MMOL/L Arterial Blood Oxygen Saturation 94 94-100 % Arterial Blood Base Excess -5.3 L -2.5-2.5 MMOL/L Roberto Test YES-POS Blood Gas Ventilator Setting NO Blood Gas Inspired Oxygen 2 Test 10/29/21 10:51 Range/Units Glucometer 114 H 70-110 MG/DL Diagnosis/Problems Diagnosis/Problems (1) ST elevation myocardial infarction (STEMI) of inferior wall, initial episode of care Assessment & Plan: This was caused by 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 No recurrent angina. We will continue guideline directed medical therapy with aspirin, ticagrelor, beta-sonia, and statin medication. I did place her on long-acting nitrates because the day following the myocardial infarction, she had some recurrent chest discomfort. She had a MUGA scan which showed an ejection fraction of 58%. (2) Acute heart failure with preserved ejection fraction (HFpEF) Assessment & Plan: She appeared to have some pulmonary congestion upon presentation. Her chest x-rays have shown pulmonary congestion but seem to be improving. I did give her dose of intravenous Lasix on 10/27 and another on 10/28. She has been receiving a fair amount of intravenous fluids due to the sepsis from her urinary tract infection. The IV fluids have now been decreased. (3) Coronary artery disease with unstable angina pectoris Assessment & Plan: As above. (4) Primary hypertension Status: Chronic Assessment & Plan: She is on her carvedilol. I will hold off on restarting amlodipine due to borderline low blood pressures that could be related to the sepsis. Furthermore, she would be better off to be on an ODBULIA inhibitor following the myocardial infarction. (5) Mixed hyperlipidemia Status: Chronic Assessment & Plan: In light of the acute myocardial infarction, she is now on intensive dose statin medication. (6) Acute on chronic respiratory failure with hypoxia and hypercapnia Assessment & Plan: She probably has some degree of undiagnosed sleep apnea. She is now improving with BiPAP. (7) Sepsis due to urinary tract infection Assessment & Plan: This is being managed by the hospitalist. I appreciate their input. (8) Acute kidney injury superimposed on chronic kidney disease Status: Acute Assessment & Plan: She has been receiving intravenous fluids due to the sepsis. This has been improving. (9) Type 2 diabetes mellitus with complication Status: Chronic Assessment & Plan: The hospitalist is managing treatment of the diabetes while she is here in the hospital. (10) Obesity Status: Chronic Assessment & Plan: She needs to work on weight loss. KRAIG ORTIZ JR, MD Oct 29, 2021 11:30
--- NOTE | 2021-10-29 11:54 | Physical Therapy Progress Note ---
Therapy Progress Note Patient on hold per RN due to increase O2 demand requiring BiPap. PT will continue to monitor patient status and initiate therapy when patient is medically stable and able to actively and safely participate. JERAD WOODS PT Oct 29, 2021 11:54
--- NOTE | 2021-10-29 12:19 | Tele-ICU Progress Note ---
Subjective Date Seen by a Provider: Oct 29, 2021 Time Seen by a Provider: 09:15 Sepsis Event Evaluation Height, Weight, BMI Height: 5'2.00" Weight: 170lbs. oz. 77.734936vm; 38.54 BMI Method:Stated Focused Exam Lactate Level 10/26/21 18:25: Lactic Acid Level 2.25*H 10/26/21 20:36: Lactic Acid Level 2.62*H 10/26/21 23:25: Lactic Acid Level 1.91 Time of Focused Exam: 05:15 Exam Exam Patient acknowledged, consented, and participated in this virtual visit which was conducted using real time audio/video Vital Signs Date Time Temp Pulse Resp B/P (MAP) Pulse Ox O2 Delivery O2 Flow Rate FiO2 10/29/21 12:13 96 NIV Bilevel 35 10/29/21 11:15 37.0 10/29/21 11:11 58 20 100 35.00 10/29/21 11:00 51 24 130/78 99 High Flow N/C 2.00 10/29/21 10:00 59 20 127/76 100 High Flow N/C 2.00 10/29/21 09:00 58 19 139/80 92 High Flow N/C 2.00 10/29/21 08:53 96 High Flow N/C 2.00 10/29/21 08:00 61 14 159/88 95 High Flow N/C 2.00 10/29/21 07:55 95 High Flow N/C 2.00 10/29/21 07:45 36.0 10/29/21 07:00 62 10/29/21 07:00 58 22 150/81 95 High Flow N/C 2.00 10/29/21 06:00 63 17 151/95 93 High Flow N/C 2.00 10/29/21 05:00 61 16 148/80 92 High Flow N/C 2.00 10/29/21 04:00 36.1 10/29/21 04:00 56 20 148/81 96 High Flow N/C 2.00 10/29/21 04:00 95 High Flow N/C 2.00 10/29/21 03:00 62 17 153/85 97 High Flow N/C 2.00 10/29/21 02:00 55 24 144/75 95 High Flow N/C 2.00 10/29/21 01:00 59 25 133/76 95 High Flow N/C 2.00 10/29/21 01:00 59 10/29/21 00:00 57 21 136/72 96 High Flow N/C 2.00 10/29/21 00:00 36.2 10/28/21 23:59 95 High Flow N/C 2.00 10/28/21 23:00 58 15 121/65 95 High Flow N/C 2.00 10/28/21 22:00 58 15 117/69 96 High Flow N/C 2.00 10/28/21 21:24 94 High Flow N/C 2.00 10/28/21 21:20 89 Nasal Cannula 2.00 10/28/21 21:00 59 25 138/77 94 High Flow N/C 2.00 10/28/21 20:00 95 High Flow N/C 2.00 10/28/21 20:00 57 20 139/79 95 High Flow N/C 2.00 10/28/21 20:00 36.1 10/28/21 19:00 61 10/28/21 19:00 61 22 147/73 94 High Flow N/C 2.00 10/28/21 18:00 63 22 133/68 91 High Flow N/C 2.00 10/28/21 17:00 62 33 129/61 93 High Flow N/C 2.00 10/28/21 16:24 95 High Flow N/C 2.00 10/28/21 16:00 55 30 122/79 93 High Flow N/C 2.00 10/28/21 16:00 36.0 10/28/21 15:00 60 12 120/62 92 High Flow N/C 2.00 10/28/21 14:00 67 19 119/67 93 High Flow N/C 2.00 10/28/21 13:00 52 19 108/64 92 High Flow N/C 2.00 10/28/21 13:00 62 I & O 10/29/21 07:00 Intake Total 250 ml Output Total 900 ml Balance -650 ml Height & Weight Height: 5'2.00" Weight: 170lbs. oz. 77.799537to; 38.54 BMI Method:Stated General Appearance: No Apparent Distress, Chronically ill, Obese HEENT: PERRL/EOMI, Pharynx Normal Neck: Normal Inspection, Supple Respiratory: No Respiratory Distress, Decreased Breath Sounds Cardiovascular: Regular Rate, Rhythm, No Murmur Capillary Refill: Less Than 3 Seconds Extremity: Normal Inspection, Non Tender, Pedal Edema Neurologic/Psychiatric: Alert, Motor Weakness, Other (flat affect) Skin: Normal Color, Warm/Dry Results Lab Laboratory Tests 10/28/21 04:05 10/29/21 04:50 Assessment/Plan Assessment/Plan (Tele-ICU Physician , Progress Note ) Available chart/ vitals / labs / Images reviewed Video assessment done using teleICU camera, rest of exam as per RN Discussed with RN , EXAM PER RN Events overnight : DELIRIUM Afebrile FiO2 - 2L o2 I/O = 83 Drips: Pressors: , hemodynamically stable Consultants: artemio A/P STEMI - Status post cardiac cath and PCI done. Further management per cardiology Gram negative Sepsis due to UTI -cont abx., await cx ELENA - possible fluid over load. lasix was given yesteray - oliguric now , decreasing needs for O2 , can not take PO - will cont gentel hydration , follow closely lethargy - follow closely DELIRIUM . - add seroquil LFT elevation - abd exam benigh- follow Lines : periph (Central Line Necessity Reviewed) Diaz: + OG: Nutrition: Analgesia: Anxiety/ delirium VTE Prophylaxis: Stress Ulcer Prophylaxis: Glycemic Control: Plans in collaboration with bedside consultants and IM MDs. Discussed with RN to reach out if any questions or concerns A total of 31 minutes of critical care time was devoted to this patient today, required to treat and/or prevent further deterioration of critical care conditi on ( as above ) . YUNI MCALLISTER MD Oct 29, 2021 12:19
--- NOTE | 2021-10-29 13:16 | Occ Therapy Progress Note ---
Therapy Progress Note Pt currently on hold per nursing. OT will continue to monitor pt status and initiate treatment when pt is more medically stable and able to actively participate in skilled therapy. EDY CORTES OT Oct 29, 2021 13:16
[2021-10-29 14:15] VITALS: BP 130/78
[2021-10-29] MEDS: LORazepam 0.5 MG (ATIVAN) TABLET PO PRN (14:25)
[2021-10-29] MEDS ORDERED: LEVO137T2 PO (14:51)
[2021-10-29] MEDS ORDERED: CARV25TA PO (14:51)
[2021-10-29] MEDS ORDERED: FAMO20TA5 PO (14:51)
[2021-10-29] MEDS ORDERED: MODA100T27 PO (14:51)
[2021-10-29] MEDS ORDERED: MAGN400T39 PO (14:51)
[2021-10-29] MEDS ORDERED: ATOR40TA70 PO (14:51)
[2021-10-29] MEDS ORDERED: INSU100I23 SC (14:51)
[2021-10-29] MEDS ORDERED: GABA-486 PO (14:51)
[2021-10-29] MEDS ORDERED: HYDR-3924 PO (14:51)
[2021-10-29] MEDS ORDERED: MIRT-69 PO (14:51)
[2021-10-29] MEDS ORDERED: IBUP-1773 PO (14:51)
[2021-10-29] MEDS ORDERED: INSU3INS2 SC (14:51)
[2021-10-29] MEDS ORDERED: AMLO-250 PO (14:51)
[2021-10-29] MEDS ORDERED: FLUT16SP22 NSEACH (14:51)
[2021-10-29] MEDS ORDERED: ASCO-262 PO (14:51)
[2021-10-29] MEDS: DexMEDEtomidine 250 ML DRIP 250 ML IV SCH (14:59)
--- NOTE | 2021-10-29 16:18 | Progress Note - Hospitalist ---
Subjective HPI/CC On Admission Date Seen by Provider: Oct 29, 2021 Time Seen by Provider: 09:40 Kemi Martínez is a 70 year old female who was admitted with STEMI. She is unable to provide an adequate history due to her curent condition. Per records, she was admitted after presenting with nausea, vomiting, and back pain. She did not have any chest pain. She is uncomfortable and received sedating medications prior to my arrival making her a poor historian. She is able to tell me her back hurts. She is not short of breath. She does not express any other complaints. Subjective/Events-last exam She is sleeping. She is difficult to arouse. She denies trouble breathing. She denies pain. Focused Exam Lactate Level 10/26/21 18:25: Lactic Acid Level 2.25*H 10/26/21 20:36: Lactic Acid Level 2.62*H 10/26/21 23:25: Lactic Acid Level 1.91 Time of Focused Exam: 05:15 Objective Exam Vital Signs Vital Signs Date Time Temp Pulse Resp B/P (MAP) Pulse Ox O2 Delivery O2 Flow Rate FiO2 10/29/21 14:59 58 130/78 10/29/21 14:15 20 100 35.00 10/29/21 14:00 High Flow N/C 10/29/21 12:13 35 10/29/21 11:15 37.0 Capillary Refill : Less Than 3 Seconds General Appearance: No Apparent Distress, Obese Respiratory: Lungs Clear, Normal Breath Sounds, No Respiratory Distress Cardiovascular: Regular Rate, Rhythm, No Edema, No Murmur Gastrointestinal: Normal Bowel Sounds, Non Tender, Soft Extremity: Normal Inspection, Non Tender, No Pedal Edema Neurologic/Psychiatric: No Motor/Sensory Deficits, Normal Mood/Affect, Other (lethargic, follows commands, moving all extremities) Results/Procedures Lab Laboratory Tests 10/29/21 04:50 Patient resulted labs reviewed. Imaging: Reviewed Imaging Report Assessment/Plan Assessment and Plan Assess & Plan/Chief Complaint STEMI CAD s/p CABG Cardiology primary Left heart cath with balloon angioplasty and stent placement in RCA Aspirin Brilinta Coreg Crestor Echo with normal EF Septic shock UTI E coli bacteremia Lactic acidosis Mihai on CKD SIRS+ with leukocytosis, tachycardia, tachypnea UA indicative of UTI Lactic acid >4 IV fluids Rocephin Acute respiratory failure with hypoxia and hypercapnia ABG with acute hypercapnia Started on BiPAP T2DM Sliding scale insulin HTN HLD Obesity DVT prophylaxis: Lovenox Critical Care Critically Ill Patient Diagnosis/Problems Diagnosis/Problems (1) STEMI (ST elevation myocardial infarction) Status: Acute Qualifiers: Involved coronary artery: right coronary artery Qualified Codes: I21.11 - ST elevation (STEMI) myocardial infarction involving right coronary artery (2) CAD (coronary artery disease) Status: Chronic (3) Septic shock Status: Acute (4) UTI (urinary tract infection) Status: Acute (5) Lactic acidosis Status: Acute (6) Acute kidney injury superimposed on chronic kidney disease Status: Acute (7) Primary hypertension Status: Chronic (8) Mixed hyperlipidemia Status: Chronic (9) Type 2 diabetes mellitus with complication Status: Chronic (10) Obesity Status: Chronic (11) Stage 3 chronic kidney disease Status: Chronic (12) Hx of CABG Status: Chronic (13) Acute respiratory failure with hypoxia and hypercapnia Status: Acute LYNNETTE JERRY MD Oct 29, 2021 16:18
[2021-10-29 19:21] VITALS: BP 152/82
[2021-10-29] MEDS: QUEtiapine 25 MG (SEROquel) TAB IMMEDIATE RELEASE PO SCH (20:22)
[2021-10-29] MEDS: ROSUVASTATIN 20 MG (CRESTOR) TABLET PO SCH (20:22)
[2021-10-29] MEDS ORDERED: RT-ALBUTEROL SULF 2.5 MG/3 ML PRE-MIX VIAL INH PRN (21:15)
[2021-10-29 22:54] LABS: ABG BASE EXCESS -5.4 MMOL/L (-2.5-2.5); ABG OXYGEN SATURATION 97 % (94-100); ABG PCO2 38 MMHG (35-45); ABG PO2 71 MMHG (79-93)
[2021-10-29 22:55] LABS: ABG PH 7.32 (7.37-7.43)
[2021-10-29 22:56] LABS: ALLENS TEST YES-POS; INSPIRED O2 24%; PATIENT TEMP 35.9; VENTILATOR NO
[2021-10-30] MEDS: DexMEDEtomidine 250 ML DRIP 250 ML IV SCH ×3 (03:07→20:52)
[2021-10-30] MEDS: NS IV 1000 ML 1,000 ML IV SCH (03:07)
[2021-10-30 04:37] LABS: BASOPHILS # (AUTO) 0.1 10^3/uL (0.0-0.1); BASOPHILS % (AUTO) 1 % (0-10); EOSINOPHILS % (AUTO) 0 % (0-10); HEMATOCRIT 41 % (35-52); HEMOGLOBIN 12.8 g/dL (11.5-16.0); LYMPHOCYTES # (AUTO) 1.3 10^3/uL (1.0-4.0); LYMPHOCYTES % (AUTO) 10 % (12-44); MEAN CORPUSCULAR HEMOGLOBIN 30 pg (25-34); MEAN CORPUSCULAR HGB CONC 31 g/dL (32-36); MEAN CORPUSCULAR VOLUME 98 fL (80-99); MEAN PLATELET VOLUME 11.4 fL (9.0-12.2); MONOCYTES # (AUTO) 0.6 10^3/uL (0.0-1.0); MONOCYTES % (AUTO) 5 % (0-12); NEUTROPHILS % (AUTO) 81 % (42-75); PLATELET COUNT 157 10^3/uL (130-400); WHITE BLOOD COUNT 13.6 10^3/uL (4.3-11.0)
[2021-10-30 04:51] LABS: CALCIUM 7.5 MG/DL (8.5-10.1)
[2021-10-30 04:53] LABS: TOTAL PROTEIN 6.5 GM/DL (6.4-8.2)
[2021-10-30 04:54] LABS: BILIRUBIN,TOTAL 0.8 MG/DL (0.1-1.0)
[2021-10-30 04:56] LABS: CREATININE SERUM 1.11 MG/DL (0.60-1.30)
[2021-10-30 04:59] LABS: MAGNESIUM 2.1 MG/DL (1.6-2.4)
[2021-10-30 05:03] LABS: BAND NEUTROPHILS 2 %; EOSINOPHILS % (MANUAL) 1 %; LYMPHOCYTES % (MANUAL) 12 %; MONOCYTES % (MANUAL) 4 %; NEUTROPHILS % (MANUAL) 81 %; RBC MORPH NORMAL
[2021-10-30] MEDS: POTASSIUM CL 10MEQ/50ML IVPB 50 ML IV SCH (05:28)
[2021-10-30] MEDS: MAGNESIUM 1 GM/100 ML IVPB 100 ML IV SCH (05:28)
[2021-10-30] MEDS: KCL 20 MEQ TAB (K-DUR) PO SCH (05:28)
[2021-10-30] MEDS: inSUlin ASPART (NovoLOG) 1 UNIT/0.01 ML (CHARGE PER UNIT) SC SCH ×4 (05:28→21:07)
--- NOTE | 2021-10-30 07:29 | Physical Therapy Progress Note ---
Therapy Progress Note Patient on hold due to increase O2 demand but currently on NC due to will not keep BiPap in place. Noted confusion and agitation. PT will continue to monitor patient status and initiate therapy when patient is medically stable and able to actively and safely participate. JERAD WOODS PT Oct 30, 2021 07:29
[2021-10-30] MEDS: RT-ALBUTEROL SULF 2.5 MG/3 ML PRE-MIX VIAL INH SCH ×3 (07:42→21:52)
--- NOTE | 2021-10-30 08:18 | Occ Therapy Progress Note ---
Therapy Progress Note Per PT report and chart review, pt on hold today due to increased O2 demand, currently on NC as she will not keep BiPAP in place. She has had increased confusion and agitation throughout the night. OT will continue to monitor pt and initiate tx when pt is more medically stable and able to actively participate in skilled therapy. EDY CORTES OT Oct 30, 2021 08:18
--- NOTE | 2021-10-30 09:26 | Cardiology Progress Note ---
Progress Note-Cardiology Events since last exam Date Seen by Provider: Oct 30, 2021 Time Seen by Provider: 09:20 Events since last exam She is on my service due to an acute inferior STEMI that was due to thrombotic occlusion of the vein graft to the distal right coronary artery that was treated with 1 drug-eluting stent. She remains in the ICU. She continues to become very agitated and confused at night. She has been receiving Seroquel and is now on Precedex. The nurse tells me every time the patient wakes up, she just starts screaming. She has not had any specific complaints. When I saw the patient, she was on Precedex resting comfortably. I did not try to wake her up. Certain portions of this document may have been dictated utilizing voice recognition technology. Inherent to this technology, typographical and grammatical errors may exist. As much as I am diligent to identify and correct these mistakes, some errors may remain in the document. Vitals Last set of Vitals Signs Vital Signs 10/29/21 10/30/21 10/30/21 20:45 03:31 09:00 Temp 35.9 Pulse 68 Resp 30 B/P (MAP) 189/88 Pulse Ox 93 O2 Delivery Nasal Cannula O2 Flow Rate 3.00 FiO2 35 Labs Labs Laboratory Tests 10/30/21 04:30 Exam Vital Signs Vital Signs Date Time Temp Pulse Resp B/P (MAP) Pulse Ox O2 Delivery O2 Flow Rate FiO2 10/30/21 09:00 68 30 189/88 93 Nasal Cannula 3.00 10/30/21 03:31 35.9 10/29/21 20:45 35 Physical Exam General: Sleeping/sedated. No acute distress. Eye: No xanthelasma. HENT: Normocephalic. Neck: Jugular venous pressure does not appear elevated. Respiratory: Lungs have diffuse wheezes. Respirations are non-labored. Breath sounds are equal. Symmetrical chest wall expansion. Cardiovascular: Normal rate. Regular rhythm. Distant S1/S2. No murmur. No gallop. 1+ bilateral pretibial edema. Gastrointestinal: Soft. Normal bowel sounds. Skin: Warm. Dry. Neurologic: Sleeping/sedated. Cranial nerves 3-11 grossly intact. Psychiatric: Sleeping/sedated. Labs Laboratory Tests Test 10/29/21 10:29 10/29/21 10:51 10/29/21 16:43 10/29/21 20:05 Range/Units Blood Gas Puncture Site RT RAD Blood Gas Patient Temperature 36.3 Arterial Blood pH 7.18 *L 7.37-7.43 Arterial Blood Partial Pressure CO2 60 H 35-45 MMHG Arterial Blood Partial Pressure O2 70 L 79-93 MMHG Arterial Blood HCO3 22 L 23-27 MMOL/L Arterial Blood Total CO2 23.9 21.0-31.0 MMOL/L Arterial Blood Oxygen Saturation 94 94-100 % Arterial Blood Base Excess -5.3 L -2.5-2.5 MMOL/L Roberto Test YES-POS Blood Gas Ventilator Setting NO Blood Gas Inspired Oxygen 2 Glucometer 114 H 85 81 70-110 MG/DL Test 10/29/21 22:40 10/30/21 02:58 10/30/21 04:30 Range/Units Blood Gas Puncture Site LEFT RADIAL Blood Gas Patient Temperature 35.9 Arterial Blood pH 7.32 *L 7.37-7.43 Arterial Blood Partial Pressure CO2 38 35-45 MMHG Arterial Blood Partial Pressure O2 71 L 79-93 MMHG Arterial Blood HCO3 20 L 23-27 MMOL/L Arterial Blood Total CO2 21.0 21.0-31.0 MMOL/L Arterial Blood Oxygen Saturation 97 94-100 % Arterial Blood Base Excess -5.4 L -2.5-2.5 MMOL/L Roberto Test YES-POS Blood Gas Ventilator Setting NO Blood Gas Inspired Oxygen 24% Glucometer 108 70-110 MG/DL White Blood Count 13.6 H 4.3-11.0 10^3/uL Red Blood Count 4.21 3.80-5.11 10^6/uL Hemoglobin 12.8 11.5-16.0 g/dL Hematocrit 41 35-52 % Mean Corpuscular Volume 98 80-99 fL Mean Corpuscular Hemoglobin 30 25-34 pg Mean Corpuscular Hemoglobin Concent 31 L 32-36 g/dL Red Cell Distribution Width 14.2 10.0-14.5 % Platelet Count 157 130-400 10^3/uL Mean Platelet Volume 11.4 9.0-12.2 fL Immature Granulocyte % (Auto) 3 % Neutrophils (%) (Auto) 81 H 42-75 % Lymphocytes (%) (Auto) 10 L 12-44 % Monocytes (%) (Auto) 5 0-12 % Eosinophils (%) (Auto) 0 0-10 % Basophils (%) (Auto) 1 0-10 % Neutrophils # (Auto) 11.0 H 1.8-7.8 10^3/uL Lymphocytes # (Auto) 1.3 1.0-4.0 10^3/uL Monocytes # (Auto) 0.6 0.0-1.0 10^3/uL Eosinophils # (Auto) 0.0 0.0-0.3 10^3/uL Basophils # (Auto) 0.1 0.0-0.1 10^3/uL Immature Granulocyte # (Auto) 0.4 H 0.0-0.1 10^3/uL Neutrophils % (Manual) 81 % Lymphocytes % (Manual) 12 % Monocytes % (Manual) 4 % Eosinophils % (Manual) 1 % Band Neutrophils 2 % Blood Morphology Comment NORMAL Sodium Level 140 135-145 MMOL/L Potassium Level 5.0 3.6-5.0 MMOL/L Chloride Level 111 H 98-107 MMOL/L Carbon Dioxide Level 18 L 21-32 MMOL/L Anion Gap 11 5-14 MMOL/L Blood Urea Nitrogen 41 H 7-18 MG/DL Creatinine 1.11 0.60-1.30 MG/DL Estimat Glomerular Filtration Rate 48 BUN/Creatinine Ratio 37 Glucose Level 112 H 70-105 MG/DL Calcium Level 7.5 L 8.5-10.1 MG/DL Corrected Calcium 8.3 L 8.5-10.1 MG/DL Phosphorus Level 3.0 2.3-4.7 MG/DL Magnesium Level 2.1 1.6-2.4 MG/DL Total Bilirubin 0.8 0.1-1.0 MG/DL Aspartate Amino Transf (AST/SGOT) 82 H 5-34 U/L Alanine Aminotransferase (ALT/SGPT) 119 H 0-55 U/L Alkaline Phosphatase 249 H 40-136 U/L Total Protein 6.5 6.4-8.2 GM/DL Albumin 3.0 L 3.2-4.5 GM/DL Diagnosis/Problems Diagnosis/Problems (1) ST elevation myocardial infarction (STEMI) of inferior wall, initial episode of care Assessment & Plan: This was caused by 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 No recurrent angina. We will continue guideline directed medical therapy with aspirin, ticagrelor, beta-sonia, and statin medication. I did place her on long-acting nitrates because the day following the myocardial infarction, she had some recurrent chest discomfort. She had a MUGA scan which showed an ejection fraction of 58%. (2) Acute heart failure with preserved ejection fraction (HFpEF) Assessment & Plan: She appeared to have some pulmonary congestion upon presentation. Her chest x-rays have shown pulmonary congestion but seem to be improving. I did give her dose of intravenous Lasix on 10/27 and another on 10/28. She has been receiving a fair amount of intravenous fluids due to the sepsis from her urinary tract infection. The IV fluids have now been decreased. (3) Primary hypertension Status: Chronic Assessment & Plan: She is on her carvedilol. Her blood pressures have improved over the past 24-48 hours. I will start her on low-dose lisinopril. I would be cautious about titrating this up rapidly since she previously had low blood pressures, probably due to sepsis from the urinary tract infection. (4) Altered mental state Assessment & Plan: Etiology unclear. I have ordered a head CT for further evaluation. (5) Coronary artery disease with unstable angina pectoris Assessment & Plan: As above. (6) Mixed hyperlipidemia Status: Chronic Assessment & Plan: I have her on intensive dose statin medication due to the acute myocardial infarction. (7) Acute on chronic respiratory failure with hypoxia and hypercapnia Assessment & Plan: She probably has some degree of undiagnosed sleep apnea. She is now improving with BiPAP intermittently as needed. (8) Sepsis due to urinary tract infection Assessment & Plan: This is being managed by the hospitalist. I appreciate their input. (9) Acute kidney injury superimposed on chronic kidney disease Status: Acute Assessment & Plan: She has been receiving intravenous fluids due to the sepsis. Her renal function has been improving. (10) Type 2 diabetes mellitus with complication Status: Chronic Assessment & Plan: The hospitalist is managing treatment of the diabetes while she is here in the hospital. (11) Obesity Status: Chronic Assessment & Plan: She needs to work on weight loss. KRAIG ORTIZ JR, MD Oct 30, 2021 09:26
[2021-10-30] MEDS ORDERED: lisINopril 10 MG (PRINIVIL) TABLET PO ONE (09:30)
[2021-10-30 10:12] LABS: ABG BASE EXCESS -5.2 MMOL/L (-2.5-2.5); ABG OXYGEN SATURATION 77 % (94-100); ABG PCO2 58 MMHG (35-45); ABG PO2 46 MMHG (79-93); ABG TCO2 23.5 MMOL/L (21.0-31.0)
[2021-10-30 10:14] LABS: ALLENS TEST YES-POS
[2021-10-30 10:15] LABS: INSPIRED O2 3L; PATIENT TEMP 36.5; VENTILATOR NO
[2021-10-30] MEDS: cefTRIAXone 2,000 MG in NS (IVPB) 50 ML IV SCH (10:42)
[2021-10-30] MEDS: ASPIRIN E.C. 81 MG (ECOTRIN) TAB PO SCH (10:43)
[2021-10-30] MEDS: ISOSORBIDE MONONITRATE 30 MG (IMDUR) TAB PO SCH (10:43)
[2021-10-30] MEDS: TICAGRELOR 90 MG TABLET (BRILINTA) PO SCH ×2 (10:43→21:06)
[2021-10-30] MEDS: FLUTICASONE NASAL SPRAY (FLONASE) 16 GM BTL NS SCH (10:43)
[2021-10-30 12:00] VITALS: BP 199/88
--- NOTE | 2021-10-30 12:13 | Tele-ICU Progress Note ---
Subjective Date Seen by a Provider: Oct 30, 2021 Time Seen by a Provider: 12:12 Sepsis Event Evaluation Height, Weight, BMI Height: 5'2.00" Weight: 170lbs. oz. 77.204179zk; 38.54 BMI Method:Stated Focused Exam Time of Focused Exam: 05:15 Exam Exam Patient acknowledged, consented, and participated in this virtual visit which w as conducted using real time audio/video Vital Signs Date Time Temp Pulse Resp B/P (MAP) Pulse Ox O2 Delivery O2 Flow Rate FiO2 10/30/21 12:00 55 32 198/97 95 Nasal Cannula 3.00 10/30/21 11:00 60 24 194/98 92 Nasal Cannula 3.00 10/30/21 10:00 70 28 178/95 93 Nasal Cannula 3.00 10/30/21 09:00 68 30 189/88 93 Nasal Cannula 3.00 10/30/21 08:00 67 27 182/95 93 Nasal Cannula 3.00 10/30/21 07:42 94 Nasal Cannula 4.00 10/30/21 07:00 64 32 182/94 93 Nasal Cannula 3.00 10/30/21 07:00 66 10/30/21 06:00 66 26 184/94 94 Nasal Cannula 3.00 10/30/21 05:00 66 28 183/95 95 Nasal Cannula 3.00 10/30/21 04:00 67 28 177/91 95 Nasal Cannula 3.00 10/30/21 04:00 95 Nasal Cannula 2.00 10/30/21 03:31 35.9 10/30/21 03:07 63 156/88 10/30/21 03:00 67 25 177/89 95 Nasal Cannula 3.00 10/30/21 02:00 66 20 181/95 94 Nasal Cannula 3.00 10/30/21 01:20 95 Nasal Cannula 2.00 10/30/21 01:00 65 10/30/21 01:00 65 27 162/81 96 Nasal Cannula 3.00 10/30/21 01:00 Nasal Cannula 3.00 10/30/21 00:11 37.2 10/30/21 00:00 63 20 156/88 95 Nasal Cannula 2.00 10/29/21 23:59 94 Nasal Cannula 2.00 10/29/21 23:23 Nasal Cannula 2.00 10/29/21 23:00 57 25 148/94 97 NIV Bilevel 24.00 10/29/21 22:00 60 25 173/96 97 NIV Bilevel 24.00 10/29/21 21:15 91 Room Air 10/29/21 21:00 NIV Bilevel 24.00 10/29/21 21:00 58 25 130/76 94 NIV Bilevel 24.00 10/29/21 20:45 37.0 58 93 35 10/29/21 20:00 98 NIV Bilevel 24 10/29/21 20:00 35.4 10/29/21 20:00 55 24 143/80 99 High Flow N/C 4.00 10/29/21 20:00 High Flow N/C 4.00 10/29/21 19:26 35.4 10/29/21 19:21 51 32 100 35.00 10/29/21 19:00 53 21 152/82 100 NIV Bilevel 24.00 10/29/21 19:00 53 10/29/21 19:00 NIV Bilevel 24.00 10/29/21 18:00 52 18 143/82 100 High Flow N/C 2.00 10/29/21 17:00 51 14 123/66 98 High Flow N/C 2.00 10/29/21 16:42 35.7 10/29/21 16:16 96 NIV Bilevel 35 10/29/21 16:00 56 45 116/62 99 High Flow N/C 2.00 10/29/21 15:00 56 35 141/82 100 High Flow N/C 2.00 10/29/21 14:59 58 130/78 10/29/21 14:15 58 20 100 35.00 10/29/21 14:00 49 21 144/82 98 High Flow N/C 2.00 10/29/21 13:00 53 20 132/69 97 High Flow N/C 2.00 10/29/21 12:47 53 10/29/21 12:13 96 NIV Bilevel 35 I & O 10/30/21 07:00 Intake Total 150 ml Output Total 1125 ml Balance -975 ml Height & Weight Height: 5'2.00" Weight: 170lbs. oz. 77.356728ja; 38.54 BMI Method:Stated General Appearance: No Apparent Distress, Obese, Other (SOMEWHAT LETHARGIC, VERY FLAT AFFECT) HEENT: PERRL/EOMI, Pharynx Normal Neck: Normal Inspection, Supple Respiratory: Normal Breath Sounds, No Accessory Muscle Use, No Respiratory Distress Cardiovascular: Tachycardia Capillary Refill: Less Than 3 Seconds Extremity: Pedal Edema (TRACE ON RIGHT, 1+ ON LEFT) Neurologic/Psychiatric: Alert, No Motor/Sensory Deficits, Other (ORIENTED TO PERSON, GROSSLY ORIENTED TO SITUATION, SOMEWHAT CONFUSED TO TIME AND PLACE, AND VERY POOR MEMORY) Skin: Normal Color, Warm/Dry Results Lab Laboratory Tests 10/29/21 04:50 10/30/21 04:30 Assessment/Plan Assessment/Plan (Tele-ICU Physician , Progress Note ) Available chart/ vitals / labs / Images reviewed Video assessment done using teleICU camera, rest of exam as per RN Discussed with RN , EXAM PER RN Events overnight : DELIRIUM Afebrile FiO2 - 2L o2 I/O = 83 Drips: Pressors: , hemodynamically stable Consultants: artemio A/P ACUTE HYPERCARBIC RESP FAILURE 10/29 - ? due to sedating meds - placed on BIPAP - > severe agitation -> off bipap , still resp acidosis today -> BIPAP 20/10 , TV only 25-300 ml - Will change to AVAPS and follow STEMI - Status post cardiac cath and PCI done. Further management per cardiology ( can not take po now Ecoli Sepsis due to UTI -cont abx. - repeat blood cx ( bacteremia ) ELENA -STOP hydration , follow closely DELIRIUM . - on precedex LFT elevation - abd exam benigh- follow Lines : periph (Central Line Necessity Reviewed) Diaz: + OG: Nutrition: Analgesia: Anxiety/ delirium VTE Prophylaxis: jim 40 Stress Ulcer Prophylaxis: Glycemic Control: Plans in collaboration with bedside consultants and IM MDs. Discussed with RN to reach out if any questions or concerns A total of 35minutes of critical care time was devoted to this patient today, required to treat and/or prevent further deterioration of critical care condition ( as above ) . YUNI MCALLISTER MD Oct 30, 2021 12:13
--- NOTE | 2021-10-30 12:22 | Diagnostic Imaging Report ---
CHEST 1 VIEW, AP/PA ONLY INDICATION: Hypoxia. COMPARISON: 10/29/2021 at 0930 hours. FINDINGS: Continued improvement in bilateral perihilar opacities. No pleural effusion or pneumothorax. Stable cardiomegaly. IMPRESSION: 1. Continued improvement in bilateral perihilar opacities that may be due to resolving infection or edema. Dictated by: Dictated on workstation # [id number]
[2021-10-30] MEDS ORDERED: hydrALAZINE (APESOLINE) 20 MG/ML VIAL ONE (12:27)
[2021-10-30] MEDS: ENOXAPARIN 40 MG/0.4 ML (LOVENOX) SYR SC SCH (12:34)
--- NOTE | 2021-10-30 12:34 | Progress Note - Hospitalist ---
Subjective HPI/CC On Admission Date Seen by Provider: Oct 30, 2021 Time Seen by Provider: 09:40 Kemi Martínez is a 70 year old female who was admitted with STEMI. She is unable to provide an adequate history due to her curent condition. Per records, she was admitted after presenting with nausea, vomiting, and back pain. She did not have any chest pain. She is uncomfortable and received sedating medications prior to my arrival making her a poor historian. She is able to tell me her back hurts. She is not short of breath. She does not express any other complaints. Subjective/Events-last exam She is lethargic. She is uncooperative. Focused Exam Time of Focused Exam: 05:15 Objective Exam Vital Signs Vital Signs Date Time Temp Pulse Resp B/P (MAP) Pulse Ox O2 Delivery O2 Flow Rate FiO2 10/30/21 12:00 55 32 198/97 95 Nasal Cannula 3.00 10/30/21 08:00 36.5 10/29/21 20:45 35 Capillary Refill : Less Than 3 Seconds General Appearance: Mild Distress (tachypnea), Obese Respiratory: Decreased Breath Sounds, Respiratory Distress (tachypnea), Other (wearing nasal cannula) Cardiovascular: Regular Rate, Rhythm, No Murmur Gastrointestinal: Normal Bowel Sounds, Non Tender, Soft Extremity: Normal Inspection, Non Tender, No Pedal Edema Neurologic/Psychiatric: Alert, Oriented x3, No Motor/Sensory Deficits, Normal Mood/Affect Skin: Normal Color, Warm/Dry Results/Procedures Lab Laboratory Tests 10/30/21 04:30 Patient resulted labs reviewed. Imaging: Reviewed Imaging Report Assessment/Plan Assessment and Plan Assess & Plan/Chief Complaint STEMI CAD s/p CABG Cardiology primary Left heart cath with balloon angioplasty and stent placement in RCA Echo with normal EF Continue Aspirin, Brilinta, Coreg, and Crestor UTI E coli bacteremia Continue Rocephin Acute respiratory failure with hypoxia and hypercapnia ABG with acute hypercapnia Restart BiPAP T2DM Sliding scale insulin HTN HLD Obesity DVT prophylaxis: Lovenox Septic shock, resolved Lactic acidosis, resolved Mihai on CKD, resolved Critical Care Critically Ill Patient Diagnosis/Problems Diagnosis/Problems (1) STEMI (ST elevation myocardial infarction) Status: Acute Qualifiers: Involved coronary artery: right coronary artery Qualified Codes: I21.11 - ST elevation (STEMI) myocardial infarction involving right coronary artery (2) CAD (coronary artery disease) Status: Chronic (3) Septic shock Status: Acute (4) UTI (urinary tract infection) Status: Acute (5) Lactic acidosis Status: Acute (6) Acute kidney injury superimposed on chronic kidney disease Status: Acute (7) Primary hypertension Status: Chronic (8) Mixed hyperlipidemia Status: Chronic (9) Type 2 diabetes mellitus with complication Status: Chronic (10) Obesity Status: Chronic (11) Stage 3 chronic kidney disease Status: Chronic (12) Hx of CABG Status: Chronic (13) Acute respiratory failure with hypoxia and hypercapnia Status: Acute LYNNETTE JERRY MD Oct 30, 2021 12:34
[2021-10-30] MEDS ORDERED: hydrALAZINE (APESOLINE) 20 MG/ML VIAL IV SCH (12:45)
[2021-10-30] MEDS ORDERED: hydrALAZINE (APESOLINE) 20 MG/ML VIAL IV PRN (12:45)
[2021-10-30 14:37] VITALS: BP 189/89
[2021-10-30 19:54] VITALS: BP 210/97
[2021-10-30] MEDS ORDERED: NITRO DRIP 25000 MCG/D5W 250 ML IV ONE (20:16)
[2021-10-30] MEDS: NITRO DRIP 25000 MCG/D5W 250 ML IV SCH (20:20)
[2021-10-30] MEDS: QUEtiapine 25 MG (SEROquel) TAB IMMEDIATE RELEASE PO SCH (21:07)
[2021-10-30] MEDS: ROSUVASTATIN 20 MG (CRESTOR) TABLET PO SCH (21:07)
[2021-10-30 21:52] VITALS: BP 195/82
[2021-10-30] MEDS ORDERED: ENALAPRILAT 2.5 MG/2 ML (VASOTEC) VIAL IV PRN (22:30)
[2021-10-30] MEDS ORDERED: ATROPINE INJECTION 1 MG/10 ML SYR (ABBOTT) IV ONE (22:30)
--- NOTE | 2021-10-30 22:34 | Tele-ICU Progress Note ---
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
[2021-10-31 03:09] VITALS: BP 174/87
[2021-10-31] MEDS: RT-ALBUTEROL SULF 2.5 MG/3 ML PRE-MIX VIAL INH SCH ×3 (03:09→15:16)
[2021-10-31 05:41] LABS: BASOPHILS # (AUTO) 0.1 10^3/uL (0.0-0.1); BASOPHILS % (AUTO) 1 % (0-10); EOSINOPHILS # (AUTO) 0.1 10^3/uL (0.0-0.3); EOSINOPHILS % (AUTO) 1 % (0-10); HEMATOCRIT 41 % (35-52); HEMOGLOBIN 13.3 g/dL (11.5-16.0); LYMPHOCYTES # (AUTO) 1.5 10^3/uL (1.0-4.0); LYMPHOCYTES % (AUTO) 16 % (12-44); MEAN CORPUSCULAR HEMOGLOBIN 31 pg (25-34); MEAN CORPUSCULAR HGB CONC 33 g/dL (32-36); MEAN CORPUSCULAR VOLUME 94 fL (80-99); MEAN PLATELET VOLUME 11.3 fL (9.0-12.2); MONOCYTES % (AUTO) 10 % (0-12); NEUTROPHILS # (AUTO) 6.3 10^3/uL (1.8-7.8); NEUTROPHILS % (AUTO) 67 % (42-75); PLATELET COUNT 171 10^3/uL (130-400); WHITE BLOOD COUNT 9.4 10^3/uL (4.3-11.0)
[2021-10-31 05:57] LABS: ALBUMIN 2.7 GM/DL (3.2-4.5)
[2021-10-31 05:58] LABS: POTASSIUM 3.8 MMOL/L (3.6-5.0)
[2021-10-31 05:59] LABS: CALCIUM 7.8 MG/DL (8.5-10.1)
[2021-10-31 06:00] LABS: TOTAL PROTEIN 6.1 GM/DL (6.4-8.2)
[2021-10-31 06:02] LABS: BILIRUBIN,TOTAL 0.8 MG/DL (0.1-1.0)
[2021-10-31 06:03] LABS: PHOSPHORUS 2.4 MG/DL (2.3-4.7)
[2021-10-31 06:04] LABS: CREATININE SERUM 0.97 MG/DL (0.60-1.30)
[2021-10-31 06:05] LABS: BAND NEUTROPHILS 2 %; EOSINOPHILS % (MANUAL) 1 %; LYMPHOCYTES % (MANUAL) 10 %; MONOCYTES % (MANUAL) 13 %; NEUTROPHILS % (MANUAL) 74 %; NUCLEATED RED BLOOD CELLS 5; RBC MORPH NORMAL
[2021-10-31] MEDS: MAGNESIUM 1 GM/100 ML IVPB 100 ML IV SCH (06:24)
[2021-10-31] MEDS: KCL 20 MEQ TAB (K-DUR) PO SCH (06:24)
[2021-10-31] MEDS: POTASSIUM CL 10MEQ/50ML IVPB 50 ML IV SCH (06:24)
[2021-10-31] MEDS: inSUlin ASPART (NovoLOG) 1 UNIT/0.01 ML (CHARGE PER UNIT) SC SCH ×4 (06:32→21:05)
[2021-10-31] MEDS: DexMEDEtomidine 250 ML DRIP 250 ML IV SCH (06:33)
[2021-10-31] MEDS: NITRO DRIP 25000 MCG/D5W 250 ML IV SCH ×2 (06:33→17:57)
[2021-10-31 06:55] VITALS: BP 171/82
[2021-10-31] MEDS: FLUTICASONE NASAL SPRAY (FLONASE) 16 GM BTL NS SCH (09:00)
--- NOTE | 2021-10-31 09:25 | Tele-ICU Progress Note ---
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 oz. 77.912002ih; 38.54 BMI Method:Stated Time of Focused Exam: 05:15 Laboratory Tests 10/31/21 04:45 Results Labs Labs Laboratory Tests 10/30/21 09:50: Blood Gas Puncture Site RR, Blood Gas Patient Temperature 36.5, Arterial Blood pH 7.20*L, Arterial Blood Partial Pressure CO2 58H, Arterial Blood Partial Pressure O2 46L, Arterial Blood HCO3 22L, Arterial Blood Total CO2 23.5, Arterial Blood Oxygen Saturation 77L, Arterial Blood Base Excess -5.2L, Roberto Test YES-POS, Blood Gas Ventilator Setting NO, Blood Gas Inspired Oxygen 3L 10/30/21 11:18: Glucometer 118H 10/30/21 15:47: Glucometer 132H 10/30/21 20:57: Glucometer 164H 10/31/21 04:45: White Blood Count 9.4, Red Blood Count 4.29, Hemoglobin 13.3, Hematocrit 41, Mean Corpuscular Volume 94, Mean Corpuscular Hemoglobin 31, Mean Corpuscular Hemoglobin Concent 33, Red Cell Distribution Width 14.0, Platelet Count 171, Mean Platelet Volume 11.3, Immature Granulocyte % (Auto) 5, Neutrophils (%) (Auto) 67, Lymphocytes (%) (Auto) 16, Monocytes (%) (Auto) 10, Eosinophils (%) (Auto) 1, Basophils (%) (Auto) 1, Neutrophils # (Auto) 6.3, Lymphocytes # (Auto) 1.5, Monocytes # (Auto) 1.0, Eosinophils # (Auto) 0.1, Basophils # (Auto) 0.1, Immature Granulocyte # (Auto) 0.5H, Neutrophils % (Manual) 74, Lymphocytes % (Manual) 10, Monocytes % (Manual) 13, Eosinophils % (Manual) 1, Band Neutrophils 2, Nucleated Red Blood Cells 5, Blood Morphology Comment NORMAL, Sodium Level 139, Potassium Level 3.8, Chloride Level 106, Carbon Dioxide Level 20L, Anion Gap 13, Blood Urea Nitrogen 27H, Creatinine 0.97, Estimat Glomerular Filtration Rate 56, BUN/Creatinine Ratio 28, Glucose Level 193H, Calcium Level 7.8L, Corrected Calcium 8.8, Phosphorus Level 2.4, Magnesium Level 2.0, Total Bilirubin 0.8, Aspartate Amino Transf (AST/SGOT) 33, Alanine Aminotransferase (ALT/SGPT) 79H, Alkaline Phosphatase 225H, Total Protein 6.1L, Albumin 2.7L Microbiology 10/26/21 Blood Culture - Final, Complete Escherichia coli 10/26/21 Urine Culture - Final, Complete Escherichia coli Escherichia coli#2 Results Results/Procedures Labs Laboratory Tests 10/30/21 04:30 10/31/21 04:45 Patient resulted labs reviewed. Imaging: Reviewed Imaging Report RAFY MAGANA MD Oct 31, 2021 09:25
[2021-10-31] MEDS ORDERED: LORazepam INJ 2 MG/ML (ATIVAN) VIAL ONE (09:57)
--- NOTE | 2021-10-31 10:13 | Occ Therapy Progress Note ---
Therapy Progress Note OT checked on pt. Nursing would like therapy to hold until Tuesday due to medical status. Will check back on Tuesday. [id number] STEPHEN SARGENT OT Oct 31, 2021 10:13
[2021-10-31] MEDS ORDERED: PANTOPRAZOLE 40 MG (PROTONIX) VIAL IV ONE (10:15)
[2021-10-31] MEDS: ENOXAPARIN 40 MG/0.4 ML (LOVENOX) SYR SC SCH (10:19)
[2021-10-31 10:31] LABS: ABG BASE EXCESS 0.2 MMOL/L (-2.5-2.5); ABG OXYGEN SATURATION 99 % (94-100); ABG PCO2 43 MMHG (35-45); ABG PH 7.37 (7.37-7.43); ABG PO2 121 MMHG (79-93); ABG TCO2 26.2 MMOL/L (21.0-31.0)
[2021-10-31 10:32] LABS: ALLENS TEST YES-POS; INSPIRED O2 30%; PATIENT TEMP 36.7; VENTILATOR NO
[2021-10-31] MEDS: lisINopril 10 MG (PRINIVIL) TABLET PO SCH (10:45)
[2021-10-31] MEDS: ASPIRIN E.C. 81 MG (ECOTRIN) TAB PO SCH (10:45)
[2021-10-31] MEDS: ISOSORBIDE MONONITRATE 30 MG (IMDUR) TAB PO SCH (10:45)
[2021-10-31] MEDS: TICAGRELOR 90 MG TABLET (BRILINTA) PO SCH ×2 (10:45→20:02)
--- NOTE | 2021-10-31 11:40 | Diagnostic Imaging Report ---
PROCEDURE: CT chest, abdomen, and pelvis without contrast. TECHNIQUE: Multiple contiguous axial images were obtained through the chest, abdomen, and pelvis without the use of intravenous contrast. Auto Exposure Controls were utilized during the CT exam to meet ALARA standards for radiation dose reduction. INDICATION: 70-year-old female, hospitalized patient with respiratory distress and abdominal pain. CORRELATION STUDY: CT abdomen pelvis 10/01/2019 FINDINGS: CT CHEST: Postoperative changes of prior sternotomy and coronary artery bypass. There is a presumed nonunion across the sternotomy site which is otherwise well approximated. Heart size upper limits normal. No pericardial effusion. Thoracic aortic contour unremarkable with mild wall calcification. A few shotty mediastinal lymph nodes are present. Small hiatal hernia. There is presence of small to moderate right and small left pleural effusion layering dependently. Associated atelectasis or less likely infiltrate at the lower lobes right greater than left. Bilateral breast implants are present with a curvilinear calcification along the implant surface. Asymmetric parenchymal density at the medial aspect of the right breast, nonspecific. Osseous structures demonstrate no suggestion for acute findings. CT ABDOMEN and PELVIS: There is attenuation artifact particularly upper abdomen from patient's upper extremities in the [id number]. The unenhanced liver is enlarged and with perhaps mild fatty infiltration. Gallbladder is present contains high density filling majority of the gallbladder. No significant bile duct dilatation. Spleen, pancreas and adrenal glands demonstrate no acute findings. Subtle, indeterminate low attenuating lesion of the right kidney favors probable cyst but incompletely characterize. Likely relatively stable. Nonobstructing left superior pole and right superior pole renal stones. No definitive obstructive uropathy. Mild wall calcification abdominal aorta, nonaneurysmal. Gastrointestinal tract demonstrates mild gas and fluid distention of the stomach. No definitive small bowel obstruction. There is colonic diverticulosis present. The appendix not visualized. There has been developed small amount of particularly right lower quadrant ascites. No significant free air. Urinary bladder is largely decompressed around a Diaz catheter. Uterus is absent. Subcutaneous gas may be owing to prior injection. Visualized osseous structures mild advanced degenerative change visualized lower lumbar spine. No acute abnormality. IMPRESSION: CT CHEST: 1. Small to moderate right and small left pleural effusion associated with atelectasis or infiltrate both lung bases. 2. Presence of asymmetric parenchymal density of the medial right breast, presence bilateral breast implants. Currently nonspecific. If not recently performed, correlation with diagnostic mammogram evaluation recommended. CT ABDOMEN and PELVIS: 1. Small amount of abdominal/pelvic fluid. Nonspecific as to etiology or significance. Source of this is not demonstrated but could potentially reflect a unidentified inflammatory infectious process. Mild generalized 3rd spacing with subcutaneous edema. 2. Colonic diverticulosis without evidence for acute diverticulitis. Stomach is mildly distended with fluid and gas. 3. Hepatomegaly with steatosis. 4. Increased density within the gallbladder could be owing to perhaps vicarious excretion from prior contrast administration if this has been performed. Otherwise may reflect sludge or debris. No overt bile duct dilatation. 5. Nonobstructing renal stones. Dictated by: Dictated on workstation # [id number]
--- NOTE | 2021-10-31 11:52 | Cardiology Progress Note ---
Subjective Date Seen by Provider: Oct 31, 2021 Time Seen by Provider: 11:48 Subjective/Events-last exam Patient was seen and evaluated, laying down in bed, complaining of abdominal distention and discomfort, lethargic. No active chest pain. Review of Systems General: No Chills, No Night Sweats; Fatigue, Malaise; No Appetite, No Other HEENT: Head Aches; No Visual Changes, No Eye Pain, No Ear Pain, No Dysphasia, No Sinus Congestion, No Post Nasal Drip, No Sore Throat, No Other Pulmonary: Dyspnea; No Cough, No Pleuritic Chest Pain, No Other Cardiovascular: No: Chest Pain, Palpitations, Orthopnea, Paroxysmal Noc. Dyspnea, Edema, Lt Headedness, Other Focused Exam Time of Focused Exam: 05:15 Objective-Cardiology Exam Last Set of Vital Signs Vital Signs 10/31/21 10/31/21 10/31/21 10/31/21 04:00 08:36 11:00 11:15 Temp 36.0 Pulse 48 Resp 17 B/P (MAP) 153/69 Pulse Ox 97 O2 Delivery Nasal Cannula O2 Flow Rate 4.00 FiO2 30 I&O Intake and Output 10/31/21 00:00 Intake Total 1068 ml Output Total 2350 ml Balance -1282 ml Intake Oral 0 ml IV Total 1068 ml Output Urine Total 2350 ml General: Alert, Cooperative HEENT: Atraumatic, PERRLA Neck: Supple, No JVD Lungs: Clear to Auscultation, Normal Air Movement Heart: Regular Rate, Normal S1, Normal S2 Abdomen: Normal Bowel Sounds Extremities: No Clubbing, No Cyanosis Skin: No Rashes Neuro: Normal Speech Psych/Mental Status: Mood NL Results Lab Laboratory Tests 10/31/21 04:45 A/P-Cardiology Admission Diagnosis Coronary artery disease Sepsis Acute respiratory failure Congestive heart failure Assessment/Plan Coronary artery disease status post acute ST elevation myocardial infarction in the inferior wall, underwent cardiac catheterization reported as thrombotic occlusion of the vein graft to the right coronary artery. Continue on current medication and monitor Congestive heart failure, acute on chronic left ventricular diastolic dysfunction, preserved systolic function, MUGA scan showed ejection fraction 58%. Continue on diuretics Acute change of mental status, unknown etiology, managed by primary care team Abdominal distention and abdominal discomfort, underwent CT of the abdomen and pelvis, did not show any acute abnormality. Distended gallbladder was noted. Hypertension, labile blood pressure. Continue to monitor blood pressure and adjust medication accordingly Hyperlipidemia started on statin Status post acute respiratory failure with hypoxemia and change in mental status, currently oxygen level is better, she was fighting the BiPAP, possible Vapotherm and evaluate tolerance and response UTI, sepsis, managed by medical team Diabetes mellitus, followed and managed by primary care team FLAKITO JACKSON MD Oct 31, 2021 11:52
[2021-10-31] MEDS ORDERED: FUROSEMIDE 40 MG/4 ML INJ (LASIX) IVP ONE (18:15)
--- NOTE | 2021-10-31 18:18 | Progress Note - Hospitalist ---
Subjective HPI/CC On Admission Date Seen by Provider: Oct 31, 2021 Time Seen by Provider: 09:50 Kemi Martínez is a 70 year old female who was admitted with STEMI. She is unable to provide an adequate history due to her curent condition. Per records, she was admitted after presenting with nausea, vomiting, and back pain. She did not have any chest pain. She is uncomfortable and received sedating medications prior to my arrival making her a poor historian. She is able to tell me her back hurts. She is not short of breath. She does not express any other complaints. Subjective/Events-last exam She is trying to get out of bed upon my arrival. She is helped back to bed by aides and nurse. She reports abdominal pain. Focused Exam Time of Focused Exam: 05:15 Objective Exam Vital Signs Vital Signs Date Time Temp Pulse Resp B/P (MAP) Pulse Ox O2 Delivery O2 Flow Rate FiO2 10/31/21 18:00 59 19 166/71 96 Nasal Cannula 5.00 10/31/21 16:06 30 10/31/21 15:43 36.2 Capillary Refill : Less Than 3 Seconds General Appearance: No Apparent Distress, Obese Respiratory: No Respiratory Distress, Decreased Breath Sounds Cardiovascular: Regular Rate, Rhythm, No Murmur Gastrointestinal: Normal Bowel Sounds, Soft, Tenderness Extremity: Normal Inspection, Pedal Edema Neurologic/Psychiatric: Alert, Oriented x3 Skin: Normal Color, Warm/Dry Results/Procedures Lab Laboratory Tests 10/31/21 04:45 Patient resulted labs reviewed. Imaging: Reviewed Imaging Report Assessment/Plan Assessment and Plan Assess & Plan/Chief Complaint Acute respiratory failure with hypoxia and hypercapnia BiPAP at night Supplemental oxygen as needed CT with bilateral pleural effusions Begin Lasix STEMI CAD s/p CABG Cardiology primary Left heart cath with balloon angioplasty and stent placement in RCA Echo with normal EF Continue Aspirin, Brilinta, Coreg, and Crestor UTI E coli bacteremia Continue Rocephin T2DM Sliding scale insulin Delirium Agitation Reorient as needed Debility PT/OT IRF evaluation HTN HLD Obesity DVT prophylaxis: Lovenox Septic shock, resolved Lactic acidosis, resolved Mihai on CKD, resolved Critical Care Critically Ill Patient Diagnosis/Problems Diagnosis/Problems (1) Acute respiratory failure with hypoxia and hypercapnia Status: Acute (2) STEMI (ST elevation myocardial infarction) Status: Acute Qualifiers: Involved coronary artery: right coronary artery Qualified Codes: I21.11 - ST elevation (STEMI) myocardial infarction involving right coronary artery (3) CAD (coronary artery disease) Status: Chronic (4) Septic shock Status: Acute (5) UTI (urinary tract infection) Status: Acute (6) Lactic acidosis Status: Acute (7) Acute kidney injury superimposed on chronic kidney disease Status: Acute (8) Primary hypertension Status: Chronic (9) Mixed hyperlipidemia Status: Chronic (10) Type 2 diabetes mellitus with complication Status: Chronic (11) Obesity Status: Chronic (12) Stage 3 chronic kidney disease Status: Chronic (13) Hx of CABG Status: Chronic LYNNETTE JERRY MD Oct 31, 2021 18:18
[2021-10-31] MEDS ORDERED: cefTRIAXone 2,000 MG VIAL ONE (18:21)
[2021-10-31] MEDS ORDERED: FUROSEMIDE 40 MG/4 ML INJ (LASIX) ONE ×2 (18:21→21:25)
[2021-10-31] MEDS ORDERED: NS (IVPB) 50 ML ONE (18:22)
[2021-10-31] MEDS: cefTRIAXone 2,000 MG in NS (IVPB) 50 ML IV SCH (18:34)
[2021-10-31] MEDS: PANTOPRAZOLE 40 MG (PROTONIX) VIAL IV SCH (20:02)
[2021-10-31] MEDS: QUEtiapine 25 MG (SEROquel) TAB IMMEDIATE RELEASE PO SCH (20:02)
[2021-10-31] MEDS: ZOLPIDEM 5 MG (AMBIEN) TAB PO PRN (20:02)
[2021-10-31] MEDS: ROSUVASTATIN 20 MG (CRESTOR) TABLET PO SCH (20:02)
[2021-10-31 22:45] VITALS: BP 184/88
[2021-11-01] MEDS: RT-ALBUTEROL SULF 2.5 MG/3 ML PRE-MIX VIAL INH SCH ×4 (03:14→20:59)
[2021-11-01 03:16] VITALS: BP 171/82
[2021-11-01 05:24] LABS: BASOPHILS # (AUTO) 0.1 10^3/uL (0.0-0.1); BASOPHILS % (AUTO) 1 % (0-10); EOSINOPHILS # (AUTO) 0.2 10^3/uL (0.0-0.3); EOSINOPHILS % (AUTO) 2 % (0-10); HEMATOCRIT 39 % (35-52); HEMOGLOBIN 12.4 g/dL (11.5-16.0); LYMPHOCYTES # (AUTO) 1.6 10^3/uL (1.0-4.0); LYMPHOCYTES % (AUTO) 13 % (12-44); MEAN CORPUSCULAR HEMOGLOBIN 30 pg (25-34); MEAN CORPUSCULAR HGB CONC 32 g/dL (32-36); MEAN CORPUSCULAR VOLUME 95 fL (80-99); MEAN PLATELET VOLUME 10.8 fL (9.0-12.2); MONOCYTES # (AUTO) 1.1 10^3/uL (0.0-1.0); MONOCYTES % (AUTO) 9 % (0-12); NEUTROPHILS # (AUTO) 9.2 10^3/uL (1.8-7.8); NEUTROPHILS % (AUTO) 73 % (42-75); PLATELET COUNT 199 10^3/uL (130-400); WHITE BLOOD COUNT 12.6 10^3/uL (4.3-11.0)
[2021-11-01 05:34] LABS: ALBUMIN 2.6 GM/DL (3.2-4.5); POTASSIUM 3.5 MMOL/L (3.6-5.0)
[2021-11-01 05:35] LABS: CALCIUM 7.9 MG/DL (8.5-10.1)
[2021-11-01 05:37] LABS: TOTAL PROTEIN 5.7 GM/DL (6.4-8.2)
[2021-11-01 05:38] LABS: BILIRUBIN,TOTAL 0.7 MG/DL (0.1-1.0)
[2021-11-01 05:40] LABS: CREATININE SERUM 1.09 MG/DL (0.60-1.30); PHOSPHORUS 1.6 MG/DL (2.3-4.7)
[2021-11-01 05:43] LABS: MAGNESIUM 2.1 MG/DL (1.6-2.4)
[2021-11-01] MEDS: POTASSIUM CL 10MEQ/50ML IVPB 50 ML IV SCH (06:29)
[2021-11-01] MEDS: MAGNESIUM 1 GM/100 ML IVPB 100 ML IV SCH (06:29)
[2021-11-01] MEDS: inSUlin ASPART (NovoLOG) 1 UNIT/0.01 ML (CHARGE PER UNIT) SC SCH ×4 (06:29→21:26)
[2021-11-01] MEDS: KCL 20 MEQ TAB (K-DUR) PO SCH (06:31)
[2021-11-01] MEDS: PANTOPRAZOLE 40 MG (PROTONIX) VIAL IV SCH ×2 (08:57→20:20)
[2021-11-01] MEDS: ASPIRIN E.C. 81 MG (ECOTRIN) TAB PO SCH (08:57)
[2021-11-01] MEDS: ISOSORBIDE MONONITRATE 30 MG (IMDUR) TAB PO SCH (08:57)
[2021-11-01] MEDS: TICAGRELOR 90 MG TABLET (BRILINTA) PO SCH ×2 (08:57→20:19)
[2021-11-01] MEDS: lisINopril 10 MG (PRINIVIL) TABLET PO SCH (08:57)
[2021-11-01] MEDS: FLUTICASONE NASAL SPRAY (FLONASE) 16 GM BTL NS SCH (08:58)
[2021-11-01] MEDS ORDERED: KCL 20 MEQ TAB (K-DUR) PO ONE (09:00)
[2021-11-01] MEDS ORDERED: FUROSEMIDE 40 MG/4 ML INJ (LASIX) IVP ONE (09:15)
[2021-11-01] MEDS: ENOXAPARIN 40 MG/0.4 ML (LOVENOX) SYR SC SCH (09:54)
--- NOTE | 2021-11-01 10:24 | Cardiology Progress Note ---
Subjective Date Seen by Provider: Nov 01, 2021 Time Seen by Provider: 10:23 Subjective/Events-last exam Patient is laying down in bed, more awake today. Feeling better. Review of Systems General: No Chills, No Night Sweats; Fatigue, Malaise; No Appetite, No Other HEENT: No Head Aches, No Visual Changes, No Eye Pain, No Ear Pain, No Dysphasia, No Sinus Congestion, No Post Nasal Drip, No Sore Throat, No Other Pulmonary: Dyspnea; No Cough, No Pleuritic Chest Pain, No Other Cardiovascular: No: Chest Pain, Palpitations, Orthopnea, Paroxysmal Noc. Dyspnea, Edema, Lt Headedness, Other Focused Exam Time of Focused Exam: 05:15 Objective-Cardiology Exam Last Set of Vital Signs Vital Signs 11/01/21 11/01/21 11/01/21 04:00 08:00 10:00 Temp 36.6 Pulse 57 Resp 27 B/P (MAP) 177/79 Pulse Ox 96 O2 Delivery High Flow N/C O2 Flow Rate 4.00 FiO2 30 I&O Intake and Output 11/01/21 00:00 Intake Total 710 ml Output Total 3500 ml Balance -2790 ml Intake Oral 710 ml Output Urine Total 3500 ml # Bowel Movements 1 General: Alert, Cooperative HEENT: Atraumatic, PERRLA Neck: Supple, No JVD Lungs: Clear to Auscultation, Normal Air Movement Heart: Regular Rate, Normal S1, Normal S2 Abdomen: Normal Bowel Sounds Extremities: No Clubbing, No Cyanosis, No Edema Skin: No Rashes Neuro: Normal Speech Psych/Mental Status: Mood NL Results Lab Laboratory Tests 11/01/21 04:52 A/P-Cardiology Admission Diagnosis Coronary artery disease Sepsis Acute respiratory failure Congestive heart failure Assessment/Plan Coronary artery disease status post acute ST elevation myocardial infarction in the inferior wall, underwent cardiac catheterization reported as thrombotic occlusion of the vein graft to the right coronary artery. Continue on current medication and monitor Congestive heart failure, acute on chronic left ventricular diastolic dysfunction, preserved systolic function, MUGA scan showed ejection fraction 58%. Continue on diuretics Acute change of mental status, improving slowly, managed by medical team Abdominal distention and abdominal discomfort, underwent CT of the abdomen and pelvis, did not show any acute abnormality. Distended gallbladder was noted. Mild improvement noted today Hypertension, labile blood pressure. Continue to monitor blood pressure and adjust medication accordingly Hyperlipidemia started on statin Status post acute respiratory failure with hypoxemia and change in mental status , currently oxygen level is better, she was fighting the BiPAP, possible Vapotherm and evaluate tolerance and response UTI, sepsis, managed by medical team Diabetes mellitus, followed and managed by primary care team FLAKITO JACKSON MD Nov 01, 2021 10:24
--- NOTE | 2021-11-01 10:35 | Tele-ICU Progress Note ---
Subjective Date Seen by a Provider: Nov 01, 2021 Time Seen by a Provider: 09:00 Subjective/Events-last exam This virtual visit was conducted using real time audio/video. Thank you for asking us to see this patient for respiratory insufficiency. Also STEMI/stent, urosepsis(E. Coli). Recent events: stable overnight. PE: VSS. O2 sat 95% on 2-4 LPM, PRN Bipap. HEENT: No obvious masses, adenopathy or JVD. Chest: clear to auscultation. CV: RRR S1 S2 No murmur or added sounds. Abd: Non-tender. Bowel sounds Y. : Unremarkable. 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 No obvious focal findings. Extremities: 1+ edema. Capillary refill < 3 seconds. Skin: unremarkable. Results: Elevated WCC 12.6, BUN 29. Decreased K 3.5. B.37/43/121 Available chart/ vitals / labs / images reviewed. Video assessment done using teleICU camera, rest of exam as per RN. A/P: Respiratory insufficiency: Continue present management with NC, PRN BiPAP. Monitor for increasing oxygenation needs and/or need for intubation. Critical Care: critically ill patient. Cont. Alb., Rocephin, Omid., NTG, ASA, Brilinta, Lisin., SSI, Levemir. Replace K. Discussed with RN Radha. Asked RN to reach out to eICU if any questions or concerns later. Time spent with patient/coordination of care with other health professionals (mins): 20 Sepsis Event Evaluation Height, Weight, BMI Height: 5'2.00" Weight: 170lbs. oz. 77.960872qq; 38.54 BMI Method:Stated Focused Exam Time of Focused Exam: 05:15 Exam Exam Patient acknowledged, consented, and participated in this virtual visit which was conducted using real time audio/video Vital Signs Date Time Temp Pulse Resp B/P (MAP) Pulse Ox O2 Delivery O2 Flow Rate FiO2 11/01/21 10:00 57 27 177/79 96 High Flow N/C 4.00 11/01/21 09:00 66 15 172/87 97 High Flow N/C 4.00 11/01/21 08:23 97 Nasal Cannula 4.00 11/01/21 08:00 60 32 160/87 97 High Flow N/C 4.00 11/01/21 08:00 36.6 11/01/21 07:50 94 Nasal Cannula 4.00 11/01/21 07:00 67 11/01/21 07:00 67 17 163/75 94 High Flow N/C 4.00 11/01/21 06:00 70 20 170/77 96 High Flow N/C 4.00 11/01/21 05:10 High Flow N/C 4.00 11/01/21 05:00 54 18 160/80 95 NIV Bilevel 30.00 11/01/21 04:00 95 NIV Bilevel 4.00 30 11/01/21 04:00 36.7 NIV Bilevel 30.00 11/01/21 04:00 58 17 146/66 97 NIV Bilevel 30.00 11/01/21 03:16 47 20 94 30.00 11/01/21 03:00 51 20 146/80 97 NIV Bilevel 30.00 11/01/21 02:00 51 19 128/56 94 NIV Bilevel 30.00 11/01/21 01:00 50 11/01/21 01:00 51 14 135/59 97 NIV Bilevel 30.00 11/01/21 00:00 36.4 NIV Bilevel 30.00 11/01/21 00:00 51 17 125/57 95 NIV Bilevel 30.00 10/31/21 23:59 95 NIV Bilevel 4.00 30 10/31/21 23:00 53 17 118/57 93 Nasal Cannula 5.00 10/31/21 22:45 50 24 94 30.00 10/31/21 22:45 36.8 10/31/21 22:00 57 21 152/69 95 Nasal Cannula 5.00 10/31/21 21:00 65 26 156/76 95 Nasal Cannula 5.00 10/31/21 20:00 68 20 141/98 96 Nasal Cannula 5.00 10/31/21 20:00 95 Nasal Cannula 4.00 30 10/31/21 19:25 36.6 10/31/21 19:00 67 21 152/63 96 Nasal Cannula 5.00 10/31/21 19:00 70 10/31/21 18:00 59 19 166/71 96 Nasal Cannula 5.00 10/31/21 17:57 51 158/86 10/31/21 17:00 48 20 158/86 96 Nasal Cannula 5.00 10/31/21 16:06 96 Nasal Cannula 4.00 30 10/31/21 16:00 47 29 141/69 98 Nasal Cannula 5.00 10/31/21 15:43 36.2 10/31/21 15:16 96 Nasal Cannula 4.00 10/31/21 15:00 45 22 149/71 97 Nasal Cannula 5.00 10/31/21 14:00 69 17 106/51 96 Nasal Cannula 5.00 10/31/21 13:00 49 10/31/21 13:00 45 22 132/71 95 Nasal Cannula 5.00 10/31/21 12:14 35.9 10/31/21 12:11 96 Nasal Cannula 4.00 30 10/31/21 12:00 47 15 138/65 97 Nasal Cannula 5.00 10/31/21 11:15 97 Nasal Cannula 4.00 10/31/21 11:00 48 17 153/69 97 Nasal Cannula 5.00 I & O 11/01/21 07:00 Intake Total 1070 ml Output Total 3450 ml Balance -2380 ml Height & Weight Height: 5'2.00" Weight: 170lbs. oz. 77.097507wg; 38.54 BMI Method:Stated General Appearance: No Apparent Distress, Obese HEENT: PERRL/EOMI, Pharynx Normal Neck: Normal Inspection, Supple Respiratory: No Respiratory Distress, Decreased Breath Sounds Cardiovascular: Regular Rate, Rhythm, No Murmur Capillary Refill: Less Than 3 Seconds Extremity: Normal Inspection, Pedal Edema Neurologic/Psychiatric: Alert, Oriented x3 Skin: Normal Color, Warm/Dry Results Lab Laboratory Tests 10/31/21 04:45 11/01/21 04:52 Assessment/Plan Assessment/Plan See free text. Critical Care: Critically Ill Patient DIXON BREWER MD Nov 01, 2021 10:35
[2021-11-01] MEDS: LORazepam 0.5 MG (ATIVAN) TABLET PO PRN ×2 (16:30→20:19)
[2021-11-01] MEDS: cefTRIAXone 2,000 MG in NS (IVPB) 50 ML IV SCH (17:34)
[2021-11-01] MEDS: NITRO DRIP 25000 MCG/D5W 250 ML IV SCH (17:35)
--- NOTE | 2021-11-01 18:58 | Progress Note - Hospitalist ---
Subjective HPI/CC On Admission Date Seen by Provider: Nov 01, 2021 Time Seen by Provider: 09:45 Kemi Martínez is a 70 year old female who was admitted with STEMI. She is unable to provide an adequate history due to her curent condition. Per records, she was admitted after presenting with nausea, vomiting, and back pain. She did not have any chest pain. She is uncomfortable and received sedating medications prior to my arrival making her a poor historian. She is able to tell me her back hurts. She is not short of breath. She does not express any other complaints. Subjective/Events-last exam She is more awake and alert today. She denies pain. She denies trouble breathing. Focused Exam Time of Focused Exam: 05:15 Objective Exam Vital Signs Vital Signs Date Time Temp Pulse Resp B/P (MAP) Pulse Ox O2 Delivery O2 Flow Rate FiO2 11/01/21 18:07 68 21 166/69 95 High Flow N/C 4.00 11/01/21 16:00 36.8 11/01/21 04:00 30 Capillary Refill : Less Than 3 Seconds General Appearance: No Apparent Distress, Obese Respiratory: No Respiratory Distress, Decreased Breath Sounds Cardiovascular: Regular Rate, Rhythm, No Murmur Gastrointestinal: Normal Bowel Sounds, Non Tender, Soft Extremity: Normal Inspection, Non Tender, No Pedal Edema Neurologic/Psychiatric: Alert, Oriented x3 Skin: Normal Color, Warm/Dry Results/Procedures Lab Laboratory Tests 11/01/21 04:52 Patient resulted labs reviewed. Imaging: Reviewed Imaging Report Assessment/Plan Assessment and Plan Assess & Plan/Chief Complaint Acute respiratory failure with hypoxia and hypercapnia Fluid overload Supplemental oxygen as needed CT with bilateral pleural effusions Continue Lasix STEMI CAD s/p CABG Cardiology primary Left heart cath with balloon angioplasty and stent placement in RCA Echo with normal EF Continue Aspirin, Brilinta, Coreg, and Crestor UTI E coli bacteremia Continue Rocephin T2DM Sliding scale insulin Delirium Agitation Reorient as needed Debility PT/OT IRF evaluation HTN HLD Obesity DVT prophylaxis: Lovenox Septic shock, resolved Lactic acidosis, resolved Mihai on CKD, resolved Critical Care Critically Ill Patient Diagnosis/Problems Diagnosis/Problems (1) Acute respiratory failure with hypoxia and hypercapnia Status: Acute (2) STEMI (ST elevation myocardial infarction) Status: Acute Qualifiers: Involved coronary artery: right coronary artery Qualified Codes: I21.11 - ST elevation (STEMI) myocardial infarction involving right coronary artery (3) CAD (coronary artery disease) Status: Chronic (4) Septic shock Status: Acute (5) UTI (urinary tract infection) Status: Acute (6) Lactic acidosis Status: Acute (7) Acute kidney injury superimposed on chronic kidney disease Status: Acute (8) Primary hypertension Status: Chronic (9) Mixed hyperlipidemia Status: Chronic (10) Type 2 diabetes mellitus with complication Status: Chronic (11) Obesity Status: Chronic (12) Stage 3 chronic kidney disease Status: Chronic (13) Hx of CABG Status: Chronic LYNNETTE JERRY MD Nov 01, 2021 18:58
[2021-11-01] MEDS: ZOLPIDEM 5 MG (AMBIEN) TAB PO PRN (20:19)
[2021-11-01] MEDS: ROSUVASTATIN 20 MG (CRESTOR) TABLET PO SCH (20:19)
[2021-11-01] MEDS: QUEtiapine 25 MG (SEROquel) TAB IMMEDIATE RELEASE PO SCH (20:19)
[2021-11-01 20:59] VITALS: BP 153/68
[2021-11-02] MEDS: RT-ALBUTEROL SULF 2.5 MG/3 ML PRE-MIX VIAL INH SCH ×4 (03:06→21:17)
[2021-11-02 04:36] LABS: BASOPHILS # (AUTO) 0.1 10^3/uL (0.0-0.1); BASOPHILS % (AUTO) 1 % (0-10); EOSINOPHILS # (AUTO) 0.3 10^3/uL (0.0-0.3); EOSINOPHILS % (AUTO) 3 % (0-10); HEMATOCRIT 39 % (35-52); HEMOGLOBIN 12.7 g/dL (11.5-16.0); LYMPHOCYTES # (AUTO) 2.2 10^3/uL (1.0-4.0); LYMPHOCYTES % (AUTO) 19 % (12-44); MEAN CORPUSCULAR HEMOGLOBIN 31 pg (25-34); MEAN CORPUSCULAR HGB CONC 33 g/dL (32-36); MEAN CORPUSCULAR VOLUME 95 fL (80-99); MEAN PLATELET VOLUME 10.7 fL (9.0-12.2); MONOCYTES # (AUTO) 1.2 10^3/uL (0.0-1.0); MONOCYTES % (AUTO) 10 % (0-12); NEUTROPHILS # (AUTO) 7.3 10^3/uL (1.8-7.8); NEUTROPHILS % (AUTO) 63 % (42-75); PLATELET COUNT 216 10^3/uL (130-400); WHITE BLOOD COUNT 11.5 10^3/uL (4.3-11.0)
[2021-11-02 04:52] LABS: ALBUMIN 2.8 GM/DL (3.2-4.5); POTASSIUM 3.2 MMOL/L (3.6-5.0)
[2021-11-02 04:55] LABS: TOTAL PROTEIN 6.2 GM/DL (6.4-8.2)
[2021-11-02 04:56] LABS: BILIRUBIN,TOTAL 0.7 MG/DL (0.1-1.0)
[2021-11-02 04:58] LABS: PHOSPHORUS 1.8 MG/DL (2.3-4.7)
[2021-11-02 04:59] LABS: CREATININE SERUM 1.02 MG/DL (0.60-1.30)
[2021-11-02] MEDS: POTASSIUM CL 10MEQ/50ML IVPB 50 ML IV SCH (05:13)
[2021-11-02] MEDS: inSUlin ASPART (NovoLOG) 1 UNIT/0.01 ML (CHARGE PER UNIT) SC SCH ×6 (05:14→22:06)
[2021-11-02] MEDS: MAGNESIUM 1 GM/100 ML IVPB 100 ML IV SCH (05:14)
[2021-11-02] MEDS: KCL 20 MEQ TAB (K-DUR) PO SCH (05:16)
[2021-11-02] MEDS ORDERED: KCL 20 MEQ TAB (K-DUR) PO NR (06:00)
--- NOTE | 2021-11-02 08:36 | Cardiology Progress Note ---
Progress Note-Cardiology Events since last exam Date Seen by Provider: Nov 02, 2021 Time Seen by Provider: 08:34 Events since last exam She is on my service due to acute inferior ST elevation myocardial infarction. She was sitting up in a chair eating breakfast. She was much more alert and talkative today. She denies recurrent chest discomfort. She denies dyspnea at rest. She denies palpitations or syncope. She still has some degree of bilateral lower extremity edema which has been chronic. Certain portions of this document may have been dictated utilizing voice recognition technology. Inherent to this technology, typographical and grammatical errors may exist. As much as I am diligent to identify and correct these mistakes, some errors may remain in the document. Vitals Last set of Vitals Signs Vital Signs 11/01/21 11/02/21 11/02/21 04:00 08:00 11:00 Temp 36.0 Pulse 56 Resp 22 B/P (MAP) 157/76 Pulse Ox 96 O2 Delivery High Flow N/C O2 Flow Rate 2.00 FiO2 30 Labs Labs Laboratory Tests 11/02/21 04:02 Exam Vital Signs Vital Signs Date Time Temp Pulse Resp B/P (MAP) Pulse Ox O2 Delivery O2 Flow Rate FiO2 11/02/21 11:00 56 22 157/76 96 High Flow N/C 2.00 11/02/21 08:00 36.0 11/01/21 04:00 30 Physical Exam General: Alert. No acute distress. She is obese. Eye: No xanthelasma. HENT: Normocephalic. Neck: Jugular venous pressure does not appear elevated. Respiratory: Lungs are clear to auscultation but decreased breath sounds at the bases bilaterally. Respirations are non-labored. Breath sounds are equal. Symmetrical chest wall expansion. Cardiovascular: Normal rate. Regular rhythm. No murmur. No gallop. 1+ bilateral pretibial edema. Gastrointestinal: Soft. Normal bowel sounds. Skin: Warm. Dry. Neurologic: Alert and oriented to person, place, time. Cranial nerves 3-11 grossly intact. Psychiatric: Cooperative. Appropriate mood & affect. Labs Laboratory Tests Test 11/01/21 16:12 11/01/21 20:46 11/02/21 04:02 11/02/21 10:37 Range/Units Glucometer 214 H 170 H 290 H 70-110 MG/DL White Blood Count 11.5 H 4.3-11.0 10^3/uL Red Blood Count 4.07 3.80-5.11 10^6/uL Hemoglobin 12.7 11.5-16.0 g/dL Hematocrit 39 35-52 % Mean Corpuscular Volume 95 80-99 fL Mean Corpuscular Hemoglobin 31 25-34 pg Mean Corpuscular Hemoglobin Concent 33 32-36 g/dL Red Cell Distribution Width 14.3 10.0-14.5 % Platelet Count 216 130-400 10^3/uL Mean Platelet Volume 10.7 9.0-12.2 fL Immature Granulocyte % (Auto) 4 % Neutrophils (%) (Auto) 63 42-75 % Lymphocytes (%) (Auto) 19 12-44 % Monocytes (%) (Auto) 10 0-12 % Eosinophils (%) (Auto) 3 0-10 % Basophils (%) (Auto) 1 0-10 % Neutrophils # (Auto) 7.3 1.8-7.8 10^3/uL Lymphocytes # (Auto) 2.2 1.0-4.0 10^3/uL Monocytes # (Auto) 1.2 H 0.0-1.0 10^3/uL Eosinophils # (Auto) 0.3 0.0-0.3 10^3/uL Basophils # (Auto) 0.1 0.0-0.1 10^3/uL Immature Granulocyte # (Auto) 0.5 H 0.0-0.1 10^3/uL Sodium Level 146 H 135-145 MMOL/L Potassium Level 3.2 L 3.6-5.0 MMOL/L Chloride Level 103 98-107 MMOL/L Carbon Dioxide Level 33 H 21-32 MMOL/L Anion Gap 10 5-14 MMOL/L Blood Urea Nitrogen 19 H 7-18 MG/DL Creatinine 1.02 0.60-1.30 MG/DL Estimat Glomerular Filtration Rate 53 BUN/Creatinine Ratio 19 Glucose Level 158 H 70-105 MG/DL Calcium Level 8.0 L 8.5-10.1 MG/DL Corrected Calcium 9.0 8.5-10.1 MG/DL Phosphorus Level 1.8 L 2.3-4.7 MG/DL Magnesium Level 2.0 1.6-2.4 MG/DL Total Bilirubin 0.7 0.1-1.0 MG/DL Aspartate Amino Transf (AST/SGOT) 20 5-34 U/L Alanine Aminotransferase (ALT/SGPT) 44 0-55 U/L Alkaline Phosphatase 144 H 40-136 U/L Total Protein 6.2 L 6.4-8.2 GM/DL Albumin 2.8 L 3.2-4.5 GM/DL Diagnosis/Problems Diagnosis/Problems (1) ST elevation myocardial infarction (STEMI) of inferior wall, initial episode of care Assessment & Plan: This was caused by 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 No recurrent angina. We will continue guideline directed medical therapy with aspirin, ticagrelor, beta-sonia, and statin medication. I did place her on long-acting nitrates because the day following the myocardial infarction, she had some recurrent chest discomfort. She had a MUGA scan which showed an ejection fraction of 58%. (2) Acute heart failure with preserved ejection fraction (HFpEF) Assessment & Plan: She appeared to have some pulmonary congestion upon presentation. Her chest x-rays have shown pulmonary congestion but seem to be improving. I did give her dose of intravenous Lasix on 10/27 and another on 10/28. She has been receiving a fair amount of intravenous fluids due to the sepsis from her urinary tract infection. The IV fluids have now been decreased. I will obtain a follow-up chest x-ray in the morning. (3) Primary hypertension Status: Chronic Assessment & Plan: Her blood pressures remain intermittently elevated. At one point, she was too confused to take oral medication. She has now been receiving carvedilol and lisinopril. She was also started on amlodipine. I would prefer to maximize the dose of lisinopril in light of her acute myocardial infarction as opposed to continuing amlodipine. Today I will give her an extra dose of lisinopril and double the dose tomorrow. I will stop the amlodipine for the leanna e being. (4) Mixed hyperlipidemia Status: Chronic Assessment & Plan: I have her on intensive dose statin medication due to the acute myocardial infarction. (5) Altered mental state Assessment & Plan: Etiology unclear. I had ordered a head CT last week but due to her confusion, the test could not be performed. Her mental status now seems to be improving. (6) Coronary artery disease with unstable angina pectoris Assessment & Plan: As above. (7) Acute on chronic respiratory failure with hypoxia and hypercapnia Assessment & Plan: She probably has some degree of undiagnosed sleep apnea. She is now improving with BiPAP intermittently as needed. (8) Sepsis due to urinary tract infection Assessment & Plan: This is being managed by the hospitalist. I appreciate their input. This seems to have improved (9) Acute kidney injury superimposed on chronic kidney disease Status: Acute Assessment & Plan: She has been receiving intravenous fluids due to the sepsis. Her renal function has been improving. We will need to follow this closely with the addition of OBDULIA inhibitor. (10) Type 2 diabetes mellitus with complication Status: Chronic Assessment & Plan: The hospitalist is managing treatment of the diabetes while she is here in the hospital. (11) Morbid obesity Assessment & Plan: She has actually gained a little weight during this admission. This was most likely due to intravenous fluids administered for sepsis. She has been receiving diuretic intermittently. She will need to work on weight loss following discharge. KRAIG ORTIZ JR, MD Nov 02, 2021 08:36
[2021-11-02] MEDS ORDERED: IBUPROFEN 600 MG (MOTRIN) TAB PO PRN (09:15)
[2021-11-02] MEDS: FLUTICASONE NASAL SPRAY (FLONASE) 16 GM BTL NS SCH ×2 (10:00→10:42)
--- NOTE | 2021-11-02 10:20 | Physical Therapy Evaluation ---
PT Evaluation-General Medical Diagnosis Admission Date Oct 26, 2021 at 05:29 Medical Diagnosis: STEMI Onset Date: Oct 26, 2021 Therapy Diagnosis Therapy Diagnosis: generalized weakness/debility Height/Weight Height (Feet): 5 Height (Inches): 2.00 Weight (Pounds): 170 Precautions Precautions/Isolations: Fall Prevention, Standard Precautions Referral Physician: Reuben Reason for Referral: Evaluation/Treatment Medical History Pertinent Medical History: CABG, CVA, DM, HTN, Renal Insufficiency Current History ER secondary to [place] Reviewed History: Yes Social History Home: Single Level Current Living Status: Alone Prior Prior Level of Function SCALE: Activities may be completed with or without assistive devices. 7-Cuvwzjewtb-lmtnqot completes the activity by him/herself with no assistance from a helper. 5-Set-up or Clean-up Assistance-helper sets up or cleans up; patient completes activity. [place] assists only prior to or following the activity. 4-Supervision or Touching Assistance-helper provides verbal cues and/or touching/steadying and/or contact guard assistance as patient completes activity. Assistance may be provided throughout the activity or intermittently. 3-Partial/Moderate Assistance-helper does LESS THAN HALF the effort. [place] lifts, holds or supports trunk or limbs, but provides less than half the effort. 2-Substantial/Maximal Assistance-helper does MORE THAN HALF the effort. [place] lifts or holds trunk or limbs and provides more than half the effort. 6-Mrmbbqoqs-jfnisu does ALL the effort. Patient does none of the effort to complete the activity. Or, the assistance of 2 or more helpers is required for the patient to complete the activity. If activity was not attempted, code reason: 7-Patient Refused. 9-Not Applicable-not attempted and the patient did not perform the activity before the current illness, exacerbation or injury. 10-Not Attempted due to Environmental Limitations-(lack of equipment, weather restraints, etc.). 88-Not Attempted due to Medical Conditions or Safety Concerns. Bed Mobility: 6 Transfers (B,C,W/C): 6 Gait: 6 Indoor Mobility (Ambulation): Independent Prior Devices Use: None PT Evaluation-Current Subjective Patient very lethargic but agrees to PT. RN present to assist. Patient incontinent BM. Objective Patient Orientation: Mumbles, Listless Attachments: Oxygen, Diaz Catheter, IV ROM/Strength ROM Lower Extremities bilateral LE WFL Strength Lower Extremities 3-/5 grossly bilateral LE (unable to formally test due to patient current LOF) Integumentary/Posture Bowel Incontinence: Yes Bladder Incontinence: Diaz Cath Posture trunk flexed posture in stand Neuromuscular (Tone, Coordination, Reflexes) diminished coordination due to weakness Sensory Vision: Functional Hearing: Functional Transfers Roll Left to Right (QC): 1 Lying to Sitting/Side of Bed(Q: 1 Sit to Stand (QC): 2 Chair/Dyy-yv-Peghy Xfer(QC): 2 RN assist to cleanse patient due to BM Gait Does the Patient Walk?: No and Walking Goal IS indicated Walk 10 feet (QC): 88 Walk 50 ft with 2 Turns(QC): 88 Walk 150 ft (QC): 88 Gait Assistive Device: FWW Balance Sitting Static: Fair Sitting Dynamic: Fair Standing Static: Poor Standing Dynamic: Poor Assessment/Needs 70 y.o. female, will benefit from skilled PT to address functional strength and mobility to improve current LOF. From a PT standpoint, patient may benefit from ARU or extended care facility due to current LOF. Patient was independent,per family, PLOF. Rehab Potential: Fair PT Fpc Goals Fpc Goals PT Fpc Goals Time Frame: Nov 21, 2021 Roll Left & Right (QC): 5 Sit to Lying (QC): 5 Lying-Sitting on Side/Bed(QC): 5 Sit to Stand (QC): 5 Chair/Ffw-so-Aamtb Xfer(QC): 5 Toilet Transfer (QC): 5 Walk 10 feet (QC): 4 Walk 50ft with 2 Turns (QC): 4 Walk 150 ft (QC): 4 PT Plan Problem List Problem List: Activity Tolerance, Functional Strength, Safety, Balance, Gait, Transfer, Bed Mobility Treatment/Plan Treatment Plan: Continue Plan of Care Treatment Plan: Bed Mobility, Education, Functional Activity Josue, Functional Strength, Gait, Safety, Therapeutic Exercise, Transfers Treatment Duration: Nov 21, 2021 Frequency: 6 times per week Estimated Hrs Per Day: .5 hour per day Patient and/or Family Agrees t: Yes Time/GCodes Time In: 800 Time Out: 817 Total Billed Treatment Time: 17 Total Billed Treatment 1 visit EVModC 17 min JERAD WOODS PT Nov 02, 2021 10:20
[2021-11-02] MEDS: ISOSORBIDE MONONITRATE 30 MG (IMDUR) TAB PO SCH (10:40)
[2021-11-02] MEDS: ENOXAPARIN 40 MG/0.4 ML (LOVENOX) SYR SC SCH (10:40)
[2021-11-02] MEDS: MAGNESIUM OXIDE (MAG-OX)400 MG TAB PO SCH (10:41)
[2021-11-02] MEDS: KCL 20 MEQ TAB (K-DUR) PO NR (10:41)
[2021-11-02] MEDS: hydrALAZINE (APRESOLINE) 25 MG TAB PO SCH ×2 (10:41→20:41)
[2021-11-02] MEDS: lisINopril 10 MG (PRINIVIL) TABLET PO SCH (10:41)
[2021-11-02] MEDS: ASCORBIC ACID (VIT C) 500 MG TABLET PO SCH (10:41)
[2021-11-02] MEDS: TICAGRELOR 90 MG TABLET (BRILINTA) PO SCH ×2 (10:42→20:41)
[2021-11-02] MEDS: PANTOPRAZOLE 40 MG (PROTONIX) TAB PO SCH (10:42)
[2021-11-02] MEDS: ASPIRIN E.C. 81 MG (ECOTRIN) TAB PO SCH (10:42)
--- NOTE | 2021-11-02 10:52 | Progress Note - Hospitalist ---
Subjective HPI/CC On Admission Date Seen by Provider: Nov 02, 2021 Time Seen by Provider: 10:00 Kemi Martínez is a 70 year old female who was admitted with STEMI. She is unable to provide an adequate history due to her curent condition. Per records, she was admitted after presenting with nausea, vomiting, and back pain. She did not have any chest pain. She is uncomfortable and received sedating medications prior to my arrival making her a poor historian. She is able to tell me her back hurts. She is not short of breath. She does not express any other complaints. Subjective/Events-last exam Pt is doing a lot better Cardiac cath was on 10/26/21 and then suffered respiratory failure Rocephin maintained for empiric treatment for bacteremia from E Coli Status post BiPAP now on 3L high flow CT showed bilateral infiltrates vs atelectasis Review of Systems General: Fatigue, Malaise Pulmonary: Dyspnea Focused Exam Time of Focused Exam: 05:15 Objective Exam Vital Signs Vital Signs Date Time Temp Pulse Resp B/P (MAP) Pulse Ox O2 Delivery O2 Flow Rate FiO2 11/03/21 04:01 93 High Flow N/C 2.00 11/03/21 03:29 36.6 64 17 167/70 11/01/21 04:00 30 Capillary Refill : Less Than 3 Seconds General Appearance: No Apparent Distress, WD/WN, Chronically ill, Obese Respiratory: No Accessory Muscle Use, No Respiratory Distress, Decreased Breath Sounds Cardiovascular: Regular Rate, Rhythm Neurologic/Psychiatric: Alert, Oriented x3, Depressed Affect, Motor Weakness Results/Procedures Lab Patient resulted labs reviewed. Imaging: Reviewed Imaging Report Assessment/Plan Assessment and Plan Assess & Plan/Chief Complaint Assess & Plan/Chief Complaint Acute respiratory failure with hypoxia and hypercapnia Fluid overload Supplemental oxygen as needed CT with bilateral pleural effusions Continue Lasix STEMI CAD s/p CABG Cardiology primary Left heart cath with balloon angioplasty and stent placement in RCA Echo with normal EF Continue Aspirin, Brilinta, Coreg, and Crestor UTI E coli bacteremia Continue Rocephin T2DM Sliding scale insulin Delirium Agitation Reorient as needed Debility PT/OT IRF evaluation HTN HLD Obesity DVT prophylaxis: Lovenox Septic shock, resolved Lactic acidosis, resolved Mihai on CKD, resolved Critical Care Critically Ill Patient RAKAN DEWITT DO Nov 02, 2021 10:52
[2021-11-02] MEDS ORDERED: lisINopril 10 MG (PRINIVIL) TABLET PO ONE (11:45)
--- NOTE | 2021-11-02 11:45 | Occupational Therapy Eval ---
OT Evaluation-General/PLF Medical Diagnosis Admission Date Oct 26, 2021 at 05:29 Medical Diagnosis: STEMI Onset Date: Oct 26, 2021 Therapy Diagnosis Therapy Diagnosis: decreased ADL status Height/Weight Height (Feet): 5 Height (Inches): 2.00 Weight (Pounds): 170 Precautions Precautions/Isolations: Fall Prevention, Standard Precautions Referral Physician: Reuben Referral Reason: Evaluation/Treatment Medical History Pertinent Medical History: CABG, CVA, DM, HTN, Renal Insufficiency Additional Medical History PE, CAD, HTN, CVA, TIA, fibromyalfia, DM, anxiety. Current History ED due to [place] Social History Home: Single Level Current Living Status: Alone ADL-Prior Level of Function SCALE: Activities may be completed with or without assistive devices. 8-Dzvvxditdz-flphzue completes the activity by him/herself with no assistance from a helper. 5-Set-up or Clean-up Assistance-helper sets up or cleans up; patient completes activity. [place] assists only prior to or following the activity. 4-Supervision or Touching Assistance-helper provides verbal cues and/or touching/steadying and/or contact guard assistance as patient completes activity. Assistance may be provided throughout the activity or intermittently. 3-Partial/Moderate Assistance-helper does LESS THAN HALF the effort. [place] lifts, holds or supports trunk or limbs, but provides less than half the effort. 2-Substantial/Maximal Assistance-helper does MORE THAN HALF the effort. [place] lifts or holds trunk or limbs and provides more than half the effort. 8-Rlxuqjjka-ahwizj does ALL the effort. Patient does none of the effort to complete the activity. Or, the assistance of 2 or more helpers is required for the patient to complete the activity. If activity was not attempted, code reason: 7-Patient Refused. 9-Not Applicable-not attempted and the patient did not perform the activity before the current illness, exacerbation or injury. 10-Not Attempted due to Environmental Limitations-(lack of equipment, weather restraints, etc.). 88-Not Attempted due to Medical Conditions or Safety Concerns. ADL PLOF Comments Pt reports IND with ADLs and functional mobility at PLOF, using cane or walker depending on the day. Pt lives with her son, who isn't always present throughout the day. Self Care: Independent Functional Cognition: Independent DME/Equipment: Bath Chair, Shower OT Current Status Subjective Pt in bed, agreeable to OT Tx. Pt had decreased motivation, requesting to rest, with encouragement agreeable to brushing her teeth. Mental Status/Objective Patient Orientation: Person, Place, Situation Attachments: Diaz Catheter, IV, Oxygen Current Hand Dominance: Right Upper Extremity ROM RUE WFL, shoulder flexion to approx 120 degrees. LUE decreased, shoulder flexion to approx 80 degrees. Pt reports residual deficits from previous CVA. Upper Extremity Coordination decreased. Upper Extremity Strength unable to formally test, grossly 3/5 RUE, 2/5 LUE ADL-Treatment Eating (QC): 5 (Per pt report, assist with cutting food and opening containers.) Oral Hygiene (QC): 3 (Min A, set up assistance provided for opening containers and placing toothpaste on brush. Assist to bring water cup to her mouth, and assist to place basin for rinsing.) Lower Body Dressing (QC): 1 (Per clincial judgment.) On/Off Footwear (QC): 1 (Per clincial judgment.) Toileting Hygiene (QC): 1 (catheter) Other Treatments Pt laying in bed, pt provided information about PLOF and home set up and participated in UE screen. Pt requests to rest at this time, as she is tired. OT educated pt on purpose and benefit of therapy in order for pt to return home. Pt agreeable to brushing her teeth only, declined UE exercises and OOB activities. Pt able to brush teeth, min A overall. Per PT report, pt requires total assist rolling and sit <-> supine transfers, max A with sit to stand and bed to chair transfers. Post tx, pt in bed, call light in reach and all needs met. Education OT Patient Education: Correct positioning, Energy conservation, Modified ADL techniques, Progress toward Goal/Update tx plan, Purpose of tx/functional activities, Rehab process Teaching Recipient: Patient Teaching Methods: Discussion Response to Teaching: Reinforcement Needed OT Head Of Store Operations Goals [facility] Goals Time Frame: Nov 13, 2021 Eating (QC): 6 Oral Hygiene (QC): 6 Toileting Hygiene (QC): 4 Shower/Bathe Self (QC): 4 Upper Body Dressing (QC): 5 Lower Body Dressing (QC): 4 On/Off Footwear (QC): 4 Additional Goals: 1-Demonstrate ADL Tasks, 2-Verbalize Understanding, 3- ImproveStrength/Josue 1=Demonstrate adherence to instructed precautions during ADL tasks. 2=Patient will verbalize/demonstrate understanding of assistive devices/modifications for ADL. 3=Patient will improve strength/tolerance for activity to enable patient to perform ADL's. OT Education/Plan Problem List/Assessment Assessment: Decreased Activ Tolerance, Decreased UE Strength, Impaired Coordination, Impaired Funct Balance, Impaired I ADL's, Impaired Self-Care Skills, Restricted Funct UE ROM Discharge Recommendations Plan/Recommendations: Continue POC Treatment Plan/Plan of Care Patient would benefit from OT for education, treatment and training to promote independence in ADL's, mobility, safety and/or upper extremity function for ADL's. Plan of Care: ADL Retraining, Functional Mobility, UE Funct Exercise/Act Treatment Duration: Nov 13, 2021 Frequency: 3 times per week (3-5 times per week) Estimated Hrs Per Day: .25 hour per day Agreement: Yes Rehab Potential: Fair Time/GCodes Start Time: 11:25 Stop Time: 11:35 Total Time Billed (hr/min): 10 Billed Treatment Time 1, EDY RICE OT Nov 02, 2021 11:45
[2021-11-02] MEDS: LORazepam 0.5 MG (ATIVAN) TABLET PO PRN (14:11)
[2021-11-02] MEDS: cefTRIAXone 2,000 MG in NS (IVPB) 50 ML IV SCH (17:30)
[2021-11-02] MEDS: FAMOTIDINE 20 MG (PEPCID) TABLET PO SCH (20:41)
[2021-11-02] MEDS: MIRTAZAPINE 15 MG (REMERON) TAB PO SCH (20:41)
[2021-11-02] MEDS: ROSUVASTATIN 20 MG (CRESTOR) TABLET PO SCH (20:41)
[2021-11-02] MEDS: QUEtiapine 25 MG (SEROquel) TAB IMMEDIATE RELEASE PO SCH (20:41)
[2021-11-02] MEDS: GABAPENTIN 100 MG (NEURONTIN) CAP PO SCH (20:41)
[2021-11-02] MEDS ORDERED: amLODIPine 5 MG (NORVASC) TAB PO SCH (21:00)
[2021-11-02] MEDS ORDERED: NON-FORMULARY MEDICATION 1 EA EA (Insulin Glargine/Lixisenatide (Soliqua 100 Unit-33 Mcg/m SC SCH (21:00)
[2021-11-03] MEDS: RT-ALBUTEROL SULF 2.5 MG/3 ML PRE-MIX VIAL INH SCH ×4 (04:00→21:27)
[2021-11-03] MEDS: inSUlin ASPART (NovoLOG) 1 UNIT/0.01 ML (CHARGE PER UNIT) SC SCH ×7 (05:50→22:27)
[2021-11-03] MEDS: LEVOTHYROXINE 25 MCG (LEVOTHROID) TAB PO SCH (05:56)
[2021-11-03] MEDS: LEVOTHYROXINE 112 MCG (LEVOTHROID) TAB PO SCH (05:56)
[2021-11-03] MEDS: ASCORBIC ACID (VIT C) 500 MG TABLET PO SCH (05:56)
[2021-11-03 06:17] LABS: BASOPHILS % (AUTO) 0 % (0-10); EOSINOPHILS # (AUTO) 0.4 10^3/uL (0.0-0.3); EOSINOPHILS % (AUTO) 4 % (0-10); HEMATOCRIT 42 % (35-52); HEMOGLOBIN 13.4 g/dL (11.5-16.0); LYMPHOCYTES # (AUTO) 2.3 10^3/uL (1.0-4.0); LYMPHOCYTES % (AUTO) 23 % (12-44); MEAN CORPUSCULAR HEMOGLOBIN 31 pg (25-34); MEAN CORPUSCULAR HGB CONC 32 g/dL (32-36); MEAN CORPUSCULAR VOLUME 95 fL (80-99); MEAN PLATELET VOLUME 10.6 fL (9.0-12.2); MONOCYTES # (AUTO) 0.8 10^3/uL (0.0-1.0); MONOCYTES % (AUTO) 8 % (0-12); NEUTROPHILS % (AUTO) 60 % (42-75); PLATELET COUNT 251 10^3/uL (130-400); WHITE BLOOD COUNT 9.9 10^3/uL (4.3-11.0)
[2021-11-03 06:27] LABS: ALBUMIN 3.1 GM/DL (3.2-4.5)
[2021-11-03 06:28] LABS: POTASSIUM 3.6 MMOL/L (3.6-5.0)
[2021-11-03 06:29] LABS: CALCIUM 8.4 MG/DL (8.5-10.1)
[2021-11-03 06:30] LABS: TOTAL PROTEIN 6.8 GM/DL (6.4-8.2)
[2021-11-03 06:32] LABS: BILIRUBIN,TOTAL 0.7 MG/DL (0.1-1.0)
[2021-11-03 06:34] LABS: CREATININE SERUM 0.92 MG/DL (0.60-1.30)
[2021-11-03 06:42] LABS: ATYPICAL LYMPHOCYTES 1 %; EOSINOPHILS % (MANUAL) 6 %; LYMPHOCYTES % (MANUAL) 14 %; MONOCYTES % (MANUAL) 11 %; MYELOCYTES % 1 %; NEUTROPHILS % (MANUAL) 65 %; REACTIVE LYMPHOCYTES 2 %
[2021-11-03 06:43] LABS: NUCLEATED RED BLOOD CELLS 1; RBC MORPH NORMAL
[2021-11-03 08:33] VITALS: BP 177/85
[2021-11-03] MEDS: MAGNESIUM OXIDE (MAG-OX)400 MG TAB PO SCH (08:41)
[2021-11-03] MEDS: KCL 20 MEQ TAB (K-DUR) PO NR (08:41)
[2021-11-03] MEDS: ASPIRIN E.C. 81 MG (ECOTRIN) TAB PO SCH ×2 (08:42→08:43)
[2021-11-03] MEDS: PANTOPRAZOLE 40 MG (PROTONIX) TAB PO SCH (08:42)
[2021-11-03] MEDS: hydrALAZINE (APRESOLINE) 25 MG TAB PO SCH ×2 (08:42→20:53)
[2021-11-03] MEDS: TICAGRELOR 90 MG TABLET (BRILINTA) PO SCH ×2 (08:42→20:53)
[2021-11-03] MEDS: ISOSORBIDE MONONITRATE 30 MG (IMDUR) TAB PO SCH (08:42)
--- NOTE | 2021-11-03 08:42 | Cardiology Progress Note ---
Progress Note-Cardiology Events since last exam Date Seen by Provider: Nov 03, 2021 Time Seen by Provider: 08:40 Events since last exam She is on my service due to acute inferior ST elevation myocardial infarction. She wants to know if she can go home today but she still appears visibly short of breath at rest. She denies chest discomfort, palpitations, or syncope. She still has mild bilateral ankle edema which is chronic prior to admission. Certain portions of this document may have been dictated utilizing voice recognition technology. Inherent to this technology, typographical and grammatical errors may exist. As much as I am diligent to identify and correct these mistakes, some errors may remain in the document. Vitals Last set of Vitals Signs Vital Signs 11/01/21 11/03/21 11/03/21 11/03/21 04:00 08:26 08:33 08:50 Temp 36.5 Pulse 68 Resp 18 B/P (MAP) 177/85 Pulse Ox 92 O2 Delivery Room Air O2 Flow Rate 2.00 FiO2 30 Labs Labs Laboratory Tests 11/03/21 05:35 Exam Vital Signs Vital Signs Date Time Temp Pulse Resp B/P (MAP) Pulse Ox O2 Delivery O2 Flow Rate FiO2 11/03/21 08:50 92 Room Air 11/03/21 08:33 36.5 68 11/03/21 08:26 18 177/85 2.00 11/01/21 04:00 30 Physical Exam General: Alert. She appeared short of breath at rest while speaking. Eye: No xanthelasma. HENT: Normocephalic. Neck: Jugular venous pressure does not appear elevated. Respiratory: Lungs are clear to auscultation but decreased breath sounds at the bases bilaterally. Respirations are non-labored. Breath sounds are equal. Symmetrical chest wall expansion. Cardiovascular: Normal rate. Regular rhythm. No murmur. No gallop. 1+ bilateral pretibial edema. Gastrointestinal: Soft. Normal bowel sounds. Skin: Warm. Dry. Neurologic: Alert and oriented to person, place, time. Cranial nerves 3-11 grossly intact. Psychiatric: Cooperative. Appropriate mood & affect. Labs Laboratory Tests Test 11/02/21 10:37 11/02/21 15:45 11/02/21 21:55 11/02/21 23:37 Range/Units Glucometer 290 H 153 H 68 L 108 70-110 MG/DL Test 11/03/21 05:35 11/03/21 05:47 Range/Units White Blood Count 9.9 4.3-11.0 10^3/uL Red Blood Count 4.38 3.80-5.11 10^6/uL Hemoglobin 13.4 11.5-16.0 g/dL Hematocrit 42 35-52 % Mean Corpuscular Volume 95 80-99 fL Mean Corpuscular Hemoglobin 31 25-34 pg Mean Corpuscular Hemoglobin Concent 32 32-36 g/dL Red Cell Distribution Width 14.6 H 10.0-14.5 % Platelet Count 251 130-400 10^3/uL Mean Platelet Volume 10.6 9.0-12.2 fL Immature Granulocyte % (Auto) 4 % Neutrophils (%) (Auto) 60 42-75 % Lymphocytes (%) (Auto) 23 12-44 % Monocytes (%) (Auto) 8 0-12 % Eosinophils (%) (Auto) 4 0-10 % Basophils (%) (Auto) 0 0-10 % Neutrophils # (Auto) 6.0 1.8-7.8 10^3/uL Lymphocytes # (Auto) 2.3 1.0-4.0 10^3/uL Monocytes # (Auto) 0.8 0.0-1.0 10^3/uL Eosinophils # (Auto) 0.4 H 0.0-0.3 10^3/uL Basophils # (Auto) 0.0 0.0-0.1 10^3/uL Immature Granulocyte # (Auto) 0.4 H 0.0-0.1 10^3/uL Neutrophils % (Manual) 65 % Lymphocytes % (Manual) 14 % Monocytes % (Manual) 11 % Eosinophils % (Manual) 6 % Myelocytes % 1 % Nucleated Red Blood Cells 1 Atypical Lymphocytes 1 % Reactive Lymphocytes 2 % Blood Morphology Comment NORMAL Sodium Level 144 135-145 MMOL/L Potassium Level 3.6 3.6-5.0 MMOL/L Chloride Level 101 98-107 MMOL/L Carbon Dioxide Level 33 H 21-32 MMOL/L Anion Gap 10 5-14 MMOL/L Blood Urea Nitrogen 12 7-18 MG/DL Creatinine 0.92 0.60-1.30 MG/DL Estimat Glomerular Filtration Rate 60 BUN/Creatinine Ratio 13 Glucose Level 159 H 70-105 MG/DL Calcium Level 8.4 L 8.5-10.1 MG/DL Corrected Calcium 9.1 8.5-10.1 MG/DL Total Bilirubin 0.7 0.1-1.0 MG/DL Aspartate Amino Transf (AST/SGOT) 23 5-34 U/L Alanine Aminotransferase (ALT/SGPT) 40 0-55 U/L Alkaline Phosphatase 130 40-136 U/L Total Protein 6.8 6.4-8.2 GM/DL Albumin 3.1 L 3.2-4.5 GM/DL Glucometer 143 H 70-110 MG/DL Diagnosis/Problems Diagnosis/Problems (1) ST elevation myocardial infarction (STEMI) of inferior wall, initial episode of care Assessment & Plan: This was caused by 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 No recurrent angina. We will continue guideline directed medical therapy with aspirin, ticagrelor, beta-sonia, and statin medication. I did place her on long-acting nitrates because the day following the myocardial infarction, she had some recurrent chest discomfort. She had a MUGA scan which showed an ejection fraction of 58%. (2) Acute heart failure with preserved ejection fraction (HFpEF) Assessment & Plan: She appeared to have some pulmonary congestion upon presentation. Her chest x-rays have shown pulmonary congestion but seem to be improving. I did give her dose of intravenous Lasix on 10/27 and another on 10/28. She has been receiving a fair amount of intravenous fluids due to the sepsis from her urinary tract infection. The IV fluids have now been decreased. Follow-up chest x-ray from today is pending. (3) Primary hypertension Status: Chronic Assessment & Plan: Her blood pressures remain intermittently elevated. At one point, she was too confused to take oral medication. She has now been receiving carvedilol and lisinopril. She was also started on amlodipine. I increased the dose of lisinopril on 11/02 and stopped amlodipine. If her blood pressure remains elevated, I would prefer to increase the dose of lisinopril. (4) Mixed hyperlipidemia Status: Chronic Assessment & Plan: I have her on intensive dose statin medication due to the acute myocardial infarction. (5) Altered mental state Assessment & Plan: Etiology unclear. I had ordered a head CT last week but due to her confusion, the test could not be performed. Her mental status now seems to be improving. (6) Coronary artery disease with unstable angina pectoris Assessment & Plan: As above. (7) Acute on chronic respiratory failure with hypoxia and hypercapnia Assessment & Plan: She probably has some degree of undiagnosed sleep apnea. She is now improving with BiPAP intermittently as needed. (8) Sepsis due to urinary tract infection Assessment & Plan: This is being managed by the hospitalist. I appreciate their input. This seems to have improved (9) Acute kidney injury superimposed on chronic kidney disease Status: Acute Assessment & Plan: She has been receiving intravenous fluids due to the sepsis. Her renal function has been improving. We will need to follow this closely with the addition of OBDULIA inhibitor. (10) Type 2 diabetes mellitus with complication Status: Chronic Assessment & Plan: The hospitalist is managing treatment of the diabetes while she is here in the hospital. (11) Morbid obesity Assessment & Plan: She has actually gained a little weight during this admission. This was most likely due to intravenous fluids administered for sepsis. She has been receiving diuretic intermittently. She will need to work on weight loss following discharge. KRAIG ORTIZ JR, MD Nov 03, 2021 08:41
[2021-11-03] MEDS: ENOXAPARIN 40 MG/0.4 ML (LOVENOX) SYR SC SCH (08:43)
[2021-11-03] MEDS: FLUTICASONE NASAL SPRAY (FLONASE) 16 GM BTL NS SCH ×2 (08:44→08:48)
[2021-11-03] MEDS ORDERED: lisINopril 10 MG (PRINIVIL) TABLET PO SCH (09:00)
[2021-11-03] MEDS ORDERED: NON-FORMULARY MEDICATION 1 EA EA (Mirabegron (Myrbetriq) 50 MG) PO SCH (09:00)
--- NOTE | 2021-11-03 10:56 | Physical Therapy Daily Note ---
PT Daily Note-Current Subjective Patient reluctantly agrees to PT. Patient states, "I just want to go home to my own bed. They are loud here and I can't sleep." Mental Status Patient Orientation: Person, Time, Situation Transfers SCALE: Activities may be completed with or without assistive devices. 0-Exutvhpctz-fnjgjkp completes the activity by him/herself with no assistance from a helper. 5-Set-up or Clean-up Assistance-helper sets up or cleans up; patient completes activity. [place] assists only prior to or following the activity. 4-Supervision or Touching Assistance-helper provides verbal cues and/or touching/steadying and/or contact guard assistance as patient completes activity. Assistance may be provided throughout the activity or intermittently. 3-Partial/Moderate Assistance-helper does LESS THAN HALF the effort. [place] lifts, holds or supports trunk or limbs, but provides less than half the effort. 2-Substantial/Maximal Assistance-helper does MORE THAN HALF the effort. [place] lifts or holds trunk or limbs and provides more than half the effort. 4-Cpuwxhhff-kyasnn does ALL the effort. Patient does none of the effort to complete the activity. Or, the assistance of 2 or more helpers is required for the patient to complete the activity. If activity was not attempted, code reason: 7-Patient Refused. 9-Not Applicable-not attempted and the patient did not perform the activity before the current illness, exacerbation or injury. 10-Not Attempted due to Environmental Limitations-(lack of equipment, weather restraints, etc.). 88-Not Attempted due to Medical Conditions or Safety Concerns. Lying to Sitting/Side of Bed(Q: 2 Sit to Stand (QC): 2 (x 3 sets max assist with patient unable to correct balance) Chair/Nmp-bi-Mqdni Xfer(QC): 2 Patient demonstrated poor balance/very retropulsive in sit and stand with all mobility Gait Training Distance: 5 steps Gait Assistive Device: FWW attempted to ambulate, however, patient cease trying requiring max assist to attain sitting in recliner safely Assessment All mobility requires time to complete. Patient demands assistance and will cease trying during session if not assisted. Patient demands to return to home and her family will take care of her. PT educated patient on her current LOF and how it is currently unsafe to return to home to allow family to "take care of her." Patient continued to state,"That is what they're for." Patient is up in recliner with needs met. PT Tray Worker Goals Mcc Goals PT Mcc Goals Time Frame: Nov 21, 2021 Roll Left & Right (QC): 5 Sit to Lying (QC): 5 Lying-Sitting on Side/Bed(QC): 5 Sit to Stand (QC): 5 Chair/Mdu-xw-Qdcek Xfer(QC): 5 Toilet Transfer (QC): 5 Walk 10 feet (QC): 4 Walk 50ft with 2 Turns (QC): 4 Walk 150 ft (QC): 4 PT Plan Treatment/Plan Treatment Plan: Continue Plan of Care Treatment Plan: Bed Mobility, Education, Functional Activity Josue, Functional Strength, Gait, Safety, Therapeutic Exercise, Transfers Treatment Duration: Nov 21, 2021 Frequency: 6 times per week Estimated Hrs Per Day: .5 hour per day Patient and/or Family Agrees t: Yes Time/GCodes Time In: 945 Time Out: 1008 Total Billed Treatment Time: 23 Total Billed Treatment 1 visit FA x 2 23 min JERAD WOODS PT Nov 03, 2021 10:56
--- NOTE | 2021-11-03 12:10 | Diagnostic Imaging Report ---
EXAMINATION: Chest 2 view HISTORY: Shortness of breath. COMPARISON: 10/29/2021. FINDINGS: Heart size and pulmonary vasculature are normal. Surgical changes from CABG and median sternotomy. There are bibasilar interstitial opacities present. No significant pleural effusion or pneumothorax is identified. Degenerative changes of the thoracic spine. Osseous structures are otherwise intact. IMPRESSION: 1. Mild bibasilar interstitial opacities which could be seen with atelectasis, pulmonary edema, or atypical infection. Dictated by: Dictated on workstation # [id number]
[2021-11-03] MEDS: LORazepam 0.5 MG (ATIVAN) TABLET PO PRN ×2 (12:29→20:52)
[2021-11-03] MEDS: ACETAMINOPHEN 325 MG TABLET PO PRN (12:30)
--- NOTE | 2021-11-03 12:55 | Occupational Ther Daily Note ---
OT Current Status-Daily Note Subjective Pt alert, sitting in recliner. Pt agrees to therapy. Radiology in room to take pt to x-ray. Mental Status/Objective Patient Orientation: Person ADL-Treatment Therapy Code Descriptions/Definitions Functional [place] Measure: 0=Not Assessed/NA 4=Minimal Assistance 1=Total Assistance 5=Supervision or Setup 2=Maximal Assistance 6=Modified [place] 3=Moderate Assistance 7=Complete IndependenceSCALE: Activities may be completed with or without assistive devices. 3-Qirliydown-hlsbuas completes the activity by him/herself with no assistance from a helper. 5-Set-up or Clean-up Assistance-helper sets up or cleans up; patient completes activity. [place] assists only prior to or following the activity. 4-Supervision or Touching Assistance-helper provides verbal cues and/or touching/steadying and/or contact guard assistance as patient completes activity. Assistance may be provided throughout the activity or intermittently. 3-Partial/Moderate Assistance-helper does LESS THAN HALF the effort. [place] lifts, holds or supports trunk or limbs, but provides less than half the effort. 2-Substantial/Maximal Assistance-helper does MORE THAN HALF the effort. [place] lifts or holds trunk or limbs and provides more than half the effort. 3-Mnoseizxw-stmugw does ALL the effort. Patient does none of the effort to complete the activity. Or, the assistance of 2 or more helpers is required for the patient to complete the activity. If activity was not attempted, code reason: 7-Patient Refused. 9-Not Applicable-not attempted and the patient did not perform the activity before the current illness, exacerbation or injury. 10-Not Attempted due to Environmental Limitations-(lack of equipment, weather restraints, etc.). 88-Not Attempted due to Medical Conditions or Safety Concerns. Other Treatment Pt attempted 1x to stand with CGA and unable to reach standing. With encouragement, pt attempted again and required min A to come to a stand. Pt then was able to take steps with assist to manipulate FWW to transfer into w/c. Pt left in care of x-ray tech. All needs met. OT Detention Goals [employer] Dean Goals Time Frame: Nov 13, 2021 Eating (QC): 6 Oral Hygiene (QC): 6 Toileting Hygiene (QC): 4 Shower/Bathe Self (QC): 4 Upper Body Dressing (QC): 5 Lower Body Dressing (QC): 4 On/Off Footwear (QC): 4 Additional Goals: 1-Demonstrate ADL Tasks, 2-Verbalize Understanding, 3- ImproveStrength/Josue 1=Demonstrate adherence to instructed precautions during ADL tasks. 2=Patient will verbalize/demonstrate understanding of assistive devices/modifications for ADL. 3=Patient will improve strength/tolerance for activity to enable patient to perform ADL's. OT Education/Plan Problem List/Assessment Assessment: Decreased Activ Tolerance, Decreased Safety Aware, Impaired Cognition Discharge Recommendations Plan/Recommendations: Continue POC Treatment Plan/Plan of Care Patient would benefit from OT for education, treatment and training to promote independence in ADL's, mobility, safety and/or upper extremity function for ADL's. Plan of Care: ADL Retraining, Functional Mobility, UE Funct Exercise/Act Treatment Duration: Nov 13, 2021 Frequency: 3 times per week (3-5 times per week) Estimated Hrs Per Day: .25 hour per day Agreement: Yes Rehab Potential: Fair Time/GCodes Start Time: 10:45 Stop Time: 10:55 Total Time Billed (hr/min): 10 Billed Treatment Time 1 visit-FA 1 (10 min) FANNY RODRIGUEZ Nov 03, 2021 12:55
[2021-11-03] MEDS: cefTRIAXone 2,000 MG in NS (IVPB) 50 ML IV SCH (17:40)
--- NOTE | 2021-11-03 19:24 | Progress Note - Hospitalist ---
LUBNA VASQUEZ 11[birth year]211923: Subjective HPI/CC On Admission Date Seen by Provider: Nov 03, 2021 Time Seen by Provider: 10:15 Kemi Martínez is a 70 year old female who was admitted with STEMI. She is unable to provide an adequate history due to her curent condition. Per records, she was admitted after presenting with nausea, vomiting, and back pain. She did not have any chest pain. She is uncomfortable and received sedating medications prior to my arrival making her a poor historian. She is able to tell me her back hurts. She is not short of breath. She does not express any other complaints. Subjective/Events-last exam Patient is laying in bed at time of encounter, awake and alert. She appears short of breath with regular conversation, she states that her breathing has been like this for the past year. She reports shortness of breath; her SpO2 is 92% on room air. She reports having had diarrhea yesterday. Her nurse states that her tucker catheter is to be removed soon, patient express es concern of incontinence once tucker is removed. She states she is ready to go home. Based off of appearance, she does not seem to have enough stamina to support herself at home. She reports that she has family members who will take care of her. When asking her to sit forward to auscultate her lungs, she is unable to do so unassisted. Patient has refused rehab or half-way care. Medications and labs have been reviewed. Review of Systems HEENT: No Head Aches Pulmonary: Other (shortness of breath) Cardiovascular: No: Chest Pain Gastrointestinal: Diarrhea (occurred yesterday); No: Abdominal Pain Focused Exam Time of Focused Exam: 05:15 Objective Exam Vital Signs Vital Signs Date Time Temp Pulse Resp B/P (MAP) Pulse Ox O2 Delivery O2 Flow Rate FiO2 11/03/21 16:00 37.0 60 18 188/108 92 Room Air 11/03/21 15:11 2.00 11/01/21 04:00 30 Capillary Refill : Less Than 3 Seconds General Appearance: No Apparent Distress Respiratory: No Accessory Muscle Use, Decreased Breath Sounds (bilaterally), Other (appears short of breath with conversation) Cardiovascular: Regular Rate, Rhythm, Normal Peripheral Pulses (left radial pulse +2, dorsalis pedis +2 bilaterally) Gastrointestinal: Normal Bowel Sounds, Non Tender, Soft Extremity: No Pedal Edema Neurologic/Psychiatric: Alert Skin: Normal Color, Warm/Dry Results/Procedures Lab Laboratory Tests 11/03/21 05:35 Patient resulted labs reviewed. Imaging: Reviewed Imaging Report Assessment/Plan Assessment and Plan Assess & Plan/Chief Complaint Assessment: Cardiomyopathy s/p STEMI Left heart cath with balloon angioplasty and stent placement in RCA Acute respiratory failure with hypoxia and hypercapnia CT with bilateral pleural effusions Fluid overload CAD s/p CABG UTI E coli bacteremia T2DM Delirium Agitation Debility HTN HLD Obesity DVT prophylaxis Septic shock, resolved Lactic acidosis, resolved ELENA on CKD resolved Plan: Supplemental O2 as needed Lasix Lovenox Cardiology primary Continue Aspirin, Brilinta, Coreg, and Crestor Continue Rocephin Sliding scale insulin PT/OT Communicate with family regarding next steps CARI DEWITT DO 11/04/21 0606: Subjective Subjective/Events-last exam Pt still very chronically ill On High-flow O2 at times Labs are stable D/C catheter she is concerned about incontinence PT/OT still working with her Insistent about going home even today and she appears to be very far from her ba manolo Is not interested in Inpatient Rehab Adamant about not going to a [facility] Overall, very critical of the hospital room and very negative today Review of Systems General: Fatigue, Malaise Objective Exam General Appearance: No Apparent Distress, WD/WN, Chronically ill, Obese Respiratory: No Respiratory Distress, Decreased Breath Sounds (bilaterally) Cardiovascular: Regular Rate, Rhythm Neurologic/Psychiatric: Alert, Oriented x3 Assessment/Plan Assessment and Plan Assess & Plan/Chief Complaint Needs NHP Supervisory-Addendum Brief Verification & Attestation Participated in pt care: history, MDM, physical Personally performed: exam, history, MDM, supervision of care Care discussed with: Medical Student Procedures: n/a Results interpretation: Verified all documentation Verification and Attestation of Medical Student E/M Service A medical student performed and documented this service in my presence. I reviewed and verified all information documented by the medical student and made modifications to such information, when appropriate. I personally performed the physical exam and medical decision making. Cari Dewitt, Nov 04, 2021,06:04 LUBNA VASQUEZ Nov 03, 2021 19:24 CARI DEWITT DO Nov 04, 2021 06:06
[2021-11-03] MEDS: GABAPENTIN 100 MG (NEURONTIN) CAP PO SCH (20:53)
[2021-11-03] MEDS: QUEtiapine 25 MG (SEROquel) TAB IMMEDIATE RELEASE PO SCH (20:53)
[2021-11-03] MEDS: ROSUVASTATIN 20 MG (CRESTOR) TABLET PO SCH (20:53)
[2021-11-03] MEDS: MIRTAZAPINE 15 MG (REMERON) TAB PO SCH (20:53)
[2021-11-03] MEDS: FAMOTIDINE 20 MG (PEPCID) TABLET PO SCH (20:53)
[2021-11-03] MEDS ORDERED: MAGIC MOUTHWASH, ADULT 155 ML BOTTLE PO SCH (21:00)
[2021-11-03] MEDS: MAGIC MOUTHWASH (ADULT) PO SCH ×4 (21:01)
[2021-11-04] MEDS: RT-ALBUTEROL SULF 2.5 MG/3 ML PRE-MIX VIAL INH SCH ×4 (02:17→20:32)
[2021-11-04] MEDS: LEVOTHYROXINE 25 MCG (LEVOTHROID) TAB PO SCH (04:45)
[2021-11-04] MEDS: ASCORBIC ACID (VIT C) 500 MG TABLET PO SCH (04:45)
[2021-11-04] MEDS: LEVOTHYROXINE 112 MCG (LEVOTHROID) TAB PO SCH (04:45)
[2021-11-04 06:21] LABS: BASOPHILS # (AUTO) 0.1 10^3/uL (0.0-0.1); BASOPHILS % (AUTO) 1 % (0-10); EOSINOPHILS # (AUTO) 0.3 10^3/uL (0.0-0.3); EOSINOPHILS % (AUTO) 3 % (0-10); HEMATOCRIT 42 % (35-52); HEMOGLOBIN 13.6 g/dL (11.5-16.0); LYMPHOCYTES # (AUTO) 1.8 10^3/uL (1.0-4.0); LYMPHOCYTES % (AUTO) 18 % (12-44); MEAN CORPUSCULAR HEMOGLOBIN 31 pg (25-34); MEAN CORPUSCULAR HGB CONC 32 g/dL (32-36); MEAN CORPUSCULAR VOLUME 95 fL (80-99); MEAN PLATELET VOLUME 10.2 fL (9.0-12.2); MONOCYTES # (AUTO) 0.9 10^3/uL (0.0-1.0); MONOCYTES % (AUTO) 9 % (0-12); NEUTROPHILS # (AUTO) 6.6 10^3/uL (1.8-7.8); NEUTROPHILS % (AUTO) 68 % (42-75); PLATELET COUNT 256 10^3/uL (130-400); WHITE BLOOD COUNT 9.8 10^3/uL (4.3-11.0)
[2021-11-04] MEDS: inSUlin ASPART (NovoLOG) 1 UNIT/0.01 ML (CHARGE PER UNIT) SC SCH ×8 (06:26→22:13)
[2021-11-04 06:33] LABS: ALBUMIN 3.3 GM/DL (3.2-4.5); POTASSIUM 3.8 MMOL/L (3.6-5.0)
[2021-11-04 06:34] LABS: CALCIUM 8.6 MG/DL (8.5-10.1)
[2021-11-04 06:36] LABS: TOTAL PROTEIN 7.1 GM/DL (6.4-8.2)
[2021-11-04 06:37] LABS: BILIRUBIN,TOTAL 0.8 MG/DL (0.1-1.0)
[2021-11-04 06:39] LABS: CREATININE SERUM 0.94 MG/DL (0.60-1.30)
[2021-11-04 07:05] LABS: BAND NEUTROPHILS 1 %; EOSINOPHILS % (MANUAL) 4 %; LYMPHOCYTES % (MANUAL) 23 %; MONOCYTES % (MANUAL) 4 %; MYELOCYTES % 1 %; NEUTROPHILS % (MANUAL) 66 %; RBC MORPH NORMAL; REACTIVE LYMPHOCYTES 1 %
[2021-11-04] MEDS ORDERED: BUMETANIDE 1 MG/4 ML (BUMEX) VIAL IV ONE (08:15)
--- NOTE | 2021-11-04 08:36 | Cardiology Progress Note ---
Progress Note-Cardiology Events since last exam Date Seen by Provider: Nov 04, 2021 Time Seen by Provider: 08:35 Events since last exam She is on my service following an inferior STEMI. She feels like her breathing is better but she still appears visibly short of breath when talking. She denies chest pain, palpitations, or syncope. She has chronic ankle edema which is unchanged. Yesterday she was refusing inpatient rehab but when I spoke to her this morning, she seemed more receptive to the idea. Certain portions of this document may have been dictated utilizing voice recognition technology. Inherent to this technology, typographical and grammatical errors may exist. As much as I am diligent to identify and correct these mistakes, some errors may remain in the document. Vitals Last set of Vitals Signs Vital Signs 11/01/21 11/03/21 11/04/21 04:00 15:11 10:18 Temp 35.2 Pulse 66 Resp 20 B/P (MAP) 182/82 Pulse Ox 90 O2 Delivery Room Air O2 Flow Rate 2.00 FiO2 30 Labs Labs Laboratory Tests 11/04/21 06:10 Exam Vital Signs Vital Signs Date Time Temp Pulse Resp B/P (MAP) Pulse Ox O2 Delivery O2 Flow Rate FiO2 11/04/21 10:18 35.2 66 20 182/82 90 Room Air 11/03/21 21:28 11/01/21 04:00 30 Physical Exam General: Alert. She is obese. She appears to have mild respiratory dyspnea at rest when talking. Eye: No xanthelasma. HENT: Normocephalic. Neck: Jugular venous pressure does not appear elevated. Respiratory: Lungs are clear to auscultation but with decreased breath sounds at the bases bilaterally. Respirations are non-labored. Breath sounds are equal. Symmetrical chest wall expansion. Cardiovascular: Normal rate. Regular rhythm. No murmur. No gallop. 1+ bilateral pretibial edema. Gastrointestinal: Soft. Normal bowel sounds. Skin: Warm. Dry. Neurologic: Alert and oriented to person, place, time. Cranial nerves 3-11 grossly intact. Psychiatric: Cooperative. Appropriate mood & affect. Labs Laboratory Tests Test 11/03/21 17:18 11/03/21 21:21 11/04/21 05:53 11/04/21 06:10 Range/Units Glucometer 131 H 187 H 198 H 70-110 MG/DL White Blood Count 9.8 4.3-11.0 10^3/uL Red Blood Count 4.46 3.80-5.11 10^6/uL Hemoglobin 13.6 11.5-16.0 g/dL Hematocrit 42 35-52 % Mean Corpuscular Volume 95 80-99 fL Mean Corpuscular Hemoglobin 31 25-34 pg Mean Corpuscular Hemoglobin Concent 32 32-36 g/dL Red Cell Distribution Width 14.4 10.0-14.5 % Platelet Count 256 130-400 10^3/uL Mean Platelet Volume 10.2 9.0-12.2 fL Immature Granulocyte % (Auto) 2 % Neutrophils (%) (Auto) 68 42-75 % Lymphocytes (%) (Auto) 18 12-44 % Monocytes (%) (Auto) 9 0-12 % Eosinophils (%) (Auto) 3 0-10 % Basophils (%) (Auto) 1 0-10 % Neutrophils # (Auto) 6.6 1.8-7.8 10^3/uL Lymphocytes # (Auto) 1.8 1.0-4.0 10^3/uL Monocytes # (Auto) 0.9 0.0-1.0 10^3/uL Eosinophils # (Auto) 0.3 0.0-0.3 10^3/uL Basophils # (Auto) 0.1 0.0-0.1 10^3/uL Immature Granulocyte # (Auto) 0.2 H 0.0-0.1 10^3/uL Neutrophils % (Manual) 66 % Lymphocytes % (Manual) 23 % Monocytes % (Manual) 4 % Eosinophils % (Manual) 4 % Myelocytes % 1 % Band Neutrophils 1 % Reactive Lymphocytes 1 % Blood Morphology Comment NORMAL Sodium Level 140 135-145 MMOL/L Potassium Level 3.8 3.6-5.0 MMOL/L Chloride Level 101 98-107 MMOL/L Carbon Dioxide Level 28 21-32 MMOL/L Anion Gap 11 5-14 MMOL/L Blood Urea Nitrogen 10 7-18 MG/DL Creatinine 0.94 0.60-1.30 MG/DL Estimat Glomerular Filtration Rate 59 BUN/Creatinine Ratio 11 Glucose Level 219 H 70-105 MG/DL Calcium Level 8.6 8.5-10.1 MG/DL Corrected Calcium 9.2 8.5-10.1 MG/DL Total Bilirubin 0.8 0.1-1.0 MG/DL Aspartate Amino Transf (AST/SGOT) 20 5-34 U/L Alanine Aminotransferase (ALT/SGPT) 34 0-55 U/L Alkaline Phosphatase 111 40-136 U/L Total Protein 7.1 6.4-8.2 GM/DL Albumin 3.3 3.2-4.5 GM/DL Diagnosis/Problems Diagnosis/Problems (1) ST elevation myocardial infarction (STEMI) of inferior wall, initial episode of care Assessment & Plan: This was caused by 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 No recurrent angina. We will continue guideline directed medical therapy with aspirin, ticagrelor, beta-sonia, and statin medication. I did place her on long-acting nitrates because the day following the myocardial infarction, she had some recurrent chest discomfort. She had a MUGA scan which showed an ejection fraction of 58%. I believe she would benefit from inpatient rehab before going home. (2) Acute heart failure with preserved ejection fraction (HFpEF) Assessment & Plan: She appeared to have some pulmonary congestion upon presentation. Her chest x-rays have shown pulmonary congestion but seem to be improving. I did give her dose of intravenous Lasix on 10/27 and another on 10/28. She had been receiving a fair amount of intravenous fluids due to the sepsis from her urinary tract infection. I will give her a dose of IV bumetanide today. I will obtain a follow-up chest x-ray tomorrow (3) Primary hypertension Status: Chronic Assessment & Plan: Her blood pressures remain intermittently elevated. At one point, she was too confused to take oral medication. She has now been receiving carvedilol and lisinopril. She was also started on amlodipine. I increased the dose of lisinopril on 11/02 and stopped amlodipine. I will increase the dose of lisinopril to the maximum dose today. She is also receiving hydralazine. (4) Mixed hyperlipidemia Status: Chronic Assessment & Plan: I have her on intensive dose statin medication due to the acute myocardial infarction. (5) Altered mental state Assessment & Plan: Etiology unclear. I had ordered a head CT last week but due to her confusion, the test could not be performed. Her mental status now seems to be improving. (6) Coronary artery disease with unstable angina pectoris Assessment & Plan: As above. (7) Acute on chronic respiratory failure with hypoxia and hypercapnia Assessment & Plan: She probably has some degree of undiagnosed sleep apnea. (8) Sepsis due to urinary tract infection Assessment & Plan: This is being managed by the hospitalist. I appreciate their input. This seems to have improved (9) Acute kidney injury superimposed on chronic kidney disease Status: Acute Assessment & Plan: She has been receiving intravenous fluids due to the sepsis. Her renal function has been improving. We will need to follow this closely with the addition of OBDULIA inhibitor. (10) Type 2 diabetes mellitus with complication Status: Chronic Assessment & Plan: The hospitalist is managing treatment of the diabetes while she is here in the hospital. (11) Morbid obesity Assessment & Plan: She has actually gained a little weight during this admission. This was most likely due to intravenous fluids administered for sepsis. She has been receiving diuretic intermittently. She will need to work on weight loss following discharge. KRAIG ORTIZ JR, MD Nov 04, 2021 08:36
[2021-11-04] MEDS: LORazepam 0.5 MG (ATIVAN) TABLET PO PRN (08:49)
[2021-11-04] MEDS: MAGNESIUM OXIDE (MAG-OX)400 MG TAB PO SCH (08:50)
[2021-11-04] MEDS: ASPIRIN E.C. 81 MG (ECOTRIN) TAB PO SCH ×2 (08:50→08:56)
[2021-11-04] MEDS: ACETAMINOPHEN 325 MG TABLET PO PRN (08:50)
[2021-11-04] MEDS: ISOSORBIDE MONONITRATE 30 MG (IMDUR) TAB PO SCH (08:52)
[2021-11-04] MEDS: hydrALAZINE (APRESOLINE) 25 MG TAB PO SCH ×2 (08:52→22:18)
[2021-11-04] MEDS: TICAGRELOR 90 MG TABLET (BRILINTA) PO SCH ×2 (08:52→22:16)
[2021-11-04] MEDS: PANTOPRAZOLE 40 MG (PROTONIX) TAB PO SCH (08:53)
[2021-11-04] MEDS: lisINopril 40 MG (PRINIVIL) TABLET PO SCH (08:53)
[2021-11-04] MEDS: FLUTICASONE NASAL SPRAY (FLONASE) 16 GM BTL NS SCH ×2 (08:54→08:55)
[2021-11-04] MEDS: MAGIC MOUTHWASH (ADULT) PO SCH ×12 (08:55→22:13)
--- NOTE | 2021-11-04 10:09 | Physical Therapy Daily Note ---
PT Daily Note-Current Subjective Pt in bed upon arrival and agrees to PT. No pain reported. Mental Status Patient Orientation: Person, Place, Time, Situation Transfers SCALE: Activities may be completed with or without assistive devices. 3-Ftzfnkksfb-nwltalp completes the activity by him/herself with no assistance from a helper. 5-Set-up or Clean-up Assistance-helper sets up or cleans up; patient completes a ctivity. [place] assists only prior to or following the activity. 4-Supervision or Touching Assistance-helper provides verbal cues and/or touching/steadying and/or contact guard assistance as patient completes activity. Assistance may be provided throughout the activity or intermittently. 3-Partial/Moderate Assistance-helper does LESS THAN HALF the effort. [place] lifts, holds or supports trunk or limbs, but provides less than half the effort. 2-Substantial/Maximal Assistance-helper does MORE THAN HALF the effort. [place] lifts or holds trunk or limbs and provides more than half the effort. 7-Svjztdbqr-ezbobg does ALL the effort. Patient does none of the effort to complete the activity. Or, the assistance of 2 or more helpers is required for the patient to complete the activity. If activity was not attempted, code reason: 7-Patient Refused. 9-Not Applicable-not attempted and the patient did not perform the activity before the current illness, exacerbation or injury. 10-Not Attempted due to Environmental Limitations-(lack of equipment, weather restraints, etc.). 88-Not Attempted due to Medical Conditions or Safety Concerns. Roll Left & Right (QC): 4 Lying to Sitting/Side of Bed(Q: 4 Sit to Stand (QC): 3 Gait Training Does the Patient Walk?: Yes Distance: 25' Walk 10 feet (QC): 3 Gait Persons Needed: 1 Gait Assistive Device: FWW Very slow gait w/ shortened step/stride lengths. Exercises Supine Ex: Ankle pumps, Rolling, Scooting Supine Reps: 10 Standing: Sit to Stand Standing Reps: 2 Treatments Nurse requests PT to help w/ pt ambulation. Pt performs supine ex and then sit ups from bed to EOB and then performs sit to stand and amb around bed and to recliner. Pt in recliner as PT departs w/ all needs met call light nearby and nurse present. Assessment Current Status: Good Progress Pt able to increase ambulation distance this date. Pt not so reluctant for PT as nursing present. PT Nursing Home Goals Nursing Home Goals PT Internal Communications Writer Goals Time Frame: Nov 21, 2021 Roll Left & Right (QC): 5 Sit to Lying (QC): 5 Lying-Sitting on Side/Bed(QC): 5 Sit to Stand (QC): 5 Chair/Yxs-bw-Cifbq Xfer(QC): 5 Toilet Transfer (QC): 5 Walk 10 feet (QC): 4 Walk 50ft with 2 Turns (QC): 4 Walk 150 ft (QC): 4 PT Plan Problem List Problem List: Activity Tolerance, Functional Strength, Safety Treatment/Plan Treatment Plan: Continue Plan of Care Treatment Plan: Bed Mobility, Education, Functional Activity Josue, Functional Strength, Gait, Safety, Therapeutic Exercise, Transfers Treatment Duration: Nov 21, 2021 Frequency: 6 times per week Estimated Hrs Per Day: .5 hour per day Patient and/or Family Agrees t: Yes Safety Risks/Education Patient Education: Gait Training, Transfer Techniques Teaching Recipient: Patient Teaching Methods: Discussion Response to Teaching: Return Demonstration Time/GCodes Time In: 850 Time Out: 900 Total Billed Treatment Time: 10 Total Billed Treatment 1, Ex 10min MARCIA MAHMOOD PTA Nov 04, 2021 10:09
--- NOTE | 2021-11-04 10:25 | Occupational Ther Daily Note ---
OT Current Status-Daily Note Subjective Pt sitting on toilet, nrsg present. Pt agrees to therapy to get back into bed. Pt c/o not getting enough sleep and that she is worn out. Pt asks for help multiple time during session then when asked what she needs it is that she is worn out. Mental Status/Objective Patient Orientation: Person Attachments: IV, Oxygen ADL-Treatment Max A for lower body drsg. Max A for toileting. Min A for sit to stand from toilet. CGA to ambulate to bed using FWW. Min A to lift R LE into bed then pt adjusted self with verbal cues and encouragement. After session, pt lying in bed with call light/phone in reach. All needs met in room. Therapy Code Descriptions/Definitions Functional [place] Measure: 0=Not Assessed/NA 4=Minimal Assistance 1=Total Assistance 5=Supervision or Setup 2=Maximal Assistance 6=Modified [place] 3=Moderate Assistance 7=Complete IndependenceSCALE: Activities may be completed with or without assistive devices. 3-Zdjwvrlpox-asccoxk completes the activity by him/herself with no assistance from a helper. 5-Set-up or Clean-up Assistance-helper sets up or cleans up; patient completes activity. [place] assists only prior to or following the activity. 4-Supervision or Touching Assistance-helper provides verbal cues and/or touching/steadying and/or contact guard assistance as patient completes activity. Assistance may be provided throughout the activity or intermittently. 3-Partial/Moderate Assistance-helper does LESS THAN HALF the effort. [place] lifts, holds or supports trunk or limbs, but provides less than half the effort. 2-Substantial/Maximal Assistance-helper does MORE THAN HALF the effort. [place] lifts or holds trunk or limbs and provides more than half the effort. 4-Nikewdglf-ouvffv does ALL the effort. Patient does none of the effort to complete the activity. Or, the assistance of 2 or more helpers is required for the patient to complete the activity. If activity was not attempted, code reason: 7-Patient Refused. 9-Not Applicable-not attempted and the patient did not perform the activity before the current illness, exacerbation or injury. 10-Not Attempted due to Environmental Limitations-(lack of equipment, weather restraints, etc.). 88-Not Attempted due to Medical Conditions or Safety Concerns. Lower Body Dressing (QC): 2 Toileting Hygiene (QC): 2 Toilet Transfer (QC): 3 OT Student Support Advisor Goals Longterm Goals Time Frame: Nov 13, 2021 Eating (QC): 6 Oral Hygiene (QC): 6 Toileting Hygiene (QC): 4 Shower/Bathe Self (QC): 4 Upper Body Dressing (QC): 5 Lower Body Dressing (QC): 4 On/Off Footwear (QC): 4 Additional Goals: 1-Demonstrate ADL Tasks, 2-Verbalize Understanding, 3-ImproveStrength/Josue 1=Demonstrate adherence to instructed precautions during ADL tasks. 2=Patient will verbalize/demonstrate understanding of assistive devices/modifications for ADL. 3=Patient will improve strength/tolerance for activity to enable patient to perform ADL's. OT Education/Plan Problem List/Assessment Assessment: Decreased Activ Tolerance, Decreased UE Strength, Impaired Self- Care Skills Discharge Recommendations Plan/Recommendations: Continue POC Treatment Plan/Plan of Care Patient would benefit from OT for education, treatment and training to promote independence in ADL's, mobility, safety and/or upper extremity function for ADL's. Plan of Care: ADL Retraining, Functional Mobility, UE Funct Exercise/Act Treatment Duration: Nov 13, 2021 Frequency: 3 times per week (3-5 times per week) Estimated Hrs Per Day: .25 hour per day Agreement: Yes Rehab Potential: Fair Time/GCodes Start Time: 10:10 Stop Time: 10:20 Total Time Billed (hr/min): 10 Billed Treatment Time 1 visit-ADL 1 (10 min) FANNY RODRIGUEZ Nov 04, 2021 10:25
[2021-11-04] MEDS ORDERED: ONDANSETRON 4 MG/2 ML (SDV) Z0FRAN IVP ONE (10:45)
[2021-11-04] MEDS ORDERED: ONDANSETRON 4 MG/2 ML (SDV) Z0FRAN IVP PRN (10:45)
[2021-11-04] MEDS ORDERED: ALPRAZolam 0.25 MG (XANAX) TAB PO PRN (11:00)
[2021-11-04] MEDS ORDERED: ALPRAZolam 0.25 MG (XANAX) TAB PO ONE (11:00)
[2021-11-04] MEDS: ENOXAPARIN 40 MG/0.4 ML (LOVENOX) SYR SC SCH (11:12)
[2021-11-04 12:08] LABS: ABG BASE EXCESS 9.8 MMOL/L (-2.5-2.5); ABG OXYGEN SATURATION 96 % (94-100); ABG PCO2 48 MMHG (35-45); ABG PH 7.46 (7.37-7.43); ABG PO2 72 MMHG (79-93); ABG TCO2 35.6 MMOL/L (21.0-31.0); ALLENS TEST YES-POS
[2021-11-04 12:09] LABS: INSPIRED O2 2L/30%; PATIENT TEMP 36.5; VENTILATOR NO
[2021-11-04] MEDS ORDERED: PATIENT MAY USE OWN MEDS, ALL MC SCH (12:30)
--- NOTE | 2021-11-04 15:03 | Progress Note - Hospitalist ---
LUBNA VASQUEZ 11/04/21 1503: Subjective HPI/CC On Admission Date Seen by Provider: Nov 04, 2021 Time Seen by Provider: 10:30 Kemi Martínez is a 70 year old female who was admitted with STEMI. She is unable to provide an adequate history due to her curent condition. Per records, she was admitted after presenting with nausea, vomiting, and back pain. She did not have any chest pain. She is uncomfortable and received sedating medications prior to my arrival making her a poor historian. She is able to tell me her back hurts. She is not short of breath. She does not express any other complaints. Subjective/Events-last exam Patient is reclined in bed, exhibiting conversational dyspnea. She appears fatigued, anxious, and has a fortune-toned complexion. Some confusion is present today. She reports SOB, intermittent nausea onset 4 days ago, panic attacks/anxiety, urinary incontinence post tucker removal on 11/03, and decreased appetite. She states she did not eat her breakfast this morning.She denies any emesis. Reports that she did not sleep well due to anxiety. Denies chest pain or palpitations. She states her last BM was yesterday. She reports that she takes xanax when experiencing panic attacks at home. BP 188/92, Cardiology increased Lisinopril to 40mg. Glucose 219 Other vitals and labs are stable. Medications have been reviewed. Review of Systems General: No Appetite HEENT: No Head Aches Pulmonary: Dyspnea Cardiovascular: No: Chest Pain, Palpitations Gastrointestinal: Nausea; No: Vomiting, Abdominal Pain, Diarrhea, Constipation Genitourinary: Incontinence Neurological: Other (anxiety) Focused Exam Time of Focused Exam: 05:15 Objective Exam Vital Signs Vital Signs Date Time Temp Pulse Resp B/P (MAP) Pulse Ox O2 Delivery O2 Flow Rate FiO2 11/04/21 15:05 96 Nasal Cannula 2.00 11/04/21 12:00 36.0 55 20 130/63 11/01/21 04:00 30 Capillary Refill : Less Than 3 Seconds General Appearance: Anxious, Mild Distress Respiratory: Decreased Breath Sounds (anterior auscultation only, no posterior auscultation was performed due to patient's debility) Cardiovascular: Regular Rate, Rhythm Gastrointestinal: Normal Bowel Sounds, Non Tender, Soft Extremity: Pedal Edema (trace bilateral) Neurologic/Psychiatric: Alert, Depressed Affect Skin: Warm/Dry, Pallor Results/Procedures Lab Laboratory Tests 11/04/21 06:10 Patient resulted labs reviewed. Imaging: Reviewed Imaging Report Assessment/Plan Assessment and Plan Assess & Plan/Chief Complaint Assessment: Cardiomyopathy s/p STEMI Left heart cath with balloon angioplasty and stent placement in RCA Acute respiratory failure with hypoxia and hypercapnia CT with bilateral pleural effusions Fluid overload CAD s/p CABG UTI E coli bacteremia T2DM Delirium Agitation Debility HTN HLD Obesity DVT prophylaxis Septic shock, resolved Lactic acidosis, resolved ELENA on CKD resolved Anxiety Nausea Plan: Supplemental O2 as needed Lasix Lovenox Cardiology primary Continue Aspirin, Brilinta, Coreg, and Crestor Continue Rocephin Sliding scale insulin, monitor blood glucose level PT/OT Alprazolam for short-term panic attack management, monitor with concurrent Lorazepam Ondansetron PRN for nausea Communicate with family regarding next steps CARI DEWITT DO 11/05/21 0537: Subjective Subjective/Events-last exam Pt is doing about the same. Tucker catheter was discontinued two days ago. She is very SOB and she reports that is nothing new She is having conversational dyspnea Anxiety is worse, Xanax was ordered Incontinence due to tucker catheter discontinuation Pt reports bowels are moving Overall breath sounds are very decreased Palliative care consult obtained a DNR, but she is not interested in hospice 93% on room air Review of Systems General: Fatigue Pulmonary: Dyspnea Objective Exam General Appearance: WD/WN, Anxious, Chronically ill, Mild Distress Respiratory: Accessory Muscle Use, Decreased Breath Sounds (anterior auscul tation only, no posterior auscultation was performed due to patient's debility) Cardiovascular: Regular Rate, Rhythm Neurologic/Psychiatric: Alert, Depressed Affect Assessment/Plan Assessment and Plan Assess & Plan/Chief Complaint DNR Poor prognosis DC planning Supervisory-Addendum Brief Verification & Attestation Participated in pt care: history, MDM, physical Personally performed: exam, history, MDM, supervision of care Care discussed with: Medical Student Procedures: n/a Results interpretation: Verified all documentation Verification and Attestation of Medical Student E/M Service A medical student performed and documented this service in my presence. I reviewed and verified all information documented by the medical student and made modifications to such information, when appropriate. I personally performed the physical exam and medical decision making. Cari Dewitt, Nov 05, 2021,05:36 LUBNA VASQUEZ Nov 04, 2021 15:03 CARI DEWITT DO Nov 05, 2021 05:37
[2021-11-04] MEDS: cefTRIAXone 2,000 MG in NS (IVPB) 50 ML IV SCH (18:08)
[2021-11-04] MEDS: ROSUVASTATIN 20 MG (CRESTOR) TABLET PO SCH (22:14)
[2021-11-04] MEDS: QUEtiapine 25 MG (SEROquel) TAB IMMEDIATE RELEASE PO SCH (22:14)
[2021-11-04] MEDS: SOLIQUA SC SCH (22:14)
[2021-11-04] MEDS: MIRTAZAPINE 15 MG (REMERON) TAB PO SCH (22:15)
[2021-11-04] MEDS: FAMOTIDINE 20 MG (PEPCID) TABLET PO SCH (22:16)
[2021-11-04] MEDS: GABAPENTIN 100 MG (NEURONTIN) CAP PO SCH (22:16)
[2021-11-05] MEDS: RT-ALBUTEROL SULF 2.5 MG/3 ML PRE-MIX VIAL INH SCH ×3 (02:36→22:48)
[2021-11-05 03:39] LABS: BASOPHILS # (AUTO) 0.1 10^3/uL (0.0-0.1); BASOPHILS % (AUTO) 1 % (0-10); MEAN PLATELET VOLUME 10.3 fL (9.0-12.2)
[2021-11-05 03:41] LABS: EOSINOPHILS # (AUTO) 0.4 10^3/uL (0.0-0.3); EOSINOPHILS % (AUTO) 4 % (0-10); HEMATOCRIT 43 % (35-52); HEMOGLOBIN 13.5 g/dL (11.5-16.0); LYMPHOCYTES # (AUTO) 2.5 10^3/uL (1.0-4.0); LYMPHOCYTES % (AUTO) 24 % (12-44); MEAN CORPUSCULAR HEMOGLOBIN 30 pg (25-34); MEAN CORPUSCULAR HGB CONC 32 g/dL (32-36); MEAN CORPUSCULAR VOLUME 96 fL (80-99); MONOCYTES # (AUTO) 0.7 10^3/uL (0.0-1.0); MONOCYTES % (AUTO) 7 % (0-12); NEUTROPHILS # (AUTO) 6.5 10^3/uL (1.8-7.8); NEUTROPHILS % (AUTO) 64 % (42-75); PLATELET COUNT 232 10^3/uL (130-400); WHITE BLOOD COUNT 10.3 10^3/uL (4.3-11.0)
[2021-11-05 03:54] LABS: ALBUMIN 3.1 GM/DL (3.2-4.5); POTASSIUM 4.2 MMOL/L (3.6-5.0)
[2021-11-05 03:55] LABS: CALCIUM 8.4 MG/DL (8.5-10.1)
[2021-11-05 03:56] LABS: TOTAL PROTEIN 6.7 GM/DL (6.4-8.2)
[2021-11-05 03:58] LABS: BILIRUBIN,TOTAL 0.5 MG/DL (0.1-1.0)
[2021-11-05 04:00] LABS: CREATININE SERUM 1.64 MG/DL (0.60-1.30)
[2021-11-05 04:04] LABS: ATYPICAL LYMPHOCYTES 2 %; EOSINOPHILS % (MANUAL) 5 %; LYMPHOCYTES % (MANUAL) 24 %; MONOCYTES % (MANUAL) 4 %; NEUTROPHILS % (MANUAL) 63 %; RBC MORPH NORMAL; REACTIVE LYMPHOCYTES 2 %
[2021-11-05] MEDS: inSUlin ASPART (NovoLOG) 1 UNIT/0.01 ML (CHARGE PER UNIT) SC SCH ×7 (05:29→21:01)
[2021-11-05] MEDS: LEVOTHYROXINE 112 MCG (LEVOTHROID) TAB PO SCH (05:54)
[2021-11-05] MEDS: LEVOTHYROXINE 25 MCG (LEVOTHROID) TAB PO SCH (05:54)
[2021-11-05] MEDS: ASCORBIC ACID (VIT C) 500 MG TABLET PO SCH (05:54)
--- NOTE | 2021-11-05 09:25 | Cardiology Progress Note ---
Progress Note-Cardiology Events since last exam Date Seen by Provider: Nov 05, 2021 Time Seen by Provider: 09:23 Events since last exam She is on my service following an acute inferior myocardial infarction. She remains quite short of breath and has been using BiPAP at night which she does not have at home. She remains on oxygen. She still has some mild ankle edema. She denies chest pain, palpitations, or syncope. She is adamant that she wants to go home and does not want to go inpatient rehab. Her son was at the bedside and he is also encouraging her to go to rehab. She has requested to be discharged with home hospice tomorrow. Certain portions of this document may have been dictated utilizing voice recognition technology. Inherent to this technology, typographical and grammatical errors may exist. As much as I am diligent to identify and correct these mistakes, some errors may remain in the document. Vitals Last set of Vitals Signs Vital Signs 11/01/21 11/05/21 04:00 16:00 Temp 36.6 Pulse 66 Resp 16 B/P (MAP) 172/75 Pulse Ox 96 O2 Delivery Nasal Cannula O2 Flow Rate 2.00 FiO2 30 Labs Labs Laboratory Tests 11/05/21 03:35 Exam Vital Signs Vital Signs Date Time Temp Pulse Resp B/P (MAP) Pulse Ox O2 Delivery O2 Flow Rate FiO2 11/05/21 16:00 36.6 66 16 172/75 96 Nasal Cannula 2.00 11/01/21 04:00 30 Physical Exam General: Alert. No acute distress. She is obese. Eye: No xanthelasma. HENT: Normocephalic. Neck: Jugular venous pressure does not appear elevated. Respiratory: Lungs are clear to auscultation. Respirations are non-labored. Breath sounds are equal. Symmetrical chest wall expansion. Cardiovascular: Normal rate. Regular rhythm. No murmur. No gallop. 1+ bilateral pretibial edema. Gastrointestinal: Soft. Normal bowel sounds. Skin: Warm. Dry. Neurologic: Alert and oriented to person, place, time. Cranial nerves 3-11 grossly intact. Psychiatric: Cooperative. Appropriate mood & affect. Labs Laboratory Tests Test 11/04/21 20:17 11/05/21 03:35 11/05/21 10:23 Range/Units Glucometer 207 H 230 H 70-110 MG/DL White Blood Count 10.3 4.3-11.0 10^3/uL Red Blood Count 4.44 3.80-5.11 10^6/uL Hemoglobin 13.5 11.5-16.0 g/dL Hematocrit 43 35-52 % Mean Corpuscular Volume 96 80-99 fL Mean Corpuscular Hemoglobin 30 25-34 pg Mean Corpuscular Hemoglobin Concent 32 32-36 g/dL Red Cell Distribution Width 14.9 H 10.0-14.5 % Platelet Count 232 130-400 10^3/uL Mean Platelet Volume 10.3 9.0-12.2 fL Immature Granulocyte % (Auto) 1 % Neutrophils (%) (Auto) 64 42-75 % Lymphocytes (%) (Auto) 24 12-44 % Monocytes (%) (Auto) 7 0-12 % Eosinophils (%) (Auto) 4 0-10 % Basophils (%) (Auto) 1 0-10 % Neutrophils # (Auto) 6.5 1.8-7.8 10^3/uL Lymphocytes # (Auto) 2.5 1.0-4.0 10^3/uL Monocytes # (Auto) 0.7 0.0-1.0 10^3/uL Eosinophils # (Auto) 0.4 H 0.0-0.3 10^3/uL Basophils # (Auto) 0.1 0.0-0.1 10^3/uL Immature Granulocyte # (Auto) 0.1 0.0-0.1 10^3/uL Neutrophils % (Manual) 63 % Lymphocytes % (Manual) 24 % Monocytes % (Manual) 4 % Eosinophils % (Manual) 5 % Atypical Lymphocytes 2 % Reactive Lymphocytes 2 % Percent Immature Platelet Fraction 3.1 0.0-7.6 % Blood Morphology Comment NORMAL Sodium Level 144 135-145 MMOL/L Potassium Level 4.2 3.6-5.0 MMOL/L Chloride Level 102 98-107 MMOL/L Carbon Dioxide Level 27 21-32 MMOL/L Anion Gap 15 H 5-14 MMOL/L Blood Urea Nitrogen 15 7-18 MG/DL Creatinine 1.64 H 0.60-1.30 MG/DL Estimat Glomerular Filtration Rate 31 BUN/Creatinine Ratio 9 Glucose Level 147 H 70-105 MG/DL Calcium Level 8.4 L 8.5-10.1 MG/DL Corrected Calcium 9.1 8.5-10.1 MG/DL Total Bilirubin 0.5 0.1-1.0 MG/DL Aspartate Amino Transf (AST/SGOT) 19 5-34 U/L Alanine Aminotransferase (ALT/SGPT) 24 0-55 U/L Alkaline Phosphatase 103 40-136 U/L Total Protein 6.7 6.4-8.2 GM/DL Albumin 3.1 L 3.2-4.5 GM/DL Diagnosis/Problems Diagnosis/Problems (1) ST elevation myocardial infarction (STEMI) of inferior wall, initial episode of care Assessment & Plan: This was caused by 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 No recurrent angina. We will continue guideline directed medical therapy with aspirin, ticagrelor, beta-sonia, and statin medication. I did place her on long-acting nitrates because the day following the myocardial infarction, she had some recurrent chest discomfort. She had a MUGA scan which showed an ejection fraction of 58%. I believe she would benefit from inpatient rehab before going home. However, as above, she wants to be discharged tomorrow with home hospice. (2) Acute heart failure with preserved ejection fraction (HFpEF) Assessment & Plan: She appeared to have some pulmonary congestion upon presentation. Her chest x-rays have shown pulmonary congestion but seem to be improving. I did give her dose of intravenous Lasix on 10/27 and another on 10/28. She had been receiving a fair amount of intravenous fluids due to the sepsis from her urinary tract infection. Her chest x-ray from 11/05 was improved. Her creatinine has gone up over the past 24 hours. We will obtain a follow-up metabolic panel in the morning. (3) Primary hypertension Status: Chronic Assessment & Plan: Her blood pressures remain intermittently elevated. At one point, she was too confused to take oral medication. She has now been receiving carvedilol and lisinopril. She was also started on amlodipine. I increased the dose of lisinopril on 11/02 and stopped amlodipine. I increased the dose of lisinopril to the maximum dose on 11/04. She is also receiving hydralazine. We may need to resume amlodipine. (4) Mixed hyperlipidemia Status: Chronic Assessment & Plan: I have her on intensive dose statin medication due to the acute myocardial infarction. (5) Altered mental state Assessment & Plan: Etiology unclear. I had ordered a head CT last week but due to her confusion, the test could not be performed. Her mental status now seems to be improving. (6) Coronary artery disease with unstable angina pectoris Assessment & Plan: As above. (7) Acute on chronic respiratory failure with hypoxia and hypercapnia Assessment & Plan: She probably has some degree of undiagnosed sleep apnea. (8) Sepsis due to urinary tract infection Assessment & Plan: This was managed by the hospitalist and seems to have resolved. (9) Acute kidney injury superimposed on chronic kidney disease Status: Acute Assessment & Plan: She had been receiving intravenous fluids due to the sepsis. Her renal function had been improving but worsened today. We will need to follow this closely with the addition of OBDULIA inhibitor. (10) Type 2 diabetes mellitus with complication Status: Chronic Assessment & Plan: The hospitalist is managing treatment of the diabetes while she is here in the hospital. (11) Morbid obesity Assessment & Plan: She has actually gained a little weight during this admi ssion. This was most likely due to intravenous fluids administered for sepsis. She has been receiving diuretic intermittently. She will need to work on weight loss following discharge. KRAIG ORTIZ JR, MD Nov 05, 2021 09:25
--- NOTE | 2021-11-05 09:42 | Occupational Ther Daily Note ---
OT Current Status-Daily Note Subjective Pt sleeping in bed, woke to loudly calling name due to BiPap. X-ray technicians in room to take pt. Pt's son present in room and needing pt's pass code for home alarm. Pt able to give code after fully awake. Mental Status/Objective Patient Orientation: Person, Place, Time, Situation Attachments: IV, Oxygen (3L) ADL-Treatment Pt's son set up breakfast after pt returned from x-ray. Directed son to SW for hospice questions, reported this to SW. Therapy Code Descriptions/Definitions Functional [place] Measure: 0=Not Assessed/NA 4=Minimal Assistance 1=Total Assistance 5=Supervision or Setup 2=Maximal Assistance 6=Modified [place] 3=Moderate Assistance 7=Complete IndependenceSCALE: Activities may be completed with or without assistive devices. 9-Acxxrtbfha-cphopal completes the activity by him/herself with no assistance from a helper. 5-Set-up or Clean-up Assistance-helper sets up or cleans up; patient completes activity. [place] assists only prior to or following the activity. 4-Supervision or Touching Assistance-helper provides verbal cues and/or touching/steadying and/or contact guard assistance as patient completes activit y. Assistance may be provided throughout the activity or intermittently. 3-Partial/Moderate Assistance-helper does LESS THAN HALF the effort. [place] lifts, holds or supports trunk or limbs, but provides less than half the effort. 2-Substantial/Maximal Assistance-helper does MORE THAN HALF the effort. [place] lifts or holds trunk or limbs and provides more than half the effort. 8-Gosqsvucx-wfljjj does ALL the effort. Patient does none of the effort to complete the activity. Or, the assistance of 2 or more helpers is required for the patient to complete the activity. If activity was not attempted, code reason: 7-Patient Refused. 9-Not Applicable-not attempted and the patient did not perform the activity before the current illness, exacerbation or injury. 10-Not Attempted due to Environmental Limitations-(lack of equipment, weather restraints, etc.). 88-Not Attempted due to Medical Conditions or Safety Concerns. Eating (QC): 5 Other Treatment Supine to EOB min A. CGA for sit to stand and ambulating using FWW from bed to w/c. Verbal cues for FWW management and to place hands for safe sit to stands. After session, pt in bed with call light/phone in reach. All needs met in room. OT Group Home Goals Electronics Technology Department Chair Goals Time Frame: Nov 13, 2021 Eating (QC): 6 Oral Hygiene (QC): 6 Toileting Hygiene (QC): 4 Shower/Bathe Self (QC): 4 Upper Body Dressing (QC): 5 Lower Body Dressing (QC): 4 On/Off Footwear (QC): 4 Additional Goals: 1-Demonstrate ADL Tasks, 2-Verbalize Understanding, 3-ImproveStrength/Josue 1=Demonstrate adherence to instructed precautions during ADL tasks. 2=Patient will verbalize/demonstrate understanding of assistive devices/modifications for ADL. 3=Patient will improve strength/tolerance for activity to enable patient to perform ADL's. OT Education/Plan Problem List/Assessment Assessment: Decreased Activ Tolerance, Decreased Safety Aware, Impaired Bed Mobility, Impaired Self-Care Skills Discharge Recommendations Plan/Recommendations: Continue POC Treatment Plan/Plan of Care Patient would benefit from OT for education, treatment and training to promote independence in ADL's, mobility, safety and/or upper extremity function for ADL's. Plan of Care: ADL Retraining, Functional Mobility, UE Funct Exercise/Act Treatment Duration: Nov 13, 2021 Frequency: 3 times per week (3-5 times per week) Estimated Hrs Per Day: .25 hour per day Agreement: Yes Rehab Potential: Fair Time/GCodes Start Time: 08:50 Stop Time: 09:05 Total Time Billed (hr/min): 15 Billed Treatment Time 1 visit-FA 1 (15 min) FANNY RODRIGUEZ Nov 05, 2021 09:42
[2021-11-05] MEDS: lisINopril 40 MG (PRINIVIL) TABLET PO SCH (09:52)
[2021-11-05] MEDS: TICAGRELOR 90 MG TABLET (BRILINTA) PO SCH ×2 (09:52→19:55)
[2021-11-05] MEDS: PANTOPRAZOLE 40 MG (PROTONIX) TAB PO SCH (09:52)
[2021-11-05] MEDS: hydrALAZINE (APRESOLINE) 25 MG TAB PO SCH ×2 (09:52→19:55)
[2021-11-05] MEDS: ENOXAPARIN 40 MG/0.4 ML (LOVENOX) SYR SC SCH (09:52)
[2021-11-05] MEDS: MAGNESIUM OXIDE (MAG-OX)400 MG TAB PO SCH (09:52)
[2021-11-05] MEDS: ASPIRIN E.C. 81 MG (ECOTRIN) TAB PO SCH (09:52)
[2021-11-05] MEDS: ISOSORBIDE MONONITRATE 30 MG (IMDUR) TAB PO SCH (09:52)
[2021-11-05] MEDS: FLUTICASONE NASAL SPRAY (FLONASE) 16 GM BTL NS SCH (09:53)
[2021-11-05] MEDS: MAGIC MOUTHWASH (ADULT) PO SCH ×12 (09:53→19:55)
--- NOTE | 2021-11-05 09:53 | Diagnostic Imaging Report ---
INDICATION: Heart failure. TIME OF EXAM: 9:12 AM Correlation is made with prior chest from 11/03/2021. FINDINGS: Heart size is stable. There are changes of median sternotomy and CABG. Lungs appear to be clear. No infiltrate or failure is seen. There is no effusion or pneumothorax. IMPRESSION: No acute cardiopulmonary process is detected. Dictated by: Dictated on workstation # [id number]
--- NOTE | 2021-11-05 12:11 | Progress Note - Hospitalist ---
Subjective HPI/CC On Admission Date Seen by Provider: Nov 05, 2021 Time Seen by Provider: 11:00 Kemi Martínez is a 70 year old female who was admitted with STEMI. She is unable to provide an adequate history due to her curent condition. Per records, she was admitted after presenting with nausea, vomiting, and back pain. She did not have any chest pain. She is uncomfortable and received sedating medications prior to my arrival making her a poor historian. She is able to tell me her back hurts. She is not short of breath. She does not express any other complaints. Subjective/Events-last exam Pt has decided Hospice for tomorrow Sugar is 230 and she is eating a candy bar right now DNR order signed Family at the bedside Review of Systems General: Fatigue, Malaise Pulmonary: Dyspnea Focused Exam Time of Focused Exam: 05:15 Objective Exam Vital Signs Vital Signs Date Time Temp Pulse Resp B/P (MAP) Pulse Ox O2 Delivery O2 Flow Rate FiO2 11/06/21 03:57 35.6 53 16 134/75 96 NIV Bilevel 11/06/21 03:15 40.00 11/01/21 04:00 30 Capillary Refill : Less Than 3 Seconds General Appearance: No Apparent Distress, WD/WN, Chronically ill, Obese Respiratory: No Accessory Muscle Use, No Respiratory Distress, Decreased Breath Sounds Cardiovascular: Regular Rate, Rhythm Results/Procedures Lab Patient resulted labs reviewed. Imaging: Reviewed Imaging Report Assessment/Plan Assessment and Plan Assess & Plan/Chief Complaint Assessment: Cardiomyopathy s/p STEMI Left heart cath with balloon angioplasty and stent placement in RCA Acute respiratory failure with hypoxia and hypercapnia CT with bilateral pleural effusions Fluid overload CAD s/p CABG UTI E coli bacteremia T2DM Delirium Agitation Debility HTN HLD Obesity DVT prophylaxis Septic shock, resolved Lactic acidosis, resolved ELENA on CKD resolved Anxiety Nausea Plan: HOspice at [facility] Critical Care Critically Ill Patient RAKAN DEWITT DO Nov 05, 2021 12:11
--- NOTE | 2021-11-05 12:36 | Physical Therapy Daily Note ---
PT Daily Note-Current Subjective Patient is very agreeable to participate with PT. Mental Status Attachments: Oxygen Transfers SCALE: Activities may be completed with or without assistive devices. 9-Iiiwtvmuzf-cnlywfw completes the activity by him/herself with no assistance from a helper. 5-Set-up or Clean-up Assistance-helper sets up or cleans up; patient completes activity. [place] assists only prior to or following the activity. 4-Supervision or Touching Assistance-helper provides verbal cues and/or touching/steadying and/or contact guard assistance as patient completes activity. Assistance may be provided throughout the activity or intermittently. 3-Partial/Moderate Assistance-helper does LESS THAN HALF the effort. [place] lifts, holds or supports trunk or limbs, but provides less than half the effort. 2-Substantial/Maximal Assistance-helper does MORE THAN HALF the effort. [place] lifts or holds trunk or limbs and provides more than half the effort. 5-Irthzbkip-nebpgt does ALL the effort. Patient does none of the effort to complete the activity. Or, the assistance of 2 or more helpers is required for the patient to complete the activity. If activity was not attempted, code reason: 7-Patient Refused. 9-Not Applicable-not attempted and the patient did not perform the activity before the current illness, exacerbation or injury. 10-Not Attempted due to Environmental Limitations-(lack of equipment, weather restraints, etc.). 88-Not Attempted due to Medical Conditions or Safety Concerns. Lying to Sitting/Side of Bed(Q: 4 Sit to Stand (QC): 4 Chair/Kmo-xu-Wlobq Xfer(QC): 4 CGA for safety Gait Training Does the Patient Walk?: Yes Distance: 150' in room Walk 10 feet (QC): 4 Walk 50 ft with 2 Turns(QC): 4 Walk 150 ft (QC): 4 Gait Assistive Device: FWW slow, steady, functional gait sequence Assessment Current Status: Excellent Progress PT Public Works Technician Goals Public Works Technician Goals PT Public Works Technician Goals Time Frame: Nov 21, 2021 Roll Left & Right (QC): 5 Sit to Lying (QC): 5 Lying-Sitting on Side/Bed(QC): 5 Sit to Stand (QC): 5 Chair/Cxs-es-Ewilz Xfer(QC): 5 Toilet Transfer (QC): 5 Walk 10 feet (QC): 4 Walk 50ft with 2 Turns (QC): 4 Walk 150 ft (QC): 4 PT Plan Treatment/Plan Treatment Plan: Continue Plan of Care Treatment Plan: Bed Mobility, Education, Functional Activity Josue, Functional Strength, Gait, Safety, Therapeutic Exercise, Transfers Treatment Duration: Nov 21, 2021 Frequency: 6 times per week Estimated Hrs Per Day: .5 hour per day Patient and/or Family Agrees t: Yes Time/GCodes Time In: 1115 Time Out: 1127 Total Billed Treatment Time: 12 Total Billed Treatment 1 visit FA 12 min JERAD WOODS PT Nov 05, 2021 12:36
[2021-11-05] MEDS: LORazepam 0.5 MG (ATIVAN) TABLET PO PRN (19:54)
[2021-11-05] MEDS: GABAPENTIN 100 MG (NEURONTIN) CAP PO SCH (19:55)
[2021-11-05] MEDS: ROSUVASTATIN 20 MG (CRESTOR) TABLET PO SCH (19:55)
[2021-11-05] MEDS: MIRTAZAPINE 15 MG (REMERON) TAB PO SCH (19:55)
[2021-11-05] MEDS: QUEtiapine 25 MG (SEROquel) TAB IMMEDIATE RELEASE PO SCH (19:55)
[2021-11-05] MEDS: FAMOTIDINE 20 MG (PEPCID) TABLET PO SCH (19:55)
[2021-11-05] MEDS: SOLIQUA SC SCH (22:04)
[2021-11-06] MEDS: RT-ALBUTEROL SULF 2.5 MG/3 ML PRE-MIX VIAL INH SCH ×3 (03:14→14:17)
[2021-11-06] MEDS ORDERED: LISI40TA9 PO (05:52)
[2021-11-06] MEDS ORDERED: ISOS30TA82 PO (05:52)
[2021-11-06] MEDS ORDERED: LORA-404 PO (05:52)
[2021-11-06] MEDS ORDERED: QUET25TA35 PO (05:52)
[2021-11-06] MEDS ORDERED: TICA90TA PO (05:52)
[2021-11-06] MEDS ORDERED: PANT40TA52 PO (05:52)
[2021-11-06] MEDS ORDERED: OXC5T PO (05:52)
--- NOTE | 2021-11-06 05:53 | Discharge Summary ---
Discharge Summary Hospital Course Was the Problem List Reviewed?: Yes Problems/Dx: (1) ST elevation myocardial infarction (STEMI) of inferior wall, initial episode of care (2) Acute heart failure with preserved ejection fraction (HFpEF) (3) Primary hypertension Status: Chronic (4) Mixed hyperlipidemia Status: Chronic (5) Altered mental state (6) Coronary artery disease with unstable angina pectoris (7) Acute on chronic respiratory failure with hypoxia and hypercapnia (8) Sepsis due to urinary tract infection (9) Acute kidney injury superimposed on chronic kidney disease Status: Acute (10) Type 2 diabetes mellitus with complication Status: Chronic (11) Morbid obesity (12) Epistaxis Hospital Course Date of Admission: Oct 26, 2021 at 05:29 Admission Diagnosis : Family Physician/Provider: Miki Mejia MD Date of Discharge: 11/06/21 Discharge Diagnosis: STEMI, acute on chronic respiratory insufficiency, nosebleed day of discharge holding Brilinta for 1 day, poor prognosis Hospital Course: Patient had a lengthy hospital course after she was admitted following a STEMI. Dr. Sutherland perform intervention with good results. Patient ultimately transferred to fourth floor once stable from ICU. Patient's overall status was significantly decline from baseline and apathy and realistic expectations revealed no return to baseline at this current level. DNR obtained. Hospice offered and she did enroll in that. Had a nosebleed the day of discharge so we will hold Brilinta for [address] Sutherland. Very poor prognosis. Brief Hospital Course: Patient was admitted on 10/26/2021 and discharged 11/06/2021. At presentation to the ED (10/26/2021), patient received a CMP, CBC, Lactate, D-Dimer, Cardiac enzymes, EKG, and Chest x-ray. Pertinent labs revealed a Lactate of 4.46, WBC of 23.5, Troponin of 0.170 and a UA concerning for UTI. EKG revealed a ST elevations in leads II, III, and AVF. Patient was admitted to cardiology and consulted Medicine, PT, OT, and General Surgery. Hospital interventions included cardiac catheterization with drug-eluting stent placement to RCA. This was followed with a MUGA scan demonstrating normal left ventricular function and wall motion with a calculated ejection fraction of 58%. Hospital course was complicated due to patients sepsis requiring fluids and heart disease (acute MN, and HFpEF). Patient did experience abdominal pain during hospital course which was worked up with a CT-scan. CT scan results were not concerning. Surgery was consulted for epistaxis secondary to nasal cannula. On discharge, patient was sent home on hospice. Patient was discharged on Aspirin, Brilinta, Coreg, Crestor, Oxygen, and will resume home medications. This summary does not include the entirety of the patient's visit and is only a short description of pertinent lab values and information. For the complete hospital course, please refer to the patient's chart. Date of Admission: 10/26/2021 Date of Discharge: 11/06/2021 Attending Physician: Dr. Selvin Sutherland MD Admission Diagnosis: STEMI, Acute Inferior MN, UTI Discharge Diagnosis: UTI, CAD, Primary HTN Secondary Diagnoses: Hyperlipidemia, T2DM, Obesity Consultations: Medicine, PT, OT, Surgery Procedures: Cardiac Catheterization HPI: 70 yo F with vascular disease and surgical history of CABG presented with nausea, vomiting, and SOB. She presented to the ED via EMS. Patient denied chest discomfort but did report back pain and chronic LE edema. ECG revealed st- elevations in lead II, III, and AVF as well as an elevated troponin. Patient sy mptoms began around 2100 last night and didn't seek medical attention until 0200. МАРИНА THRASHER Labs and Pending Lab Test: Laboratory Tests 11/05/21 10:23: Glucometer 230H 11/05/21 15:54: Glucometer 230H 11/05/21 20:03: Glucometer 162H Microbiology 10/30/21 Blood Culture - Final, Complete No growth 10/26/21 Urine Culture - Final, Complete Escherichia coli Escherichia coli#2 Home Meds Active Pantoprazole Sodium 40 Mg Tablet.dr 40 Mg PO DAILY Quetiapine Fumarate 25 Mg Tablet 25 Mg PO HS Lisinopril 40 Mg Tablet 40 Mg PO DAILY Isosorbide Mononitrate ER (Isosorbide Mononitrate) 30 Mg Tab.er.24h 30 Mg PO DAILY Brilinta (Ticagrelor) 90 Mg Tablet 90 Mg PO BID Reported Modafinil 100 Mg Tablet 100 Mg PO DAILY Vitamin C (Ascorbate Calcium) 500 Mg Tablet 500 Mg PO DAILY Magnesium (Magnesium Oxide) 400 Mg Tablet 400 Mg PO HS Atorvastatin Calcium 40 Mg Tablet 40 Mg PO HS Levothyroxine Sodium 137 Mcg Tablet 137 Mcg PO DAILY Carvedilol 25 Mg Tablet 25 Mg PO HS Ibuprofen 600 Mg Tablet 600 Mg PO Q6H PRN Hydralazine HCl 50 Mg Tablet 50 Mg PO BID Humalog Kwikpen (Insulin Lispro) 100 Unit/1 Ml Insuln.pen 22 Units SC AC Soliqua 100 Unit-33 Mcg/ml Pen (Insulin Glargine/Lixisenatide) 3 Ml Insuln.pen 52 Units SC HS Fluticasone Propionate 16 Gm [place].susp 1 [place] NSEACH DAILY Mirtazapine 30 Mg Tablet 30 Mg PO HS Gabapentin 100 Mg Capsule 100 Mg PO HS Amlodipine Besylate 5 Mg Tablet 5 Mg PO HS Famotidine 20 Mg Tablet 20 Mg PO HS Citalopram HBr (Citalopram Hydrobromide) 20 Mg Tablet 20 Mg PO HS Aspirin EC (Aspirin) 81 Mg Tablet.dr 81 Mg PO DAILY Myrbetriq (Mirabegron) 50 Mg Tab.er.24h 50 Mg PO DAILY Assessment/Pt Instructions PCP in 1 week Enroll in hospice Discharge Planning: <30 minutes discharge planning Discharge Instructions Discharge Diet: ADA Diet, Cardiac Diet Discharge Physical Examination Vital Signs Vital Signs Date Time Temp Pulse Resp B/P (MAP) Pulse Ox O2 Delivery O2 Flow Rate FiO2 11/06/21 03:57 35.6 53 16 134/75 96 NIV Bilevel 11/06/21 03:15 40.00 11/01/21 04:00 30 General Appearance: No Apparent Distress, WD/WN, Chronically ill Respiratory: Decreased Breath Sounds Cardiovascular: Regular Rate, Rhythm Allergies: Coded Allergies: Sulfa (Sulfonamide Antibiotics) (Verified Allergy, Unknown, 08/24/18) ciprofloxacin (Verified Allergy, Unknown, anaphylaxis, 08/02/19) nitrofurantoin (Verified Allergy, Unknown, SOB/wheezing , 08/02/19) valsartan (Verified Allergy, Unknown, Angioedema, 10/05/19) Discharge Summary Date of Admission Oct 26, 2021 at 05:29 Date of Discharge Discharge Date: Nov 06, 2021 Discharge Diagnosis Assessment: Cardiomyopathy s/p STEMI Left heart cath with balloon angioplasty and stent placement in RCA Acute respiratory failure with hypoxia and hypercapnia CT with bilateral pleural effusions Fluid overload CAD s/p CABG UTI E coli bacteremia T2DM Delirium Agitation Debility HTN HLD Obesity DVT prophylaxis Septic shock, resolved Lactic acidosis, resolved ELENA on CKD resolved Anxiety Nausea Plan: [facility] at [place] (1) ST elevation myocardial infarction (STEMI) of inferior wall, initial episode of care Assessment & Plan: This was caused by 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 No recurrent angina. We will continue guideline directed medical therapy with aspirin, ticagrelor, beta-sonia, and statin medication. I did place her on long-acting nitrates because the day following the myocardial infarction, she had some recurrent chest discomfort. She had a MUGA scan which showed an ejection fraction of 58%. I believe she would benefit from inpatient rehab before going home. However, as above, she wants to be discharged tomorrow with home hospice. (2) Acute heart failure with preserved ejection fraction (HFpEF) Assessment & Plan: She appeared to have some pulmonary congestion upon presentation. Her chest x-rays have shown pulmonary congestion but seem to be improving. I did give her dose of intravenous Lasix on 10/27 and another on 10/28. She had been receiving a fair amount of intravenous fluids due to the sepsis from her urinary tract infection. Her chest x-ray from 11/05 was improved. Her creatinine has gone up over the past 24 hours. We will obtain a follow-up metabolic panel in the morning. (3) Primary hypertension Status: Chronic Assessment & Plan: Her blood pressures remain intermittently elevated. At one point, she was too confused to take oral medication. She has now been receiving carvedilol and lisinopril. She was also started on amlodipine. I increased the dose of lisinopril on 11/02 and stopped amlodipine. I increased the dose of lisinopril to the maximum dose on 11/04. She is also receiving hydralazine. We may need to resume amlodipine. (4) Mixed hyperlipidemia Status: Chronic Assessment & Plan: I have her on intensive dose statin medication due to the acute myocardial infarction. (5) Altered mental state Assessment & Plan: Etiology unclear. I had ordered a head CT last week but due to her confusion, the test could not be performed. Her mental status now seems to be improving. (6) Coronary artery disease with unstable angina pectoris Assessment & Plan: As above. (7) Acute on chronic respiratory failure with hypoxia and hypercapnia Assessment & Plan: She probably has some degree of undiagnosed sleep apnea. (8) Sepsis due to urinary tract infection Assessment & Plan: This was managed by the hospitalist and seems to have resolved. (9) Acute kidney injury superimposed on chronic kidney disease Status: Acute Assessment & Plan: She had been receiving intravenous fluids due to the sepsis. Her renal function had been improving but worsened today. We will need to follow this closely with the addition of OBDULIA inhibitor. (10) Type 2 diabetes mellitus with complication Status: Chronic Assessment & Plan: The hospitalist is managing treatment of the diabetes while she is here in the hospital. (11) Morbid obesity Assessment & Plan: She has actually gained a little weight during this admission. This was most likely due to intravenous fluids administered for sepsis. She has been receiving diuretic intermittently. She will need to work on weight loss following discharge. RAKAN DEWITT DO Nov 06, 2021 05:53
[2021-11-06 06:01] LABS: BASOPHILS % (AUTO) 0 % (0-10); EOSINOPHILS # (AUTO) 0.3 10^3/uL (0.0-0.3); EOSINOPHILS % (AUTO) 3 % (0-10); HEMATOCRIT 41 % (35-52); HEMOGLOBIN 12.9 g/dL (11.5-16.0); LYMPHOCYTES # (AUTO) 2.4 10^3/uL (1.0-4.0); LYMPHOCYTES % (AUTO) 32 % (12-44); MEAN CORPUSCULAR HEMOGLOBIN 31 pg (25-34); MEAN CORPUSCULAR HGB CONC 32 g/dL (32-36); MEAN CORPUSCULAR VOLUME 97 fL (80-99); MEAN PLATELET VOLUME 10.5 fL (9.0-12.2); MONOCYTES # (AUTO) 0.6 10^3/uL (0.0-1.0); MONOCYTES % (AUTO) 7 % (0-12); NEUTROPHILS # (AUTO) 4.3 10^3/uL (1.8-7.8); NEUTROPHILS % (AUTO) 57 % (42-75); PLATELET COUNT 210 10^3/uL (130-400); WHITE BLOOD COUNT 7.6 10^3/uL (4.3-11.0)
[2021-11-06] MEDS: LEVOTHYROXINE 25 MCG (LEVOTHROID) TAB PO SCH (06:12)
[2021-11-06] MEDS: ASCORBIC ACID (VIT C) 500 MG TABLET PO SCH (06:12)
[2021-11-06] MEDS: LEVOTHYROXINE 112 MCG (LEVOTHROID) TAB PO SCH (06:12)
[2021-11-06 06:31] LABS: BILIRUBIN,TOTAL 0.7 MG/DL (0.1-1.0); CALCIUM 8.7 MG/DL (8.5-10.1); CREATININE SERUM 1.59 MG/DL (0.60-1.30); POTASSIUM 3.9 MMOL/L (3.6-5.0); TOTAL PROTEIN 6.3 GM/DL (6.4-8.2)
[2021-11-06] MEDS: inSUlin ASPART (NovoLOG) 1 UNIT/0.01 ML (CHARGE PER UNIT) SC SCH ×4 (06:31→12:08)
[2021-11-06 06:56] LABS: BASOPHILS % (MANUAL) 1 %; LYMPHOCYTES % (MANUAL) 30 %; MONOCYTES % (MANUAL) 7 %; NEUTROPHILS % (MANUAL) 62 %
[2021-11-06 06:57] LABS: RBC MORPH NORMAL
--- NOTE | 2021-11-06 08:56 | Cardiology Progress Note ---
Progress Note-Cardiology Events since last exam Date Seen by Provider: Nov 06, 2021 Time Seen by Provider: 08:55 Events since last exam I am following her for inferior STEMI. She was sleeping on BiPAP when I went in her room. I did not try and wake her. The plan is for discharge to her son's house today with hospice. Certain portions of this document may have been dictated utilizing voice recognition technology. Inherent to this technology, typographical and grammatical errors may exist. As much as I am diligent to identify and correct these mistakes, some errors may remain in the document. Vitals Last set of Vitals Signs Vital Signs 11/01/21 11/06/21 11/06/21 04:00 03:15 07:30 Temp 36.0 Pulse 52 Resp 18 B/P (MAP) 159/76 Pulse Ox 98 O2 Delivery NIV Bilevel O2 Flow Rate 40.00 FiO2 30 Labs Labs Laboratory Tests 11/06/21 05:35 Exam Vital Signs Vital Signs Date Time Temp Pulse Resp B/P (MAP) Pulse Ox O2 Delivery O2 Flow Rate FiO2 11/06/21 07:30 36.0 52 18 159/76 98 NIV Bilevel 11/06/21 03:15 40.00 11/01/21 04:00 30 Physical Exam General: She was sleeping on BiPAP. She is obese. Eye: No xanthelasma. HENT: Normocephalic. Neck: Jugular venous pressure does not appear elevated. Respiratory: Lungs have coarse upper airway sounds on BiPAP. Breath sounds are equal. Symmetrical chest wall expansion. Cardiovascular: Normal rate. Regular rhythm. Distant S1/S2. No murmur. No gallop. 1+ bilateral pretibial edema. Gastrointestinal: Soft. Normal bowel sounds. Skin: Warm. Dry. Neurologic: Sleeping. Psychiatric: Sleeping. Labs Laboratory Tests Test 11/05/21 10:23 11/05/21 15:54 11/05/21 20:03 11/06/21 05:35 Range/Units Glucometer 230 H 230 H 162 H 70-110 MG/DL White Blood Count 7.6 4.3-11.0 10^3/uL Red Blood Count 4.21 3.80-5.11 10^6/uL Hemoglobin 12.9 11.5-16.0 g/dL Hematocrit 41 35-52 % Mean Corpuscular Volume 97 80-99 fL Mean Corpuscular Hemoglobin 31 25-34 pg Mean Corpuscular Hemoglobin Concent 32 32-36 g/dL Red Cell Distribution Width 14.7 H 10.0-14.5 % Platelet Count 210 130-400 10^3/uL Mean Platelet Volume 10.5 9.0-12.2 fL Immature Granulocyte % (Auto) 1 % Neutrophils (%) (Auto) 57 42-75 % Lymphocytes (%) (Auto) 32 12-44 % Monocytes (%) (Auto) 7 0-12 % Eosinophils (%) (Auto) 3 0-10 % Basophils (%) (Auto) 0 0-10 % Neutrophils # (Auto) 4.3 1.8-7.8 10^3/uL Lymphocytes # (Auto) 2.4 1.0-4.0 10^3/uL Monocytes # (Auto) 0.6 0.0-1.0 10^3/uL Eosinophils # (Auto) 0.3 0.0-0.3 10^3/uL Basophils # (Auto) 0.0 0.0-0.1 10^3/uL Immature Granulocyte # (Auto) 0.1 0.0-0.1 10^3/uL Neutrophils % (Manual) 62 % Lymphocytes % (Manual) 30 % Monocytes % (Manual) 7 % Basophils % (Manual) 1 % Blood Morphology Comment NORMAL Sodium Level 143 135-145 MMOL/L Potassium Level 3.9 3.6-5.0 MMOL/L Chloride Level 103 98-107 MMOL/L Carbon Dioxide Level 29 21-32 MMOL/L Anion Gap 11 5-14 MMOL/L Blood Urea Nitrogen 21 H 7-18 MG/DL Creatinine 1.59 H 0.60-1.30 MG/DL Estimat Glomerular Filtration Rate 34 BUN/Creatinine Ratio 13 Glucose Level 152 H 70-105 MG/DL Calcium Level 8.7 8.5-10.1 MG/DL Corrected Calcium 9.5 8.5-10.1 MG/DL Total Bilirubin 0.7 0.1-1.0 MG/DL Aspartate Amino Transf (AST/SGOT) 17 5-34 U/L Alanine Aminotransferase (ALT/SGPT) 24 0-55 U/L Alkaline Phosphatase 89 40-136 U/L Total Protein 6.3 L 6.4-8.2 GM/DL Albumin 3.0 L 3.2-4.5 GM/DL Diagnosis/Problems Diagnosis/Problems (1) ST elevation myocardial infarction (STEMI) of inferior wall, initial episode of care Assessment & Plan: This was caused by 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 No recurrent angina. We will continue guideline directed medical therapy with aspirin, ticagrelor, beta-sonia, and statin medication. I did place her on long-acting nitrates because the day following the myocardial infarction, she had some recurrent chest discomfort. She had a MUGA scan which showed an ejection fraction of 58%. I believe she would benefit from inpatient rehab before going home. However, as above, she wants to be discharged to her son's house with home hospice. I will plan to see her in the office in 1 month. (2) Acute heart failure with preserved ejection fraction (HFpEF) Assessment & Plan: She appeared to have some pulmonary congestion upon pres entation. Her chest x-rays have shown pulmonary congestion but seem to be improving. I did give her dose of intravenous Lasix on 10/27 and another on 10/28. She had been receiving a fair amount of intravenous fluids due to the sepsis from her urinary tract infection. Her chest x-ray from 11/05 was improved. Her creatinine had gone up but now seems to have plateaued. She should probably have a follow-up metabolic panel next week. (3) Primary hypertension Status: Chronic Assessment & Plan: Her blood pressures remain intermittently elevated. At one point, she was too confused to take oral medication. I recommend she continue on the present combination of medications at the time of discharge. (4) Mixed hyperlipidemia Status: Chronic Assessment & Plan: I have her on intensive dose statin medication due to the acute myocardial infarction. (5) Altered mental state Assessment & Plan: Etiology unclear. I had ordered a head CT last week but due to her confusion, the test could not be performed. Her mental status now seems to be improving. (6) Coronary artery disease with unstable angina pectoris Assessment & Plan: As above. (7) Acute on chronic respiratory failure with hypoxia and hypercapnia Assessment & Plan: She probably has some degree of undiagnosed sleep apnea. (8) Sepsis due to urinary tract infection Assessment & Plan: This was managed by the hospitalist and seems to have resolved. (9) Acute kidney injury superimposed on chronic kidney disease Status: Acute Assessment & Plan: She had been receiving intravenous fluids due to the sepsis. Her renal function had been improving but worsened 11/05 but now seems to have stabilized. We will need to follow this closely with the addition of OBDULIA inhib itor. (10) Type 2 diabetes mellitus with complication Status: Chronic Assessment & Plan: The hospitalist is managing treatment of the diabetes while she is here in the hospital. (11) Morbid obesity Assessment & Plan: She has actually gained a little weight during this admission. This was most likely due to intravenous fluids administered for sepsis. She has been receiving diuretic intermittently. She will need to work on weight loss following discharge. KRAIG ORTIZ JR, MD Nov 06, 2021 08:56
[2021-11-06] MEDS: FLUTICASONE NASAL SPRAY (FLONASE) 16 GM BTL NS SCH (09:13)
[2021-11-06] MEDS: ISOSORBIDE MONONITRATE 30 MG (IMDUR) TAB PO SCH (09:14)
[2021-11-06] MEDS: MAGIC MOUTHWASH (ADULT) PO SCH ×8 (09:14→14:35)
[2021-11-06] MEDS: ASPIRIN E.C. 81 MG (ECOTRIN) TAB PO SCH (09:14)
[2021-11-06] MEDS: lisINopril 40 MG (PRINIVIL) TABLET PO SCH (09:14)
[2021-11-06] MEDS: hydrALAZINE (APRESOLINE) 25 MG TAB PO SCH (09:14)
[2021-11-06] MEDS: MAGNESIUM OXIDE (MAG-OX)400 MG TAB PO SCH (09:14)
[2021-11-06] MEDS: PANTOPRAZOLE 40 MG (PROTONIX) TAB PO SCH (09:14)
[2021-11-06] MEDS: TICAGRELOR 90 MG TABLET (BRILINTA) PO SCH (09:22)
[2021-11-06] MEDS: ENOXAPARIN 40 MG/0.4 ML (LOVENOX) SYR SC SCH ×2 (12:04→14:34)
[2021-11-06] MEDS ORDERED: OXYMETAZOLINE (AFRIN) 0.05% NA 30 ML BTL NS PRN (13:00)
--- NOTE | 2021-11-06 13:13 | Consultation - Surgery ---
DONALD SAWYER MED STUDENT 11/06/21 1313: History of Present Illness History of Present Illness Patient Consulted On(arline/time) 11/06/21 13:13 Date Seen by Provider: Nov 06, 2021 Time Seen by Provider: 13:10 Reason for Visit: STEMI History of Present Illness Mrs. Martínez is a 70yo female that was admitted to [facility] on 10/26 due to a STEMI. She has undergone cardiac catheterization during her stay. She has also been started on a new blood thinner, Lovenox. She states that for the past couple of days she has been getting nosebleeds. Usually she is able to stop them with pressure but today it was not working, and this is the worst one so far. When I looked in to her nose I could not tell where the bleed was coming from, but is bleeding only from L nostril. She has soaked quite a few tissues. The bleeding has slowed down a lot since it started and was just a little ooze when I saw her. She has no pain. She did not hit her nose or stick anything in her nose, just comes on by itself. She has not had nosebleeds like this before the Lovenox. Nursing was waiting to get Afrin while I was in the room. Allergies and Home Medications Allergies Coded Allergies: Sulfa (Sulfonamide Antibiotics) (Verified Allergy, Unknown, 08/24/18) ciprofloxacin (Verified Allergy, Unknown, anaphylaxis, 08/02/19) nitrofurantoin (Verified Allergy, Unknown, SOB/wheezing , 08/02/19) valsartan (Verified Allergy, Unknown, Angioedema, 10/05/19) Patient Home Medication List Amlodipine Besylate (Amlodipine Besylate) 5 Mg Tablet, 5 MG PO HS, (Reported) Entered as Reported by: MADY BROWNING on 10/29/21 1451 Last Action: Continued Ascorbate Calcium (Vitamin C) 500 Mg Tablet, 500 MG PO DAILY, (Reported) Entered as Reported by: MADY BROWNING on 10/29/21 1451 Last Action: Converted Aspirin (Aspirin EC) 81 Mg Tablet.dr, 81 MG PO DAILY, (Reported) Entered as Reported by: PATTI MANUEL on 08/02/19 1431 Last Action: Continued Atorvastatin Calcium (Atorvastatin Calcium) 40 Mg Tablet, 40 MG PO HS, (Reported) Entered as Reported by: MADY BROWNING on 10/29/211450 Last Action: Continued Carvedilol (Carvedilol) 25 Mg Tablet, 25 MG PO HS, (Reported) Entered as Reported by: MADY BROWNING on 10/29/211450 Last Action: Converted Citalopram Hydrobromide (Citalopram HBr) 20 Mg Tablet, 20 MG PO HS, (Reported) Entered as Reported by: PATTI MANUEL on 08/02/19 316 Last Action: Continued Famotidine (Famotidine) 20 Mg Tablet, 20 MG PO HS, (Reported) Entered as Reported by: MADY BROWNING on 10/29/211450 Last Action: Continued Fluticasone Propionate (Fluticasone Propionate) 16 Gm [place].susp, 1 SPRAY NSEACH DAILY, (Reported) Entered as Reported by: MADY BROWNING on 10/29/211450 Last Action: Continued Gabapentin (Gabapentin) 100 Mg Capsule, 100 MG PO HS, (Reported) Entered as Reported by: MADY BROWNING on 10/29/211450 Last Action: Continued Hydralazine HCl (Hydralazine HCl) 50 Mg Tablet, 50 MG PO BID, (Reported) Entered as Reported by: MADY BROWNING on 10/29/211450 Last Action: Converted Ibuprofen (Ibuprofen) 600 Mg Tablet, 600 MG PO Q6H PRN for PAIN-MILD (1-4), (Reported) Entered as Reported by: MADY BROWNING on 10/29/211450 Last Action: Continued Insulin Glargine/Lixisenatide (Soliqua 100 Unit-33 Mcg/ml Pen) 3 Ml Insuln.pen, 52 UNITS SC HS, (Reported) Entered as Reported by: MADY BROWNING on 10/29/211450 Last Action: Converted Insulin Lispro (Humalog Kwikpen) 100 Unit/1 Ml Insuln.pen, 22 UNITS SC AC, (Rep orted) Entered as Reported by: MADY BROWNING on 10/29/211450 Last Action: Converted Isosorbide Mononitrate (Isosorbide Mononitrate ER) 30 Mg Tab.er.24h, 30 MG PO DAILY Prescribed by: RAKAN DEWITT on 11/06/21 0552 Levothyroxine Sodium (Levothyroxine Sodium) 137 Mcg Tablet, 137 MCG PO DAILY, (Reported) Entered as Reported by: MADY BROWNING on 10/29/211450 Last Action: Converted Lisinopril (Lisinopril) 40 Mg Tablet, 40 MG PO DAILY Prescribed by: RAKAN DEWITT on 11/06/21551 Lorazepam (Ativan) 0.5 Mg Tablet, 0.5 MG PO TID PRN for ANXIETY Prescribed by: RAKAN DEWITT on 11/06/21552 Magnesium Oxide (Magnesium) 400 Mg Tablet, 400 MG PO HS, (Reported) Entered as Reported by: MADY BROWNING on 10/29/211450 Last Action: Converted Mirabegron (Myrbetriq) 50 Mg Tab.er.24h, 50 MG PO DAILY, (Reported) Entered as Reported by: PATTI MANUEL on 08/02/191430 Last Action: Converted Mirtazapine (Mirtazapine) 30 Mg Tablet, 30 MG PO HS, (Reported) Entered as Reported by: MADY BROWNING on 10/29/211450 Last Action: Converted Oxycodone Hcl (Oxyir Tablet) 5 Mg Tab, 5 MG PO Q4H PRN for PAIN-SEVERE (8-10) Prescribed by: RAKAN DEWITT on 11/06/21552 Pantoprazole Sodium (Pantoprazole Sodium) 40 Mg Tablet.dr, 40 MG PO DAILY Prescribed by: RAKAN DEWITT on 11/06/21551 Quetiapine Fumarate (Quetiapine Fumarate) 25 Mg Tablet, 25 MG PO HS Prescribed by: RAKAN DEWITT on 11/06/21551 Ticagrelor (Brilinta) 90 Mg Tablet, 90 MG PO BID Prescribed by: RAKAN DEWITT on 11/06/21551 Discontinued Medications Modafinil (Modafinil) 100 Mg Tablet, 100 MG PO DAILY, (Reported) Entered as Reported by: MADY BROWNING on 10/29/211450 Last Action: Held Past Jytrnre-Rpcyzl-Iziqlm Hx Patient Social History Smoking Status: Never a Smoker 2nd Hand Smoke Exposure: No Recent Hopitalizations: No Alcohol Use?: No Have you traveled recently?: No Immunizations Up To Date Tetanus Booster (TDap): Unknown Date of Pneumonia Vaccine: Aug 02, 2018 Seasonal Allergies Seasonal Allergies: No Surgeries History of Surgeries: Yes (Bladder ) Surgeries: Bladder Surgery, Cardiac, CABG, Gallbladder, Hysterectomy Respiratory History of Respiratory Disorde: Yes Respiratory Disorders: Pulmonary Embolism Cardiovascular History of Cardiac Disorders: Yes (CABG) Cardiac Disorders: Coronary Artery Disease, High Cholesterol, Hypertension Neurological History of Neurological Disord: Yes Neurological Disorders: Stroke, TIA 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 Genitourinary History of Genitourinary Disor: Yes Genitourinary Disorders: UTI-Chronic Musculoskeletal History of Musculoskeletal Dis: Yes Musculoskeletal Disorders: Fibromyalgia, Chronic Back Pain Endocrine History of Endocrine Disorders: Yes Endocrine Disorders: Diabetes, Non-Insulin dep HEENT History of HEENT Disorders: No Cancer History of Cancer: No Psychosocial History of Psychiatric Problem: Yes Behavioral Health Disorders: Anxiety Integumentary History of Skin or Integumenta: No Blood Transfusions History of Blood Disorders: No Family Medical History Significant Family History: Heart Disease, Cancer, Diabetes Family Medial History: Patient reports no known family medical history. Review of Systems-General Constitutional: No chills, No dizziness, No fever EENTM: epistaxis; No hearing loss, No vision loss, No nose pain, No throat pain Respiratory: No cough, No short of breath Cardiovascular: No chest pain, No palpitations Gastrointestinal: No abdominal pain, No constipation, No diarrhea, No nausea, No vomiting Genitourinary: No dysuria Skin: No rash Psychiatric/Neurological: Denies Headache Physical Exam-General Problems Physical Exam Vital Signs Vital Signs - First Documented 10/31/21 10/31/21 00:00 04:00 Temp 36.4 Pulse 45 Resp 24 B/P (MAP) 173/87 Pulse Ox 97 O2 Delivery NIV Bilevel O2 Flow Rate 30.00 FiO2 30 Capillary Refill : Less Than 3 Seconds General Appearance: no apparent distress, obese, other (Pt is sitting upright in bed holding pressure on L nostril ) HEENT: PERRL/EOMI, pharynx normal (moist), other (Epistaxis from L nostril, cannot visualize source of bleed, but blood appears to be in the nose higher than the septum, no clot visualized) Respiratory: lungs clear, normal breath sounds, no respiratory distress, no accessory muscle use Cardiovascular: regular rate, rhythm, no murmur Peripheral Pulses: 2+ Dorsalis Pedis (R), 2+ Radial Pulses (R), 2+ Radial Pulses (L) Gastrointestinal: normal bowel sounds, non tender Extremities: non-tender, no pedal edema, no calf tenderness Neurologic/Psychiatric: alert, normal mood/affect, oriented x 3 Skin: normal color, warm/dry Data Review Labs Laboratory Tests 11/05/21 15:54: Glucometer 230H 11/05/21 20:03: Glucometer 162H 11/06/21 05:35: White Blood Count 7.6, Red Blood Count 4.21, Hemoglobin 12.9, Hematocrit 41, Mean Corpuscular Volume 97, Mean Corpuscular Hemoglobin 31, Mean Corpuscular Hemoglobin Concent 32, Red Cell Distribution Width 14.7H, Platelet Count 210, Mean Platelet Volume 10.5, Immature Granulocyte % (Auto) 1, Neutrophils (%) (Auto) 57, Lymphocytes (%) (Auto) 32, Monocytes (%) (Auto) 7, Eosinophils (%) (Auto) 3, Basophils (%) (Auto) 0, Neutrophils # (Auto) 4.3, Lymphocytes # (Auto) 2.4, Monocytes # (Auto) 0.6, Eosinophils # (Auto) 0.3, Basophils # (Auto) 0.0, Immature Granulocyte # (Auto) 0.1, Neutrophils % (Manual) 62, Lymphocytes % (Manual) 30, Monocytes % (Manual) 7, Basophils % (Manual) 1, Blood Morphology Comment NORMAL, Sodium Level 143, Potassium Level 3.9, Chloride Level 103, Carbon Dioxide Level 29, Anion Gap 11, Blood Urea Nitrogen 21H, Creatinine 1.59H , Estimat Glomerular Filtration Rate 34, BUN/Creatinine Ratio 13, Glucose Level 152H, Calcium Level 8.7, Corrected Calcium 9.5, Total Bilirubin 0.7, Aspartate Amino Transf (AST/SGOT) 17, Alanine Aminotransferase (ALT/SGPT) 24, Alkaline Phosphatase 89, Total Protein 6.3L, Albumin 3.0L 11/06/21 10:58: Glucometer 218H Microbiology 10/30/21 Blood Culture - Final, Complete No growth 10/26/21 Urine Culture - Final, Complete Escherichia coli Escherichia coli#2 Assessment/Plan Assessment/Plan Assessment/Plan Epistaxis Recent STEMI with initiation of blood thinner Pt has been able to resolve most of her nose bleeds with pressure, this is the first one that wont seem to quit on its own. Hold pressure. Nursing was waiting to try Afrin as soon as it makes it up to the floor. If that does not work chemical cautery could be indicated. Could also be packed, and if it becomes really uncontrollable may need surgical cautery. Should leave her nose alone as much as possible to let clot form to help bleeding stop. Cardiology may want to adjust her dose of blood thinner if bleeding cannot be controlled, but she has significant cardiac history. She also is on hospice. VIRGINIAIRVINKINZA B DO 11/06/21 1450: History of Present Illness History of Present Illness Time Seen by Provider: 14:16 History of Present Illness Surgery asked to consult regarding nose bleed, ENT is unavailable. I first got a call from nurse regarding pt with nose bleed; I recommended afrin and calling ER to get "nasal tampon". Pt could not tolerate the occlusive packing, did get Afrin spray and had nasal clamp on. When I first walked in to pt's room she was in minimal distress but more from breathing trouble, nose was not bleeding. Pt denied pain, it was only from left nostril. Nurse stated initially there was a clot that was bothering her, when it came off the bleeding started. Right after I walked out of room, her nose started dripping again. She is supposed to go home on hospice and is on Brillinta and ASA. Allergies and Home Medications Allergies Coded Allergies: Sulfa (Sulfonamide Antibiotics) (Verified Allergy, Unknown, 08/24/18) ciprofloxacin (Verified Allergy, Unknown, anaphylaxis, 08/02/19) nitrofurantoin (Verified Allergy, Unknown, SOB/wheezing , 08/02/19) valsartan (Verified Allergy, Unknown, Angioedema, 10/05/19) Patient Home Medication List Home Medication List Reviewed: Yes Amlodipine Besylate (Amlodipine Besylate) 5 Mg Tablet, 5 MG PO HS, (Reported) Entered as Reported by: MADY BROWNING on 10/29/211450 Last Action: Continued Ascorbate Calcium (Vitamin C) 500 Mg Tablet, 500 MG PO DAILY, (Reported) Entered as Reported by: MADY BROWNING on 10/29/21 145 Last Action: Converted Aspirin (Aspirin EC) 81 Mg Tablet., 81 MG PO DAILY, (Reported) Entered as Reported by: PATTI MANUEL on 08/02/19 1431 Last Action: Continued Atorvastatin Calcium (Atorvastatin Calcium) 40 Mg Tablet, 40 MG PO HS, (Reported) Entered as Reported by: MADY BROWNING on 10/29/211450 Last Action: Continued Carvedilol (Carvedilol) 25 Mg Tablet, 25 MG PO HS, (Reported) Entered as Reported by: MADY BROWNING on 10/29/211450 Last Action: Converted Citalopram Hydrobromide (Citalopram HBr) 20 Mg Tablet, 20 MG PO HS, (Reported) Entered as Reported by: PATTI MANUEL on 08/02/19 161 Last Action: Continued Famotidine (Famotidine) 20 Mg Tablet, 20 MG PO HS, (Reported) Entered as Reported by: MADY BROWNING on 10/29/211450 Last Action: Continued Fluticasone Propionate (Fluticasone Propionate) 16 Gm [place].susp, 1 SPRAY NSEACH DAILY, (Reported) Entered as Reported by: MADY BROWNING on 10/29/211450 Last Action: Continued Gabapentin (Gabapentin) 100 Mg Capsule, 100 MG PO HS, (Reported) Entered as Reported by: MADY BROWNING on 10/29/211450 Last Action: Continued Hydralazine HCl (Hydralazine HCl) 50 Mg Tablet, 50 MG PO BID, (Reported) Entered as Reported by: MADY BROWNING on 10/29/211450 Last Action: Converted Ibuprofen (Ibuprofen) 600 Mg Tablet, 600 MG PO Q6H PRN for PAIN-MILD (1-4), (Reported) Entered as Reported by: MADY BROWNING on 10/29/211450 Last Action: Continued Insulin Glargine/Lixisenatide (Soliqua 100 Unit-33 Mcg/ml Pen) 3 Ml Insuln.pen, 52 UNITS SC HS, (Reported) Entered as Reported by: MADY BROWNING on 10/29/211450 Last Action: Converted Insulin Lispro (Humalog Kwikpen) 100 Unit/1 Ml Insuln.pen, 22 UNITS SC AC, (Reported) Entered as Reported by: MADY BROWNING on 10/29/211450 Last Action: Converted Isosorbide Mononitrate (Isosorbide Mononitrate ER) 30 Mg Tab.er.24h, 30 MG PO DAILY Prescribed by: RAKAN DEWITT on 11/06/21551 Levothyroxine Sodium (Levothyroxine Sodium) 137 Mcg Tablet, 137 MCG PO DAILY, (Reported) Entered as Reported by: MADY BROWNING on 10/29/211450 Last Action: Converted Lisinopril (Lisinopril) 40 Mg Tablet, 40 MG PO DAILY Prescribed by: RAKAN DEWITT on 11/06/21551 Lorazepam (Ativan) 0.5 Mg Tablet, 0.5 MG PO TID PRN for ANXIETY Prescribed by: RAKAN DEWITT on 11/06/21552 Magnesium Oxide (Magnesium) 400 Mg Tablet, 400 MG PO HS, (Reported) Entered as Reported by: MADY BROWNING on 10/29/211450 Last Action: Converted Mirabegron (Myrbetriq) 50 Mg Tab.er.24h, 50 MG PO DAILY, (Reported) Entered as Reported by: PATTI MANUEL on 08/02/19 143 Last Action: Converted Mirtazapine (Mirtazapine) 30 Mg Tablet, 30 MG PO HS, (Reported) Entered as Reported by: MADY BROWNING on 10/29/211450 Last Action: Converted Oxycodone Hcl (Oxyir Tablet) 5 Mg Tab, 5 MG PO Q4H PRN for PAIN-SEVERE (8-10) Prescribed by: RAKAN DEWITT on 11/06/21552 Pantoprazole Sodium (Pantoprazole Sodium) 40 Mg Tablet.dr, 40 MG PO DAILY Prescribed by: RAKAN DEWITT on 11/06/21551 Quetiapine Fumarate (Quetiapine Fumarate) 25 Mg Tablet, 25 MG PO HS Prescribed by: RAKAN DEWITT on 11/06/21551 Ticagrelor (Brilinta) 90 Mg Tablet, 90 MG PO BID Prescribed by: RAKAN DEWITT on 11/06/21551 Discontinued Medications Modafinil (Modafinil) 100 Mg Tablet, 100 MG PO DAILY, (Reported) Entered as Reported by: MADY BROWNING on 10/29/211450 Last Action: Held Past Lsnclda-Yipecy-Xtjfja Hx Patient Social History Smoking Status: Never a Smoker Sexual Abuse: No Surgeries History of Surgeries: Yes Surgeries: Bladder Surgery, Cardiac, CABG, Gallbladder, Hysterectomy Respiratory History of Respiratory Disorde: Yes Respiratory Disorders: Pulmonary Embolism Cardiovascular History of Cardiac Disorders: Yes Cardiac Disorders: Cardiomyopathy, Coronary Artery Disease, Hypertension Neurological History of Neurological Disord: Yes Neurological Disorders: Stroke, TIA Genitourinary History of Genitourinary Disor: Yes Genitourinary Disorders: UTI-Chronic Gastrointestinal History of Gastrointestinal Di: Yes Gastrointestinal Disorders: Gastroesophageal Reflux, Gall Bladder Disease Musculoskeletal History of Musculoskeletal Dis: Yes Musculoskeletal Disorders: Arthritis Endocrine History of Endocrine Disorders: Yes Endocrine Disorders: Diabetes, Insulin dep, Hypothyroidsim HEENT History of HEENT Disorders: Yes Family Medical History Significant Family History: Heart Disease, Cancer, Diabetes Family Medial History: Patient reports no known family medical history. Review of Systems-General Constitutional: No chills, No dizziness, No fever; weakness EENTM: epistaxis; No hearing loss, No nose pain, No throat pain Respiratory: No cough; short of breath Cardiovascular: chest pain, Hx of Intervention; No palpitations; vascular heart diseas Gastrointestinal: No abdominal pain, No constipation, No diarrhea Genitourinary: No dysuria, No hematuria Skin: No rash Psychiatric/Neurological: Denies Headache Physical Exam-General Problems Physical Exam General Appearance: mild distress, obese Eyes: Bilateral Eye PERRL, Bilateral Eye EOMI HEENT: pharynx normal (moist); No scleral icterus (R), No scleral icterus (L); other (Epistaxis from L nostril, cannot visualize source of bleed, but blood appears to be in the nose higher than the septum, no clot visualized) Respiratory: lungs clear, normal breath sounds, no respiratory distress, no accessory muscle use Cardiovascular: regular rate, rhythm, systolic murmur Gastrointestinal: normal bowel sounds, non tender, soft Neurologic/Psychiatric: alert, normal mood/affect, oriented x 3 Assessment/Plan Assessment/Plan Assessment/Plan Epistaxis Recent STEMI with initiation of blood thinner DM, HTN, Anxiety Pt has been able to resolve most of her nose bleeds with pressure, this is the first one that wont seem to quit on its own. I gave pt options; hold pressure, Afrin, chemical cautery could be indicated. Could reattempt packing and finally if it becomes really uncontrollable may need surgical cautery. I think this most likely occurred because of the nasal O2 drying out the membranes. She could also try packing at home with Kleenex, she wants to go home and doesn't really want anything else done except pressure. I offered pt and her son the option of stopping the Brillinta and ASA at least until Tuesday, because if she continues them it will make it harder if not impossible for the nose to clot off and stop bleeding. However, I made very sure to explain this increased her risk of a fatal cardiac event or possibly even a stroke. They understood. Supervisory-Addendum Brief Verification & Attestation Participated in pt care: history, MDM, physical Personally performed: exam, history, MDM, supervision of care Care discussed with: Medical Student Procedures: n/a Verification and Attestation of Medical Student E/M Service A medical student performed and documented this service. I then reviewed and verified all information documented by the medical student and made modifications to such information, when appropriate. I personally performed a physical exam, medical decision making and then discussed any differences between the notes and made revisions as necessary to create one note. Kinza Gann , 11/06/21 , 15:05 DONALD SAWYER MED STUDENT Nov 06, 2021 13:13 KINZA GANN DO Nov 06, 2021 14:50
[2021-11-06] MEDS: LORazepam 0.5 MG (ATIVAN) TABLET PO PRN (14:08)
--- NOTE | 2021-11-06 14:36 | Occ Therapy Progress Note ---
Therapy Progress Note Unable to see pt today. Per nrsg report,pt has had a bloody nose for ~1hr or more, physician called. Will attempt at next available time if pt has not discharged. FANNY RODRIGUEZ Nov 06, 2021 14:36
--- NOTE | 2021-11-06 16:00 | Progress Note ---
[facility]А [facility] 11/06/21 1600: Progress Note Brief Hospital Course: Patient was admitted on 10/26/2021 and discharged 11/06/2021. At presentation to the ED (10/26/2021), patient received a CMP, CBC, Lactate, D-Dimer, Cardiac enzymes, EKG, and Chest x-ray. Pertinent labs revealed a Lactate of 4.46, WBC of 23.5, Troponin of 0.170 and a UA concerning for UTI. EKG revealed a ST elevations in leads II, III, and AVF. Patient was admitted to cardiology and consulted Medicine, PT, OT, and General Surgery. Hospital interventions included cardiac catheterization with drug-eluting stent placement to RCA. This was followed with a MUGA scan demonstrating normal left ventricular function and wall motion with a calculated ejection fraction of 58%. Hospital course was complicated due to patients sepsis requiring fluids and heart disease (acute DE, and HFpEF). Patient did experience abdominal pain during hospital course which was worked up with a CT-scan. CT scan results were not concerning. Surgery was consulted for epistaxis secondary to nasal cannula. On discharge, patient was sent home on hospice. Patient was discharged on Aspirin, Brilinta, Coreg, Crestor, Oxygen, and will resume home medications. This summary does not include the entirety of the patient's visit and is only a short description of pertinent lab values and information. For the complete hospital course, please refer to the patient's chart. Date of Admission: 10/26/2021 Date of Discharge: 11/06/2021 Attending Physician: Dr. Selvin Sutherland MD Admission Diagnosis: STEMI, Acute Inferior DE, UTI Discharge Diagnosis: UTI, CAD, Primary HTN Secondary Diagnoses: Hyperlipidemia, T2DM, Obesity Consultations: Medicine, PT, OT, Surgery Procedures: Cardiac Catheterization HPI: 70 yo F with vascular disease and surgical history of CABG presented with nausea, vomiting, and SOB. She presented to the ED via EMS. Patient denied chest discomfort but did report back pain and chronic LE edema. ECG revealed st- elevations in lead II, III, and AVF as well as an elevated troponin. Patient symptoms began around 2100 last night and didn't seek medical attention until 0200. CARI DEWITT DO 11/07/21 0531: Supervisory-Addendum Brief Verification & Attestation Participated in pt care: history, MDM, physical Personally performed: exam, history, MDM, supervision of care Care discussed with: Medical Student Procedures: n/a Results interpretation: Verified all documentation Verification and Attestation of Medical Student E/M Service A medical student performed and documented this service in my presence. I reviewed and verified all information documented by the medical student and made modifications to such information, when appropriate. I personally performed the physical exam and medical decision making. Cari Dewitt, Nov 07, 2021,05:31 [facility]А [facility] Nov 06, 2021 16:00 CARI DEWITT DO Nov 07, 2021 05:31
[2021-11-06 16:15] VITALS: BP 156/69
== END 2021-11-06 16:15 | disposition hospice, home (50) | DRG 246 ==
LOC: EDUNIT# 04:47 → ER 04:49 → CATH 05:28 → ICU 05:29 → CSD 07:29 → ICU 08:19 → 4TH 11-02 16:53
PROVIDERS: ADMIT Internal Medicine Cardiovascular Disease; ATTEND Internal Medicine Cardiovascular Disease
PROC: 4A023N7 Measurement of Cardiac Sampling and Pressure, Left Heart, Percutaneous Approach (ICD-10-PCS; principal; 2021-10-26)
PROC: 027034Z Dilation of Coronary Artery, One Artery with Drug-eluting Intraluminal Device, Percutaneous Approach (ICD-10-PCS; 2021-10-26)
PROC: B2111ZZ Fluoroscopy of Multiple Coronary Arteries using Low Osmolar Contrast (ICD-10-PCS; 2021-10-26)
PROC: B2151ZZ Fluoroscopy of Left Heart using Low Osmolar Contrast (ICD-10-PCS; 2021-10-26)
PROC: B2131ZZ Fluoroscopy of Multiple Coronary Artery Bypass Grafts using Low Osmolar Contrast (ICD-10-PCS; 2021-10-26)
PROC: B2181ZZ Fluoroscopy of Left Internal Mammary Bypass Graft using Low Osmolar Contrast (ICD-10-PCS; 2021-10-26)
PROC: 5A09457 Assistance with Respiratory Ventilation, 24-96 Consecutive Hours, Continuous Positive Airway Pressure (ICD-10-PCS; 2021-10-30)
DX: I21.19 ST elevation (STEMI) myocardial infarction involving other coronary artery of inferior wall (principal); A41.51 Sepsis due to Escherichia coli [E. coli]; R65.21 Severe sepsis with septic shock; J96.21 Acute and chronic respiratory failure with hypoxia; J96.22 Acute and chronic respiratory failure with hypercapnia; I50.31 Acute diastolic (congestive) heart failure; N39.0 Urinary tract infection, site not specified; E87.2 Acidosis; N17.9 Acute kidney failure, unspecified; I13.0 Hypertensive heart and chronic kidney disease with heart failure and stage 1 through stage 4 chronic kidney disease, or unspecified chronic kidney disease; Z79.82 Long term (current) use of aspirin; Z79.4 Long term (current) use of insulin; Z79.890 Hormone replacement therapy; Z79.899 Other long term (current) drug therapy; K21.9 Gastro-esophageal reflux disease without esophagitis; E03.9 Hypothyroidism, unspecified; E78.00 Pure hypercholesterolemia, unspecified; Z95.1 Presence of aortocoronary bypass graft; Z86.711 Personal history of pulmonary embolism; Z86.73 Personal history of transient ischemic attack (TIA), and cerebral infarction without residual deficits; M79.7 Fibromyalgia; G89.29 Other chronic pain; M54.9 Dorsalgia, unspecified; I25.710 Atherosclerosis of autologous vein coronary artery bypass graft(s) with unstable angina pectoris; F41.9 Anxiety disorder, unspecified; Z20.822 Contact with and (suspected) exposure to COVID-19; G47.00 Insomnia, unspecified; E11.22 Type 2 diabetes mellitus with diabetic chronic kidney disease; E78.2 Mixed hyperlipidemia; N18.30 Chronic kidney disease, stage 3 unspecified; Z66 Do not resuscitate; E66.01 Morbid (severe) obesity due to excess calories; R04.0 Epistaxis; E87.70 Fluid overload, unspecified; R53.81 Other malaise; R11.0 Nausea; Z68.37 Body mass index [BMI] 37.0-37.9, adult
CPT/HCPCS: 36415; 36600; 71045; 71046; 71250; 74176; 78472; 80048; 80053; 80061; 81000; 82150; 82550; 82553; 82805; 82947; 83036; 83605; 83690; 83735; 83874; 83880; 84100; 84145; 84484; 85007; 85025; 85027; 85379; 85610; 85652; 85730; 86141; 87040; 87077; 87088; 87186; 87635; 87636; 87804; 93005; 93041; 93308; 93459; 94640; 94660; 94664; 94760; 96365; 96367; 96368; 96375

== ENCOUNTER 2021-11-09 18:19 | Emergency (ER) | payer MEDICARE, OTHER ==
[~2021-11-09] VITALS: Ht 157 cm; Wt 77.1 kg
[~2021-11-09 18:19] MED LIST changes: +AMLO-250 PO; +ASCO-262 PO; +CARV25TA PO; +FAMO20TA5 PO; +FLUT16SP22 NSEACH; +GABA-486 PO; +HYDR-3924 PO; +INSU100I23 SC; +INSU3INS2 SC; +ISOS30TA82 PO; +LEVO137T2 PO; +LISI40TA9 PO; +LORA-404 PO; +MAGN400T39 PO; +MODA100T27 PO; +OXC5T PO; +PANT40TA52 PO; +QUET25TA35 PO; +TICA90TA PO
[2021-11-09] MEDS ORDERED: ONDANSETRON 4 MG/2 ML (SDV) Z0FRAN ONE (18:29)
[2021-11-09] MEDS ORDERED: NS IV 500 ML 500 ML ONE (18:33)
--- NOTE | 2021-11-09 18:34 | ED General ---
General Chief Complaint: Abdominal/GI Problems Stated Complaint: NOSE BLEED/BLOOD THINNERS/POST OP HEART CATH Source of Information: Patient Exam Limitations: Physical Impairments History of Present Illness Date Seen by Provider: Nov 09, 2021 Time Seen by Provider: 18:15 Initial Comments Patient is a 70-year-old female brought to the emergency department with a chief complaint of nosebleed, vomiting blood. Symptom onset around 1:00 this afternoon. Patient restarted her Brilinta this morning about 10:00 according to one of her sons who is at the bedside. She was recently in the hospital about 10 days with a STEMI as well as urosepsis. She was discharged last . She did have a nosebleed on the day of discharge and was told to hold blood thinners until today. Patient denies any chest pain but she does feel short of breath. She is nauseous. She has diffuse abdominal discomfort from vomiting. She denies any black or bloody stool. No fevers or chills. She was apparently discharged on hospice but rescinded this afternoon so that she could come to the hospital. Sons report that they took her initially to [facility], she had nasal packing placed that she subsequently removed. She signed out AGAINST MEDICAL ADVICE. Sons were able to talk her into coming back to the hospital so they brought her here. Patient was actively bleeding on presentation and vomiting copious amounts of blood. Quite pale. Quickly placed on monitors, 2 IVs placed. Initial vital signs, not tachycardic, not hypotensive oxygen on room air in the mid 90s. Significantly pale conjunctive a. Patient stated that she had been bleeding off and on since 1:00. Nasal clip was placed. This was in place for about 20 minutes, removed by the patient, initial inspection of the nasal mucosa on the left showed bloody nasal mucosa without any large clot. No active bleeding is visible. She was given normal saline, 8 mg of Zofran IV. 1 unit of uncrossed matched blood was transfused. Timing/Duration: 4-6 Hours Severity: Severe Associated Systoms: Malaise, Nausea/Vomiting Allergies and Home Medications Allergies Coded Allergies: Sulfa (Sulfonamide Antibiotics) (Verified Allergy, Unknown, 08/24/18) ciprofloxacin (Verified Allergy, Unknown, anaphylaxis, 08/02/19) nitrofurantoin (Verified Allergy, Unknown, SOB/wheezing , 08/02/19) valsartan (Verified Allergy, Unknown, Angioedema, 10/05/19) Patient Home Medication List Home Medication List Reviewed: Yes Amlodipine Besylate (Amlodipine Besylate) 5 Mg Tablet, 5 MG PO HS, (Reported) Entered as Reported by: MADY BROWNING on 10/29/21 145 Ascorbate Calcium (Vitamin C) 500 Mg Tablet, 500 MG PO DAILY, (Reported) Entered as Reported by: MADY BROWNING on 10/29/21 145 Aspirin (Aspirin EC) 81 Mg Tablet.dr, 81 MG PO DAILY, (Reported) Entered as Reported by: PATTI MANUEL on 08/02/19 1431 Atorvastatin Calcium (Atorvastatin Calcium) 40 Mg Tablet, 40 MG PO HS, (Reported) Entered as Reported by: MADY BROWNING on 10/29/21 145 Carvedilol (Carvedilol) 25 Mg Tablet, 25 MG PO HS, (Reported) Entered as Reported by: MADY BROWNING on 10/29/21 145 Citalopram Hydrobromide (Citalopram HBr) 20 Mg Tablet, 20 MG PO HS, (Reported) Entered as Reported by: PATTI MANUEL on 08/02/19 1619 Clopidogrel Bisulfate (Plavix) 75 Mg Tablet, 75 MG PO DAILY Prescribed by: JACINTO CASTREJON on 11/09/21 210 Famotidine (Famotidine) 20 Mg Tablet, 20 MG PO HS, (Reported) Entered as Reported by: MADY BROWNING on 10/29/21 145 Fluticasone Propionate (Fluticasone Propionate) 16 Gm [place].susp, 1 SPRAY [place]SE[place] DAILY, (Reported) Entered as Reported by: MADY BROWNING on 10/29/21 145 Gabapentin (Gabapentin) 100 Mg Capsule, 100 MG PO HS, (Reported) Entered as Reported by: MADY BROWNING on 10/29/21 145 Hydralazine HCl (Hydralazine HCl) 50 Mg Tablet, 50 MG PO BID, (Reported) Entered as Reported by: MADY BROWNING on 10/29/21 145 Ibuprofen (Ibuprofen) 600 Mg Tablet, 600 MG PO Q6H PRN for PAIN-MILD (1-4), (Reported) Entered as Reported by: MADY BROWNING on 10/29/21 145 Insulin Glargine/Lixisenatide (Soliqua 100 Unit-33 Mcg/ml Pen) 3 Ml Insuln.pen, 52 UNITS SC HS, (Reported) Entered as Reported by: MADY BROWNING on 10/29/21 145 Insulin Lispro (Humalog Kwikpen) 100 Unit/1 Ml Insuln.pen, 22 UNITS SC AC, (Reported) Entered as Reported by: MADY BROWNING on 10/29/21 145 Isosorbide Mononitrate (Isosorbide Mononitrate ER) 30 Mg Tab.er.24h, 30 MG PO DAILY Prescribed by: RAKAN DEWITT on 11/06/21 05 Levothyroxine Sodium (Levothyroxine Sodium) 137 Mcg Tablet, 137 MCG PO DAILY, (Reported) Entered as Reported by: MADY BROWNING on 10/29/211450 Lisinopril (Lisinopril) 40 Mg Tablet, 40 MG PO DAILY Prescribed by: RAKAN DEWITT on 11/06/21551 Lorazepam (Ativan) 0.5 Mg Tablet, 0.5 MG PO TID PRN for ANXIETY Prescribed by: RAKAN DEWITT on 11/06/21 05 Magnesium Oxide (Magnesium) 400 Mg Tablet, 400 MG PO HS, (Reported) Entered as Reported by: MADY BROWNING on 10/29/21 145 Mirabegron (Myrbetriq) 50 Mg Tab.er.24h, 50 MG PO DAILY, (Reported) Entered as Reported by: PATTI MANUEL on 08/02/19 1431 Mirtazapine (Mirtazapine) 30 Mg Tablet, 30 MG PO HS, (Reported) Entered as Reported by: MADY BROWNING on 10/29/21 145 Oxycodone Hcl (Oxyir Tablet) 5 Mg Tab, 5 MG PO Q4H PRN for PAIN-SEVERE (8-10) Prescribed by: RAKAN DEWITT on 11/06/21 05 Pantoprazole Sodium (Pantoprazole Sodium) 40 Mg Tablet.dr, 40 MG PO DAILY Prescribed by: RAKAN DEWITT on 11/06/21 05 Quetiapine Fumarate (Quetiapine Fumarate) 25 Mg Tablet, 25 MG PO HS Prescribed by: RAKAN DEWITT on 11/06/21 05 Ticagrelor (Brilinta) 90 Mg Tablet, 90 MG PO BID Prescribed by: RAKAN DEWITT on 11/06/21 0552 Discontinued Medications Modafinil (Modafinil) 100 Mg Tablet, 100 MG PO DAILY, (Reported) Entered as Reported by: MADY BROWNING on 10/29/21 1451 Review of Systems Review of Systems Constitutional: see HPI EENTM: epistaxis Respiratory: short of breath Cardiovascular: no symptoms reported Gastrointestinal: abdominal pain, nausea, vomiting Genitourinary: no symptoms reported : No Musculoskeletal: no symptoms reported Skin: no symptoms reported Psychiatric/Neurological: Anxiety Hematologic/Lymphatic: Easy Bleeding, Easy Bruising All Other Systems Reviewed Negative Unless Noted: Yes Past Yoihbup-Bkbirf-Cyzoex Hx Patient Social History Tobacco Use?: No Substance use?: No Alcohol Use?: No Pt feels they are or have been: No Immunizations Up To Date Tetanus Booster (TDap): Unknown First/Initial COVID19 Vaccinat: YES Second COVID19 Vaccination [place]: YES Third COVID19 Vaccination Date: YES COVID19 Vaccine Personal [employer]er: [employer] Seasonal Allergies Seasonal Allergies: No Past Medical History Surgery/Hospitalization HX: IDDM, GERD, HYPOTHRYOID, HTN, HIGH CHOLESTEROL Surgeries: Yes Bladder Surgery, Cardiac, CABG, Gallbladder, Hysterectomy Respiratory: Yes Pulmonary Embolism Cardiac: Yes Cardiomyopathy, Coronary Artery Disease, Hypertension Neurological: Yes Stroke, TIA [employer] SKATING RINK History: Hysterectomy Genitourinary: Yes UTI-Chronic Gastrointestinal: Yes Gastroesophageal Reflux, Gall Bladder Disease Musculoskeletal: Yes Arthritis Endocrine: Yes Diabetes, Insulin dep, Hypothyroidsim HEENT: Yes Cancer: No Psychosocial: Yes Anxiety Integumentary: No Blood Disorders: No Family Medical History Patient reports no known family medical history. Heart Disease, Cancer, Diabetes Physical Exam Vital Signs Vital Signs - First Documented 11/09/21 18:31 Temp 36.9 Pulse 73 Resp 24 B/P (MAP) 123/70 (87) Pulse Ox 94 Capillary Refill : Height, Weight, BMI Height: 5'2.00" Weight: 170lbs. oz. [id number]; 38.54 BMI Method:Stated General Appearance: Anxious, Chronically ill, Mild Distress Eyes: Bilateral Eye Normal Inspection, Bilateral Eye PERRL, Bilateral Eye EOMI HEENT: Normal ENT Inspection (dried blood - no active bleeding left nare (after nasal clamp applied for about 20 minutes)), Pale Conjunctivae (L), Pale Conjunctivae (R), Other (dry oral mucosa - no active bleeding noted in the posterior pharynx) Neck: Normal Inspection Respiratory: No Accessory Muscle Use, No Respiratory Distress, Rhonci (bilateral - anterior - no increased work of breathing/labored breathing, sats 96% on room air) Cardiovascular: Regular Rate, Rhythm, Normal Peripheral Pulses Gastrointestinal: Soft, Tenderness (mild epigastric tenderness), Other (patient had vomited up a large amount of dark red blood) Extremity: Normal Capillary Refill, Normal Inspection Neurologic/Psychiatric: Alert, Oriented x3, No Motor/Sensory Deficits, Depressed Affect Skin: Diaphoresis, Pallor Progress/Results/Core Measures Suspected Sepsis SIRS Temperature: Pulse: Respiratory Rate: Laboratory Tests 11/09/21 18:25: White Blood Count 16.5H Blood Pressure / Mean: Laboratory Tests 11/09/21 18:25: Creatinine 1.66H, Platelet Count 286, Total Bilirubin 0.7 Results/Orders Lab Results Laboratory Tests Test 11/09/21 18:25 Range/Units White Blood Count 16.5 H 4.3-11.0 10^3/uL Red Blood Count 3.93 3.80-5.11 10^6/uL Hemoglobin 12.2 11.5-16.0 g/dL Hematocrit 39 35-52 % Mean Corpuscular Volume 98 80-99 fL Mean Corpuscular Hemoglobin 31 25-34 pg Mean Corpuscular Hemoglobin Concent 32 32-36 g/dL Red Cell Distribution Width 14.6 H 10.0-14.5 % Platelet Count 286 130-400 10^3/uL Mean Platelet Volume 10.7 9.0-12.2 fL Immature Granulocyte % (Auto) 1 % Neutrophils (%) (Auto) 72 42-75 % Lymphocytes (%) (Auto) 18 12-44 % Monocytes (%) (Auto) 7 0-12 % Eosinophils (%) (Auto) 2 0-10 % Basophils (%) (Auto) 1 0-10 % Neutrophils # (Auto) 11.9 H 1.8-7.8 10^3/uL Lymphocytes # (Auto) 3.0 1.0-4.0 10^3/uL Monocytes # (Auto) 1.1 H 0.0-1.0 10^3/uL Eosinophils # (Auto) 0.3 0.0-0.3 10^3/uL Basophils # (Auto) 0.1 0.0-0.1 10^3/uL Immature Granulocyte # (Auto) 0.1 0.0-0.1 10^3/uL Neutrophils % (Manual) 76 % Lymphocytes % (Manual) 18 % Monocytes % (Manual) 5 % Eosinophils % (Manual) 1 % Blood Morphology Comment NORMAL Sodium Level 142 135-145 MMOL/L Potassium Level 4.5 3.6-5.0 MMOL/L Chloride Level 102 98-107 MMOL/L Carbon Dioxide Level 25 21-32 MMOL/L Anion Gap 15 H 5-14 MMOL/L Blood Urea Nitrogen 23 H 7-18 MG/DL Creatinine 1.66 H 0.60-1.30 MG/DL Estimat Glomerular Filtration Rate 33 BUN/Creatinine Ratio 14 Glucose Level 315 H 70-105 MG/DL Calcium Level 9.2 8.5-10.1 MG/DL Corrected Calcium 9.5 8.5-10.1 MG/DL Total Bilirubin 0.7 0.1-1.0 MG/DL Aspartate Amino Transf (AST/SGOT) 21 5-34 U/L Alanine Aminotransferase (ALT/SGPT) 19 0-55 U/L Alkaline Phosphatase 89 40-136 U/L Total Creatine Kinase 55 29-168 U/L Troponin I 0.073 H <0.028 NG/ML Total Protein 7.5 6.4-8.2 GM/DL Albumin 3.6 3.2-4.5 GM/DL My Orders Orders - JACINTO CASTREJON MD Ed Iv/Invasive Line Start (11/09/21 18:31) Cbc With Automated Diff (11/09/21 18:31) Comprehensive Metabolic Panel (11/09/21 18:31) Troponin I [place] (11/09/21 18:31) Creatine Kinase (11/09/21 18:31) Chest 1 View, Ap/Pa Only (11/09/21 18:31) Ekg Tracing (11/09/21 18:31) Type And Screen (11/09/21 18:31) Red Cells Leukocytes Reduced (11/09/21 18:31) Ondansetron Injection (Zofran Injectio (11/09/21 18:45) Ns Iv 1000 Ml (Sodium Chloride 0.9%) (11/09/21 18:45) Ns Iv 500 Ml (Sodium Chloride 0.9%) (11/09/21 18:33) Oxymetazoline 0.05% Nasal [place] (Afrin 0. (11/09/21 18:38) Lidocaine/Epi 1% 1:200,00 (Xylocaine/Epi (11/09/21 18:45) Tranexamic Acid Injection (Cyklokapron I (11/09/21 18:45) Manual Differential (11/09/21 18:25) Medications Given in ED Current Medications Medications Dose Ordered Sig/Briseida Route Start Time Stop Time Status Last Admin Dose Admin Ondansetron HCl 8 mg ONCE ONCE IVP 11/09/21 18:45 11/09/21 18:46 DC 11/09/21 18:31 8 MG Sodium Chloride 500 ml @ ud STK-MED ONCE .ROUTE 11/09/21 18:33 11/09/21 18:36 DC 11/09/21 18:40 0 MLS/HR Vital Signs/I&O 11/09/21 11/09/21 18:31 18:40 Temp 36.9 36.8 36.7 Pulse 73 Resp 24 B/P (MAP) 123/70 (87) Pulse Ox 94 Capillary Refill : Progress Note : Time: 20:54 Progress Note Patient reassessed, continues to have controlled bleeding from the left nare. Her vital signs are stable. I advised her that I talked to Dr. Whitaker, cardiology on-call for Dr. Sutherland this evening. I spoke with him and he said to advise her that absolutely without doubt if she was not on an anticoagulant after her stent that she would . He recommends Plavix 75 mg daily as an alternative to the Brilinta. He states that she absolutely has to be on something to protect the stent. I went back in and talk to her and her son and advised them of this in no uncertain terms. She is agreeable to starting the Plavix but states she is not going to take anything today as she already took a dose of Brilinta this morning. She states she will take it tomorrow. She advises she would like it sent to [facility] pharmacy in [facility]. I did tell her that she could potentially have a recurrence of the nosebleed I will give her follow-up with the ENT doctor on-call, Dr. Wan. She states that she is not sure if she wants to restart hospice but she and her son will discuss this tomorrow. All questions are sought and answered. Patient is stable for discharge ECG Initial ECG Impression Date: Nov 09, 2021 Initial ECG Impression Time: 18:23 Initial ECG Rate: 77 Initial ECG Rhythm: Normal Sinus Initial ECG Intervals NM 44 QRS 101 QTc 469 Initial ECG Impression: Nonspecific Changes Diagnostic Imaging Diagonstic Imaging: Xray Plain Films/CT/US/NM/MRI: chest Comments [facility] [place], [place] NAME: ML DIAS [facility] REC#: [id number] PT STATUS: REG ER : 1950 PHYSICIAN: JACINTO CASTREJON MD ADMIT DATE: 11/09/21/ER Signed Date of Exam:11/09/21 CHEST 1 VIEW, AP/PA ONLY INDICATION: Shortness of breath, vomiting blood, coronary artery disease. COMPARISON: 10/30/2021 FINDINGS: Single view of the chest demonstrates cardiac enlargement without pulmonary edema or acute infiltrate. There is no pneumothorax or effusion. Sternal wires are midline. Osseous structures are normal. IMPRESSION: Cardiac enlargement without pulmonary edema or acute infiltrate. Dictated by: Dictated on workstation # [id number] Dict: 11/09/211906 Trans: 11/09/211927 [facility] [id number] Interpreted by: EWELINA GONZALEZ Electronically signed by: EWELINA GONZALEZ 11/09/211927 Departure Communication (Admissions) Time/Spoke to Consulting Phy: 20:[address] Whitaker, [facility] Plavix 75mg daily Impression Primary Impression: Epistaxis Additional Impression: CAD (coronary artery disease) Qualified Codes: I25.10 - Atherosclerotic heart disease of [place] coronary artery without angina pectoris Disposition: HOME, SELF-CARE Condition: Stable Departure-Patient Inst. Decision time for Depature: 20:57 Referrals: JESSICA CHAVES MD (PCP) Primary Care Physician SANDEEP WAN MD, DAVID L JR, MD Patient Instructions: Nosebleeds Add. Discharge Instructions: If you have a recurrence of your nosebleed, pinch at the tip of your nose and hold pressure for 5 to 10 minutes, leaning forward so that the blood does not run down your throat. You likely will need to come back to the emergency room so that we can see if it needs packed or cautery. I have given you contact information for Dr. Sandeep Wan, the ear nose and throat doctor who takes care of nosebleeds. You will need to start taking Plavix, a blood thinner tomorrow to help protect your stent. If you do not take any blood thinner at all it is highly likely that you will as a result of your new cardiac stent placed this month. Please call and talk with Dr. Sutherland at his office tomorrow so that he is aware you have changed from Brilinta to Plavix. Come back to the emergency department for any other new, concerning or emergent complaints. Scripts Clopidogrel Bisulfate (Plavix) 75 Mg Tablet 75 MG PO DAILY, #30 TAB Prov: JACINTO CASTREJON MD 11/09/21 JACINTO CASTREJON MD Nov 09, 2021 18:34
[2021-11-09] MEDS ORDERED: OXYMETAZOLINE (AFRIN) 0.05% NA 30 ML BTL STA (18:38)
[2021-11-09 18:44] LABS: BASOPHILS # (AUTO) 0.1 10^3/uL (0.0-0.1); BASOPHILS % (AUTO) 1 % (0-10); EOSINOPHILS # (AUTO) 0.3 10^3/uL (0.0-0.3); EOSINOPHILS % (AUTO) 2 % (0-10); HEMATOCRIT 39 % (35-52); HEMOGLOBIN 12.2 g/dL (11.5-16.0); LYMPHOCYTES % (AUTO) 18 % (12-44); MEAN CORPUSCULAR HEMOGLOBIN 31 pg (25-34); MEAN CORPUSCULAR HGB CONC 32 g/dL (32-36); MEAN CORPUSCULAR VOLUME 98 fL (80-99); MEAN PLATELET VOLUME 10.7 fL (9.0-12.2); MONOCYTES # (AUTO) 1.1 10^3/uL (0.0-1.0); MONOCYTES % (AUTO) 7 % (0-12); NEUTROPHILS # (AUTO) 11.9 10^3/uL (1.8-7.8); NEUTROPHILS % (AUTO) 72 % (42-75); PLATELET COUNT 286 10^3/uL (130-400); WHITE BLOOD COUNT 16.5 10^3/uL (4.3-11.0)
[2021-11-09] MEDS ORDERED: ONDANSETRON 4 MG/2 ML (SDV) Z0FRAN IVP ONE (18:45)
[2021-11-09] MEDS ORDERED: NS IV 1000 ML 1,000 ML IV SCH (18:45)
[2021-11-09] MEDS ORDERED: TRANEXAMIC ACID 100 MG/ML 10 ML INJECTION IV ONE (18:45)
[2021-11-09] MEDS ORDERED: LIDOCAINE/EPI 1%-1:200,000 (XYLOCAINE) 30 ML VIAL INJ ONE (18:45)
[2021-11-09 18:50] LABS: ALBUMIN 3.6 GM/DL (3.2-4.5)
[2021-11-09 18:51] LABS: POTASSIUM 4.5 MMOL/L (3.6-5.0)
[2021-11-09 18:52] LABS: CALCIUM 9.2 MG/DL (8.5-10.1)
[2021-11-09 18:53] LABS: TOTAL PROTEIN 7.5 GM/DL (6.4-8.2)
[2021-11-09 18:55] LABS: BILIRUBIN,TOTAL 0.7 MG/DL (0.1-1.0)
[2021-11-09 18:57] LABS: CREATININE SERUM 1.66 MG/DL (0.60-1.30)
--- NOTE | 2021-11-09 19:12 | Diagnostic Imaging Report ---
INDICATION: Shortness of breath, vomiting blood, coronary artery disease. COMPARISON: 10/30/2021 FINDINGS: Single view of the chest demonstrates cardiac enlargement without pulmonary edema or acute infiltrate. There is no pneumothorax or effusion. Sternal wires are midline. Osseous structures are normal. IMPRESSION: Cardiac enlargement without pulmonary edema or acute infiltrate. Dictated by: Dictated on workstation # [id number]
[2021-11-09 19:57] LABS: EOSINOPHILS % (MANUAL) 1 %; LYMPHOCYTES % (MANUAL) 18 %; MONOCYTES % (MANUAL) 5 %; NEUTROPHILS % (MANUAL) 76 %; RBC MORPH NORMAL
[2021-11-09] MEDS ORDERED: CLOP75TA69 PO (21:01)
[2021-11-09 21:19] VITALS: BP 147/61
== END 2021-11-09 21:19 | disposition home or self-care (01) ==
LOC: EDUNIT# 18:19 → ER 18:20
DX: R04.0 Epistaxis (principal); I25.10 Atherosclerotic heart disease of native coronary artery without angina pectoris; I10 Essential (primary) hypertension; K21.9 Gastro-esophageal reflux disease without esophagitis; F41.9 Anxiety disorder, unspecified; E11.9 Type 2 diabetes mellitus without complications; E03.9 Hypothyroidism, unspecified; Z86.73 Personal history of transient ischemic attack (TIA), and cerebral infarction without residual deficits; Z86.711 Personal history of pulmonary embolism; Z79.4 Long term (current) use of insulin; Z79.890 Hormone replacement therapy; Z79.899 Other long term (current) drug therapy; Z79.01 Long term (current) use of anticoagulants; Z79.82 Long term (current) use of aspirin
CPT/HCPCS: 71045; 80053; 82550; 84484; 85007; 85027; 86850; 86900; 86901; 86920; 93005; 96374; 99284; P9016; 36415